=== PATIENT | male | born 1940 | race Caucasian/White ===

== ENCOUNTER 2016-08-28 | Outpatient (CLI) | payer MEDICARE, MEDICAID | END 2016-08-28 15:15 | disposition critical access hospital (66) | DX: R55 Syncope and collapse (principal) | CPT/HCPCS: A0425; A0427 ==

== ENCOUNTER 2016-08-28 15:36 | Emergency (ER) | payer MEDICARE, MEDICAID ==
[2016-08-28] MEDS ORDERED: MORPHINE 2 MG/ML SYRINGE IVP STA (15:57)
[2016-08-28] MEDS ORDERED: MORPHINE 2 MG/ML SYRINGE ONE (16:06)
== END 2016-08-28 18:23 | disposition home or self-care (01) ==
DX: R55 Syncope and collapse (principal); I10 Essential (primary) hypertension; M06.9 Rheumatoid arthritis, unspecified; M19.90 Unspecified osteoarthritis, unspecified site; N40.0 Benign prostatic hyperplasia without lower urinary tract symptoms; Z85.828 Personal history of other malignant neoplasm of skin; Z87.891 Personal history of nicotine dependence

== ENCOUNTER 2016-08-31 07:37 | Inpatient (IN) | payer MEDICARE, MEDICAID ==
[2016-08-31] MEDS ORDERED: SODIUM CHLORIDE 0.9% 1,000 ML IV ONE (07:56)
[2016-08-31] MEDS ORDERED: MORPHINE 2 MG/ML SYRINGE IVP STA ×3 (09:17→12:37)
[2016-08-31] MEDS ORDERED: ONDANSETRON 4 MG/2 ML VIAL IVP STA (09:17)
[2016-08-31] MEDS ORDERED: MORPHINE 2 MG/ML SYRINGE ONE ×3 (09:26→12:38)
[2016-08-31] MEDS ORDERED: ONDANSETRON 4 MG/2 ML VIAL ONE (09:26)
[2016-08-31] MEDS ORDERED: PIPERACILLIN/TAZOBACTAM 3.375 GM in SODIUM CHLORIDE 0.9% MINIBAG 100 ML IV SCH (14:00)
[2016-08-31] MEDS: SODIUM CHLORIDE 0.45% 1,000 ML IV SCH (14:51)
[2016-08-31] MEDS ORDERED: fentaNYL 25 MCG PATCH TOP SCH (15:00)
[2016-08-31] MEDS ORDERED: fentaNYL 100 MCG/2 ML VIAL IVP SCH (16:00)
[2016-08-31] MEDS ORDERED: LABETALOL 20 MG/4 ML SYRINGE IVP PRN (16:04)
[2016-08-31] MEDS ORDERED: MINERAL OIL 30 ML UDC PO PRN (16:33)
[2016-08-31] MEDS ORDERED: METHYLNALTREXONE 12 MG/0.6 ML VIAL SUBQ PRN (16:35)
[2016-08-31] MEDS ORDERED: PSYLLIUM PACKET PO PRN (16:47)
[2016-08-31] MEDS: SODIUM CHLORIDE FLUSH 0.9% 10 ML SYRINGE IVP SCH ×2 (17:12→22:32)
[2016-08-31] MEDS: SCOPOLAMINE PATCH TOP SCH (17:20)
[2016-08-31] MEDS: PANTOPRAZOLE 40 MG TABLET PO SCH (17:22)
[2016-08-31] MEDS: ONDANSETRON ODT 4 MG TABLET TL PRN (17:33)
[2016-08-31] MEDS ORDERED: predniSONE 5 MG TABLET PO ONE (17:34)
[2016-08-31] MEDS ORDERED: predniSONE 5 MG TABLET PO SCH (18:00)
[2016-08-31] MEDS ORDERED: predniSONE 1 MG TABLET PO SCH (18:00)
[2016-08-31] MEDS: PIPERACILLIN/TAZOBACTAM 3.375 GM in SODIUM CHLORIDE 0.9% MINIBAG 100 ML IV SCH ×2 (18:11→23:56)
[2016-08-31] MEDS: MORPHINE SOL 10 MG/0.5 ML SYRINGE PO PRN ×2 (19:10→22:47)
[2016-09-01] MEDS: MORPHINE SOL 10 MG/0.5 ML SYRINGE PO PRN ×6 (01:01→23:33)
[2016-09-01] MEDS: SODIUM CHLORIDE FLUSH 0.9% 10 ML SYRINGE IVP SCH ×3 (03:58→16:06)
[2016-09-01] MEDS: PANTOPRAZOLE 40 MG TABLET PO SCH (07:10)
[2016-09-01] MEDS ORDERED: diphenhydrAMINE INJ 50 MG/ML VIAL IVP PRN (07:46)
[2016-09-01] MEDS: SODIUM CHLORIDE FLUSH 0.9% 10 ML SYRINGE IVP PRN ×2 (08:25→13:09)
[2016-09-01] MEDS: PIPERACILLIN/TAZOBACTAM 3.375 GM in SODIUM CHLORIDE 0.9% MINIBAG 100 ML IV SCH ×3 (08:28→23:34)
[2016-09-01] MEDS ORDERED: POLYETHYLENE GLYCOL 3350 17 GM PACKET PO SCH (09:00)
[2016-09-01] MEDS ORDERED: DOCUSATE SODIUM 100 MG CAPSULE PO SCH (09:00)
[2016-09-01] MEDS ORDERED: predniSONE 1 MG TABLET PO SCH (10:00)
[2016-09-01] MEDS: SODIUM CHLORIDE 0.45% 1,000 ML IV SCH ×3 (12:45→23:38)
[2016-09-01] MEDS: ENOXAPARIN 40 MG/0.4 ML SYRINGE SUBQ SCH (14:16)
[2016-09-01] MEDS: ONDANSETRON ODT 4 MG TABLET TL PRN (14:46)
[2016-09-01] MEDS: PANTOPRAZOLE 40 MG VIAL IVP SCH (16:05)
[2016-09-01] MEDS: POLYETHYLENE GLYCOL 3350 17 GM PACKET PO SCH (17:19)
[2016-09-01] MEDS: diphenhydrAMINE INJ 50 MG/ML VIAL IVP PRN (20:49)
[2016-09-02] MEDS: MORPHINE SOL 10 MG/0.5 ML SYRINGE PO PRN ×3 (01:58→23:31)
[2016-09-02] MEDS: diphenhydrAMINE INJ 50 MG/ML VIAL IVP PRN ×2 (05:25→20:37)
[2016-09-02] MEDS: SODIUM CHLORIDE FLUSH 0.9% 10 ML SYRINGE IVP SCH ×3 (05:48→20:39)
[2016-09-02] MEDS: PANTOPRAZOLE 40 MG VIAL IVP SCH (06:13)
[2016-09-02] MEDS ORDERED: PANTOPRAZOLE 40 MG VIAL IVP SCH (07:00)
[2016-09-02] MEDS ORDERED: DOCUSATE SODIUM 100 MG CAPSULE PO SCH ×2 (08:00)
[2016-09-02] MEDS ORDERED: SENNA 8.6 MG TABLET PO SCH (08:00)
[2016-09-02] MEDS ORDERED: SENNA 528 MG/15 ML SYRUP PO PRN (08:10)
[2016-09-02] MEDS: PIPERACILLIN/TAZOBACTAM 3.375 GM in SODIUM CHLORIDE 0.9% MINIBAG 100 ML IV SCH ×3 (08:11→23:54)
[2016-09-02] MEDS: predniSONE 5 MG TABLET PO SCH (08:17)
[2016-09-02] MEDS: predniSONE 1 MG TABLET PO SCH (08:17)
[2016-09-02] MEDS: ENOXAPARIN 40 MG/0.4 ML SYRINGE SUBQ SCH (08:18)
[2016-09-02] MEDS: POLYETHYLENE GLYCOL 3350 17 GM PACKET PO SCH (08:19)
[2016-09-02] MEDS: OMEGA-3 ACID ETHYL ESTERS 1 GM CAPSULE PO SCH ×2 (08:35→20:38)
[2016-09-02] MEDS: ONDANSETRON ODT 4 MG TABLET TL PRN (08:35)
[2016-09-02] MEDS: DOCUSATE SODIUM 250 MG CAPSULE PO SCH ×2 (08:35→20:38)
[2016-09-02] MEDS ORDERED: SENNA 528 MG/15 ML SYRUP PO SCH (09:00)
[2016-09-02] MEDS ORDERED: SENNA 528 MG/15 ML SYRUP PO ONE (09:05)
[2016-09-02] MEDS: SENNA 528 MG/15 ML SYRUP PO SCH ×3 (12:13→20:37)
[2016-09-02] MEDS ORDERED: BISACODYL 10 MG SUPP PR ONE (15:00)
[2016-09-02] MEDS ORDERED: METHYLNALTREXONE 12 MG/0.6 ML VIAL SUBQ ONE (16:30)
[2016-09-02] MEDS ORDERED: MORPHINE 2 MG/ML SYRINGE IVP PRN (20:56)
[2016-09-03] MEDS: diphenhydrAMINE INJ 50 MG/ML VIAL IVP PRN ×2 (03:01→20:28)
[2016-09-03] MEDS: MORPHINE SOL 10 MG/0.5 ML SYRINGE PO PRN ×7 (04:12→22:33)
[2016-09-03] MEDS: SENNA 528 MG/15 ML SYRUP PO SCH ×4 (04:13→22:33)
[2016-09-03] MEDS: PANTOPRAZOLE 40 MG VIAL IVP SCH (06:18)
[2016-09-03] MEDS: SODIUM CHLORIDE FLUSH 0.9% 10 ML SYRINGE IVP SCH ×3 (06:18→23:53)
[2016-09-03] MEDS: PIPERACILLIN/TAZOBACTAM 3.375 GM in SODIUM CHLORIDE 0.9% MINIBAG 100 ML IV SCH ×2 (08:22→16:27)
[2016-09-03] MEDS: SODIUM CHLORIDE 0.45% 1,000 ML IV SCH ×2 (08:22→16:16)
[2016-09-03] MEDS ORDERED: LISINOPRIL 5 MG TABLET PO SCH (09:00)
[2016-09-03] MEDS ORDERED: fentaNYL 12 MCG PATCH TOP SCH (09:00)
[2016-09-03] MEDS ORDERED: fentaNYL 25 MCG PATCH TOP SCH (09:00)
[2016-09-03] MEDS: predniSONE 5 MG TABLET PO SCH (09:13)
[2016-09-03] MEDS: predniSONE 1 MG TABLET PO SCH (09:13)
[2016-09-03] MEDS: ENOXAPARIN 40 MG/0.4 ML SYRINGE SUBQ SCH (09:14)
[2016-09-03] MEDS: POLYETHYLENE GLYCOL 3350 17 GM PACKET PO SCH (09:29)
[2016-09-03] MEDS: OMEGA-3 ACID ETHYL ESTERS 1 GM CAPSULE PO SCH ×2 (09:32→21:52)
[2016-09-03] MEDS ORDERED: LABETALOL 20 MG/4 ML SYRINGE IVP PRN (09:50)
[2016-09-03] MEDS: SCOPOLAMINE PATCH TOP SCH (14:38)
[2016-09-03] MEDS: SODIUM CHLORIDE FLUSH 0.9% 10 ML SYRINGE IVP PRN ×2 (16:16→20:28)
[2016-09-04] MEDS: PIPERACILLIN/TAZOBACTAM 3.375 GM in SODIUM CHLORIDE 0.9% MINIBAG 100 ML IV SCH ×3 (00:04→17:26)
[2016-09-04] MEDS: MORPHINE SOL 10 MG/0.5 ML SYRINGE PO PRN ×4 (01:16→08:27)
[2016-09-04] MEDS: SENNA 528 MG/15 ML SYRUP PO SCH ×3 (03:32→17:26)
[2016-09-04] MEDS: diphenhydrAMINE INJ 50 MG/ML VIAL IVP PRN (03:38)
[2016-09-04] MEDS: ONDANSETRON ODT 4 MG TABLET TL PRN (03:50)
[2016-09-04] MEDS: PANTOPRAZOLE 40 MG VIAL IVP SCH (06:18)
[2016-09-04] MEDS: SODIUM CHLORIDE FLUSH 0.9% 10 ML SYRINGE IVP SCH ×2 (06:18→15:45)
[2016-09-04] MEDS: ENOXAPARIN 40 MG/0.4 ML SYRINGE SUBQ SCH (08:22)
[2016-09-04] MEDS: predniSONE 5 MG TABLET PO SCH (08:22)
[2016-09-04] MEDS: predniSONE 1 MG TABLET PO SCH (08:22)
[2016-09-04] MEDS: POLYETHYLENE GLYCOL 3350 17 GM PACKET PO SCH ×2 (08:23→17:27)
[2016-09-04] MEDS: OMEGA-3 ACID ETHYL ESTERS 1 GM CAPSULE PO SCH (08:23)
== END 2016-09-04 18:55 | disposition home or self-care (01) | DRG 312 ==
DX: R55 Syncope and collapse (principal); C77.0 Secondary and unspecified malignant neoplasm of lymph nodes of head, face and neck; K59.09 Other constipation; G89.3 Neoplasm related pain (acute) (chronic); E87.1 Hypo-osmolality and hyponatremia; C76.0 Malignant neoplasm of head, face and neck; C14.0 Malignant neoplasm of pharynx, unspecified; K59.03 Drug induced constipation; T40.2X5A Adverse effect of other opioids, initial encounter; F41.8 Other specified anxiety disorders; K04.7 Periapical abscess without sinus; K08.409 Partial loss of teeth, unspecified cause, unspecified class; C01 Malignant neoplasm of base of tongue; E86.0 Dehydration; M06.9 Rheumatoid arthritis, unspecified; I10 Essential (primary) hypertension; G47.00 Insomnia, unspecified; F32.9 Major depressive disorder, single episode, unspecified; F41.0 Panic disorder [episodic paroxysmal anxiety]; Z51.5 Encounter for palliative care; Z87.891 Personal history of nicotine dependence; Z79.52 Long term (current) use of systemic steroids

== ENCOUNTER 2016-09-09 09:51 | Outpatient (CLI) | payer MEDICARE, MEDICAID | END 2016-09-09 09:52 | disposition home or self-care (01) | DX: C02.9 Malignant neoplasm of tongue, unspecified (principal); C79.89 Secondary malignant neoplasm of other specified sites; Z79.891 Long term (current) use of opiate analgesic; R53.83 Other fatigue; F41.9 Anxiety disorder, unspecified; R51 Headache; Z79.52 Long term (current) use of systemic steroids; G47.00 Insomnia, unspecified; R63.4 Abnormal weight loss; K59.00 Constipation, unspecified ==

== ENCOUNTER 2016-09-16 11:18 | Outpatient (CLI) | payer MEDICARE, MEDICAID | END 2016-09-16 11:19 | disposition home or self-care (01) | DX: C01 Malignant neoplasm of base of tongue (principal); C79.89 Secondary malignant neoplasm of other specified sites; F41.1 Generalized anxiety disorder; F43.0 Acute stress reaction; R13.10 Dysphagia, unspecified; F32.9 Major depressive disorder, single episode, unspecified; R51 Headache; M06.9 Rheumatoid arthritis, unspecified; Z79.52 Long term (current) use of systemic steroids; K59.00 Constipation, unspecified; Z79.891 Long term (current) use of opiate analgesic; M54.2 Cervicalgia; E46 Unspecified protein-calorie malnutrition; Z51.5 Encounter for palliative care ==

== ENCOUNTER 2016-09-23 09:24 | Outpatient (CLI) | payer MEDICARE, MEDICAID | END 2016-09-23 09:25 | disposition home or self-care (01) | DX: Z51.5 Encounter for palliative care (principal); G89.3 Neoplasm related pain (acute) (chronic); C01 Malignant neoplasm of base of tongue; C79.89 Secondary malignant neoplasm of other specified sites; K59.00 Constipation, unspecified; E46 Unspecified protein-calorie malnutrition; F41.9 Anxiety disorder, unspecified; B37.0 Candidal stomatitis; Z79.891 Long term (current) use of opiate analgesic; Z93.1 Gastrostomy status; R13.10 Dysphagia, unspecified; E86.0 Dehydration; R51 Headache; R53.83 Other fatigue; G47.00 Insomnia, unspecified; R42 Dizziness and giddiness; R27.0 Ataxia, unspecified; Z95.828 Presence of other vascular implants and grafts; M06.9 Rheumatoid arthritis, unspecified; F33.9 Major depressive disorder, recurrent, unspecified ==

== ENCOUNTER 2016-09-30 08:21 | Outpatient (CLI) | payer MEDICARE, MEDICAID | END 2016-09-30 08:22 | disposition home or self-care (01) | DX: Z51.5 Encounter for palliative care (principal); G89.3 Neoplasm related pain (acute) (chronic); C01 Malignant neoplasm of base of tongue; C79.2 Secondary malignant neoplasm of skin; K59.00 Constipation, unspecified; E46 Unspecified protein-calorie malnutrition; F41.9 Anxiety disorder, unspecified; F32.9 Major depressive disorder, single episode, unspecified; R53.1 Weakness; R51 Headache; E86.0 Dehydration; M06.9 Rheumatoid arthritis, unspecified; Z79.891 Long term (current) use of opiate analgesic; Z95.828 Presence of other vascular implants and grafts; Z79.899 Other long term (current) drug therapy; Z93.1 Gastrostomy status ==

== ENCOUNTER 2016-10-07 12:50 | Outpatient (CLI) | payer MEDICARE, MEDICAID | END 2016-10-07 12:51 | disposition home or self-care (01) | DX: Z51.5 Encounter for palliative care (principal); C01 Malignant neoplasm of base of tongue; C79.2 Secondary malignant neoplasm of skin; G89.3 Neoplasm related pain (acute) (chronic); K59.00 Constipation, unspecified; E46 Unspecified protein-calorie malnutrition; F33.8 Other recurrent depressive disorders; F41.9 Anxiety disorder, unspecified; Z79.899 Other long term (current) drug therapy; Z79.891 Long term (current) use of opiate analgesic; Z93.1 Gastrostomy status; R13.10 Dysphagia, unspecified; M06.9 Rheumatoid arthritis, unspecified ==

== ENCOUNTER 2016-10-14 09:37 | Outpatient (CLI) | payer MEDICARE, MEDICAID | END 2016-10-14 09:38 | disposition home or self-care (01) | DX: Z51.5 Encounter for palliative care (principal); G89.3 Neoplasm related pain (acute) (chronic); K59.00 Constipation, unspecified; E46 Unspecified protein-calorie malnutrition; F33.9 Major depressive disorder, recurrent, unspecified; F41.9 Anxiety disorder, unspecified; C01 Malignant neoplasm of base of tongue; C79.89 Secondary malignant neoplasm of other specified sites; Z79.891 Long term (current) use of opiate analgesic; Z79.899 Other long term (current) drug therapy; Z93.1 Gastrostomy status; R51 Headache; M06.9 Rheumatoid arthritis, unspecified; D64.9 Anemia, unspecified ==

== ENCOUNTER 2016-10-19 10:36 | Emergency (ER) | payer MEDICARE, MEDICAID ==
[2016-10-19] MEDS ORDERED: ONDANSETRON 4 MG/2 ML VIAL IVP STA (11:51)
[2016-10-19] MEDS ORDERED: SODIUM CHLORIDE 0.9% 1,000 ML IV ONE ×3 (11:51→14:16)
[2016-10-19] MEDS ORDERED: ONDANSETRON 4 MG/2 ML VIAL ONE (11:52)
== END 2016-10-19 14:49 | disposition home or self-care (01) ==
DX: E86.0 Dehydration (principal); M62.81 Muscle weakness (generalized); I10 Essential (primary) hypertension; M06.9 Rheumatoid arthritis, unspecified; Z93.1 Gastrostomy status; Z87.891 Personal history of nicotine dependence

== ENCOUNTER 2016-10-24 08:56 | Outpatient (CLI) | payer MEDICARE, MEDICAID | END 2016-10-24 08:57 | disposition home or self-care (01) | DX: Z51.5 Encounter for palliative care (principal); G89.3 Neoplasm related pain (acute) (chronic); C01 Malignant neoplasm of base of tongue; C79.89 Secondary malignant neoplasm of other specified sites; K59.00 Constipation, unspecified; E46 Unspecified protein-calorie malnutrition; F32.89 Other specified depressive episodes; F41.9 Anxiety disorder, unspecified; R53.83 Other fatigue; Z93.1 Gastrostomy status; Z79.891 Long term (current) use of opiate analgesic ==

== ENCOUNTER 2016-10-28 19:40 | Observation (INO) | payer MEDICARE, MEDICAID ==
[2016-10-28] MEDS ORDERED: SODIUM CHLORIDE 0.9% 1,000 ML IV ONE (20:21)
[2016-10-28] MEDS ORDERED: ONDANSETRON 4 MG/2 ML VIAL IVP STA (20:21)
[2016-10-28] MEDS ORDERED: MORPHINE 10 MG/ML VIAL IVP STA (20:21)
[2016-10-28] MEDS ORDERED: ONDANSETRON 4 MG/2 ML VIAL ONE (20:46)
[2016-10-28] MEDS ORDERED: MORPHINE 10 MG/ML VIAL ONE (20:46)
[2016-10-28] MEDS ORDERED: MAGNESIUM SULFATE 2 GRAM 50 ML IV ONE ×2 (21:17→21:24)
[2016-10-28] MEDS ORDERED: CALCIUM GLUCONATE 1000 MG/10 ML VIAL IVP STA (21:17)
[2016-10-28] MEDS ORDERED: MORPHINE SOL 10 MG/0.5 ML SYRINGE PO PRN (22:04)
[2016-10-28] MEDS ORDERED: ACETAMINOPHEN 325 MG TABLET PO PRN (22:06)
[2016-10-28] MEDS ORDERED: ONDANSETRON 4 MG/2 ML VIAL IVP PRN (22:06)
[2016-10-28] MEDS ORDERED: SODIUM CHLORIDE FLUSH 0.9% 10 ML SYRINGE IVP PRN (22:06)
[2016-10-28] MEDS ORDERED: PROMETHAZINE 25 MG/1 ML VIAL IM PRN (22:06)
[2016-10-28] MEDS ORDERED: FENTANYL 50 MCG TD SCH (22:15)
[2016-10-28] MEDS ORDERED: fentaNYL 50 MCG PATCH TOP SCH (23:00)
[2016-10-28] MEDS ORDERED: SENNA 528 MG/15 ML SYRUP PO SCH (23:00)
[2016-10-28] MEDS ORDERED: fentaNYL 25 MCG PATCH TOP SCH (23:00)
[2016-10-28] MEDS ORDERED: CALCIUM GLUCONATE 1000 MG/10 ML VIAL ONE (23:13)
[2016-10-29] MEDS ORDERED: fentaNYL 50 MCG PATCH TOP SCH (00:16)
[2016-10-29] MEDS: SODIUM CHLORIDE 0.9% 1,000 ML IV SCH ×2 (00:36→05:18)
[2016-10-29] MEDS ORDERED: MORPHINE 2 MG/ML SYRINGE ONE (00:43)
[2016-10-29] MEDS: MORPHINE 2 MG/ML SYRINGE IVP PRN ×4 (00:47→08:51)
[2016-10-29] MEDS: PROCHLORPERAZINE 10 MG/2 ML VIAL IVP PRN ×2 (01:08→11:00)
[2016-10-29] MEDS ORDERED: MAGNESIUM SULFATE 2 GRAM 50 ML IV SCH (01:17)
[2016-10-29] MEDS: SODIUM CHLORIDE FLUSH 0.9% 10 ML SYRINGE IVP SCH ×2 (05:18→08:51)
[2016-10-29] MEDS ORDERED: SODIUM CHLORIDE FLUSH 0.9% 10 ML SYRINGE IVP PRN (06:23)
[2016-10-29] MEDS ORDERED: PANTOPRAZOLE 40 MG TABLET PO SCH (07:00)
[2016-10-29] MEDS ORDERED: ENOXAPARIN 40 MG/0.4 ML SYRINGE SUBQ SCH (09:00)
[2016-10-29] MEDS ORDERED: POLYETHYLENE GLYCOL 3350 17 GM PACKET PO SCH ×2 (09:00)
[2016-10-29] MEDS ORDERED: SODIUM CHLORIDE 0.9% 1,000 ML IV SCH (10:00)
[2016-10-29] MEDS ORDERED: MIRTAZAPINE 15 MG TABLET PO SCH (21:00)
== END 2016-10-29 12:00 | disposition home or self-care (01) ==
DX: E86.1 Hypovolemia (principal); E86.0 Dehydration; E87.1 Hypo-osmolality and hyponatremia; E43 Unspecified severe protein-calorie malnutrition; C01 Malignant neoplasm of base of tongue; C77.0 Secondary and unspecified malignant neoplasm of lymph nodes of head, face and neck; K12.33 Oral mucositis (ulcerative) due to radiation; T21.01XA Burn of unspecified degree of chest wall, initial encounter; T20.07XA Burn of unspecified degree of neck, initial encounter; Y84.2 Radiological procedure and radiotherapy as the cause of abnormal reaction of the patient, or of later complication, without mention of misadventure at the time of the procedure; E83.42 Hypomagnesemia; G89.3 Neoplasm related pain (acute) (chronic); I10 Essential (primary) hypertension; M06.9 Rheumatoid arthritis, unspecified; F32.9 Major depressive disorder, single episode, unspecified; F41.9 Anxiety disorder, unspecified; Z79.891 Long term (current) use of opiate analgesic; Z87.891 Personal history of nicotine dependence; Z93.1 Gastrostomy status; Z68.24 Body mass index [BMI] 24.0-24.9, adult; Z79.52 Long term (current) use of systemic steroids; Z95.828 Presence of other vascular implants and grafts
CPT/HCPCS: 36415; 80048; 80053; 81003; 83605; 83690; 83735; 84100; 85025; 96361; 96365; 96372; 96375; 96376; 99283; 99285; A9270; G0378; J1650

== ENCOUNTER 2016-10-30 02:22 | Inpatient (IN) | payer MEDICARE, MEDICAID ==
--- NOTE | 2016-10-30 03:00 | ED Physician Documentation ---
PD HPI DYSPNEA - Stated complaint Stated Complaint: SHORTNESS OF BREATH - Chief complaint Chief Complaint: Resp - History obtained from History obtained from: Patient, Family - History of Present Illness Timing - onset: Today Timing - onset during: Rest Timing - duration: Hours Timing - details: Gradual onset, Still present Inciting event(s): Other (is undergoing radiation therapy for tongue cancer.) - Additional information Additional information: 76 y/o male with tongue and throat cancer has developed increased difficulty breathing with thick secretions and he has developed fever and confusion. He was in the hospital yesterday for treatment of hyponatremia and dehydration. Review of Systems Constitutional: reports: Fever, Myalgias, Fatigue, Sweats Eyes: denies: Decreased vision Ears: denies: Ear pain Nose: reports: Congestion Throat: reports: Sore throat Cardiac: denies: Chest pain / pressure, Palpitations Respiratory: reports: Dyspnea, Cough GI: reports: Nausea. denies: Abdominal Pain : denies: Dysuria, Frequency Skin: denies: Rash Musculoskeletal: reports: Neck pain Neurologic: reports: Generalized weakness. denies: Focal weakness, Numbness PD PAST MEDICAL HISTORY - Past Medical History Cardiovascular: Hypertension, Arrhythmia Respiratory: Shortness of breath Neuro: Headache/migraine Endocrine/Autoimmune: None GI: Hiatal hernia, Chronic constipation, Other : Benign prostate hypertrophy, Frequency, Kidney stones HEENT: Chronic sinusitis Psych: Depression, Anxiety, Claustrophobia Musculoskeletal: Rheumatoid arthritis, Osteoporosis, Fatigue Derm: Herpes zoster - Past Surgical History Past Surgical History: Yes General: Cholecystectomy, Appendectomy, Hiatal hernia repair HEENT: Cataracts, Tonsil/Adenoidectomy - Present Medications Home Medications: Ambulatory Orders Medication Instructions Recorded Confirmed Morphine Sulfate [Morphine Sulf 5 mg PO Q2H PRN #60 ml 09/04/16 10/29/16 Oral (Roxanol)] Ondansetron Odt [Zofran Odt] 4 mg TL Q6HR PRN #30 tablet 09/04/16 10/29/16 Polyethylene Glycol 3350 [Miralax] 34 gm PO BID #1 bottle 09/04/16 10/19/16 Senna Kibler Extract [Senna] 176 mg PO Q4H #100 syrup 09/04/16 10/19/16 Fentanyl [Fentanyl 50mcg patch] 25 mcg TD Q72H 09/11/16 10/29/16 Acetaminophen 1,000 mg PO TID 09/30/16 10/19/16 Mirtazapine 15 mg PO QPM 10/01/16 10/29/16 Fentanyl [Fentanyl 75mcg patch] 50 mcg TD Q72H 10/11/16 10/29/16 predniSONE [Deltasone] 7.5 mg PO DAILY 10/14/16 10/29/16 Lorazepam 0.5 mg PO Q6H PRN 10/29/16 10/29/16 - Allergies Allergies/Adverse Reactions: Allergies Allergy/AdvReac Type Severity Reaction Status Date / Time infliximab [From Remicade] Allergy Severe Anaphylaxis Verified 08/31/16 16:08 abatacept [From Orencia] Allergy Unknown Unknown Verified 08/31/16 16:08 sodium pentathol Allergy Intermediate Hives Uncoded 11/26/12 07:55 - Social History Does the pt smoke?: No Smoking Status: Former smoker Does the pt drink ETOH?: Yes Does the pt have substance abuse?: No - Immunizations Immunizations are current?: Yes Immunizations: TDAP >10years/unknown PD ED PE NORMAL - Vitals Vital signs reviewed: Yes (febrile tachy tachypneic and hypertensive) - General General: Well developed/nourished, Other (The patient is having a lot of upper airway obstruction with rhoncherous breathing he is red from the mid face to the mid chest with radiation young and mass in the left side of the face. ) - HEENT HEENT: PERRL, EOMI, Other (There are thick mucous secreations in the mouth and on the tongue with abrasion to the roof of the mouth from the suctioning. ) - Neck Neck: Supple, no meningeal sign, No bony TTP, Other (The neck is burned from radiation. ) - Cardiac Cardiac: No murmur, Other (tachy at 120) - Respiratory Respiratory: Other (respiratory distress with loud rhoncherous breathing transmitted to all lung luciano ) - Abdomen Abdomen: Soft, Non tender, Other (G-tube without signs of inflamtion or drainage. ) - Back Back: No CVA TTP, No spinal TTP - Derm Derm: Warm and dry, No rash - Extremities Extremities: No deformity, No edema - Neuro Neuro: No motor deficit, No sensory deficit - Psych Psych: Other (mood is anxoius and affect is flat ) Results - Vitals Vitals: Vital Signs - 24 hr 10/30/16 10/30/16 02:27 04:23 Temperature 38.1 C H Heart Rate 125 H 137 H Respiratory 28 H 24 Rate Blood Pressure 164/96 H 146/89 H O2 Saturation 95 95 Oxygen O2 Source Room air - Labs Labs: Laboratory Tests 10/30/16 10/30/16 10/30/16 03:15 03:15 04:04 WBC 2.5 L RBC 3.05 L Hgb 9.2 L Hct 27.2 L MCV 89.1 MCH 30.2 MCHC 33.9 RDW 15.8 H Plt Count 236 MPV 6.7 L Neut # 1.1 L Lymph # 0.6 L [place] # 0.8 Eos # 0.0 Baso # 0.0 Absolute Nucleated RBC 0.01 Nucleated RBCs 0.4 Manual Slide Review Indicated Platelet Estimate NORMAL (130-450,000) Platelet Morphology NORMAL APPEARANCE RBC Morph Micro Appear 1+ MACROCYTOSIS Sodium 126 L Potassium 3.8 Chloride 89 L Carbon Dioxide 27 Anion Gap 10.0 BUN 19 Creatinine 0.5 L Estimated GFR (MDRD) 162 Glucose 161 H Lactic Acid 0.8 Calcium 7.8 L Total Bilirubin 0.3 AST 25 ALT 33 Alkaline Phosphatase 77 Total Protein 6.2 L Albumin 2.5 L Globulin 3.7 Albumin/Globulin Ratio 0.7 L Lipase 18 L Urine Color Urine Clarity Urine pH Ur Specific [place] Urine Protein Urine Glucose (UA) Urine Ketones Urine Occult Blood Urine Nitrite Urine Bilirubin Urine Urobilinogen Ur Leukocyte Esterase Ur Microscopic Review Urine Culture Comments 10/30/16 04:20 WBC RBC Hgb Hct MCV MCH MCHC RDW Plt Count MPV Neut # Lymph # [place] # Eos # Baso # Absolute Nucleated RBC Nucleated RBCs Manual Slide Review Platelet Estimate Platelet Morphology RBC Morph Micro Appear Sodium Potassium Chloride Carbon Dioxide Anion Gap BUN Creatinine Estimated GFR (MDRD) Glucose Lactic Acid Calcium Total Bilirubin AST ALT Alkaline Phosphatase Total Protein Albumin Globulin Albumin/Globulin Ratio Lipase Urine Color YELLOW Urine Clarity CLEAR Urine pH 6.5 Ur Specific [place] 1.010 Urine Protein TRACE Urine Glucose (UA) NEGATIVE Urine Ketones NEGATIVE Urine Occult Blood NEGATIVE Urine Nitrite NEGATIVE Urine Bilirubin NEGATIVE Urine Urobilinogen 1 (NORMAL) Ur Leukocyte Esterase NEGATIVE Ur Microscopic Review NOT INDICATED Urine Culture Comments NOT INDICATED - Rads (name of study) 2 view chest Radiology: Prelim report reviewed (Impression: Small hazy and patchy indistinct bibasilar densities. These may be due to atelectasis, aspiration, and/or pneumonia.), EMP read indepedently, See rad report Procedures - IVC sono (time) 0250 Bedside IVC sono: IVC measures (cm) (1.34), IVC collapsed c insp (cm) (complete) , Dehydration PD MEDICAL DECISION MAKING - ED course ED course: returns today with increasing difficulty with secretions and trouble breathing. He is brought to the hospital by his and she is concerned because he appears confused and on arrival he is noted to have a fever today. He has pnemonia on CXR and he is again dehydrated. He is give IV saline and decadron and has some improvement. Departure - Departure Disposition: 66 [facility] DC/Xfer Clinical Impression: Dehydration Pneumonia Qualifiers: Pneumonia type: due to unspecified organism Laterality: bilateral Lung location : lower lobe of lung Qualified Code(s): J18.9 - Pneumonia, unspecified organism Condition: Serious
[2016-10-30] MEDS ORDERED: DEXAMETHASONE 10 MG/ML VIAL IVP STA (03:03)
[2016-10-30] MEDS ORDERED: SODIUM CHLORIDE 0.9% 1,000 ML IV ONE ×2 (03:03→04:55)
[2016-10-30] MEDS ORDERED: DEXAMETHASONE 10 MG/ML VIAL ONE (03:16)
[2016-10-30 03:27] LABS: BASOPHILS % (AUTO) 0.4 %; EOSINOPHILS % (AUTO) 0.5 %; HCT - HEMATOCRIT 27.2 % (42.0-52.0); HGB - HEMOGLOBIN 9.2 g/dL (14.0-18.0); LYMPHOCYTES # (AUTO) 0.6 10^3/uL (1.5-3.5); LYMPHOCYTES % (AUTO) 22.5 %; MEAN CORPUSCULAR HEMOGLOBIN 30.2 pg (27.0-31.0); MEAN CORPUSCULAR HGB CONC 33.9 g/dL (32.0-36.0); MEAN CORPUSCULAR VOLUME 89.1 fL (80.0-94.0); MEAN PLATELET VOLUME 6.7 fL (7.4-11.4); MONOCYTES # (AUTO) 0.8 10^3/uL (0.0-1.0); MONOCYTES % (AUTO) 33.3 %; NEUTROPHILS # (AUTO) 1.1 10^3/uL (1.5-6.6); NEUTROPHILS % (AUTO) 43.3 %; NUCLEATED RED BLOOD CELLS AUTO 0.4 /100WBC; RED BLOOD COUNT 3.05 10^6/uL (4.70-6.10); RED CELL DISTRIBUTION WIDTH 15.8 % (12.0-15.0); UNCORRECTED WHITE BLOOD COUNT 2.5 x10^3/uL; WHITE BLOOD COUNT 2.5 x10^3/uL (4.8-10.8)
[2016-10-30 03:35] LABS: ALBUMIN/GLOBULIN RATIO 0.7 (1.0-2.2); BILIRUBIN,TOTAL 0.3 mg/dL (0.2-1.0); CALCIUM 7.8 mg/dL (8.5-10.3); CREATININE 0.5 mg/dL (0.6-1.2); POTASSIUM 3.8 mmol/L (3.5-5.0); TOTAL PROTEIN 6.2 g/dL (6.7-8.2)
[2016-10-30 03:56] LABS: PLATELET ESTIMATE, MANUAL NORMAL (130-450,000) (NORMAL); PLATELET MORPHOLOGY NORMAL APPEARANCE (NORMAL)
--- NOTE | 2016-10-30 04:07 | XRAY Preliminary Report ---
Exam: XR Chest 2 View PA/LAT IMPRESSION: Small hazy and patchy indistinct bibasilar densities. These may be due to atelectasis, as piration, and/or pneumonia. [facility] SITE ID: [id number]
--- NOTE | 2016-10-30 04:10 | XRAY Report ---
EXAM: CHEST RADIOGRAPHY EXAM DATE: 10/30/2016 03:49 AM. CLINICAL HISTORY: Dyspnea, fever, shortness of breath. COMPARISON: 10/19/2016. TECHNIQUE: 2 views. FINDINGS: Lungs/Pleura: Subtle patchy hazy medial basilar densities bilaterally. There is mild central pulmonar y vascular congestion. No definite pneumothorax or large effusion. Mediastinum: There is mild enlargement of the cardiac liver. Other: Left-sided Port-A-Cath device tip projects at the cavoatrial junction. IMPRESSION: Small hazy and patchy indistinct bibasilar densities. These may be due to atelectasis, as piration, and/or pneumonia. [facility] Referring Provider Line: [phone] SITE ID: [id number]
[2016-10-30 04:33] LABS: BILIRUBIN,URINE NEGATIVE (NEGATIVE); PH,URINE 6.5 PH (5.0-7.5); UA CHARGE (STRIP ONLY) YES; UR CULTURE IF IND NOT INDICATED
[2016-10-30] MEDS ORDERED: ONDANSETRON 4 MG/2 ML VIAL IVP PRN (04:45)
[2016-10-30] MEDS ORDERED: PROCHLORPERAZINE 10 MG/2 ML VIAL IVP PRN (04:45)
[2016-10-30] MEDS ORDERED: LORazepam 0.5 MG TABLET PO PRN (04:45)
[2016-10-30] MEDS ORDERED: FENTANYL 50 MCG TD SCH (04:45)
[2016-10-30] MEDS ORDERED: LEVALBUTEROL 1.25 MG INH PRN (04:45)
[2016-10-30] MEDS ORDERED: PROMETHAZINE 25 MG/1 ML VIAL IM PRN (04:45)
[2016-10-30] MEDS ORDERED: ACETAMINOPHEN 1,000 MG/100 ML 100 ML IV STA (04:54)
--- NOTE | 2016-10-30 06:22 | HISTORY & PHYSICAL EXAMINATION ---
DATE OF ADMISSION: 10/30/2016 PRIMARY CARE PHYSICIAN: Kike Zhu MD. ADMITTING PHYSICIAN: Tony Gamez MD. CHIEF COMPLAINT: Shortness of air. 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 He also has a history of hypertension, not currently on any medications, depres christian, anxiety, and rheumatoid arthritis and presented to the emergency department with a chief compla int of shortness of air. The patient was just hospitalized 1 day ago for severe dehydration and hypon atremia. The patient was given IV fluids. He seemed to have improved and was discharged in the [facility] on 10/29/2016, so that he could go to radiation. The patient underwent radiation on 10/29/2016. Aft er radiation, the patient was very weak and during the night began to develop increasing mucus and se cretions in his upper airway and increasing cough with increasing shortness of air. The patient becam e very short of air to a point where his finally decided to bring him into the emergency departm ent. The patient's states that in all of his difficulty breathing and shortness of air, he appea red to be somewhat confused. she stated that she told him she was bringing him into the hospital. He did not seem to understand what was going on. She is not sure if this was maybe because of him having a fever. The patient otherwise denies any headaches, blurred vision, runny nose. He have lots of annie n in his throat and mouth from mucositis. He denies any chest pain. Denies any orthopnea, PND or lowe r extremity swelling. He denies any abdominal pain, nausea, vomiting, diarrhea or constipation. He de nies any increased lower extremity swelling. He denies any joint pain, muscle aches, back pain, neck stiffness. The patient denies any focal neurologic deficits. He denies any urinary urgency, frequency , dysuria. The patient has been using a PEG tube for feeding and has lost a significant amount of christiano ght during his treatment. On presentation to the emergency department, the patient was febrile with a temperature of 38.1. He i s tachycardic in the 120s to 130s, he was slightly hypertensive. He was tachypneic with a respiratory rate in the high 20s-30s. He was, however, saturating well on room air. The patient had a large amou nt of secretions that needed to be suctioned with deep suction in the emergency department. He contin ued to have secretions, which were making it difficult for him to breathe. The patient had routine la b work, which revealed a white blood cell count of 2.5, which was decreased from his most recent bloo d draw from the day before. He had a stable hemoglobin of 9.2 and a sodium of 126, which was improved from when he arrived in the hospital yesterday. The patient did not have an elevated lactic acid. Hi s glucose was slightly elevated. The remainder of electrolytes were within normal limits. The patient 's UA was negative. The patient underwent a chest x-ray in the emergency department, which revealed s mall hazy and patchy indistinct bibasilar densities, which were concerning for pneumonia. Given the chaparrita cabrera's clinical presentation with shortness of air and sepsis, the patient was admitted to the hosp [facility] for healthcare-associated pneumonia. PAST MEDICAL HISTORY 1. Stage IVB squamous cell carcinoma in the right base of the tongue with large metastatic adenopathy . The patient was undergoing concurrent chemotherapy and radiation, which was started on 08/19/2016. He received 5 weeks of treatment with chemotherapy and radiation, which was completed on 11/13/2016. He now has 5 sessions of just radiation remaining. He received his last session of radiation on 10/29. 2. Radiation mucositis. 3. Rheumatoid arthritis. 4. Hypertension. 5. Anxiety. 6. Depression. 7. History of gastric ulcer. 8. History of tonsillectomy. 9. History of appendectomy. 10. History of cholecystectomy. HOME MEDICATIONS 1. Prednisone 7.5 mg p.o. daily. 2. Senna extract 175 mg p.o. q.4 hours. 3. MiraLax 34 grams p.o. b.i.d. 4. Zofran oral dissolvable tablet 4 mg p.o. q.6h. p.r.n. for nausea. 5. Roxanol 5 mg p.o. q.2h. p.r.n. for pain. 6. Mirtazapine 7.5 mg p.o. q.p.m. 7. Fentanyl patch 75 mcg patch and 50 mcg patch placed topically q.72 hours. 8. Benadryl itch stopping cream 28.3 grams topically 1-2 times a day p.r.n. for itching. 9. Tylenol 1000 mg p.o. t.i.d. ALLERGIES 1. REMICADE. 2. ORENCIA. 3. SODIUM PENTOTHAL. SOCIAL HISTORY: The patient is . He lives with his . He reports that he smoked until 1983. He used to drink alcohol socially, but quit 4 years ago. He recently tried medicinal marijuana for p ain in his throat and neck; however, he said it did not work. He has not used it in over a month. FAMILY HISTORY: The patient denies any family history of cancer, heart disease, or diabetes. CODE STATUS: THE PATIENT IS FULL CODE; HOWEVER, HE DID STATE THAT HE WOULD DISCUSS THINGS FURTHER WIT H HIS , GIVEN HIS DECLINING STATUS. REVIEW OF SYSTEMS: A comprehensive review of systems was performed. The pertinent positives and negat andrés are stated above in the HPI. The remainder of the review of systems is negative. PHYSICAL EXAMINATION VITAL SIGNS: Temperature 38.1, heart rate 137, blood pressure 146/89, respiratory rate 26, O2 saturat ion 95% on room air. GENERAL: The patient does appear to be in some mild to moderate distress. He is slightly restless, mo ving from side to side and appears to be very tachypneic. He has very obvious upper airway secretions that are quite noisy with significant rhonchorous breath sounds that are audible without stethoscope . HEENT: Pupils are equal and reactive to light. Extraocular muscles are intact. Mucous membranes are v romeo dry with obvious mucositis. There is no conjunctival pallor or scleral icterus noted. NECK: The patient has a large swollen neck from tumor. He has young from his radiation on the neck. O therwise, his trachea is midline. There is no JVD noted. LYMPH NODES: The patient has enlarged cervical lymph nodes, which are hard, but nontender. There is n o axillary lymphadenopathy noted. CARDIOVASCULAR: S1, S2, tachycardic. No murmurs, rubs, or gallops. LUNGS: The patient has decreased lung sounds at the bases. There is a tremendous amount of upper airw ay rhonchi heard bilaterally. The patient is tachypneic, using accessory muscles of breathing. He is in some respiratory distress. ABDOMEN: Soft, nontender, nondistended. Bowel sounds are present in all 4 quadrants. EXTREMITIES: The patient does not have any lower extremity edema. Peripheral pulses are palpable. The re is no cyanosis or clubbing noted. MUSCULOSKELETAL: The patient has good range of motion. No joint tenderness, no joint effusions. SKIN: The patient has severe radiation young on his chest wall and neck. There is no other rash, lesi ons, or cellulitis noted. NEUROLOGIC: The patient is alert, oriented x3. Cranial nerves 2-12 grossly intact. Strength is grossl y normal. Sensations are intact. LABORATORY: WBC 2.5, hemoglobin 9.2, hematocrit 27.2, platelet count 236. Sodium 126, potassium 3.8, chloride 89, carbon dioxide 27, BUN 19, creatinine 0.5, glucose 161, lactic acid 0.8, calcium 7.8, to farn bilirubin 0.3, AST 25, ALT 33, alkaline phosphatase 77, total protein 6.2, albumin 2.5, lipase 18 . UA negative. IMAGING: Chest x-ray, impression: Small hazy and patchy indistinct bibasilar densities. These may be due to atelectasis, aspiration and/or pneumonia. ASSESSMENT AND PLAN: The patient is a 76-year-old gentleman with a past medical history significant f or squamous cell carcinoma of the right base of the tongue with large metastatic adenopathy and radia tion mucositis who has been undergoing chemo and radiation therapy, just had a radiation [facility] 10[facility], and then post-radiation the patient developed worsening upper airway secretions wi th increasing shortness of breath. On presentation, the patient was febrile, tachycardic, and tachypn eic with leukopenia, and according to the patient's , he was having some changes in his mentation at home. The patient was found to be septic. Chest x-ray showed a bibasilar pneumonia, so the patien t was admitted for healthcare-associated pneumonia. 1. Sepsis. The patient presented with 4/4 systemic inflammatory response syndrome (SIRS), he was febr ile up to 38.1, tachycardic in the 120s-130s, tachypneic with a respiratory rate of the high 20s-30s. The patient had a white blood cell count of 2.5. The patient also had some altered mental status mayank or to arrival to the emergency department. This did seem to clear up with some IV fluids and treatmen t in the ER. The patient's sepsis is thought to be secondary to healthcare-associated pneumonia, as h is chest x-ray showed bibasilar infiltrates. PLAN: The patient will be given IV fluids, antibiotics, Tylenol for fever. The patient will be treate d for healthcare-associated pneumonia with Zosyn and Levaquin. The patient will be given oxygen as ne eded and deep suctioning as needed. We will continue to monitor the patient. He is immunocompromised. Therefore, he is at high risk of worsening infection and of resistant pathogens. The patient did und ergo blood cultures prior to getting antibiotics. We will also get a sputum culture and Gram stain. 2. Healthcare associated pneumonia. The patient presented with tachypnea and was febrile. His chest x -ray showed bibasilar infiltrates. He was in respiratory distress on presentation, had a large amount of secretions in his upper airways and had rhonchi on examination. The patient has been receiving ch emotherapy and was just hospitalized yesterday. He is being treated for healthcare-associated pneumon ia given his immunocompromised state. PLAN: The patient will be treated with IV Zosyn and Levaquin. This will treat for aspiration pneumoni a, as well as healthcare-associated pneumonia and we will treat for possible pseudomonas. The patient will be given IV fluids. We will give him on Xopenex as needed. He will get probiotics. We will give him oxygen as needed. He will also get deep suctioning as needed. We are hoping the patient will hav e improvement over the next several days in the hospital. 3. Hyponatremia. The patient does present with hyponatremia, sodium is 126. He again appears dehydrat ed. He was just hospitalized yesterday for severe dehydration. It appears after his radiation therapy today and now with the development of sepsis and infection, he is further dehydrated. We will give h im IV fluids and continue to monitor his sodium. He does appear to have hypovolemic hyponatremia. 4. Squamous cell carcinoma of the right base of the tongue with large metastatic adenopathy. The elaine ent has completed chemotherapy and is undergoing the last 5 days of radiation therapy. The patient di d get radiation therapy yesterday; however, he states he does not feel up to doing any further radiat ion therapy at this time. We will put the radiation therapy on hold until the patient has recovered f rom this pneumonia. We will inform the [facility] [place] in the morning that the patient will not be making radiation therapy today. The patient does have severe pain from his radiation mucositis and head and neck cancer. He was being treated with fentanyl patches and p.o. morphine. We will continue these med ications and add IV morphine if needed to his home regimen. 5. Protein-calorie malnutrition. The patient has severe protein calorie malnutrition secondary to his head and neck cancer. The patient is currently on PEG tube feedings. We will continue him on his dannielle e Jevity feedings. We will consult nutrition for further recommendations. 6. Rheumatoid arthritis. The patient has a history of rheumatoid arthritis. He does not appear to be having a flare at this time. He is on prednisone. We will continue his home daily dose of prednisone. 7. Venous thromboembolism prophylaxis. The patient will be placed on Lovenox for VTE prophylaxis. The patient is expected to be hospitalized for greater than 2 midnights. JOB #: [id number] EXT JOB #:[id number]
[2016-10-30] MEDS: MORPHINE SOL 10 MG/0.5 ML SYRINGE PO PRN ×5 (07:00→23:44)
[2016-10-30] MEDS: SODIUM CHLORIDE FLUSH 0.9% 10 ML SYRINGE IVP SCH ×3 (07:25→21:12)
[2016-10-30] MEDS: FAMOTIDINE 20 MG/50 ML 50 ML IV SCH (09:12)
[2016-10-30] MEDS: POLYETHYLENE GLYCOL 3350 17 GM PACKET PO SCH (09:12)
[2016-10-30] MEDS: SODIUM CHLORIDE 0.9% 1,000 ML IV SCH ×3 (09:12→17:39)
[2016-10-30] MEDS: ENOXAPARIN 40 MG/0.4 ML SYRINGE SUBQ SCH (09:13)
[2016-10-30] MEDS: predniSONE 5 MG TABLET PO SCH (09:13)
[2016-10-30] MEDS: SACCHAROMYCES BOULARDII 250 MG CAPSULE PO SCH ×2 (09:13→17:30)
[2016-10-30] MEDS: MORPHINE 2 MG/ML SYRINGE IVP PRN ×5 (09:17→19:24)
[2016-10-30] MEDS: PIPERACILLIN/TAZOBACTAM 4.5 GM in SODIUM CHLORIDE 0.9% MINIBAG 100 ML IV SCH ×3 (10:36→21:16)
[2016-10-30] MEDS ORDERED: MIN OIL/DIMETHICON/COCONUT OIL 92 GM TUBE TOP ONE (10:41)
--- NOTE | 2016-10-30 16:38 | PROVIDER PROGRESS NOTE ---
Subjective - Prog Note Date Prog Note Date: 10/30/16 Prog Note Time: 16:30 (seen ~ 8am) - Subjective Subjective: (note late entry from exam ~8am, seen again ~ 6pm notes patient looking better, patient indicates he just wants to sleep , wants us to stop talking Patient denies shortness of breath, Sa02 on RA just checked by AUTO COLLISION REPAIR INSTRUCTOR ~ 94. Current Medications - Current Medications Current Medications: Active Medications Generic Name Dose Route Start Last Admin Trade Name Freq PRN Reason Stop Dose Admin Acetaminophen 650 mg 10/30/16 04:45 Tylenol PO Q4HR PRN Pain 1 to 4 Enoxaparin Sodium 40 mg 10/30/16 09:00 10/30/16 09:13 Lovenox SUBQ 40 mg DAILY PATRIZIA Administration Fentanyl 1 patch 11/01/16 09:00 Duragesic TOP Q72H PATRIZIA Fentanyl 1 patch 11/01/16 09:00 Duragesic TOP Q72H PATRIZIA Sodium Chloride 1,000 mls @ 100 mls/hr 10/30/16 05:00 10/30/16 09:12 Normal Saline 0.9% IV 100 mls/hr .Q10H PATRIZIA Administration Famotidine 50 mls @ 100 mls/hr 10/30/16 09:00 10/30/16 09:12 Pepcid 20 Mg/50 Ml IV 100 mls/hr DAILY PATRIZIA Administration Levofloxacin 150 mls @ 100 mls/hr 10/30/16 05:00 10/30/16 07:01 Levaquin 750 Mg/150 Ml IV 100 mls/hr Q24H PATRIZIA Administration Piperacillin Sod/Tazobactam 100 mls @ 100 mls/hr 10/30/16 06:00 10/30/16 14:28 Sod 4.5 gm/ Sodium Chloride IV 100 mls/hr Q6HR PATRIZIA Administration Levalbuterol HCl 1.25 mg 10/30/16 04:45 Xopenex INH Q4HR PRN Wheezing Lorazepam 0.5 mg 10/30/16 04:45 Ativan PO Q6H PRN Anxiety Lorazepam 0.25 mg 10/30/16 16:35 Ativan Inj IVP Q6H PRN Anxiety Mirtazapine 15 mg 10/30/16 21:00 Remeron PO QPM PATRIZIA Morphine Sulfate 5 mg 10/30/16 04:45 10/30/16 15:40 Roxanol PO 5 mg Q2H PRN Administration Pain/Dyspnea Morphine Sulfate 2 mg 10/30/16 04:45 10/30/16 14:27 Morphine IVP 2 mg Q2HR PRN Administration Pain 8 to 10 Ondansetron HCl 4 mg 10/30/16 04:45 Zofran Inj IVP Q6HR PRN Nausea / Vomiting Polyethylene Glycol 17 gm 10/30/16 09:00 10/30/16 09:12 Miralax PO 17 gm DAILY PATRIZIA Administration Prednisone 7.5 mg 10/30/16 09:00 10/30/16 09:13 Deltasone PO 7.5 mg DAILY PATRIZIA Administration Prochlorperazine Edisylate 10 mg 10/30/16 04:45 Compazine Inj IVP Q6HR PRN Nausea / Vomiting Promethazine HCl 25 mg 10/30/16 04:45 Phenergan Inj IM Q6HR PRN Nausea / Vomiting Saccharomyces Boulardii 250 mg 10/30/16 08:00 10/30/16 09:13 Florastor PO 250 mg BIDWM PATRIZIA Administration Sodium Chloride 10 ml 10/30/16 04:45 Normal Saline Flush 0.9% IVP PRN PRN NEEDED PER PROVIDER ORDERS Sodium Chloride 10 ml 10/30/16 06:00 10/30/16 15:18 Normal Saline Flush 0.9% IVP Not Given Q8HR PATRIZIA Acetaminophen 1,000 mg PO TID 09/30/16 Mirtazapine 15 mg PO QPM 10/01/16 Lorazepam 0.5 mg PO Q8H PRN 10/29/16 Fentanyl [Fentanyl 25mcg patch] 1 patch TOP Q72H 10/30/16 Morphine Sulfate [Morphine Sulf Oral (Roxanol)] 10 mg PO Q2H PRN 10/30/16 Polyethylene Glycol 3350 [Miralax] 17 gm PO DAILY 10/30/16 fentaNYL 50 MCG PATCH [Duragesic 50mcg patch] 1 patch TOP Q72H 10/30/16 Objective - Vital Signs/Intake & Output Reviewed Vital Signs: Yes Vital Signs: Vital Signs x48h Temp Pulse Resp BP 10/30/16 14:00 36.9 C 67 22 135/78 H Intake & Output: Intake & Output 10/27/16 10/28/16 10/29/16 05/03/17 23:59 23:59 23:59 23:59 Intake Total 150 Output Total 1375 Balance -1225 - Objective General Appearance: positive: Other (ill appearing gentleman, arousable, knows he is in hospital, too weak to lean forward currently. Diaphoretic. As above, AUTO COLLISION REPAIR INSTRUCTOR just checked RA sat , 94% Later in day, patient sleeping with eye shades over his eyes, (still room air)) Respiratory: positive: Rhonchi, Other (respirations appear unlabored on room air , but coarse rhonchorous upper airway sounds, able to cough, aware of roberto) Cardiovascular: negative: Tachycardia (not tachycardic, HR 80), Systolic murmur Abdomen: positive: Nml bowel sounds, No distention. negative: Tenderness Skin: positive: Other (erythema around neck from XRT, no open sores) Neurologic/Psychiatric: positive: Other (lethargic but arousable in am did not waken him in evening when sleeping) - Lab Results Fish Bones: 10/30/16 03:15 10/30/16 17:00 Assessment/Plan - Problem List (1) Sepsis Impression: improving since IVF and start of abx no longer tachycardic, more alert, not hypotensive, fever improved, will recheck wBC in am continue IVF and antibiotics and supportive care (2) Pneumonia Impression: likely due to difficulty handling secretions with head and neck cancer, XRT induced stomatitis, as well as some degree of XRT induced immunosuppresion and on steroids for RA Sepsis (as above) improving w/ start of IVF, deep suctioning in ED, and continue levo/zosyn, nebs, ongoing eval if 02 needs change Still oxygenating adequately on RA, has roberto head of bed up Qualifiers: Pneumonia type: due to unspecified organism Laterality: bilateral Lung location: lower lobe of lung Qualified Code(s): J18.9 - Pneumonia, unspecified organism (3) Hyponatremia Impression: likley hypovolemic hyponatremia w/ sepsis recheck in am, getting IVF (4) Protein calorie malnutrition Impression: has had ~ 20 lb wt loss since start, appreciate nutrition calculation of calorie (jevity 1.5) and free water needs for tube feeds (5) 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
[2016-10-30] MEDS: SODIUM CHLORIDE FLUSH 0.9% 10 ML SYRINGE IVP PRN ×2 (16:44→19:25)
[2016-10-30] MEDS: LORazepam 2 MG/ML SYRINGE IVP PRN ×2 (17:38→23:55)
[2016-10-30] MEDS: MIRTAZAPINE 15 MG TABLET PO SCH (21:16)
[2016-10-31] MEDS: MORPHINE 2 MG/ML SYRINGE IVP PRN ×6 (00:57→15:33)
[2016-10-31] MEDS: MORPHINE SOL 10 MG/0.5 ML SYRINGE PO PRN ×2 (02:09→06:08)
[2016-10-31] MEDS: PIPERACILLIN/TAZOBACTAM 4.5 GM in SODIUM CHLORIDE 0.9% MINIBAG 100 ML IV SCH ×4 (03:20→20:57)
[2016-10-31] MEDS: SODIUM CHLORIDE 0.9% 1,000 ML IV SCH ×2 (05:16→18:12)
[2016-10-31] MEDS: LORazepam 2 MG/ML SYRINGE IVP PRN (05:26)
[2016-10-31] MEDS: SODIUM CHLORIDE FLUSH 0.9% 10 ML SYRINGE IVP SCH ×3 (05:26→22:12)
[2016-10-31 06:16] LABS: BASOPHILS % (AUTO) 0.2 %; EOSINOPHILS % (AUTO) 0.7 %; HCT - HEMATOCRIT 25.2 % (42.0-52.0); HGB - HEMOGLOBIN 8.6 g/dL (14.0-18.0); LYMPHOCYTES % (AUTO) 24.5 %; MEAN CORPUSCULAR HEMOGLOBIN 31.1 pg (27.0-31.0); MEAN CORPUSCULAR HGB CONC 34.2 g/dL (32.0-36.0); MEAN CORPUSCULAR VOLUME 91.1 fL (80.0-94.0); MEAN PLATELET VOLUME 6.9 fL (7.4-11.4); NEUTROPHILS % (AUTO) 41.6 %; RED BLOOD COUNT 2.76 10^6/uL (4.70-6.10); RED CELL DISTRIBUTION WIDTH 16.5 % (12.0-15.0); UNCORRECTED WHITE BLOOD COUNT 2.1 x10^3/uL; WHITE BLOOD COUNT 2.1 x10^3/uL (4.8-10.8)
[2016-10-31 06:18] LABS: CREATININE 0.4 mg/dL (0.6-1.2); MAGNESIUM 1.4 mg/dL (1.7-2.8); POTASSIUM 3.7 mmol/L (3.5-5.0)
[2016-10-31 06:52] LABS: BAND NEUTROPHILS % (MANUAL) 14 %; EOSINOPHILS % (MANUAL) 2 %; LYMPHOCYTES % (MANUAL) 27 %; NEUTROPHILS % (MANUAL) 44 %; NP AUTO DIFFERENTIAL? YES; NP MAN DIFFERENTIAL? NO; PLATELET ESTIMATE, MANUAL NORMAL (130-450,000) (NORMAL); TOTAL CELLS COUNTED 100
[2016-10-31] MEDS: ENOXAPARIN 40 MG/0.4 ML SYRINGE SUBQ SCH (10:27)
[2016-10-31] MEDS: POLYETHYLENE GLYCOL 3350 17 GM PACKET PO SCH (10:27)
[2016-10-31] MEDS: FAMOTIDINE 20 MG/50 ML 50 ML IV SCH (10:27)
[2016-10-31] MEDS: ACETAMINOPHEN 325 MG TABLET PO PRN (10:28)
[2016-10-31] MEDS: SACCHAROMYCES BOULARDII 250 MG CAPSULE PO SCH ×2 (10:28→17:01)
[2016-10-31] MEDS: predniSONE 5 MG TABLET PO SCH (10:28)
[2016-10-31] MEDS ORDERED: SENNA 528 MG/15 ML SYRUP PEG PRN (11:06)
--- NOTE | 2016-10-31 12:12 | PROVIDER PROGRESS NOTE ---
Subjective - Prog Note Date Prog Note Date: 10/31/16 Prog Note Time: 12:15 - Subjective Pt reports feeling: Improved (did sleep last night, says he had some chills last night, asking if he should be getting something to help move his bowels seen again in early afternoon, asking if there is anything he is supposed to be doing to help get better) Current Medications - Current Medications Current Medications: Active Medications Generic Name Dose Route Start Last Admin Trade Name Freq PRN Reason Stop Dose Admin Acetaminophen 650 mg 10/30/16 04:45 10/31/16 10:28 Tylenol PO 650 mg Q4HR PRN Administration Pain 1 to 4 Enoxaparin Sodium 40 mg 10/30/16 09:00 10/31/16 10:27 Lovenox SUBQ 40 mg DAILY PATRIZIA Administration Fentanyl 1 patch 11/01/16 09:00 Duragesic TOP Q72H PATRIZIA Fentanyl 1 patch 11/01/16 09:00 Duragesic TOP Q72H PATRIZIA Sodium Chloride 1,000 mls @ 100 mls/hr 10/30/16 05:00 10/31/16 05:16 Normal Saline 0.9% IV 100 mls/hr .Q10H PATRIZIA Administration Famotidine 50 mls @ 100 mls/hr 10/30/16 09:00 10/31/16 10:27 Pepcid 20 Mg/50 Ml IV 100 mls/hr DAILY PATRIZIA Administration Levofloxacin 150 mls @ 100 mls/hr 10/30/16 05:00 10/31/16 05:17 Levaquin 750 Mg/150 Ml IV 100 mls/hr Q24H PATRIZIA Administration Piperacillin Sod/Tazobactam 100 mls @ 100 mls/hr 10/30/16 21:00 10/31/16 10:27 Sod 4.5 gm/ Sodium Chloride IV 100 mls/hr Q6H PATRIZIA Administration Levalbuterol HCl 1.25 mg 10/30/16 04:45 Xopenex INH Q4HR PRN Wheezing Lorazepam 0.5 mg 10/30/16 04:45 10/31/16 10:28 Ativan PO 0.5 mg Q6H PRN Administration Anxiety Lorazepam 0.5 mg 10/31/16 01:41 10/31/16 05:26 Ativan Inj IVP 0.5 mg Q6H PRN Administration Anxiety Mirtazapine 15 mg 10/30/16 21:00 10/30/16 21:16 Remeron PO 15 mg QPM PATRIZIA Administration Morphine Sulfate 5 mg 10/30/16 04:45 10/31/16 06:08 Roxanol PO 5 mg Q2H PRN Administration Pain/Dyspnea Morphine Sulfate 2 mg 10/30/16 04:45 10/31/16 10:27 Morphine IVP 2 mg Q2HR PRN Administration Pain 8 to 10 Ondansetron HCl 4 mg 10/30/16 04:45 Zofran Inj IVP Q6HR PRN Nausea / Vomiting Polyethylene Glycol 34 gm 10/31/16 11:06 Miralax PO DAILY PATRIZIA Prednisone 7.5 mg 10/30/16 09:00 10/31/16 10:28 Deltasone PO 7.5 mg DAILY PATRIZIA Administration Prochlorperazine Edisylate 10 mg 10/30/16 04:45 Compazine Inj IVP Q6HR PRN Nausea / Vomiting Promethazine HCl 25 mg 10/30/16 04:45 Phenergan Inj IM Q6HR PRN Nausea / Vomiting Saccharomyces Boulardii 250 mg 10/30/16 08:00 10/31/16 10:28 Florastor PO 250 mg BIDWM PATRIZIA Administration Senna 15 ml 10/31/16 11:06 Senokot Syrup PEG DAILY PRN Constipation Sodium Chloride 10 ml 10/30/16 04:45 10/30/16 19:25 Normal Saline Flush 0.9% IVP 10 ml PRN PRN Administration NEEDED PER PROVIDER ORDERS Sodium Chloride 10 ml 10/30/16 06:00 10/31/16 05:26 Normal Saline Flush 0.9% IVP 10 ml Q8HR PATRIZIA Administration Acetaminophen 1,000 mg PO TID 09/30/16 Mirtazapine 15 mg PO QPM 10/01/16 Lorazepam 0.5 mg PO Q8H PRN 10/29/16 Fentanyl [Fentanyl 25mcg patch] 1 patch TOP Q72H 10/30/16 Morphine Sulfate [Morphine Sulf Oral (Roxanol)] 10 mg PO Q2H PRN 10/30/16 Polyethylene Glycol 3350 [Miralax] 17 gm PO DAILY 10/30/16 fentaNYL 50 MCG PATCH [Duragesic 50mcg patch] 1 patch TOP Q72H 10/30/16 Objective - Vital Signs/Intake & Output Reviewed Vital Signs: Yes Vital Signs: Vital Signs x48h Temp Pulse Pulse Resp BP Pulse Ox 10/31/16 07:52 37.7 C H 111 H 24 149/83 H 98 10/31/16 07:30 110 H 20 Intake & Output: Intake & Output 10/28/16 10/29/16 10/30/16 10/31/16 23:59 23:59 23:59 23:59 Intake Total 2890 1686 Output Total 1850 1250 Balance 1040 436 - Objective General Appearance: positive: Other (acutely ill appearing,weak appearing, but easily aroused and responsive. Not diaphoretic Junky cough, using jankauer) ENT: positive: Other (Dry tongue, no thrush evident currently) Neck: positive: Other ([place] ERythema skin around anterior neck (post XRT)) Respiratory: positive: Other (no oxygen requirement, Sat mid 90's coarse breath sounds, loose cough, productive of purulent appearing but actually thin ( dripped from mouth after expectorating (rather than the "peanut butter " consistency described at home using yankauer) Cardiovascular: positive: Regular rate & rhythm (Rate ~ 100 this morning (had low grade temp; RN gave tylenol) later HR still ~ 100, No hypotension, no tachypneia). negative: Systolic murmur Abdomen: positive: Other (rounded, non tender, +BS) Skin: positive: Warm, Dry, Other (later in day had mild clamminess under arms, forehead but far less than when was diaphoretic yesterday) Extremities: negative: Pedal edema Neurologic/Psychiatric: positive: Oriented x3 - Lab Results Fish Bones: 10/31/16 05:20 10/31/16 05:20 Other Labs: Lab Results x24hrs 10/31/16 10/31/16 10/31/16 Range/Units 09:25 05:20 05:20 WBC 2.1 L (4.8-10.8) x10^3/uL RBC 2.76 L (4.70-6.10) 10^6/uL Hgb 8.6 L (14.0-18.0) g/dL Hct 25.2 L (42.0-52.0) % MCV 91.1 (80.0-94.0) fL MCH 31.1 H (27.0-31.0) pg MCHC 34.2 (32.0-36.0) g/dL RDW 16.5 H (12.0-15.0) % Plt Count 209 (130-450) 10^3/uL MPV 6.9 L (7.4-11.4) fL Neut # Not Reportable Lymph # Not Reportable Lea # Not Reportable Eos # Not Reportable Baso # Not Reportable Absolute Nucleated RBC Not Reportable Total Counted 100 Band Neuts % (Manual) 14 H (0 - 10) % Neutrophils # (Manual) 1.2 L (1.5-6.6) 10^3/uL Lymphocytes # (Manual) 0.6 L (1.5-3.5) 10^3/uL Monocytes # (Manual) 0.3 (0.0-1.0) 10^3/uL Eosinophils # (Manual) 0.0 (0-0.7) 10^3/uL Nucleated RBCs Not Reportable Differential Comment MANUAL DIFFERENTIAL Platelet Estimate NORMAL (130-450,000) (NORMAL) RBC Morph Micro Appear NORMAL APPEARANCE (NORMAL) Sodium 138 (135-145) mmol/L Potassium 3.7 (3.5-5.0) mmol/L Chloride 103 (101-111) mmol/L Carbon Dioxide 28 (21-32) mmol/L Anion Gap 7.0 (6-13) BUN 15 (6-20) mg/dL Creatinine 0.4 L (0.6-1.2) mg/dL Estimated GFR (MDRD) 210 (>89) Glucose 162 H (70-100) mg/dL Calcium 8.0 L (8.5-10.3) mg/dL Phosphorus 3.0 (2.5-4.6) mg/dL Magnesium 1.4 L (1.7-2.8) mg/dL Prealbumin 8 L (18-45) mg/dL 10/30/16 Range/Units 17:00 WBC (4.8-10.8) x10^3/uL RBC (4.70-6.10) 10^6/uL Hgb (14.0-18.0) g/dL Hct (42.0-52.0) % MCV (80.0-94.0) fL MCH (27.0-31.0) pg MCHC (32.0-36.0) g/dL RDW (12.0-15.0) % Plt Count (130-450) 10^3/uL MPV (7.4-11.4) fL Neut # Lymph # Lea # Eos # Baso # Absolute Nucleated RBC Total Counted Band Neuts % (Manual) (0 - 10) % Neutrophils # (Manual) (1.5-6.6) 10^3/uL Lymphocytes # (Manual) (1.5-3.5) 10^3/uL Monocytes # (Manual) (0.0-1.0) 10^3/uL Eosinophils # (Manual) (0-0.7) 10^3/uL Nucleated RBCs Differential Comment Platelet Estimate (NORMAL) RBC Morph Micro Appear (NORMAL) Sodium 134 L (135-145) mmol/L Potassium (3.5-5.0) mmol/L Chloride (101-111) mmol/L Carbon Dioxide (21-32) mmol/L Anion Gap (6-13) BUN (6-20) mg/dL Creatinine (0.6-1.2) mg/dL Estimated GFR (MDRD) (>89) Glucose (70-100) mg/dL Calcium (8.5-10.3) mg/dL Phosphorus (2.5-4.6) mg/dL Magnesium (1.7-2.8) mg/dL Prealbumin (18-45) mg/dL Assessment/Plan - Problem List (1) Pneumonia Impression: (1) Pneumonia Impression: 5/4; slowly improving clinically, HR, fever, tachynpnea , confusion all improved. Bandemia 14% (not measured on admit) If still elevated tomorrow will consider repeat chest xray, but no 02 requiement and on broad coverage w/ levo/zosyn. If any worsening will repeat CXR and add Staph aur. coverage. continue supportive care, increase nebs, levo/ zosyn, recheck cbc in am, cheuer, encourage cough Sepsis resolved 5/3 likely due to difficulty handling secretions with head and neck cancer, XRT induced stomatitis, as well as some degree of XRT induced immunosuppresion and on steroids for RA Sepsis (as above) improving w/ start of IVF, deep suctioning in ED, and continue levo/zosyn, nebs, ongoing eval if 02 needs change Still oxygenating adequately on RA, has roberto, head of bed up Qualifiers: Pneumonia type: due to unspecified organism Laterality: bilateral Lung location: lower lobe of lung Qualified Code(s): J18.9 - Pneumonia, unspecified organism (3) Hyponatremia Impression: juan ramon hypovolemic hyponatremia w/ sepsis improved (4) Protein calorie malnutrition Impression: has had ~ 20 lb wt loss since start, appreciate nutrition calculation of calorie and free water needs Nutrition also exploring if can obtain infusion pump (for feeding) for patient (5) Mucositis Impression: due to XRT, continue prn analgesic, minimal PO for now *will monitor daily for possible thrush as Cydney notes he has had before (6) Rheumatoid arthritis flare Impression: Patient has been on a steroid taper; continue his current 7.5 mg / day 7); opiate induced constipation doubling miralax dose , and bid senna elixer ( was not aware that existed; on d/c will include Rx for liquid senna 8) anxiety; prn ativan (takes at home as welll Qualifiers: Pneumonia type: due to unspecified organism Laterality: bilateral Lung location: lower lobe of lung Qualified Code(s): J18.9 - Pneumonia, unspecified organism
[2016-10-31] MEDS: MIRTAZAPINE 15 MG TABLET PO SCH (20:55)
--- NOTE | 2016-10-31 22:40 | CONSULTATION NOTE ---
DATE OF CONSULTATION: 10/31/2016 00:00:00 REQUESTING PROVIDER: ELE Cueto. TIME OF VISIT: 10:30 to 11:00. Thank you Too Valdivia for asking the palliative care consult service to provide support for your the patient currently in house. I have been following the patient over the last 2 months for support rega valdoing symptom management and psychosocial counseling. 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 This continues to actually shrink. It is down now to about the size of a golf ball. It is s till quite demarcated, but of note, he does have quite a bit of redness and skin changes attributed t o radiation side effects. He has finished his chemotherapy but still have several radiation treatment s left. He has had a difficult week. Since our last visit has had progressive difficulty with his swa llowing, management of his secretions and getting adequate food and fluids. He was hospitalized on to Friday and then again admitted on 10/30/2016. He currently presents this admit with sepsis an d healthcare-associated pneumonia, continues to feel quite poorly. Also has ongoing hyponatremia and protein calorie malnutrition. SYMPTOM BURDEN: He currently has his baseline medications of 50 and 25 mcg fentanyl patches, as well as using his morphine 10 mg every 2 hours for breakthrough pain. Currently, he reports he is comforta ble. His mouth remains quite tender though and sensitive to any kind of manipulation. He is somewhat lethargic from his usual baseline, though he does recognize me, is reporting severe fatigue. He is al so concerned as he has not had a bowel movement for 2 or 3 days, which often adds to his feelings of nausea and difficulty tolerating the tube feedings. He has had some increased difficulty with secreti ons, this causes his anxiety to go up. He denies respiratory distress though coughing is quite painfu l and problematic. BRIEF SOCIAL HISTORY: The patient lives with his , Jose Luis, who has continued to have significant caregiver burden regarding meeting all of patient's needs. Daily radiation is complicated, trying to fit in his feeding as well as manage all has medications has been quite overwhelming. She also has a daughter with disability. She is responsible for overseeing her care plus all the complexities of th e medical system in managing her financial stressors as well. They do live in a small 1 story home wi th a few steps up. They are looking at the possibility of applying for MARCIA, particularly as they tr ansition to the next phase. PERFORMANCE STATUS: The patient is significantly deconditioned, particularly over the last few days w ith his increasing illness and infection. He has been somewhat sedentary as it has taken all his ener gy just to get back and forth to radiation. His balance is often off, he has been mostly bed bound si nce his arrival here. He will get a physical therapy evaluation. He is ambulatory, though. REVIEW OF SYSTEMS: This is a somewhat limited, as the patient's energy is low. He is having is unable to swallow, is just rinsing and spitting. CARDIOVASCULAR: Denies chest pain. RESPIRATORY: He is having increased secretions, is using a Yanker suction, he reports this is helpful as far as his phlegm management. He is feeling somewhat short of breath with cough. GASTROINTESTINAL: His bowels have been moving fairly regularly on the MiraLax and Senna program. He r eports given the recent disruption of the last few days he is experiencing constipation again. GENITOURINARY: He does have some intermittent urgency, is voiding per urinal here in the hospital. MUSCULOSKELETAL: He has underlying RA in joints and weakness. INTEGUMENTARY: He does have skin alteration from his radiation. NEUROLOGIC: He does recognize he is somewhat having difficulty tracking, is feeling quite fatigued an d is not wanting to talk much. ENDOCRINE: No history of thyroid or diabetes problems. HEMATOLOGIC/IMMUNOLOGIC: Currently is pancytopenic. With a white count down to 2.1, RBCs 2.76. Hemogl obin 8.6, hematocrit 25.2. PHYSICAL EXAMINATION: GENERAL APPEARANCE: He does appear quite uncomfortable having difficulty managing his oral secretions , is quite fatigued, again is quite remarkable at the diminished size of the mass on his right side. He does have fairly bright red skin changes, no moist desquamation noted. It is quite tender. Eyes wi th periorbital edema. ENT: He has no open lesions, but very thickened, dried secretions, particularly at the top of his rahul th. He is very quite tender and very fearful of oral care. Currently does not show signs of oral cand idiasis. His mucosa is kind of a dull renteria color, but moist. RESPIRATORY: He does have upper airway rhonchi, some expiratory wheezes and significant cough. CARDIOVASCULAR: His heart rate is slightly tachycardic still at 108. ABDOMEN: Abdomen is soft. He does have positive bowel tones. His PEG exit site looks good. Again as n oted above. EXTREMITIES: No lower extremity edema. PALLIATIVE CARE DISCUSSION: The patient is in the bed and his , Jailyn, at the bedside. Just re viewed the last few days their feeling of overwhelming distress. They have been quite anxious to stay on schedule, but recognizing that complications were not expected, but are not uncommon in his situa tion. They do feel and probably rightly so that the difficulty getting adequate fluid and nutrition h is added to his vulnerability. Currently, he does appear quite acutely ill and we are both redirected to just settle in and allow antibiotics and hospitalization to help address his current acute illnes s. He continues to have quite a bit of anxiety, did not really want to engage in any further conversa tion about bigger goals of care which I think is appropriate in the current situation. IMPRESSION: This is a 76-year-old gentleman with a diagnosis of stage IVB squamous cell carcinoma, hi gh symptom burden, now presenting with sepsis and pneumonia and continues with high anxiety, though h e reports his pain is fairly well controlled currently. RECOMMENDATIONS/COUNSELING DONE: 1. Pain of neoplastic origin. He is currently on 75 mcg patch and uses morphine 10 mg for breakthroug h pain. Given the acuity of his side effects of radiation, he still feels that this is adequate. 2. Protein-calorie malnutrition. The patient would benefit from a pump for support for management of his tube feedings. He does have slow peristalsis, constipation, is on opioids and has had difficulty meeting his caloric and fluid needs with gravity drainage. We had addressed this previously with requ est of a pump and at that point in time his insurance had turned it down. I do believe that given the acuity of his increased symptoms, increased caloric needs and failure to meet these, this does need to be revisited. I will followup with spent grain dryer as far as facilitating meeting patient's care need s on discharge. He still has at least greater than a week and remains at high risk given his constell ation of symptoms for not getting his nutritional and fluid needs met with out being able to create a continuous infusion at a rate he can tolerate, is doing well on the pump her at the hospital. 3. Constipation. I did follow with the hospitalist regarding the patient's usual bowel program, recom mended bumping up his MiraLax to b.i.d. and adding his baseline liquid Senna, though certainly he is with antibiotics may be actually facing the other direction as far as diarrhea. This was reviewed wit h both the patient and his . The patient is quite fearful of constipation and does add quite a bi t of level of misery. 4. Mucositis. His oral tissue actually look fairly good. Did get some Toothette's and demonstrated fo r the patient and how to really provide good oral care, get the dried secretions off of the roof of his mouth that is used to allow better healing. TIME SPENT: 30 minutes with greater than 50% of this done in counseling and coordination of care, add ressing and evaluating his current symptom burden. Plan is to followup with him again on Friday, have been following him at least weekly to provide ongoing support in his very difficult and complex arvin tment regimen. JOB #: [id number] EXT JOB #:[id number]
[2016-11-01] MEDS: PIPERACILLIN/TAZOBACTAM 4.5 GM in SODIUM CHLORIDE 0.9% MINIBAG 100 ML IV SCH ×4 (02:53→21:20)
[2016-11-01] MEDS: SODIUM CHLORIDE 0.9% 1,000 ML IV SCH (04:51)
[2016-11-01] MEDS: SODIUM CHLORIDE FLUSH 0.9% 10 ML SYRINGE IVP SCH ×3 (04:52→22:02)
[2016-11-01 06:26] LABS: BASOPHILS % (AUTO) 0.3 %; EOSINOPHILS % (AUTO) 1.7 %; HCT - HEMATOCRIT 25.4 % (42.0-52.0); HGB - HEMOGLOBIN 8.8 g/dL (14.0-18.0); LYMPHOCYTES % (AUTO) 21.5 %; MEAN CORPUSCULAR HEMOGLOBIN 31.2 pg (27.0-31.0); MEAN CORPUSCULAR HGB CONC 34.6 g/dL (32.0-36.0); MEAN CORPUSCULAR VOLUME 90.2 fL (80.0-94.0); MEAN PLATELET VOLUME 6.9 fL (7.4-11.4); MONOCYTES % (AUTO) 19.5 %; RED BLOOD COUNT 2.82 10^6/uL (4.70-6.10); RED CELL DISTRIBUTION WIDTH 16.5 % (12.0-15.0); UNCORRECTED WHITE BLOOD COUNT 2.7 x10^3/uL; WHITE BLOOD COUNT 2.7 x10^3/uL (4.8-10.8)
[2016-11-01 06:27] LABS: CREATININE 0.5 mg/dL (0.6-1.2); MAGNESIUM 1.1 mg/dL (1.7-2.8); PHOSPHORUS 3.9 mg/dL (2.5-4.6); POTASSIUM 3.6 mmol/L (3.5-5.0)
[2016-11-01 06:51] LABS: BAND NEUTROPHILS % (MANUAL) 8 %; EOSINOPHILS % (MANUAL) 1 %; LYMPHOCYTES % (MANUAL) 18 %; NEUTROPHILS % (MANUAL) 64 %; NP AUTO DIFFERENTIAL? YES; NP MAN DIFFERENTIAL? NO; PLATELET ESTIMATE, MANUAL NORMAL (130-450,000) (NORMAL); TOTAL CELLS COUNTED 100
--- NOTE | 2016-11-01 08:15 | PROVIDER PROGRESS NOTE ---
Subjective - Prog Note Date Prog Note Date: 11/01/16 Prog Note Time: 08:11 - Subjective Subjective: I feel all disoriented, 2017, [facility], he remembers me Can I get lorazepam before the Xray denies any new area of discomfort Current Medications - Current Medications Current Medications: Active Medications Generic Name Dose Route Start Last Admin Trade Name Freq PRN Reason Stop Dose Admin Acetaminophen 650 mg 10/30/16 04:45 10/31/16 10:28 Tylenol PO 650 mg Q4HR PRN Administration Pain 1 to 4 Enoxaparin Sodium 40 mg 10/30/16 09:00 10/31/16 10:27 Lovenox SUBQ 40 mg DAILY PATRIZIA Administration Fentanyl 1 patch 11/01/16 09:00 Duragesic TOP Q72H PATRIZIA Fentanyl 1 patch 11/01/16 09:00 Duragesic TOP Q72H PATRIZIA Sodium Chloride 1,000 mls @ 100 mls/hr 10/30/16 05:00 11/01/16 04:51 Normal Saline 0.9% IV 100 mls/hr .Q10H PATRIZIA Administration Famotidine 50 mls @ 100 mls/hr 10/30/16 09:00 10/31/16 10:27 Pepcid 20 Mg/50 Ml IV 100 mls/hr DAILY PATRIZIA Administration Levofloxacin 150 mls @ 100 mls/hr 10/30/16 05:00 11/01/16 04:51 Levaquin 750 Mg/150 Ml IV 100 mls/hr Q24H PATRIZIA Administration Piperacillin Sod/Tazobactam 100 mls @ 100 mls/hr 10/30/16 21:00 11/01/16 02:53 Sod 4.5 gm/ Sodium Chloride IV 100 mls/hr Q6H PATRIZIA Administration Vancomycin HCl 1,000 gm/ 250 mls @ 167 mls/hr 11/01/16 09:00 Sodium Chloride IV Q12H PATRIZIA Levalbuterol HCl 1.25 mg 10/30/16 04:45 Xopenex INH Q4HR PRN Wheezing Lorazepam 0.5 mg 10/30/16 04:45 10/31/16 10:28 Ativan PO 0.5 mg Q6H PRN Administration Anxiety Lorazepam 0.5 mg 10/31/16 01:41 10/31/16 05:26 Ativan Inj IVP 0.5 mg Q6H PRN Administration Anxiety Mirtazapine 15 mg 10/30/16 21:00 10/31/16 20:55 Remeron PO 15 mg QPM PATRIZIA Administration Morphine Sulfate 5 mg 10/30/16 04:45 10/31/16 06:08 Roxanol PO 5 mg Q2H PRN Administration Pain/Dyspnea Morphine Sulfate 2 mg 10/30/16 04:45 10/31/16 15:33 Morphine IVP 2 mg Q2HR PRN Administration Pain 8 to 10 Ondansetron HCl 4 mg 10/30/16 04:45 Zofran Inj IVP Q6HR PRN Nausea / Vomiting Polyethylene Glycol 34 gm 10/31/16 11:06 Miralax PO DAILY PATRIZIA Prednisone 7.5 mg 10/30/16 09:00 10/31/16 10:28 Deltasone PO 7.5 mg DAILY PATRIZIA Administration Prochlorperazine Edisylate 10 mg 10/30/16 04:45 Compazine Inj IVP Q6HR PRN Nausea / Vomiting Promethazine HCl 25 mg 10/30/16 04:45 Phenergan Inj IM Q6HR PRN Nausea / Vomiting Saccharomyces Boulardii 250 mg 10/30/16 08:00 10/31/16 17:01 Florastor PO 250 mg BIDWM PATRIZIA Administration Senna 15 ml 10/31/16 11:06 Senokot Syrup PEG DAILY PRN Constipation Sodium Chloride 10 ml 10/30/16 04:45 10/30/16 19:25 Normal Saline Flush 0.9% IVP 10 ml PRN PRN Administration NEEDED PER PROVIDER ORDERS Sodium Chloride 10 ml 10/30/16 06:00 11/01/16 04:52 Normal Saline Flush 0.9% IVP 10 ml Q8HR PATRIZIA Administration Acetaminophen 1,000 mg PO TID 09/30/16 Mirtazapine 15 mg PO QPM 10/01/16 Lorazepam 0.5 mg PO Q8H PRN 10/29/16 Fentanyl [Fentanyl 25mcg patch] 1 patch TOP Q72H 10/30/16 Morphine Sulfate [Morphine Sulf Oral (Roxanol)] 10 mg PO Q2H PRN 10/30/16 Polyethylene Glycol 3350 [Miralax] 17 gm PO DAILY 10/30/16 fentaNYL 50 MCG PATCH [Duragesic 50mcg patch] 1 patch TOP Q72H 10/30/16 Objective - Vital Signs/Intake & Output Reviewed Vital Signs: Yes Vital Signs: Vital Signs x48h Temp Pulse Resp BP Pulse Ox 11/01/16 07:59 38.4 C H 11/01/16 07:57 36.4 C L 124 H 20 162/92 H 97 11/01/16 00:15 37.1 C 102 H 18 154/88 H 95 noted temps have been oral (but dry mouth/mucositis , and mouth breather Intake & Output: Intake & Output 10/29/16 10/30/16 10/31/16 11/01/16 23:59 23:59 23:59 23:59 Intake Total 2890 4016 1583 Output Total 1850 2400 1350 Balance 1040 1616 233 - Objective General Appearance: positive: Other (ill appearing, tired appearing, non diaphoretic, arousable HR 120, not hypotensive (SB 160) ENT: positive: Other (oral mucosa well visualized today yellow coating on tongue , excorieated posterior pharynx, dry Right orange sized mass R jawline (old)) Respiratory: positive: No respiratory distress (rhonchorous upper airway sounds with cough, unlabored resps ON auscultation, left w/ good air movement , no adventitious on left Right slight crackles, lower R, reduced air movement. rhonchorouss sounds seem more upper airway), Rhonchi Cardiovascular: positive: No murmur (HR 120 this morning assessed several hrs later when in; HR ~ 80 (after tylenol) Abdomen: positive: Nml bowel sounds, No distention, Other (PEG) Skin: positive: Warm, Dry, Other (scalded appearance arond neck (no breatkdown no mottling). negative: Diaphoresis Extremities: positive: No pedal edema Neurologic/Psychiatric: positive: Oriented x3, Weakness, Slurred/abnml speech ( slurred only due to mucositis, (feels 'disoriented" but answers orientation ?'s appropriately) - Lab Results Fish Bones: 11/01/16 04:45 11/01/16 04:45 Other Labs: Lab Results x24hrs 11/01/16 11/01/16 10/31/16 Range/Units 04:45 04:45 09:25 WBC 2.7 L (4.8-10.8) x10^3/uL RBC 2.82 L (4.70-6.10) 10^6/uL Hgb 8.8 L (14.0-18.0) g/dL Hct 25.4 L (42.0-52.0) % MCV 90.2 (80.0-94.0) fL MCH 31.2 H (27.0-31.0) pg MCHC 34.6 (32.0-36.0) g/dL RDW 16.5 H (12.0-15.0) % Plt Count 230 (130-450) 10^3/uL MPV 6.9 L (7.4-11.4) fL Neut # Not Reportable Lymph # Not Reportable [place] # Not Reportable Eos # Not Reportable Baso # Not Reportable Absolute Nucleated RBC Not Reportable Total Counted 100 Band Neuts % (Manual) 8 (0 - 10) % Neutrophils # (Manual) 1.9 (1.5-6.6) 10^3/uL Lymphocytes # (Manual) 0.5 L (1.5-3.5) 10^3/uL Monocytes # (Manual) 0.2 (0.0-1.0) 10^3/uL Eosinophils # (Manual) 0.0 (0-0.7) 10^3/uL Nucleated RBCs Not Reportable Differential Comment MANUAL DIFFERENTIAL Platelet Estimate NORMAL (130-450,000) (NORMAL) RBC Morph Micro Appear NORMAL APPEARANCE (NORMAL) Sodium 136 (135-145) mmol/L Potassium 3.6 (3.5-5.0) mmol/L Chloride 100 L (101-111) mmol/L Carbon Dioxide 28 (21-32) mmol/L Anion Gap 8.0 (6-13) BUN 11 (6-20) mg/dL Creatinine 0.5 L (0.6-1.2) mg/dL Estimated GFR (MDRD) 162 (>89) Glucose 124 H (70-100) mg/dL Calcium 8.0 L (8.5-10.3) mg/dL Phosphorus 3.9 (2.5-4.6) mg/dL Magnesium 1.1 L (1.7-2.8) mg/dL Prealbumin 8 L (18-45) mg/dL - Diagnostic Imaging Diagnostic Imaging Results: positive: Final report reviewed Diagnostic Imaging Comments: initial blood cultures negative Assessment/Plan - Problem List (1) Pneumonia Impression: 11/01; 38.4 this am and HR 120, SBP not hypotensive (160's), still no oxygen requirement, is oriented (although feels confused),no marked change in WBC renal fxn stable reblood cx x 2 , port and peripheral, add vanco as noted 10/31 note , (he expectorated easily for me 10/31, not clear why the sputum ordered at admit not sent; Bacteria would likely not grow at this point from sputum after 2days levo/zosyn, bUT, if staph, still need to send sputum (RN aware) repeat CXR>>>>>>>>>Addendum; improved d/w'd (improved HR after tylenol, no fluid bolus at this time as CXR better will f/u on sputum they did finally send. If no obvious GPC (G+ cocci) will juan ramon solitariocaleate off vanco in few days, but since slow to improve will be consdervative 10/31; slowly improving clinically, HR, fever, tachynpnea , confusion all improved. Bandemia 14% (not measured on admit) If still elevated tomorrow will consider repeat chest xray, but no 02 requiement and on broad coverage w/ levo/zosyn. If any worsening will repeat CXR and add Staph aur. coverage. continue supportive care, increase nebs, levo/ zosyn, recheck cbc in am, pauline mejia cough Sepsis resolved 10/30 likely due to difficulty handling secretions with head and neck cancer, XRT induced stomatitis, as well as some degree of XRT induced immunosuppresion and on steroids for RA Sepsis (as above) improving w/ start of IVF, deep suctioning in ED, and continue levo/zosyn, nebs, ongoing eval if 02 needs change Still oxygenating adequately on RA, has roberto head of bed up (3) Protein calorie malnutrition Impression: 11/01 continues PEG feeds; appreciate nutrition support Per Allison, she has successfully obtained resource for home infusion (rather than bolus feeds, which will make things simpler at home, since not tolerating bolus feeds at the frequency they are needed for nutrition needs 10/31 has had ~ 20 lb wt loss since start, appreciate nutrition calculation of calorie and free water needs Nutrition also exploring if can obtain infusion pump (for feeding) for patient 4) Mucositis Impression: Able to see better today (opened wider: excoriated posterior pharynx, bob yellowish coating, buccal mucosa dry will add nystatin swish and swallow (if tolerates) as Cydney noted hx of thrush w/ ABX and oral mucosa compromised (likley will get) 10/31 due to XRT, continue prn analgesic, minimal PO for now *will monitor daily for possible thrush as Cydney notes he has had before Hyponatremia (5)opiate induced constipation doubling miralax dose , and bid senna elixer ( was not aware that existed; on d/c will include Rx for liquid senna (6) hypokalemia, hypomagnesemia will replete IV mag, add K to IVfluid 7); Rheumatoid arthritis flare Impression: Patient has been on a steroid taper; continue his current 7.5 mg / day 8) anxiety; prn ativan (takes at home as welll) informed him and of plan 9) Hyponatremia 11/01resolved Qualifiers: Pneumonia type: due to unspecified organism Laterality: bilateral Lung location: lower lobe of lung Qualified Code(s): J18.9 - Pneumonia, unspecified organism
[2016-11-01] MEDS: FAMOTIDINE 20 MG/50 ML 50 ML IV SCH (08:34)
[2016-11-01] MEDS: LORazepam 2 MG/ML SYRINGE IVP PRN ×2 (08:35→14:32)
[2016-11-01] MEDS: fentaNYL 25 MCG PATCH TOP SCH (08:37)
[2016-11-01] MEDS: fentaNYL 50 MCG PATCH TOP SCH (08:37)
[2016-11-01] MEDS: POLYETHYLENE GLYCOL 3350 17 GM PACKET PO SCH (08:43)
[2016-11-01] MEDS: SACCHAROMYCES BOULARDII 250 MG CAPSULE PO SCH ×2 (08:44→18:57)
[2016-11-01] MEDS: predniSONE 5 MG TABLET PO SCH (08:44)
[2016-11-01] MEDS: ACETAMINOPHEN 325 MG TABLET PO PRN (08:44)
[2016-11-01] MEDS: ENOXAPARIN 40 MG/0.4 ML SYRINGE SUBQ SCH (08:54)
[2016-11-01] MEDS ORDERED: VANCOMYCIN PER PHARMACY 1,000 GM in SODIUM CHLORIDE 0.9% 250 ML IV SCH (09:00)
[2016-11-01] MEDS ORDERED: fentaNYL 50 MCG PATCH TOP SCH (09:00)
[2016-11-01] MEDS: SODIUM CHLORIDE INHALATION 3 ML NEB INH PRN ×2 (10:50→18:06)
[2016-11-01] MEDS: LEVALBUTEROL 1.25 MG INH SCH ×3 (10:50→21:00)
[2016-11-01] MEDS: VANCOMYCIN INJ 1 GM in SODIUM CHLORIDE 0.9% 250 ML IV SCH ×2 (11:04→22:30)
--- NOTE | 2016-11-01 14:19 | XRAY Report ---
TWO VIEW CHEST: 11/01/2016 CLINICAL INDICATION: Reassess infiltrate. COMPARISON: 10/30/2016. FINDINGS: Frontal and lateral views of the chest demonstrate a normal cardiac silhouette. A left jug ular port is stable. Bibasilar infiltrates are improving. No effusion or pneumothorax is present. IMPRESSION: IMPROVING BIBASILAR AIR SPACE DISEASE. JOB #: [id number] EXT JOB #:[id number]
[2016-11-01] MEDS ORDERED: MAGNESIUM SULFATE 2 GRAM 50 ML IV ONE (17:00)
[2016-11-01] MEDS: NS W/20 MEQ KCL 1,000 ML IV SCH (18:55)
[2016-11-01] MEDS: MIRTAZAPINE 15 MG TABLET PO SCH (22:02)
[2016-11-02] MEDS: LEVALBUTEROL 1.25 MG INH SCH ×4 (03:00→21:35)
[2016-11-02] MEDS: PIPERACILLIN/TAZOBACTAM 4.5 GM in SODIUM CHLORIDE 0.9% MINIBAG 100 ML IV SCH ×4 (03:06→20:39)
[2016-11-02] MEDS: MORPHINE 2 MG/ML SYRINGE IVP PRN ×2 (04:10→11:05)
[2016-11-02] MEDS: SODIUM CHLORIDE FLUSH 0.9% 10 ML SYRINGE IVP SCH ×3 (05:29→21:35)
[2016-11-02 06:15] LABS: BASOPHILS % (AUTO) 0.4 %; EOSINOPHILS % (AUTO) 1.5 %; HGB - HEMOGLOBIN 8.8 g/dL (14.0-18.0); LYMPHOCYTES # (AUTO) 0.6 10^3/uL (1.5-3.5); LYMPHOCYTES % (AUTO) 20.2 %; MEAN CORPUSCULAR HEMOGLOBIN 30.7 pg (27.0-31.0); MEAN CORPUSCULAR HGB CONC 33.7 g/dL (32.0-36.0); MEAN CORPUSCULAR VOLUME 90.9 fL (80.0-94.0); MEAN PLATELET VOLUME 6.8 fL (7.4-11.4); MONOCYTES # (AUTO) 0.5 10^3/uL (0.0-1.0); MONOCYTES % (AUTO) 16.1 %; NEUTROPHILS # (AUTO) 1.7 10^3/uL (1.5-6.6); NEUTROPHILS % (AUTO) 61.8 %; NUCLEATED RED BLOOD CELLS AUTO 0.1 /100WBC; RED BLOOD COUNT 2.86 10^6/uL (4.70-6.10); RED CELL DISTRIBUTION WIDTH 16.6 % (12.0-15.0); UNCORRECTED WHITE BLOOD COUNT 2.8 x10^3/uL; WHITE BLOOD COUNT 2.8 x10^3/uL (4.8-10.8)
[2016-11-02 06:31] LABS: CALCIUM 8.1 mg/dL (8.5-10.3); CREATININE 0.5 mg/dL (0.6-1.2); MAGNESIUM 1.5 mg/dL (1.7-2.8)
[2016-11-02 06:52] LABS: PLATELET ESTIMATE, MANUAL NORMAL (130-450,000) (NORMAL); PLATELET MORPHOLOGY NORMAL APPEARANCE (NORMAL); WBC MORPHOLOGY (MULTIPLE) NORMAL APPEARANCE (NORMAL)
[2016-11-02] MEDS: predniSONE 5 MG TABLET PO SCH (09:01)
[2016-11-02] MEDS: FAMOTIDINE 20 MG/50 ML 50 ML IV SCH (09:02)
[2016-11-02] MEDS: SACCHAROMYCES BOULARDII 250 MG CAPSULE PO SCH ×2 (09:02→17:12)
[2016-11-02] MEDS: ENOXAPARIN 40 MG/0.4 ML SYRINGE SUBQ SCH (09:15)
[2016-11-02] MEDS: POLYETHYLENE GLYCOL 3350 17 GM PACKET PO SCH (09:18)
[2016-11-02] MEDS: NS W/20 MEQ KCL 1,000 ML IV SCH ×2 (10:26→22:22)
[2016-11-02] MEDS: SODIUM CHLORIDE INHALATION 3 ML NEB INH PRN ×2 (10:35→21:35)
[2016-11-02] MEDS: VANCOMYCIN INJ 1 GM in SODIUM CHLORIDE 0.9% 250 ML IV SCH ×2 (11:05→22:22)
[2016-11-02] MEDS: LORazepam 2 MG/ML SYRINGE IVP PRN (14:24)
--- NOTE | 2016-11-02 19:26 | PROVIDER PROGRESS NOTE ---
Subjective - Prog Note Date Prog Note Date: 11/02/16 Prog Note Time: 19:24 (late entry, seen 7:45am) - Subjective Pt reports feeling: Improved ("I feel so lonely", I dont feel like I 've seen anyone in days did have a bowel movement yesterday (loose), but felt like a good volume BM) Current Medications - Current Medications Current Medications: Active Medications Generic Name Dose Route Start Last Admin Trade Name Freq PRN Reason Stop Dose Admin Acetaminophen 650 mg 10/30/16 04:45 11/01/16 08:44 Tylenol PO 650 mg Q4HR PRN Administration Pain 1 to 4 Enoxaparin Sodium 40 mg 10/30/16 09:00 11/02/16 09:15 Lovenox SUBQ 40 mg DAILY PATRIZIA Administration Fentanyl 1 patch 11/01/16 09:00 11/01/16 08:37 Duragesic TOP 1 patch Q72H PATRIZIA Administration Fentanyl 1 patch 11/01/16 09:00 11/01/16 08:37 Duragesic TOP 1 patch Q72H PATRIZIA Administration Famotidine 50 mls @ 100 mls/hr 10/30/16 09:00 11/02/16 09:02 Pepcid 20 Mg/50 Ml IV 100 mls/hr DAILY PATRIZIA Administration Levofloxacin 150 mls @ 100 mls/hr 10/30/16 05:00 11/02/16 05:28 Levaquin 750 Mg/150 Ml IV 100 mls/hr Q24H PATRIZIA Administration Piperacillin Sod/Tazobactam 100 mls @ 100 mls/hr 10/30/16 21:00 11/02/16 14:24 Sod 4.5 gm/ Sodium Chloride IV 100 mls/hr Q6H PATRIZIA Administration Vancomycin HCl 1 gm/ Sodium 250 mls @ 167 mls/hr 11/01/16 10:00 11/02/16 11:05 Chloride IV 167 mls/hr Q12H PATRIZIA Administration Potassium Chloride/Sodium Chloride 1,000 mls @ 100 mls/hr 11/01/16 19:00 10:26 Normal Saline 0.9% W/20 Meq Kcl IV 100 mls/hr .Q10H PATRIZIA Administration Levalbuterol HCl 1.25 mg 11/01/16 09:00 11/02/16 15:40 Xopenex INH Not Given Q6H PATRIZIA Lorazepam 0.5 mg 10/30/16 04:45 10/31/16 10:28 Ativan PO 0.5 mg Q6H PRN Administration Anxiety Lorazepam 0.5 mg 10/31/16 01:41 11/02/16 14:24 Ativan Inj IVP 0.5 mg Q6H PRN Administration Anxiety Mirtazapine 15 mg 10/30/16 21:00 11/01/16 22:02 Remeron PO 15 mg QPM PATRIZIA Administration Morphine Sulfate 5 mg 10/30/16 04:45 10/31/16 06:08 Roxanol PO 5 mg Q2H PRN Administration Pain/Dyspnea Morphine Sulfate 2 mg 10/30/16 04:45 11/02/16 11:05 Morphine IVP 2 mg Q2HR PRN Administration Pain 8 to 10 Ondansetron HCl 4 mg 10/30/16 04:45 Zofran Inj IVP Q6HR PRN Nausea / Vomiting Polyethylene Glycol 34 gm 10/31/16 11:06 11/02/16 09:18 Miralax PO Not Given DAILY PATRIZIA Prednisone 7.5 mg 10/30/16 09:00 11/02/16 09:01 Deltasone PO 7.5 mg DAILY PATRIZIA Administration Prochlorperazine Edisylate 10 mg 10/30/16 04:45 Compazine Inj IVP Q6HR PRN Nausea / Vomiting Promethazine HCl 25 mg 10/30/16 04:45 Phenergan Inj IM Q6HR PRN Nausea / Vomiting Saccharomyces Boulardii 250 mg 10/30/16 08:00 11/02/16 17:12 Florastor PO 250 mg BIDWM PATRIZIA Administration Senna 15 ml 10/31/16 11:06 Senokot Syrup PEG DAILY PRN Constipation Sodium Chloride 10 ml 10/30/16 04:45 10/30/16 19:25 Normal Saline Flush 0.9% IVP 10 ml PRN PRN Administration NEEDED PER PROVIDER ORDERS Sodium Chloride 10 ml 10/30/16 06:00 11/02/16 14:19 Normal Saline Flush 0.9% IVP Not Given Q8HR PATRIZIA Sodium Chloride 3 ml 11/01/16 08:27 11/02/16 10:35 Normal Saline INH 3 ml PRN PRN Administration LEVALBUTEROL TREATMENTS Acetaminophen 1,000 mg PO TID 09/30/16 Mirtazapine 15 mg PO QPM 10/01/16 Lorazepam 0.5 mg PO Q8H PRN 10/29/16 Fentanyl [Fentanyl 25mcg patch] 1 patch TOP Q72H 10/30/16 Morphine Sulfate [Morphine Sulf Oral (Roxanol)] 10 mg PO Q2H PRN 10/30/16 Polyethylene Glycol 3350 [Miralax] 17 gm PO DAILY 10/30/16 fentaNYL 50 MCG PATCH [Duragesic 50mcg patch] 1 patch TOP Q72H 10/30/16 Objective - Vital Signs/Intake & Output Reviewed Vital Signs: Yes Vital Signs: Vital Signs x48h Temp Pulse Resp BP Pulse Ox 11/02/16 15:59 36.6 C 104 H 16 153/87 H 95 Intake & Output: Intake & Output 10/30/16 10/31/16 11/01/16 11/02/16 23:59 23:59 23:59 23:59 Intake Total 2890 4016 4412 3814 Output Total 1850 2400 1870 1970 Balance 1040 1616 2542 1844 - Objective General Appearance: positive: Other (doing mouth care when I entered the room this morning overall color, alertness, better. Expressed interest in raising blinds, then "maybe not" (not great view)) ENT: positive: Dry mucous membranes, Other (dry yellow coating on tongue, does not look likel thrush, just did oral care Right lateral jaw mass ~ 3cm) Respiratory: positive: Rhonchi (still loose sounding cough), Other (still no 02 requirement) Cardiovascular: positive: Regular rate & rhythm (rate ~ 98, no murmur, no edema , no mottling, no diaphoresis) Abdomen: positive: Nml bowel sounds, No distention, Other (PEG infusing). negative: Tenderness Skin: positive: Other ("scalded" skin appearance around neck.). negative: Diaphoresis - Lab Results Fish Bones: 11/02/16 05:26 11/02/16 05:26 Other Labs: Lab Results x24hrs 11/02/16 11/02/16 Range/Units 05:26 05:26 WBC 2.8 L (4.8-10.8) x10^3/uL RBC 2.86 L (4.70-6.10) 10^6/uL Hgb 8.8 L (14.0-18.0) g/dL Hct 26.0 L (42.0-52.0) % MCV 90.9 (80.0-94.0) fL MCH 30.7 (27.0-31.0) pg MCHC 33.7 (32.0-36.0) g/dL RDW 16.6 H (12.0-15.0) % Plt Count 226 (130-450) 10^3/uL MPV 6.8 L (7.4-11.4) fL Neut # 1.7 (1.5-6.6) 10^3/uL Lymph # 0.6 L (1.5-3.5) 10^3/uL [place] # 0.5 (0.0-1.0) 10^3/uL Eos # 0.0 (0.0-0.7) 10^3/uL Baso # 0.0 (0.0-0.1) 10^3/uL Absolute Nucleated RBC 0.00 x10^3/uL Nucleated RBCs 0.1 /100WBC Manual Slide Review Indicated WBC Morphology NORMAL APPEARANCE (NORMAL) Platelet Estimate NORMAL (130-450,000) (NORMAL) Platelet Morphology NORMAL APPEARANCE (NORMAL) RBC Morph Micro Appear NORMAL APPEARANCE (NORMAL) Sodium 135 (135-145) mmol/L Potassium 4.0 (3.5-5.0) mmol/L Chloride 100 L (101-111) mmol/L Carbon Dioxide 28 (21-32) mmol/L Anion Gap 7.0 (6-13) BUN 11 (6-20) mg/dL Creatinine 0.5 L (0.6-1.2) mg/dL Estimated GFR (MDRD) 162 (>89) Glucose 136 H (70-100) mg/dL Calcium 8.1 L (8.5-10.3) mg/dL Magnesium 1.5 L (1.7-2.8) mg/dL Assessment/Plan - Problem List (1) Pneumonia Impression: Impression: 11/02: looks much better. afebrile, bandemia resolved, color better, more alert Day 4 levo/ zosyn day 2 vanco sputum yesterday did not have GPC in clusters, so juan ramon not SA. Will juan ramon peel off vanco tomorrow if still looks good then hopefully by friday blayne jacobo and if well enough juan ramon d/c home on levofloxacin changed nebs to scheduled yesterday, continue scheduled nebs start mobilizing (solarium, ambulate w/ PT, to chair) 11/01; 38.4 this am and HR 120, SBP not hypotensive (160's), still no oxygen requirement, is oriented (although feels confused),no marked change in WBC renal fxn stable reblood cx x 2 , port and peripheral, add vanco as noted 10/31 note , (he expectorated easily for me 10/31, not clear why the sputum ordered at admit not sent; Bacteria would likely not grow at this point from sputum after 2days levo/zosyn, bUT, if staph, still need to send sputum (RN aware) repeat CXR>>>>>>>>>Addendum; improved d/w'd (improved HR after tylenol, no fluid bolus at this time as CXR better will f/u on sputum they did finally send. If no obvious GPC (G+ cocci) will juan ramon solitariocaleate off vanco in few days, but since slow to improve will be consdervative 10/31; slowly improving clinically, HR, fever, tachynpnea , confusion all improved. Bandemia 14% (not measured on admit) If still elevated tomorrow will consider repeat chest xray, but no 02 requiement and on broad coverage w/ levo/zosyn. If any worsening will repeat CXR and add Staph aur. coverage. continue supportive care, increase nebs, levo/ zosyn, recheck cbc in am, roberto encourage cough Sepsis resolved 10/30 likely due to difficulty handling secretions with head and neck cancer, XRT induced stomatitis, as well as some degree of XRT induced immunosuppresion and on steroids for RA Sepsis (as above) improving w/ start of IVF, deep suctioning in ED, and continue levo/zosyn, nebs, ongoing eval if 02 needs change Still oxygenating adequately on RA, has roberto head of bed up (3) Protein calorie malnutrition Impression: 11/02; continues PEG feeds, the company that was going to bring the infusion pump today ("no show" per is now coming friday continue feeds and free water as per nutrution, with the free water, will reduce IVF rate to 50cc/hr, trial of dc IVF in am. continue with IV mag repletion (? not sure if had CDDP containing chemo regimen re: hypomag. 11/01 continues PEG feeds; appreciate nutrition support Per Allison, she has successfully obtained resource for home infusion (rather than bolus feeds, which will make things simpler at home, since not tolerating bolus feeds at the frequency they are needed for nutrition needs 10/31 has had ~ 20 lb wt loss since start, appreciate nutrition calculation of calorie and free water needs Nutrition also exploring if can obtain infusion pump (for feeding) for patient 4) Mucositis Impression: 11/02; did not get really good view today, but he was independently doing oral care w/ toothette (and the home solution they use for oral care) this morning when I came in. If any thrush overgrowth (broadspectrum ABX) evident by time of d/c will use chlotrimazole sunita vs nystatin. (will check w/ Cydney which they use here if necessary) Continues on home Fentanyl and prn morphine for pain at mass, oral pain. will see if can start moving to orals tomorrow 11/01 Able to see better today (opened wider: excoriated posterior pharynx, bob yellowish coating, buccal mucosa dry will add nystatin swish and swallow (if tolerates) as Cydney noted hx of thrush w/ ABX and oral mucosa compromised (likley will get) 10/31 due to XRT, continue prn analgesic, minimal PO for now *will monitor daily for possible thrush as Cydney notes he has had before (5)opiate induced constipation doubled miralax dose , and bid senna elixer ( was not aware that existed; on d/c will include Rx for liquid senna loose BM yesterday, (he did not complain of persistent loose bowels) (6) hypokalemia, hypomagnesemia will continue to replete IV mag as above, has K in IVfluid 7); Rheumatoid arthritis flare Impression: Patient has been on a steroid taper; continue his current 7.5 mg / day 8) anxiety; prn ativan (takes at home as welll) informed him and of plan given support (when said lonely , advised solarium a bit today. RN said he did go there briefly REinforced how much better he's doing. Will d/w him, ? worth trying increase mirtazapine? Qualifiers: Pneumonia type: due to unspecified organism Laterality: bilateral Lung location: lower lobe of lung Qualified Code(s): J18.9 - Pneumonia, unspecified organism
[2016-11-02] MEDS ORDERED: MAGNESIUM SULFATE 2 GRAM 50 ML IV ONE (20:47)
[2016-11-02] MEDS: SODIUM CHLORIDE FLUSH 0.9% 10 ML SYRINGE IVP PRN (21:35)
[2016-11-02] MEDS: MIRTAZAPINE 15 MG TABLET PO SCH (22:27)
[2016-11-03] MEDS: NS W/20 MEQ KCL 1,000 ML IV SCH (03:47)
[2016-11-03] MEDS: PIPERACILLIN/TAZOBACTAM 4.5 GM in SODIUM CHLORIDE 0.9% MINIBAG 100 ML IV SCH ×2 (03:47→08:08)
[2016-11-03] MEDS: SODIUM CHLORIDE FLUSH 0.9% 10 ML SYRINGE IVP PRN (05:23)
[2016-11-03] MEDS: SODIUM CHLORIDE FLUSH 0.9% 10 ML SYRINGE IVP SCH ×3 (05:23→21:07)
[2016-11-03 06:16] LABS: BASOPHILS % (AUTO) 0.7 %; EOSINOPHILS % (AUTO) 1.8 %; HCT - HEMATOCRIT 26.9 % (42.0-52.0); HGB - HEMOGLOBIN 9.1 g/dL (14.0-18.0); LYMPHOCYTES # (AUTO) 0.7 10^3/uL (1.5-3.5); MEAN CORPUSCULAR HEMOGLOBIN 30.6 pg (27.0-31.0); MEAN CORPUSCULAR HGB CONC 33.8 g/dL (32.0-36.0); MEAN CORPUSCULAR VOLUME 90.4 fL (80.0-94.0); MEAN PLATELET VOLUME 6.6 fL (7.4-11.4); MONOCYTES # (AUTO) 0.6 10^3/uL (0.0-1.0); MONOCYTES % (AUTO) 21.7 %; NEUTROPHILS # (AUTO) 1.3 10^3/uL (1.5-6.6); NEUTROPHILS % (AUTO) 49.8 %; NUCLEATED RED BLOOD CELLS AUTO 0.2 /100WBC; RED BLOOD COUNT 2.98 10^6/uL (4.70-6.10); RED CELL DISTRIBUTION WIDTH 16.6 % (12.0-15.0); UNCORRECTED WHITE BLOOD COUNT 2.6 x10^3/uL; WHITE BLOOD COUNT 2.6 x10^3/uL (4.8-10.8)
[2016-11-03 06:26] LABS: CREATININE 0.5 mg/dL (0.6-1.2); MAGNESIUM 1.7 mg/dL (1.7-2.8); POTASSIUM 4.1 mmol/L (3.5-5.0)
[2016-11-03 06:39] LABS: PLATELET ESTIMATE, MANUAL NORMAL (130-450,000) (NORMAL); PLATELET MORPHOLOGY NORMAL APPEARANCE (NORMAL)
[2016-11-03] MEDS: SODIUM CHLORIDE INHALATION 3 ML NEB INH PRN ×3 (07:36→19:55)
[2016-11-03] MEDS: LEVALBUTEROL 1.25 MG INH SCH ×4 (07:36→19:55)
[2016-11-03] MEDS: predniSONE 5 MG TABLET PO SCH (08:11)
[2016-11-03] MEDS: ENOXAPARIN 40 MG/0.4 ML SYRINGE SUBQ SCH (08:42)
[2016-11-03] MEDS: SACCHAROMYCES BOULARDII 250 MG CAPSULE PO SCH ×2 (08:47→18:42)
[2016-11-03] MEDS: POLYETHYLENE GLYCOL 3350 17 GM PACKET PO SCH (08:48)
[2016-11-03] MEDS: LORazepam 2 MG/ML SYRINGE IVP PRN (14:34)
[2016-11-03] MEDS ORDERED: MAGNESIUM SULFATE 2 GM in SODIUM CHLORIDE 0.9% 50 ML IV ONE (16:58)
--- NOTE | 2016-11-03 18:50 | PROVIDER PROGRESS NOTE ---
Subjective - Prog Note Date Prog Note Date: 11/03/16 Prog Note Time: 15:00 - Subjective Subjective: Not sleeping well, but admits this morning he feels a bit better, secretions / junky cough lessening. states PT hasnt been in to see him She feels the nebulizer treatments are working well Asking if he can get a suction machine for oral care at home Had a loose BM (RN held miralax today) Current Medications - Current Medications Current Medications: Reviewed stopping Vanco, stopping zosyn changing ativan to PO (PEG), stopping compazine Objective - Vital Signs/Intake & Output Reviewed Vital Signs: Yes Vital Signs: Vital Signs x48h Temp Pulse Pulse Resp BP Pulse Ox 11/03/16 16:55 100 22 11/03/16 15:40 36.6 C 118 H 16 131/88 H 98 Intake & Output: Intake & Output 10/31/16 11/01/16 11/02/16 11/03/16 23:59 23:59 23:59 23:59 Intake Total 4016 4412 5519 2872 Output Total 2400 1870 3070 3075 Balance 1616 2542 2449 -203 - Objective General Appearance: positive: Other (He was awake when I saw him this morning, I and RN assisted him to standing to change his underwear and help him move higher in bed.) ENT: positive: Other (tongue relatively clean today, free of coating, old blood posterior pharynx, buccal mucosa clear. Teeth with thick coating (I helped "scrub w/ a toothette.) Respiratory: positive: Other (loose cough persists, but less frequent, and less junky sounding. No 02, Left chest clear , Right w/ crackles base, but moving air better) Cardiovascular: positive: Regular rate & rhythm (no murmur, rate ~ 100, no diaphoressis, no mottling,) Abdomen: positive: Other (abdomen rounded, + BS, nontender, no diarrhea while I was there, TF infusing via PEG,) Skin: positive: Warm, Dry, Other (a few dry areas of excoriation on sacrum (~ < 1cm, shallow. Tegaderm applied). negative: Diaphoresis - Lab Results Fish Bones: 11/03/16 05:28 11/03/16 05:28 Other Labs: Lab Results x24hrs 11/03/16 11/03/16 11/02/16 Range/Units 05:28 05:28 21:31 WBC 2.6 L (4.8-10.8) x10^3/uL RBC 2.98 L (4.70-6.10) 10^6/uL Hgb 9.1 L (14.0-18.0) g/dL Hct 26.9 L (42.0-52.0) % MCV 90.4 (80.0-94.0) fL MCH 30.6 (27.0-31.0) pg MCHC 33.8 (32.0-36.0) g/dL RDW 16.6 H (12.0-15.0) % Plt Count 222 (130-450) 10^3/uL MPV 6.6 L (7.4-11.4) fL Neut # 1.3 L (1.5-6.6) 10^3/uL Lymph # 0.7 L (1.5-3.5) 10^3/uL [place] # 0.6 (0.0-1.0) 10^3/uL Eos # 0.0 (0.0-0.7) 10^3/uL Baso # 0.0 (0.0-0.1) 10^3/uL Absolute Nucleated RBC 0.00 x10^3/uL Nucleated RBCs 0.2 /100WBC Manual Slide Review Indicated Platelet Estimate NORMAL (130-450,000) (NORMAL) Platelet Morphology NORMAL APPEARANCE (NORMAL) RBC Morph Micro Appear NORMAL APPEARANCE (NORMAL) Sodium 136 (135-145) mmol/L Potassium 4.1 (3.5-5.0) mmol/L Chloride 100 L (101-111) mmol/L Carbon Dioxide 28 (21-32) mmol/L Anion Gap 8.0 (6-13) BUN 11 (6-20) mg/dL Creatinine 0.5 L (0.6-1.2) mg/dL Estimated GFR (MDRD) 162 (>89) Glucose 124 H (70-100) mg/dL Calcium 8.0 L (8.5-10.3) mg/dL Magnesium 1.7 (1.7-2.8) mg/dL Last Dose Date 11/01/16 Last Dose Time 10AM Vancomycin Trough 8.3 (5.0-15.0) ug/mL Assessment/Plan - Problem List (1) Pneumonia Impression: 11/03 ; continues to look slowly better clinically. Less junky cough today, HR persists ~ 100, but BP stable, does not look toxic, hydration status adequate by labs, and not dizzy w/ upright, still needs heavy encouragement to mobilize now that clincially improving. Sputum polymicrobial, much hemolytic strep D/C vanc today (sputum not c/w SA, blood cultures neg) and reeval d/c zosyn today continue levofloxacin continue scheduled nebs mobilize; hoping for d/c tomorrow 11/02: looks much better. afebrile, bandemia resolved, color better, more alert Day 4 levo/ zosyn day 2 vanco sputum yesterday did not have GPC in clusters, so juan ramon not SA. Will juan ramon peel off vanco tomorrow if still looks good then hopefully by friday deescale furthrer and if well enough juan ramon d/c home on levofloxacin changed nebs to scheduled yesterday, continue scheduled nebs start mobilizing (solarium, ambulate w/ PT, to chair) 11/01; 38.4 this am and HR 120, SBP not hypotensive (160's), still no oxygen requirement, is oriented (although feels confused),no marked change in WBC renal fxn stable reblood cx x 2 , port and peripheral, add vanco as noted 10/31 note , (he expectorated easily for me 10/31, not clear why the sputum ordered at admit not sent; Bacteria would likely not grow at this point from sputum after 2days levo/zosyn, bUT, if staph, still need to send sputum (RN aware) repeat CXR>>>>>>>>>Addendum; improved d/w'd (improved HR after tylenol, no fluid bolus at this time as CXR better will f/u on sputum they did finally send. If no obvious GPC (G+ cocci) will juan ramon deescaleate off vanco in few days, but since slow to improve will be consdervative 10/31; slowly improving clinically, HR, fever, tachynpnea , confusion all improved. Bandemia 14% (not measured on admit) If still elevated tomorrow will consider repeat chest xray, but no 02 requiement and on broad coverage w/ levo/zosyn. If any worsening will repeat CXR and add Staph aur. coverage. continue supportive care, increase nebs, levo/ zosyn, recheck cbc in am, roberto, encourage cough Sepsis resolved 10/30 likely due to difficulty handling secretions with head and neck cancer, XRT induced stomatitis, as well as some degree of XRT induced immunosuppresion and on steroids for RA Sepsis (as above) improving w/ start of IVF, deep suctioning in ED, and continue levo/zosyn, nebs, ongoing eval if 02 needs change Still oxygenating adequately on RA, has roberto head of bed up (3) Protein calorie malnutrition Impression: 11/03; states 4 LB wt loss while here (which doesnt coincide w/ I/O which suggests wt would be up continue PEG feeds, Will d/w nutrition tomorrow, when d/c NS (currently at 50cc/hr, ? does free water need to increase?) having loose bowels, on florastor, held miralax today ? infusion companty to come Friday/tomorrow for instruction? 4) Deconditioning as above, emphasized he needs to get up with RN to chair bid-tid now that acute illness improving and needs to work with PT when they come (5)opiate induced constipation held miralax /senna today (loose stool / continue florastor) no fever or leukocytosis to raise suspician of cdif doubled miralax dose , and bid senna elixer ( was not aware that existed; on d/c will include Rx for liquid senna loose BM yesterday, (he did not complain of persistent loose bowels) (6) hypokalemia, hypomagnesemia will continue to replete IV mag as above (2 more grams tonight 11/03), has K in IVfluid 7); Rheumatoid arthritis flare Impression: Patient has been on a steroid taper; continue his current 7.5 mg / day 8) anxiety; prn ativan (takes at home as well usu) informed him and of plan; change to only PO (PEG/ no more IV in anticipation of d/c) Reemphasized today he NEEDS to get up out of bed to avoid deconditioning with this acute illness, he REinforced how much better he's doing. Will d/w him, ? worth trying increase mirtazapin 9)Mucositis Impression: 11/03; I helped him a bit w/ oral care today; no thrush, buccal mucosa less dry requesting suction machine at home., Discussed w/ her rinsing, toothettes etc was primary management, no need for sxn Qualifiers: Pneumonia type: due to unspecified organism Laterality: bilateral Lung location: lower lobe of lung Qualified Code(s): J18.9 - Pneumonia, unspecified organism
[2016-11-03] MEDS ORDERED: MAGNESIUM SULFATE 2 GRAM 50 ML IV ONE (19:00)
[2016-11-03] MEDS: MIRTAZAPINE 15 MG TABLET PO SCH (21:07)
[2016-11-04] MEDS: NS W/20 MEQ KCL 1,000 ML IV SCH (03:05)
[2016-11-04] MEDS: SODIUM CHLORIDE INHALATION 3 ML NEB INH PRN ×3 (04:23→21:30)
[2016-11-04] MEDS: LEVALBUTEROL 1.25 MG INH SCH ×4 (04:23→21:30)
[2016-11-04] MEDS: SODIUM CHLORIDE FLUSH 0.9% 10 ML SYRINGE IVP SCH ×3 (05:11→22:20)
[2016-11-04 06:28] LABS: BASOPHILS % (AUTO) 0.4 %; EOSINOPHILS % (AUTO) 1.2 %; HCT - HEMATOCRIT 27.2 % (42.0-52.0); HGB - HEMOGLOBIN 9.1 g/dL (14.0-18.0); LYMPHOCYTES % (AUTO) 25.6 %; MEAN CORPUSCULAR HEMOGLOBIN 30.7 pg (27.0-31.0); MEAN CORPUSCULAR HGB CONC 33.5 g/dL (32.0-36.0); MEAN CORPUSCULAR VOLUME 91.4 fL (80.0-94.0); MEAN PLATELET VOLUME 6.4 fL (7.4-11.4); MONOCYTES % (AUTO) 20.5 %; NEUTROPHILS % (AUTO) 52.3 %; RED BLOOD COUNT 2.97 10^6/uL (4.70-6.10); RED CELL DISTRIBUTION WIDTH 16.7 % (12.0-15.0); UNCORRECTED WHITE BLOOD COUNT 3.4 x10^3/uL; WHITE BLOOD COUNT 3.4 x10^3/uL (4.8-10.8)
[2016-11-04 07:28] LABS: BAND NEUTROPHILS % (MANUAL) 6 %; EOSINOPHILS % (MANUAL) 1 %; LYMPHOCYTES % (MANUAL) 34 %; NEUTROPHILS % (MANUAL) 45 %; NP AUTO DIFFERENTIAL? YES; NP MAN DIFFERENTIAL? NO; PLATELET ESTIMATE, MANUAL NORMAL (130-450,000) (NORMAL); PLATELET MORPHOLOGY NORMAL APPEARANCE (NORMAL); TOTAL CELLS COUNTED 100
--- NOTE | 2016-11-04 08:20 | Discharge Plan ---
Discharge Plan Disposition: 01 Home, Self Care Condition: Stable Diet: Regular Activity Restrictions: No Restrictions Assistance Devices: Other Weight Bearing: Full Weight Additional Instructions or Follow Up instructions: STARTED IN ERROR ON WRONG PATIENT No Smoking: If you smoke, Please STOP! Call for help. Follow-up with: Provider,Other [Primary Care Provider] -
[2016-11-04] MEDS: fentaNYL 25 MCG PATCH TOP SCH (08:57)
[2016-11-04] MEDS: predniSONE 5 MG TABLET PO SCH (08:58)
[2016-11-04] MEDS: fentaNYL 50 MCG PATCH TOP SCH (08:58)
[2016-11-04] MEDS: SACCHAROMYCES BOULARDII 250 MG CAPSULE PO SCH ×2 (08:58→16:43)
[2016-11-04] MEDS: ENOXAPARIN 40 MG/0.4 ML SYRINGE SUBQ SCH (09:10)
[2016-11-04] MEDS: POLYETHYLENE GLYCOL 3350 17 GM PACKET PO SCH (09:12)
[2016-11-04] MEDS: LORazepam 0.5 MG TABLET PO PRN ×2 (14:29→22:58)
--- NOTE | 2016-11-04 17:04 | PROVIDER PROGRESS NOTE ---
Subjective - Subjective Subjective: States he had walked to door with assist by RN and back. Current Medications - Current Medications Current Medications: Active Medications Generic Name Dose Route Start Last Admin Trade Name Freq PRN Reason Stop Dose Admin Acetaminophen 650 mg 10/30/16 04:45 11/01/16 08:44 Tylenol PO 650 mg Q4HR PRN Administration Pain 1 to 4 Enoxaparin Sodium 40 mg 10/30/16 09:00 11/04/16 09:10 Lovenox SUBQ 40 mg DAILY PATRIZIA Administration Fentanyl 1 patch 11/01/16 09:00 11/04/16 08:57 Duragesic TOP 1 patch Q72H PATRIZIA Administration Fentanyl 1 patch 11/01/16 09:00 11/04/16 08:58 Duragesic TOP 1 patch Q72H PATRIZIA Administration Potassium Chloride/Sodium Chloride 1,000 mls @ 50 mls/hr 11/02/16 21:07 03:05 Normal Saline 0.9% W/20 Meq Kcl IV 50 mls/hr .Q20H PATRIZIA Administration Levalbuterol HCl 1.25 mg 11/01/16 09:00 11/04/16 16:05 Xopenex INH 1.25 mg Q6H PATRIZIA Administration Levofloxacin 750 mg 11/05/16 09:00 Levaquin PEG DAILY PATRIZIA Lorazepam 0.5 mg 11/03/16 16:49 11/04/16 14:29 Ativan PO 0.5 mg BID PRN Administration Anxiety Mirtazapine 15 mg 10/30/16 21:00 11/03/16 21:07 Remeron PO 15 mg QPM PATRIZIA Administration Morphine Sulfate 5 mg 10/30/16 04:45 10/31/16 06:08 Roxanol PO 5 mg Q2H PRN Administration Pain/Dyspnea Ondansetron HCl 4 mg 10/30/16 04:45 Zofran Inj IVP Q6HR PRN Nausea / Vomiting Polyethylene Glycol 34 gm 10/31/16 11:06 11/04/16 09:12 Miralax PO Not Given DAILY PATRIZIA Prednisone 7.5 mg 10/30/16 09:00 11/04/16 08:58 Deltasone PO 7.5 mg DAILY PATRIZIA Administration Saccharomyces Boulardii 250 mg 10/30/16 08:00 11/04/16 16:43 Florastor PO 250 mg BIDWM PATRIZIA Administration Senna 15 ml 10/31/16 11:06 Senokot Syrup PEG DAILY PRN Constipation Sodium Chloride 10 ml 10/30/16 04:45 11/03/16 05:23 Normal Saline Flush 0.9% IVP 10 ml PRN PRN Administration NEEDED PER PROVIDER ORDERS Sodium Chloride 10 ml 10/30/16 06:00 11/04/16 12:36 Normal Saline Flush 0.9% IVP Not Given Q8HR PATRIZIA Sodium Chloride 3 ml 11/01/16 08:27 11/04/16 16:05 Normal Saline INH 3 ml PRN PRN Administration LEVALBUTEROL TREATMENTS Acetaminophen 1,000 mg PO TID 09/30/16 Mirtazapine 15 mg PO QPM 10/01/16 Lorazepam 0.5 mg PO Q8H PRN 10/29/16 Fentanyl [Fentanyl 25mcg patch] 1 patch TOP Q72H 10/30/16 Morphine Sulfate [Morphine Sulf Oral (Roxanol)] 10 mg PO Q2H PRN 10/30/16 Polyethylene Glycol 3350 [Miralax] 17 gm PO DAILY 10/30/16 fentaNYL 50 MCG PATCH [Duragesic 50mcg patch] 1 patch TOP Q72H 10/30/16 Objective - Vital Signs/Intake & Output Reviewed Vital Signs: Yes Vital Signs: Vital Signs x48h Pulse Resp 11/04/16 16:05 106 H 18 11/04/16 10:00 114 H 18 Intake & Output: Intake & Output 11/01/16 11/02/16 11/03/16 11/04/16 23:59 23:59 23:59 23:59 Intake Total 4412 5519 4084 3065 Output Total 1870 3070 3400 1600 Balance 2542 2449 684 1465 - Objective General Appearance: positive: No acute distress, Other (seen early this morning up in lounge chair at bedside (!).) ENT: positive: Other (R jaw mass unchanged , relatively soft ~ egg/ tangelo sized. Erythema from XRT oral mucosa pretty clean looking today; tongue dry but no thrush, dry buccal mucosa , but no obvious thrush (? maybe early placque white R upper posterior bucccal mucosa, old blood posterior pharynx) Cardiovascular: positive: Regular rate & rhythm, Other (continues w/ HR ~ 100. Not light headed, not orthostatic,) Abdomen: positive: Nml bowel sounds, No distention. negative: Tenderness Skin: positive: Warm, Dry Extremities: negative: Pedal edema Neurologic/Psychiatric: positive: Mood/affect nml (seems more relaxed today, smiling , brighter mood) - Lab Results Fish Bones: 11/04/16 06:16 11/03/16 05:28 Other Labs: Lab Results x24hrs 11/04/16 Range/Units 06:16 WBC 3.4 L (4.8-10.8) x10^3/uL RBC 2.97 L (4.70-6.10) 10^6/uL Hgb 9.1 L (14.0-18.0) g/dL Hct 27.2 L (42.0-52.0) % MCV 91.4 (80.0-94.0) fL MCH 30.7 (27.0-31.0) pg MCHC 33.5 (32.0-36.0) g/dL RDW 16.7 H (12.0-15.0) % Plt Count 221 (130-450) 10^3/uL MPV 6.4 L (7.4-11.4) fL Neut # Not Reportable Lymph # Not Reportable [place] # Not Reportable Eos # Not Reportable Baso # Not Reportable Absolute Nucleated RBC Not Reportable Total Counted 100 Band Neuts % (Manual) 6 (0 - 10) % Myelocytes % 2 H ( - 0) % Neutrophils # (Manual) 1.7 (1.5-6.6) 10^3/uL Lymphocytes # (Manual) 1.2 L (1.5-3.5) 10^3/uL Monocytes # (Manual) 0.4 (0.0-1.0) 10^3/uL Eosinophils # (Manual) 0.0 (0-0.7) 10^3/uL Nucleated RBCs Not Reportable Differential Comment MANUAL DIFFERENTIAL Manual Slide Review Indicated Platelet Estimate NORMAL (130-450,000) (NORMAL) Platelet Morphology NORMAL APPEARANCE (NORMAL) RBC Morph Micro Appear 1+ POLYCHROMASIA (NORMAL) Assessment/Plan - Problem List (1) Pneumonia Impression: 11/04; breath sounds continue to improve, fine crackles left base, and coarse upper airway sounds. but much better no 02 need Day 6 Levoflox today change nebs to prn tomorrow (juan ramon snf in am); ALLY hernandez prn juan ramon worthwhile on d/c 11/03 ; continues to look slowly better clinically. Less junky cough today, HR persists ~ 100, but BP stable, does not look toxic, hydration status adequate by labs, and not dizzy w/ upright, still needs heavy encouragement to mobilize now that clincially improving. Sputum polymicrobial, much hemolytic strep D/C vanc today (sputum not c/w SA, blood cultures neg) and reeval d/c zosyn today continue levofloxacin continue scheduled nebs mobilize; hoping for d/c tomorrow 11/02: looks much better. afebrile, bandemia resolved, color better, more alert Day 4 levo/ zosyn day 2 vanco sputum yesterday did not have GPC in clusters, so juan ramon not SA. Will juan ramon peel off vanco tomorrow if still looks good then hopefully by friday blayne jacobo and if well enough juan ramon d/c home on levofloxacin changed nebs to scheduled yesterday, continue scheduled nebs start mobilizing (solarium, ambulate w/ PT, to chair) 11/01; 38.4 this am and HR 120, SBP not hypotensive (160's), still no oxygen requirement, is oriented (although feels confused),no marked change in WBC renal fxn stable reblood cx x 2 , port and peripheral, add vanco as noted 10/31 note , (he expectorated easily for me 10/31, not clear why the sputum ordered at admit not sent; Bacteria would likely not grow at this point from sputum after 2days levo/zosyn, bUT, if staph, still need to send sputum (RN aware) repeat CXR>>>>>>>>>Addendum; improved d/w'd (improved HR after tylenol, no fluid bolus at this time as CXR better will f/u on sputum they did finally send. If no obvious GPC (G+ cocci) will juan ramon deescaleate off vanco in few days, but since slow to improve will be consdervative 10/31; slowly improving clinically, HR, fever, tachynpnea , confusion all improved. Bandemia 14% (not measured on admit) If still elevated tomorrow will consider repeat chest xray, but no 02 requiement and on broad coverage w/ levo/zosyn. If any worsening will repeat CXR and add Staph aur. coverage. continue supportive care, increase nebs, levo/ zosyn, recheck cbc in am, roberto, encourage cough Sepsis resolved 10/30 likely due to difficulty handling secretions with head and neck cancer, XRT induced stomatitis, as well as some degree of XRT induced immunosuppresion and on steroids for RA Sepsis (as above) improving w/ start of IVF, deep suctioning in ED, and continue levo/zosyn, nebs, ongoing eval if 02 needs change Still oxygenating adequately on RA, has roberto head of bed up (3) Protein calorie malnutrition Impression: 11/04: CONTINUES PEG feeds/ Allison nutrition increased rate today to increase calories Has free water infusing as well via PEG ? infusion company for infusion pump for feeds will follow up at [facility] 4) Deconditioning SNF recommended by PT He is doing much better last 2 days being up in chair (5)opiate induced constipation no change 11/04 held miralax /senna today (loose stool / continue florastor) no fever or leukocytosis to raise suspician of cdif doubled miralax dose , and bid senna elixer ( was not aware that existed; on d/c will include Rx for liquid senna loose BM yesterday, (he did not complain of persistent loose bowels) (6) hypokalemia, hypomagnesemia will continue to replete IV mag as above (2 more grams tonight 11/03), has K in IVfluid 7); Rheumatoid arthritis flare Impression: Patient has been on a steroid taper; continue his current 7.5 mg / day OUtpatient f/u with rheumatology when d/c'd from [facility] 8) anxiety; prn ativan (takes at home as well usu) ; changed to only PO 11/03 (via PEG/ ) Reemphasized today he NEEDS to get up out of bed to avoid deconditioning with this acute illness, he REinforced how much better he's doing. Will d/w him, ? worth trying increase mirtazapin 9)Mucositis Impression: 11/04; no obvious thrush , but since Hx of after antibiotcs per Cydney, will start clotrimazole sunita x 5 days 10); Herpes zoster; 11/03; scattered scabbed, shallow ulcers noted on sacrum, pt stated sore, not burning and "had been there". were crusted yesterday but after placing tegaderm 11/03 evidently lookng more blistered today. (I did not see today ; seen by Cydney Delgado; suspicious for herpes per her. Started Valtrex (dose d/ w pharmacy) Qualifiers: Qualifiers: Pneumonia type: due to unspecified organism Laterality: bilateral Lung location: lower lobe of lung Qualified Code(s): J18.9 - Pneumonia, unspecified organism
[2016-11-04] MEDS ORDERED: ACYCLOVIR 200 MG CAPSULE PO SCH (18:00)
[2016-11-04] MEDS: valACYclovir 500 MG TABLET PEG SCH (18:21)
[2016-11-04] MEDS ORDERED: CLOTRIMAZOLE 10 MG LOZENGE MM SCH (22:00)
[2016-11-04] MEDS: MIRTAZAPINE 15 MG TABLET PO SCH (22:16)
--- NOTE | 2016-11-04 22:37 | CONSULTATION NOTE ---
DATE OF CONSULTATION: 11/04/2016 00:00:00 REQUESTING PROVIDER: ELE Cueto. TIME OF VISIT: 17:15-17:45. Thank you ELE Neff for asking for Palliative Care Consult Service to provide support currently in-house. We have been following the patient over the last 2 months for support regarding symptom management and psychosocial counseling as an outpatient and inpatient. 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 It has even shrunk some more, more down to the size of large walnut. The redness and swelling round his neck has diminished dramatically since I last saw it on 10/31/2016. He reports his pain and tenderness have decreased as well. He reports both the external tenderness at 5/10 and internal right base of the tongue a 5/10 as well. He does continue to have though headache pain despite the Tylenol. He was admitted with aspiration pneumonia, had been having difficulty with managing his secretions. He has continued to improve. He is awake and alert, able to cough and manage his secretions. Today, his speech is clear as well as his mental status. He is aware they are getting to a place where they morley looking at a transition plan. He is feeling much better though remains with a fairly high level of anxiety. His goals are to rest and recover. He still has greater than a week for the radiation to complete, but currently is hoping to regain some strength and endurance before embarking on this. At this point in time, because of his deconditioning, he is only ambulating short distances. He has been mostly bed-bound for greater than a week. His baseline functional status had been deteriorating as he was having increased difficulty with managing food and fluids. The current plan is to discharge him over to [facility]. They have accepted him, it is just when they have a bed available. He is being managed on a feeding pump and this has worked well for him. SYMPTOM BURDEN: He continues on his baseline fentanyl patches of 50 and 25 mcg. He has not needed any morphine for several days. He is reporting his pain is well controlled. I suspect at some point we will be able to titrate him back on his pain meds. Currently, though he is a 5/10. He does have a fairly high level of fatigue. He is more alert though at this point in time he denies any nausea, is tolerating tube feedings quite well, is not feeling overfilled or any reflux. He denies shortness of breath. He reports the management of secretions is getting easier. He continues with some low grade depression and his anxiety somewhat escalating though he does recognize he needs to transition to another setting and recognizes that he feels fatigued and feeling overwhelmed until he is more independent. BRIEF SOCIAL HISTORY: He does live with his , Jailyn, who has continued to be a good advocate for him, but does have quite a bit of caregiver burden regarding meeting all of the patient's complex care needs. She is quite stressed about thinking about reinitiating their schedule back to radiation and is hoping that this will be somewhat put off yet for a while. She has not heard back from Dr. Spence as far as the care plan. I will followup tomorrow if no contact has been made. and They do have quite a few financial stressors and do live in a small 1 story home, they have been looking at applying for [facility]. PERFORMANCE STATUS: The patient was up ambulating a few steps today. He is up in the chair during my exam, he does know he needs to get moving some. He has been having difficulty with balance and has been mostly bed-bound since he has been here, but is working on becoming more active and engaged in his treatment plan per his report. REVIEW OF SYSTEMS: ENT: Not swallowing, he does continue spitting. CARDIOVASCULAR: Denies chest pain, though has remained quite tachycardic. RESPIRATORY: His secretions are improving. He reports mostly oral not so much respiratory at this point in time. He is able to cough. GASTROINTESTINAL: They are holding his bowel meds as he has had some loose bowels. He does have long-term constipation and this needs to be watched carefully. GENITOURINARY: He does have intermittent urgency. MUSCULOSKELETAL: Underlying RA in his joints and weakness. INTEGUMENTARY: Does report some skin issues on his backside. Jailyn reports this has been longstanding, as far as skin integrity and in the past when it has flared up she reports a history of going to his PCP and actually getting acyclovir. When asked if he has a history of herpes or shingles, she did not know that was what the medication was for. He also has a small pressure area on his buttocks and is using barrier cream with good response and has been having a lot of dryness and skin peeling as a result of his skin healing on his neck. NEUROLOGIC: He is alert and awake. He does not recall the beginning of his hospitalization. He is more aware last few days and is quite grateful for all the care he has received. ENDOCRINE: No history of thyroid or diabetes problems. HEMATOLOGIC/IMMUNOLOGIC: Remains somewhat pancytopenic. PHYSICAL EXAMINATION: GENERAL APPEARANCE: He does appear somewhat disheveled today, but is making eye contact and willing to engage in conversation, continued diminished size of the mass even since I saw him a few days ago on his right side. The skin is fading. ENT: He has no open lesions. No signs or symptoms of candidiasis. He has been doing good oral care much improved and his mucosa is a kind of a dull renteria color , but moist. RESPIRATORY: As noted above, he does have some scattered rhonchi in his right lower lobe. He reports the nebulizers have helped break it up and for him to move his secretions. CARDIOVASCULAR: His heart rate still remains tachycardic, at about 102. ABDOMEN: Soft, has positive bowel tones and PEG site looks good. SKIN: He does have scattered moist open pustules and lesions consistent with unexpected herpes. They are not painful, but are tender, nontingling. Will go ahead and remove the dressing and keep them clean and dry. I did followup with the hospitalist and they we will be starting him on some antiviral. PALLIATIVE CARE DISCUSSION: Who is present, the patient and his , just reviewed his improvements, encouraged him that he is getting better. He is quite anxious about transitioning, feels quite safe here at the hospital, but recognizes he needs to move on. The patient's goals are to get some rest and get his strength back, so he can finish up his treatment though this remains somewhat anxiety producing for him. His is quite happy to have some support in this transition time. IMPRESSION: This is a 76-year-old gentleman with a diagnosis of stage IV squamous cell carcinoma, high symptom burden his sepsis and pneumonia are resolving and does have some continued immunocompromised with exacerbation of herpetic rash on back/sacral area still has high symptom burden with high anxiety, though he does report his pain is controlled currently. RECOMMENDATIONS/COUNSELING DONE: 1. Pain of neoplastic origin. He is currently on 50 plus 25 mcg patch of fentanyl and has not needed his morphine for breakthrough pain. He rates his pain at a 5/10. It does appear the acute side effects of his radiation are resulting declining and we may be able to start to look at titrating back. Will wait though until we are a more stable setting. 2. Protein-calorie malnutrition. He is doing much better on the pump. I do believe [facility] is supposed to be supplying this, will need set up for transition into the senior care setting. He is tolerating this quite well and is being followed by the dietitian. 3. Constipation. Currently, the patient is experiencing loose stools. Will continue to follow closely as he does tend to get constipated and will need to reinitate bowel program. 4. Mucositis. It does appear like his tissue is healing and is doing fairly good with his oral care. 5. Herpetic rash. Instructions to remove dressing, keep it clean and dry and followup for antiviral treatment. 6. Deconditioning. The patient has now that he is feeling better made an effort to participate in some increased activity. He had a goal of sitting up in the chair for a couple hours when I came to visit him. He is aware that he is going to need to participate as far as being able to make any gaining ground in both improving his quality and quantity of life. TIME SPENT: 30 minutes with greater than 50% of this done in counseling and coordination of care, addressing and evaluating his current symptom burden. Will followup with him in his transition to the SNF. JOB #: [id number] EXT JOB #:[id number] NEIL
[2016-11-05] MEDS: NS W/20 MEQ KCL 1,000 ML IV SCH (00:17)
[2016-11-05] MEDS: valACYclovir 500 MG TABLET PEG SCH ×3 (00:17→14:36)
[2016-11-05] MEDS: LEVALBUTEROL 1.25 MG INH SCH ×2 (03:00→11:50)
[2016-11-05] MEDS: ACETAMINOPHEN 325 MG TABLET PO PRN (06:49)
[2016-11-05] MEDS: SODIUM CHLORIDE FLUSH 0.9% 10 ML SYRINGE IVP SCH ×2 (06:50→09:46)
[2016-11-05] MEDS: predniSONE 5 MG TABLET PO SCH (08:10)
[2016-11-05] MEDS: ENOXAPARIN 40 MG/0.4 ML SYRINGE SUBQ SCH (08:10)
[2016-11-05] MEDS: NYSTATIN 500000 UNITS/5 ML UDC PO SCH ×3 (08:10→14:40)
[2016-11-05] MEDS: SACCHAROMYCES BOULARDII 250 MG CAPSULE PO SCH (08:10)
[2016-11-05] MEDS: POLYETHYLENE GLYCOL 3350 17 GM PACKET PO SCH (08:14)
[2016-11-05] MEDS ORDERED: levoFLOXacin 250 MG TABLET PEG SCH (09:00)
[2016-11-05] MEDS: LORazepam 0.5 MG TABLET PO PRN ×2 (11:12→15:48)
[2016-11-05] MEDS: SODIUM CHLORIDE INHALATION 3 ML NEB INH PRN (11:50)
--- NOTE | 2016-11-05 16:24 | Discharge Plan ---
Discharge Plan Disposition: 03 [facility] DC/Xfer Condition: Stable Prescriptions: levoFLOXacin [Levaquin] 750 mg PEG DAILY 4 Days Activity Restrictions: No Restrictions Weight Bearing: Full Weight Additional Instructions or Follow Up instructions: PT/OT/RT/CHEMICAL PUMPER ordered No Smoking: If you smoke, Please STOP! Call for help. Follow-up with: Provider,Other [Primary Care Provider] -
[2016-11-05 16:26] VITALS: BP 104/60
--- NOTE | 2016-11-05 20:33 | DISCHARGE SUMMARY ---
DATE OF ADMISSION: 10/30/2016 DATE OF DISCHARGE: 11/05/2016 ADMITTING DIAGNOSES: 1. Sepsis. 2. Pneumonia. 3. Hyponatremia. 4. Protein-calorie malnutrition. 5. Mucositis. 6. Rheumatoid arthritis flare. DISCHARGE DIAGNOSES: 1. Sepsis, resolved. 2. Pneumonia - improved on antibiotic and steroid therapy. 3. Protein-calorie malnutrition - continued PEG feeds with infusion pump for transfer to a longterm facility. 4. Opioid-induced constipation. 5. Deconditioning with recommendations for longterm facility per Physical Therapy. 6. Hypokalemia and hypomagnesemia - resolved prior to discharge. COURSE IN CENTER: The patient was admitted for management of community-acquired pneumonia, pneumonia associated sepsis, opioid-induced constipation, and protein calorie malnutrition. He was initially started on levofloxacin and Zosyn for his pneumonia. This was then expanded to include vancomycin on day 2. The patient was receiving PEG tube feeds and nutrition was slowly increased during the course of his stay to improve his malnutrition. Physical therapy assessed the patient, worked with him to help with his conditioning, but felt that he would require longterm facility placement. The patient made slow gradual improvements during his stay. He had developed opiate-induced constipation and this had resolved 2 days prior to discharge. His cough persisted, but was clearing with less expectorant. The patient was looking better. He appeared more adequately hydrated. On 11/03/2016 his vancomycin and Zosyn were discontinued. He was continued on levofloxacin as well as nebulizers. Anticipated him going to a longterm facility on discharge. He did develop a rash which initially was thought may be related to him being in bed; however, this developed into a herpes zoster eruption. He was started on Valtrex. Improvement continued. We were able to place the patient in a longterm facility. Nutritional services helped us with continued PEG feedings on discharge. A feeding pump was acquired that he could take with him. He was doing much better. His confusion has cleared. His cough had improved and he was ready for discharge. DISCHARGE PHYSICAL EXAMINATION: GENERAL: Well appearing in no acute distress, resting comfortably, alert and cooperative. HEENT: Normocephalic. Pupils equal, round, reactive. EOM intact. Dry buccal mucosa. CHEST: Good respirations throughout. CARDIOVASCULAR: Regular rate and rhythm without appreciable murmur. ABDOMEN: Nontender, nondistended. Normal bowel tones. EXTREMITIES: No bilateral lower extremity edema. No gross deformities. NEUROLOGIC/PSYCH: Cranial nerves 2 through 12 grossly intact. Mood appropriate, and pleasant. Followup with primary care provider in 2-3 weeks. DISPOSITION: Patient is discharged to a longterm facility. DIETARY RECOMMENDATIONS ON DISCHARGE: Continue tube feeds. DISCHARGE MEDICATIONS: 1. Levofloxacin 750 mg daily for 4 days. 2. Fentanyl 75 mcg placed every 72 hours. 3. Levalbuterol 1.25 mg INH every 6 hours. 4. Lorazepam 0.5 mg b.i.d. as needed for anxiety. 5. Mirtazapine 50 mg every afternoon. 6. Roxanol 5/20 mg every 2 hours as needed for increased secretions. 7. Valtrex 1000 mg in PEG tube 3 times a day for a total of 14 days. 8. Prednisone 7.5 mg daily. 9. Ondansetron ODT 4 mg q.6h hours as needed for nausea. Time spent on discharge greater than 30 minutes. JOB #: [id number] EXT JOB #:[id number] MTDD
== END 2016-11-05 16:18 | DRG 871 ==
LOC: ED 02:22 → MS 04:46
PROVIDERS: ADMIT Internal Medicine; ATTEND Physician Assistant
DX: A40.8 Other streptococcal sepsis (principal); J18.9 Pneumonia, unspecified organism; J69.0 Pneumonitis due to inhalation of food and vomit; C02.9 Malignant neoplasm of tongue, unspecified; E43 Unspecified severe protein-calorie malnutrition; E87.1 Hypo-osmolality and hyponatremia; C77.0 Secondary and unspecified malignant neoplasm of lymph nodes of head, face and neck; K59.03 Drug induced constipation; T40.2X5A Adverse effect of other opioids, initial encounter; M06.9 Rheumatoid arthritis, unspecified; E86.0 Dehydration; E86.1 Hypovolemia; E87.6 Hypokalemia; E83.42 Hypomagnesemia; B02.9 Zoster without complications; G89.3 Neoplasm related pain (acute) (chronic); C01 Malignant neoplasm of base of tongue; K12.33 Oral mucositis (ulcerative) due to radiation; Y84.2 Radiological procedure and radiotherapy as the cause of abnormal reaction of the patient, or of later complication, without mention of misadventure at the time of the procedure; I10 Essential (primary) hypertension; F32.9 Major depressive disorder, single episode, unspecified; F41.9 Anxiety disorder, unspecified; Z92.21 Personal history of antineoplastic chemotherapy; Z93.1 Gastrostomy status; Z68.23 Body mass index [BMI] 23.0-23.9, adult; Z79.52 Long term (current) use of systemic steroids; Z79.891 Long term (current) use of opiate analgesic; Z87.891 Personal history of nicotine dependence; Z95.828 Presence of other vascular implants and grafts; Z51.5 Encounter for palliative care
CPT/HCPCS: 36415; 71020; 80048; 80053; 81001; 81003; 83605; 83690; 83735; 84100; 84134; 84295; 85025; 87040; 87070; 87086; 87205; 94640; 96361; 96374; 99221; 99232; 99283; 99284; 99285

== ENCOUNTER 2016-11-06 17:45 | Outpatient (CLI) | payer MEDICARE, MEDICAID | END 2016-11-06 17:46 | disposition home or self-care (01) | DX: Z51.5 Encounter for palliative care (principal); G89.3 Neoplasm related pain (acute) (chronic); C01 Malignant neoplasm of base of tongue; C79.89 Secondary malignant neoplasm of other specified sites; E63.9 Nutritional deficiency, unspecified; K59.00 Constipation, unspecified; K12.30 Oral mucositis (ulcerative), unspecified; B02.9 Zoster without complications; A41.9 Sepsis, unspecified organism; J18.9 Pneumonia, unspecified organism; R05 Cough; R39.15 Urgency of urination; M06.9 Rheumatoid arthritis, unspecified; Z93.1 Gastrostomy status; D61.818 Other pancytopenia; R00.0 Tachycardia, unspecified; T20.07XD Burn of unspecified degree of neck, subsequent encounter; T21.01XD Burn of unspecified degree of chest wall, subsequent encounter; T21.04XD Burn of unspecified degree of lower back, subsequent encounter; F41.9 Anxiety disorder, unspecified; Z79.891 Long term (current) use of opiate analgesic; Z79.51 Long term (current) use of inhaled steroids; Z79.52 Long term (current) use of systemic steroids ==

== ENCOUNTER 2016-11-13 08:45 | Outpatient (CLI) | payer MEDICARE, MEDICAID ==
--- NOTE | 2016-11-14 06:08 | CONSULTATION NOTE ---
DATE OF CONSULTATION: 11/13/2016 00:00:00 REQUESTING PROVIDER: Delmar Monteiro MD. TIME OF VISIT: 8:45-9:45 a.m. Thank you, Dr. Monteiro, for asking the palliative care consult service to provide support for pain and symptom management. I am seeing him today at [facility] as he has transitioned there for rehabilitation and recovery. HISTORY OF PRESENT ILLNESS UPDATE: This is a 76-year-old gentleman with stage IV squamous carcinoma o f the right tongue base with metastatic disease to the right neck presenting as a solid neck mass. He has restarted his radiation for his last 4 treatments. He has today and tomorrow to complete course. It has been complicated as far as getting his nutritional and fluid needs met given his time out of the facility. His skin is slightly red and tender at radiation site. He does report some increased te nderness and soreness in his mouth and throat, though not to the degree that he has had before. He do es have some demarcation at the posterior part of the neck mass. It does appear fairly thick and size unchanged at this point in time. He was hospitalized from 10/30 to 11/05 with sepsis, pneumonia, hyp onatremia, protein calorie nutrition and mucositis. He is doing actually quite well today. His lungs are clear. His O2 saturations on room air were 98%. He does have some oral secretions. I suspect he w ill continue to struggle with those until he is managing his secretions much better. He is able to sw allow clear water, noted no choking. He is working with speech therapy. In the context of his protein calorie malnutrition, he is on his PEG feeds with the infusion pump at 85 mL an hour. The goal would be to get him some bowel rest. The hope is to move to increase the rate and to give him 4-6 hours off, hopefully at bedtime. He is quite hesitant, as his is not presen t to able to have further conversation about this. I did express my severe concern about him not doin g bolus feedings or frequent small flushes through his travel time, as he is missing some fluids and calories during that time. He reports he had some difficulty with it yesterday when he laid down with some increased nausea, is very hesitant, but had tried to do the whole 8 ounces. We did discuss give n his current rate of fluids that most likely was too much to tolerate. We did discuss strategies abo ut small frequent, 2-3 ounces more frequently, and with frequent water flushes while he is gone, and he is in agreement with the plan and we will see what he can do. Currently, he does have some mild nausea. Unfortunately, his pump had come apart right after he had h is nausea medicine, so it is unclear if he got a full dose. I will have the nurse repeat the dose now . The other problem is his herpes zoster eruption. He is still currently on his Valtrex, but the lesion s are dried and scabbed over. There is no moisture, pustules, and is healing nicely. He does wear lik e a Depends so will cover and protect area without occulsion. He also has a little stage II decubitus on his coccyx that is less than 1 cm and is filling in nicely. BRIEF SOCIAL HISTORY: Currently, he is at [facility] for rehabilitation. Coming off precautions will imp rove his accessibility to the rehab staff. He is working with OT, PT and speech, and the focus is on getting him further independent in regaining his strength. Unclear why his was not here today. I was with the understanding of the staff that she knew I was coming. So, the patient thought was too, so I will follow up with her on Friday unless she has further questions, he will relay this informat ion. The goal is to return home. PERFORMANCE STATUS: The patient is able to ambulate short distances with a front-wheeled walker. I wa s there for his OT. He is starting to need less assistance with dressing. Speech is working with him and will hopefully progress him. We agreed that the goal was again to return to a place where he is a ble to meet his caloric needs orally. REVIEW OF SYSTEMS ENT: He continues to spit out his oral secretions. Reports he is able to swallow, though with some di scomfort. CARDIOVASCULAR: He denies chest pain. RESPIRATORY: He has good cough effort. It does appear that he is doing quite well recovering from the pneumonia. We did negotiate changing his levalbuterol to p.r.n. GASTROINTESTINAL: He is not currently on any of bowel medications. He does have longstanding constipa tion, but I suspect with the tube feedings he is staying quite loose. GENITOURINARY: He has some intermittent urgency. MUSCULOSKELETAL: Has some underlying RA in joints and weakness secondary to deconditioning, but is jaylen mittal, is very pleased. INTEGUMENTARY: The patient denies any pain or discomfort from his lesions or coccyx. ENDOCRINE: No history of thyroid or diabetes problems. HEMATOLOGIC/IMMUNOLOGIC: He has remained pancytopenic. He is due for labs tomorrow. PHYSICAL EXAMINATION GENERAL APPEARANCE: He is alert and oriented, is able to talk and engage in conversation. ENT: Has no open lesions, no signs or symptoms of candidiasis. Mucous membranes and tongue are a dull renteria color. This appears to be healing, though a little bit denuded on the left side of the tongue. RESPIRATORY: As noted above, clear. CARDIOVASCULAR: He continues tachycardic, is about 110. I will wait and put him on some medication fo r possibly rate control on Friday, as well as if he is using the levalbuterol less, this might improv e as well. ABDOMEN: Soft. Positive for bowel tones. PEG exit site looks good. SKIN: As noted above. EXTREMITIES: He is able to move all extremities. His gait is again somewhat tentative. Posture is sli ghtly bent, but does appear stronger. PALLIATIVE CARE DISCUSSION: Who is present, myself and the patient. Did discuss some of his frustrati ons as far as management at [facility], just trying to get assistance, the tube coming apart, needing to schedule his medications around radiation. We did discuss he just has 48 more hours to kind of grit through and can start to really focus future goals, which would be to transition to a higher tube fee ding rate and start getting some breaks for his GI, working with speech therapist with the goal event abimael to be able to meet his caloric needs orally. Certainly there in the future as far as restaging and what might be next and further consults around that. The short term goal is to get his weight kenzie k up, get his fluid/nutritional status normal, and get him stronger and independent in his ADLs. IMPRESSION: This is a 76-year-old gentleman with diagnosis of stage IV squamous cell carcinoma metast atic disease to his neck with high symptom burden. His acute problems regarding sepsis and pneumonia are resolved. His herpes zoster is healing. His lesions are dried, can come off of precautions. His p ain appears well controlled, remains with high anxiety. RECOMMENDATIONS/COUNSELING DONE 1. Pain of neoplastic origin. The patient is currently on his 50+25 mcg patch of fentanyl. Rates his pain a 2-3/10, but some increased pain at the base of the neck that has exacerbated some, but has not needed anything for breakthrough medication. We will continue to evaluate, may be able to titrate hi m down. 2. Protein-calorie nutrition. Weight 155. This has been exacerbated by being off to radiation. Did re view the need to really be a little more aggressive with making up the 24+ ounces that he is missing when he is off the tube feeding. We will need to transition to a higher rate and more breaks and star t to look at retraining his GI system for proper nutrition. Will follow up with the dietitian for fur ther recommendations for transitioning. 3. Constipation. Currently, the patient is having loose stools. I suspect this is related to his tube feeding. It is not watery, explosive or painful. He does have p.r.n. MiraLax as needed. 4. Pneumonia, currently resolved. I will change his nebulizer treatment to as needed. I reviewed this with the patient, that he can still use it if he is feeling tight or having difficulty with secretio ns, but his lung status is improved such that he currently does not need it and may help discontinuin g as far as his feelings of anxiety and jitteriness and his elevated pulse. 5. Herpetic rash. He can currently now come off the dressing. The goal is to allow it to dry out. He is still on his antiviral and it is healing well without any signs or symptoms of infection. 6. Stage II decubitus, right buttock. Barrier cream should be able to manage this. The patient has be en instructed for off loading. 7. Mucositis. This is improved, though he is having a little bit of exacerbation of the tenderness re lated with the reinstitution of the radiation. He just has 2 more treatments. This should heal more q uicker. He does have that aloe vera gel topically, which he is using both on his skin and chest area with good management. 8. Deconditioning. The patient is working with therapies. I suspect he will do better once he gets ba ck into a routine and we start getting his full caloric intake and fluid status met. 9. Tachycardia. This is multifactorial in origin. The patient does have anxiety, has been tachy for a long period of time. We will evaluate him Friday if need to initiate some metoprolol for rate contro l. Will follow up with his PCP, Dr. Carlton, at the [facility] setting if needed. TIME SPENT: 60 minutes with greater than 50% of this done in counseling and coordination of care, perinatal coordinator rdination with staff, therapy staff, as well as weighing benefits and burdens with the patient and co unseling for meeting nutritional and fluid needs when out of the facility and anticipatory guidance. JOB #: [id number] EXT JOB #:[id number]
== END 2016-11-13 08:46 | disposition home or self-care (01) ==
LOC: PC 08:45
PROVIDERS: ATTEND Nurse Practitioner Adult Health
DX: Z51.5 Encounter for palliative care (principal); G89.3 Neoplasm related pain (acute) (chronic); C01 Malignant neoplasm of base of tongue; C79.2 Secondary malignant neoplasm of skin; E46 Unspecified protein-calorie malnutrition; Z93.1 Gastrostomy status; K59.00 Constipation, unspecified; B02.9 Zoster without complications; L89.312 Pressure ulcer of right buttock, stage 2; K12.30 Oral mucositis (ulcerative), unspecified; R00.0 Tachycardia, unspecified; Z79.899 Other long term (current) drug therapy; R11.0 Nausea; D61.818 Other pancytopenia; M06.9 Rheumatoid arthritis, unspecified; F41.9 Anxiety disorder, unspecified
CPT/HCPCS: 99310

== ENCOUNTER 2016-11-15 09:00 | Outpatient (CLI) | payer MEDICARE, MEDICAID ==
--- NOTE | 2016-11-18 11:48 | CONSULTATION NOTE ---
DATE OF CONSULTATION: 11/15/2016 00:00:00 REQUESTING PROVIDER: Dr. Delmar Monteiro TIME OF VISIT: 9:15 to [address] Monteiro for asking the palliative care consult service to provide support for pain and sy mptom management. I am seeing him today at [facility], as he has transitioned t here for rehabilitation and recovery after acute hospitalization from 10/30/2016 to 11/05/2016 with s epsis, pneumonia, hyponatremia, protein calorie malnutrition, and mucositis. 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 He has just completed his final 4 last treatments of radiation today. This was fairly strenuo us and difficult for him given his deconditioning, recovering from pneumonia and current need for con tinuous tube feedings. Radiation prescription has been completed. Of note, he has some sequelae attri buted to this with some increased swelling, skin changes, quite warm to touch, some increased pain in his neck area as well as base of his tongue that had increased from baseline. He does report this is tolerable at this point in time. He does have demarcation and palpation of the posterior part of the neck with some swelling, difficult to palpate the specific edges. I did decide to measure at this po int in time, and I got 7 mm x 5 cm, but again, he has quite a bit of swelling in this area. He does h ave some tenderness and soreness in his mouth. On examination, it is slightly reddened but no signs o r symptoms of candidiasis or oral mucousa breakdown. He continues to have a large amount of oral secr etions and is able currently to cough and clear those. His lungs are clear. His sats are 93% on room air. He has no crackles, wheezes or rhonchi. He has a small amount of atelectasis in the bases that c lear with deep breathing. He does tend to slouch down and breathe shallow in the bed. He has been not ed to swallow clear water, no noted choking, but with finishing radiation, it is somewhat more painfu l. He is working with Speech Therapy. In the context of his protein calorie malnutrition, he is on PEG feeds, infusion pump at 85 mL an ronald r. They have tried to supplement with his time off for treatment. I suspect he is somewhat behind as far as his caloric needs, but his baseline weight is 155. His labs actually look fairly good. Sodium 136, potassium 3.9, calcium 8.7, total protein is diminished at 5.9 and albumin 2.7. We did discuss t he need to get his caloric and fluid intake in. Will continue to work with the dietitian, but will in crease it slowly through the weekend related to anxiety attributed to the patient's propensity for na usea. I did explain, though, that the nausea most likely at this point in time is a residual from the radiation and this will continue to improve. His herpes zoster eruption on his sacral coccyx area is healing nicely. He is still currently on his Valtrex. This is due to finish next Friday. It is dried and scabbed over and continues to fill in. He does have a stage II decubitus on his coccyx, but currently on examination, this is less than 0.5 an d filling in nicely as well. SYMPTOM BURDEN: He reports his pain is currently controlled on his current regimen of 75 mcg of fenta nyl. He is not needing any breakthrough morphine. I suspect we can after this weekend if symptoms imp rove, we can decrease his patch if and when the acute phase of his discomfort starts to diminish. Thi s will most likely help as far as his fatigue as well as his nausea and alertness. BRIEF SOCIAL HISTORY: Currently, he is at [facility] for rehabilitation. I did speak with the speech the rapist in the context of he most likely would be there at least another 4 or 5 weeks. [facility] and OT for ADLs and Speech for swallowing and progressing diet. His is present today. She, of course, continues to struggle trying to find the balances of meeting both her 's and her daughter's needs and she oversees her medical care as well. It is quite exhausting as well as I believe both are feeling quite vulnerable now that they have gotten through the acute ph ase. PERFORMANCE STATUS: The patient is able to ambulate short distances with a front-wheeled walker. He i s quite fatigued from the last 4 days, is hoping to recover over the weekend but is quite willing to continue to participate in therapies for improving. REVIEW OF SYSTEMS GENERAL: The patient is able to cough and clear his oral secretions. He is able to swallow, though wi th increased discomfort and hopefully this will improve shortly. CARDIOVASCULAR: Denies chest pain. RESPIRATORY: Has not needed the levalbuterol, had changed it to p.r.n. GASTROINTESTINAL: He has had regular BMs that are quite loose, most likely attributed to the tube fee dings. GENITOURINARY: He does have some intermittent urgency. MUSCULOSKELETAL: He does have weakness secondary to deconditioning, but is making progress, has under lying RA. INTEGUMENTARY: Denies pain or discomfort from his lesion site on the coccyx that is improving. ENDOCRINE: No history of thyroid or diabetes problems, though his sugar is slightly elevated at 135. Will continue to monitor. HEMATOLOGIC/IMMUNOLOGIC: He is recovering from pneumonia quite nicely. Has had zoster, which he is re covering from. His white count is in the normal range at 6.8. He is anemic, though, with a hemoglobin of 10.1 and hematocrit 28.9. PHYSICAL EXAMINATION GENERAL APPEARANCE: He does appear quite fatigued, had his eyes closed most of the visit, is having m ore difficulty talking related to discomfort from the radiation. ENT: As noted above. RESPIRATORY: As noted above. CARDIOVASCULAR: He remains tachycardic at 110. His blood pressure is slightly elevated at 140/88. I w ould like to proceed and put him on something for rate control. He has not been using the levalbutero l. His reports he has had difficulty with blood pressure medications in the past but did agree t o give through the weekend, but will need to revisit at our next visit to discuss in context of his f atigue and as a concern to leave it untreated. He is anemic, would be the only other contributing fac tor at this point in time that may yet improve. ABDOMEN: Soft. Positive bowel tones. PEG exit site looks good. SKIN: As noted above. EXTREMITIES: He was able to sit to stand, appears much stronger. I did not see him ambulate. No signs or symptoms of edema. PALLIATIVE CARE DISCUSSION: Who is present Myself, the and the patient. They are just feeling q uite fatigued and overwhelmed with his finishing of treatment. I did try to normalize in the context of treatment for head and neck is a very tough course and though it is not normal to get pneumonia, i t is not unexpected given the severity of his disease and sequela of the aggressiveness of the treatm ent. They are quite anxious about what is next. They have a followup with radiation oncologist in a m onth as well as the oncologist in a couple weeks. We did review that radiation is continuing to work and further imaging would not give us more information at this point in time, will wait to see what r esidual tumor burden is left and if further treatment is needed in the context of this. Currently, th e goal would be to focus on healing, things that were within our control, participating in getting hi m stronger, working towards normalizing his GI tract, transitioning back to oral feedings and working diligently with the speech therapist and this seemed appropriate within the context of the goals mov ing forward. IMPRESSION: This is a 76-year-old gentleman with a diagnosis of stage IV squamous cell carcinoma, met astatic disease to his neck, with improving symptom burden. He has just finished radiation therapy an d will now be focusing on rehabilitation and improving his functional capacity as well as nutritional capacity as well. RECOMMENDATIONS/COUNSELING DONE 1. Pain of neoplastic origin. He is currently on a 50 plus 25 mcg patch of fentanyl, rates his pain a gain a little bit higher at 4-5 with some exacerbation from the radiation. He is not using the breakt hrough pain medication, but is doing fairly well. 2. Protein-calorie malnutrition, remaining weight neutral at 155. I will work with the dietitian in l ooking where next to go, but will increase his tube feedings today to 90, tomorrow to 95 mL an hour a nd on Friday 100 mL an hour. Will need to look at retraining his GI system as well as working with Sp eech for improved oral intake as tolerated. 3. Constipation, currently having loose stools. Will continue to monitor. 4. Pneumonia, currently resolved. He has not needed his nebulizer treatment. His breath sounds are cl ear. He certainly is at risk for recurrent pneumonia. I did discuss about pulmonary toilet, deep vangie thing, clearing secretions and increasing activity. 5. Herpes zoster, continuing to improve. Almost finished with his antiviral. 6. Stage II decubitus, right buttock, improving. 7. Mucositis, some acute exacerbation and tenderness with reinstitution of radiation. Does have aloe vera gel topically and I have given permission to use Xiloments for oral dryness. 8. Deconditioning, currently now with finishing radiation I expect his functional status to improve f airly dramatically over the next couple weeks. 9. Tachycardia. Once again, this is most likely multifactorial in origin. Will need to consider initi ating something for rate control. Will follow up with his PCP, Dr. Carlton, at [facility] setting next we ek if not improved. TIME SPENT: 45 minutes with greater than 50% of this done in counseling and coordination of care, coordinator volunteer services rdination of staff, therapy staff, as well as counseling for meeting nutritional and fluid needs and anticipatory guidance. JOB #: [id number] EXT JOB #:[id number]
== END 2016-11-15 09:01 | disposition home or self-care (01) ==
LOC: PC 09:00
PROVIDERS: ATTEND Nurse Practitioner Adult Health
DX: Z51.5 Encounter for palliative care (principal); G89.3 Neoplasm related pain (acute) (chronic); C01 Malignant neoplasm of base of tongue; C79.89 Secondary malignant neoplasm of other specified sites; E46 Unspecified protein-calorie malnutrition; K59.00 Constipation, unspecified; B02.9 Zoster without complications; L89.312 Pressure ulcer of right buttock, stage 2; K12.30 Oral mucositis (ulcerative), unspecified; R00.0 Tachycardia, unspecified; Z93.1 Gastrostomy status; R11.0 Nausea; F41.9 Anxiety disorder, unspecified; Z79.891 Long term (current) use of opiate analgesic; R53.83 Other fatigue; R39.15 Urgency of urination; R03.0 Elevated blood-pressure reading, without diagnosis of hypertension; D64.9 Anemia, unspecified
CPT/HCPCS: 99310

== ENCOUNTER 2016-11-21 10:05 | Outpatient (CLI) | payer MEDICARE, MEDICAID ==
--- NOTE | 2016-11-23 10:02 | CONSULTATION NOTE ---
DATE OF CONSULTATION: 11/21/2016 00:00:00 REQUESTING PROVIDER: Dr. Delmar Monteiro. TIME OF VISIT 10:05-10:50. Thank you, Dr. Mnoteiro, for asking the palliative care consult service to provide support for pain and symptom management. I am seeing him today at [facility], as he has transitioned there for rehab and kori very after completing his chemoradiation, as well as an acute hospitalization from 10/30/2016 to 9 with sepsis, pneumonia, hypernatremia, protein calorie malnutrition, and mucositis. HISTORY OF PRESENT ILLNESS: This is a very anxious 76-year-old gentleman with stage IV squamous carci noma of the right tongue and metastatic disease to the right neck and face, presenting as a solid nec k mass. He is now about 1 week after his last radiation treatment. He had had a fairly significant br eak in there, but has completed. He did have some recurrent radiation side effects including skin natalee nges, increased edema, as well as some spike in his pain. Currently on examination, the swelling has gone down. Skin is slowly healing, though is peeling. In attempting to measure the mass from the back posterior part of the demarcation, is still quite solid, but softened and appears to be shrinking. I did get less than an accurate measure of 6 x 4 cm, but this is improved from 7 x 5 cm last week. He is complaining of increase in pain in his mouth, particularly in his throat with swallowing. On exami [facility], the patient does have fairly prominent oral candidiasis with white plaques, not only on his t ongue, but in the buccal area transitioning back into the back of his throat as far as I can see. His oral secretions have decreased some. He is still able to cough and clear those. His lungs are clear. His sats on room air are 97%. He has no crackles, wheezes or rhonchi. He has been working with speec h therapy and able to swallow small amounts of water, but increased pain currently with his candidias is. In the context of his protein calorie malnutrition, he is on PEG feeds. Had tried to increase his tube feedings to 100 mL per hour. He was having a lot of nausea over the weekend. It is unclear if t his is related to the tube feedings or this is a residual side effect from finishing up his radiation . Given his distress, though, we have decreased this back down. He is on 88 mL an hour and the dietit ryan is following him for his caloric needs and may be increasing the Jevity formula as far as caloric intake in the future, but will leave things as is. He is remaining weight neutral at 155. He does ap pear quite thin though and frail. His herpes zoster eruption on his sacral coccyx is healing nicely. He has finished his Valtrex. He do es have a stage II decubitus on his coccyx that is shallow and filling in. We will continue the barri er cream there. It does not need a dressing. SYMPTOM BURDEN: His pain has been somewhat exacerbated with the candidiasis. He has not used any vangie kthrough medication or morphine, but has been using the Tylenol. His pain is still localized up in th e tumor area. This is an acute pain in his throat and swallowing. He is on a fentanyl 75 mcg patch. I will leave him on his current dosing for now. He does report continued fatigue and tiredness. He has been participating with therapies, but does get quite exhausted. He remains anxious, but improved. H is is in attendance quite often, which does allay some of his fears. PERFORMANCE STATUS: The patient was able to ambulate with the therapist the other day over 160 feet. He is starting to be able to tolerate this better. He has had some orthostatic hypotension, but this is improving too. REVIEW OF SYSTEMS GENERAL: His biggest challenges is fatigue, being able to tolerate some activity. His nausea and vomi ting have resolved, has not needed any breakthrough ondansetron for a couple of days. He is using the lorazepam, both for nausea and anxiety, but not more than twice a day as well. CARDIOVASCULAR: Denies chest pain. ENT: Swallowing as noted above. GASTROINTESTINAL: His bowels have been regulated. He had gotten a little bit "behind," but did respon d to MiraLax. GENITOURINARY: He has intermittent urgency. MUSCULOSKELETAL: Weakness secondary to deconditioning, he is making progress with underlying RA. INTEGUMENTARY: Denies any pain or discomfort. His lesions are improved. His coccyx is improving as we ll. He does spend quite a bit of time in bed, though, concerned about needing more pressure relief. ENDOCRINE: No history of thyroid or diabetes problems. HEMATOLOGIC/IMMUNOLOGIC: He is recovering from his pneumonia nicely, his immunocompromised zoster. He remains anemic with a hemoglobin of 10.1, hematocrit 28.9 from last week. PHYSICAL EXAMINATION GENERAL APPEARANCE: He does appear fatigued, though is making better eye contact. Is having difficult y talking because of the throat pain. ENT: As noted above. RESPIRATORY: As noted above. CARDIOVASCULAR: His heart rate has improved. His pulse is 92 today, blood pressure 138/72. Given the concern about adding medications, we will continue to monitor at this point. GASTROINTESTINAL: Abdomen is rounded, soft, nontender. Bowel tones positive. SKIN: As noted above. EXTREMITIES: No lower extremity edema, is able to get from sit to stand. Balance appears good. He is using a walker independently. PALLIATIVE CARE DISCUSSION: Who is present, myself, the , and the patient. They have been continu ing the challenge to readapt to their environment, [place] with the focus on rehab therapies now that he is out of isolation. There is of course concern about treatment optio ns and further intervention in the future, but are currently at goal for the focus on getting him str onger, rehabbing his throat and swallow, ability to meet his caloric needs and strengthening. Does ac knowledge the difficulty sometimes to be in the waiting time, particular in a different environment, but does have challenges and limitations, so are finding the care team responsive to their needs. The y will have followup with the radiation oncologist and medical oncologist in the next couple of weeks . IMPRESSION: This is a 76-year-old gentleman with diagnosis of stage IV squamous cell carcinoma of the tongue with metastatic disease to the neck. He does present today with oral candidiasis with increas ed symptom burden. He is making progress with his rehabilitation therapy, focusing on improving his f unctional capacity, as well as nutritional status. RECOMMENDATIONS/COUNSELING DONE 1. Pain of neoplastic origin. Focus mostly on his right neck area, some acute overlay with his candid iasis. He is currently on 50+25 mcg patch of fentanyl. His pain remains quite high for him, though he does choose not to take the morphine. He is using Tylenol for breakthrough pain. Hopefully, as radia tion settles down, we may be able to titrate him back up with fentanyl. This may help with some of hi s fatigue as well. 2. Protein-calorie malnutrition, remaining weight neutral, around 155, working with the dietitian who will work with caloric needs and rate control. The patient appears quite anxious around this, but marie s not had any further nausea or vomiting. 3. Constipation. Has added some MiraLax. We will continue to monitor. They have the tools to be able to address any constipation. He is quite fearful of this, as it has been problematic in the past. 4. Pneumonia, currently resolved. He has not needed any further nebulizer treatments. His breath soun ds are clear. He is managing his secretions well. Encouraged again to continue his deep breathing and position changes. 5. Stage II decubitus, right buttock/coccyx area. The patient has spent quite a bit of time in bed. W ill ask for a recliner to put the room. I think the patient will do better if he is not spending so m uch time in bed. Encouraged him to be out of bed more often. Also encouraged him to be out of the jenna m, even if it is in a wheelchair. 6. Oral candidiasis. The patient has had this before. Has tolerated Diflucan without difficulty. Desp ite being on fentanyl and ondansetron, will order 100 mg for 5 days via the tube. 7. Deconditioning, currently is already improving. He is working with the rehab team, hope to improve his tolerance and endurance. 8. Tachycardia, most likely again multifactorial in origin. It does appear to be drifting down. Given the reticence to add any further medication regarding this, we will continue to monitor. TIME SPENT: 45 minutes with greater than 50% of this done in counseling and coordination of care, venue coordinator rdination with staff, as well as anticipatory guidance and psychosocial support. JOB #: [id number] EXT JOB #:[id number]
== END 2016-11-21 10:06 | disposition home or self-care (01) ==
LOC: PC 10:05
PROVIDERS: ATTEND Nurse Practitioner Adult Health
DX: Z51.5 Encounter for palliative care (principal); G89.3 Neoplasm related pain (acute) (chronic); C01 Malignant neoplasm of base of tongue; C79.2 Secondary malignant neoplasm of skin; E46 Unspecified protein-calorie malnutrition; K59.00 Constipation, unspecified; L89.312 Pressure ulcer of right buttock, stage 2; B37.0 Candidal stomatitis; R00.0 Tachycardia, unspecified; Z93.1 Gastrostomy status; R53.83 Other fatigue; I95.1 Orthostatic hypotension; R53.1 Weakness
CPT/HCPCS: 99310

== ENCOUNTER 2016-11-28 09:30 | Outpatient (CLI) | payer MEDICARE, MEDICAID ==
--- NOTE | 2016-12-02 09:46 | CONSULTATION NOTE ---
DATE OF CONSULTATION: 11/28/2016 00:00:00 REQUESTING PROVIDER: Delmar Monteiro MD TIME OF VISIT: 5836 to [id number] Thank you, Dr. Monteiro, for asking the palliative care consult service to be involved in the care of yo ur patient for support of pain and symptom management. I am seeing him at [facility] as he has transitio nevaeh there for rehab following his acute hospitalization from 10/30/2016 to 11/05/2016. 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 He is now 2 weeks post his last radiation treatment. He has also received chemotherapy. His radiation sequ elae are starting to resolve; he does have some dry skin, the edema has gone down, but still has resi dual mouth pain and some mucositis changes. In attempting to measure tumor size, he does have solid d emarcation in the posterior part of the tumor. The swelling has gone down, it has shrunk, somewhat mo re mobile and more irregular in borders as I did measure 6 cm width and 3 cm height at the largest po ints. He continues to complain of pain in his mouth, typically his throat with swallowing. He has com pleted a course of 5 days of Diflucan with still some residual white plaques, but much improved. He i s using oral care and rinses. He is able to cough and clear his secretions and his lungs currently ar e clear with his O2 saturations at 97% on room air. He continues to work with speech therapy and has progressed to swallowing water. No signs or symptoms of choking during our visit. His most prominent symptom has been intermittent nausea, which he perceived as related to his tube feedings, which curre ntly are Jevity 1.2 calorie/mL, running at about 90 mL per hour with water flushes. He does come on a nd off this given his therapy. We are currently having a meeting with therapy, dietitian and myself; please see palliative care discussion. His herpes zoster eruption on his sacral coccyx is presenting with just scarring tissue. He does have a stage II decubitus remaining on his coccyx, but is shallow with just a small amount of moist desqu amation, measuring about 0.5 x 1 cm area. SYMPTOM BURDEN: He continues with residual pain in the right base of his tongue and with swallowing. He has not used any of his breakthrough medication of morphine and has used intermittent Tylenol. His acute pain is improving, but is not solved. He currently is on fentanyl 50 mcg patch. He continues t o report fatigue and tiredness, though is up more in the chair and participating with PT and OT, but does have poor activity tolerance; though again this remains improved. He continues with anxiety, par ticularly with any kind of change in his program. His overall quality of life remains somewhat impact ed by his current situation, but is improved from last week. PERFORMANCE STATUS: The patient has been ambulating with the therapist, starting to do some new steps and working on endurance. Is ambulating with his walker. I did observe him getting from sitting to s tand. I would put him at a palliative care performance status probably at 60%. REVIEW OF SYSTEMS GENERAL: Continues to be fatigued. This underlying nausea impacts his feeling confident in moving for elkins. He is using the lorazepam intermittently but not more than twice a day. CARDIOVASCULAR: Denies chest pain. ENT: Following as noted above with some pain. Is progressing with speech therapy. GASTROINTESTINAL: He is having somewhat more firmer bowel movements. I am concerned about ongoing iss ues related to constipation. Did agree to reinstate regular bowel medications as far as the MiraLax a s he is quite concerned about incontinence. GENITOURINARY: Intermittent urgency. MUSCULOSKELETAL: Presents with weakness secondary to deconditioning though is making progress. He jackson s have underlying RA. INTEGUMENTARY: Is out of the bed a couple of times a day in a recliner with improved pressure relief. ENDOCRINE: No history of thyroid or diabetes problems. HEMATOLOGIC/IMMUNOLOGIC: He is recovering from his pneumonia and his immunocompromised state, as far as his zoster. He has not had any recent labs, but his last hematocrit was 28.9 two weeks ago. PHYSICAL EXAMINATION GENERAL APPEARANCE: He does appear somewhat fatigued but engaged in conversation. He does have some d ifficulty talking because of throat pain. His voice is quite soft. ENT: As noted, he still has painful throat. He is working with the speech therapist, but can get two fingers in, a little bit more jaw mobility, and the swelling has gone down. RESPIRATORY: His breath sounds are clear. CARDIOVASCULAR: He is still a little bit tachy, pulse 108, though is quite anxious with the meeting. Temperature 96.2, blood pressure 152/72. GASTROINTESTINAL: Abdomen is rounded, soft. He does have a dressing on his PEG tube though I have ask ed them not to do this because of the pressure on this. There was concern that he was having drainage but the site looks good. EXTREMITIES: No lower extremity edema. He is able to get from sit to stand. His balance appears good. He can use his walker independently, and has been progressing in his activity. PALLIATIVE CARE DISCUSSION: Who is present; myself, the Jael Lechuga the palliative care nurse practitioner, Janna the speech therapist, and Cathy the dietitian. Did a check-in, particularly as re lated to his toleration of the tube feeding. His weight has remained stable. His last weight on 11/26 was 158.6, which is actually improved from his lowest on 11/14/2016 of 155. In looking forward how best to support him to be able to progress in preparation for transitioning eventually to home. D iscussion topics included redoing the tube feeding to give him more time off, setting some goals rega rding his speech therapy progressing his program, considering decreasing his pain medications in atte mpt to also impact his fatigue and nausea, and to provide him support just in the context of his expe rience of his current health status. IMPRESSION: This is a 76-year-old gentleman with a diagnosis of stage IV squamous cell carcinoma of t he tongue with metastatic disease to the neck. He does have residual tumor in his right neck area tho ugh does appear to be shrinking. He continues with the sequelae of difficulty with eating and drinkin g, and need to improve his nutritional status. He is making progress with rehabilitation, again focus ing on his functional capacity, symptom burden, and nutritional status. RECOMMENDATIONS/COUNSELING DONE 1. Nausea, multifactorial in origin. The patient does attribute this to intermittent bolusing, starti ng and stopping his tube feedings, as well as the high rate. In discussion and for support the dietit ryan and speech therapist agreement with the change to 1.5 mL of the Jevity with 85 mL an hour, giving him a total of 6 hours off. He would need increased water intake to counterbalance the higher calori c intake with less fluid. They will negotiate how best to meet that as far as scheduling. I am concer nevaeh given the levle of his pain and fentanyl patches that with improvement and shrinkage of his tumor , he may have excess opioid and he would like to trial decreasing dose to see if it would impact his fatigue and nausea level. The patient is really anxious with any kind of change. He just had his patc h changed and we had agreed to decrease this on Friday. 2. Pain of neoplastic origin. Again, mostly focused on his right neck area with acute overlay of thro at discomfort. Has a little bit of residual candidiasis, but improved on the Diflucan. Speech therapy would like to try some Chloraseptic spray to see if this may improve this at all. He does have morph ine for breakthrough pain if needed and using the Tylenol. 3. Constipation. The patient most likely needs to reinstate his regular bowel program, is several wee ks out now from his antibiotic therapy and starting to regulate as far as his tube feedings. Will go ahead and institute MiraLax 1/2 capful daily as scheduled, and can increase bowel medications if incr eased signs or symptoms of constipation. 4. Stage II decubitus, coccyx area. The patient is off loading more, it is decreasing in depth and si ze. Is using the barrier cream on it with good results. ' 5. Dysphagia. He is working with a speech therapist, is okay to resume oral intake and speech therapy will progress him as indicated given his underlying need for retraining post-radiation changes, and anxiety given his past experiences. 6. Tachycardia. He still remains slightly tachycardiac. This had improved and we will continue to mon itor. May need to add some metoprolol if this continues to be problematic. TIME SPENT: Sixty minutes with greater than 50% of this done in counseling and coordination of care, care conferencing, and negotiation of changes to move the patient towards wellness and improved quali ty of life. ADDENDUM 11/29/2016: Did get a fax that the patient remains very anxious about making more than 1 natalee nge, wants to change his Duragesic on his next three change, which would be about 6 days now. Agreed given the patient's anxiety and concern, but did caution it may be adding to the underlying nausea an d if this does not improve, I would recommend we move forward with decrease of the Duragesic. Thank you, Dr. Monteiro, for asking the palliative care consult service to be involved in the care of yo ur patient. I will continue to see him weekly given his symptom burden and anxiety regarding his arvin tment plan. JOB #: [id number] EXT JOB #:[id number]
== END 2016-11-28 09:31 | disposition home or self-care (01) ==
LOC: PC 09:30
PROVIDERS: ATTEND Nurse Practitioner Adult Health
DX: Z51.5 Encounter for palliative care (principal); R11.0 Nausea; G89.3 Neoplasm related pain (acute) (chronic); C01 Malignant neoplasm of base of tongue; C79.2 Secondary malignant neoplasm of skin; K59.00 Constipation, unspecified; L89.152 Pressure ulcer of sacral region, stage 2; R13.10 Dysphagia, unspecified; R00.0 Tachycardia, unspecified; K13.79 Other lesions of oral mucosa; Z93.1 Gastrostomy status; Z79.891 Long term (current) use of opiate analgesic; F41.9 Anxiety disorder, unspecified; R53.1 Weakness; R53.83 Other fatigue
CPT/HCPCS: 99310

== ENCOUNTER 2016-12-03 09:12 | Outpatient (CLI) | payer MEDICAID, MEDICARE, OTHER ==
[2016-12-03 10:14] LABS: CREATININE 0.5 mg/dL (0.6-1.2); POTASSIUM 3.9 mmol/L (3.5-5.0)
== END 2016-12-03 09:13 | disposition home or self-care (01) ==
LOC: LAB.R 09:12
DX: J18.9 Pneumonia, unspecified organism (principal)
CPT/HCPCS: 80048

== ENCOUNTER 2016-12-05 10:15 | Outpatient (CLI) | payer MEDICARE, MEDICAID ==
--- NOTE | 2016-12-05 18:08 | CONSULTATION NOTE ---
DATE OF CONSULTATION: 12/05/2016 00:00:00 REQUESTING PROVIDER: Delmar Monteiro MD. TIME OF VISIT: 10:15 to 11:00 a.m. Thank you, Dr. Monteiro, for asking the palliative care consult service to be involved in the care of yo ur patient for supportive pain and symptom management. I am seeing him at [facility] as he has transitio nevaeh there for rehabilitation following his acute hospitalization in early October. BRIEF HISTORY OF PRESENT ILLNESS: This is a becky 76-year-old gentleman with stage IV squamous carci noma of the tongue and metastatic disease to the right neck presenting with solid neck mass. He is no w 3 weeks post his last radiation treatment. Has finished his chemotherapy. He is slowly improving, t mohsen this has been frustrating for him. His most acute symptoms have been intermittent nausea, some tenderness with swallowing and fatigue. He did have what he reports was a bloody nose yesterday with some spitting up blood, a fairly moderate amount of 2-3 cm of blood is what he described. Later that day with physical therapy he had gotten nauseated and coughed up or vomited a small amount of brown h emoptysis as well. Today, he reports no bleeding. He is afraid to cough given his experience yesterda y, but denies any increased shortness of breath. He reports his secretions are actually improving, th e consistency is becoming thinner, he is able to clear them more easily. He is improved as far as his swallowing both in observation and subjectively. He continues to work with speech therapy and is swa llowing water. He had showed no signs or symptoms of choking during our visit. He is currently on tub e feedings, they have increased his Jevity to 1.5 calorie mL running at 85 mL/hour with water flushes . He is able to come off that about 4 hours a day. He continues to work with physical therapy, though does find he has increased fatigue with that and poor activity tolerance. Denies any further dizzine ss. In examining his right neck area, it does appear to have some lymphedema or some swelling in that are a. He has some slight tenderness when palpating around more difficult to locate the demarcation, but it appears to be about 4.5 x 2.5 cm, though I suspect that is not quite accurate. His mouth is cleare d, the mucositis appears to have resolved and no further signs or symptoms of oral candidiasis. His stage II decubitus has filled and currently just is a reddened area of the coccyx. No open areas or desquamation. His herpes zoster eruption is just presenting as scar tissue. SYMPTOM BURDEN: We had decreased his fentanyl to 62 mcg in total. This was initiated yesterday. At th is point in time, he does not report any increased pain with that. He is using Tylenol intermittently for breakthrough pain medication. His acute pain is improving, though continues to have baseline chr onic pain. In reviewing his records, he has used the ondansetron maybe once or twice. He does use the lorazepam once or twice a day for both nausea and anxiety. He has not had any vomiting, but is very concerned a bout this is a long-term symptom. He remains quite tentative regarding about his quality of life, though does seem to engage, seems a l ittle less anxious and depressed today and is improving slowly. Positive reinforcement was given from the team. PERFORMANCE STATUS: The patient does continue to work with rehabilitation therapy, is progressing bot h on his speech and ambulating program. He does get tired by the end of the day. There is concern reg arding his baseline anemia. Will go ahead and followup on this and make arrangements for blood draw t omorrow. I put him at a palliative care performance status at 60%. REVIEW OF SYSTEMS: ENT: He does have mild hearing loss, did report some dental pain on his right side. Reports his throa t is tender for swallowing, but improved and his secretions are improved. CARDIOVASCULAR: His pulse is improved today. Denies any chest pain. RESPIRATORY: Feels like he is doing better with his secretions, no increase in shortness of breath or cough. GASTROINTESTINAL: His bowels are moving on a regular basis. He continues with intermittent baseline n ausea. GENITOURINARY: Continues with urgency but no change from his baseline. MUSCULOSKELETAL: He is complaining of increased right shoulder discomfort and pain, suspicious of his RA as being the underlying etiology. INTEGUMENTARY: Does report after his Diflucan this last round he did get peeling on both his palms an d the bottoms of his feet. Hands have resolved, but continues with peeling on his feet. NEUROLOGIC: Denies dizziness today. PSYCHIATRIC: Continues with his anxiety, though he does appear much more engaged. He is looking forwa rd to his daughter's visit today. ENDOCRINE: His glucose on 12/03/2016 was 151. His was concerned regarding this as they have work ed very hard to keep him in balance related to his rheumatoid arthritis, but it does appear within ma ybe a little bit higher than his normal range. He is on more concentrated formula at this time. HEMATOLOGIC/IMMUNOLOGIC: He has had some recent nose bleeding. He has baseline anemia. Will check and see his most recent counts. GENERAL APPEARANCE: He does appear slightly fatigued, has color, though is improved from last week. H e is a little bit brighter and more interactive. Eyes with periorbital edema. ENT: As noted above. NECK: As noted above. RESPIRATORY: His lungs are clear. No wheezing, crackles or rhonchi. CARDIOVASCULAR: His pulse was regular at 92, O2 saturations at 94%, blood pressure 122/74, temperatur e 97.7. ABDOMEN: Slightly rounded, soft. He does have his PEG tube exit site without any signs or symptoms of infection. SKIN: He does have some layers of peeling on his toes, but whatever kind of reaction that had it does seem to be resolving. EXTREMITIES: He was able to get from sitting to standing. He did have some limited range of motion a nd pain behaviors with right shoulder manipulation and has been ambulating independently in his room. PALLIATIVE CARE DISCUSSION: Who is present, myself, the , Alexandrea Martinez, palliative care nurse prac manjinder, as well as Janna, the speech therapist, joined us later. His weight has improved to 160.2. He is tolerating as far as his program making progress with that. He is very much looking forward to seeing his daughter who he has not seen for several months now, it has been quite complicated as she has limited ability to understand his current situation and they have been not wanting to worry her. Continue to review his progress he has been making. He does have an appointment with oncologist on Mo nday as far as looking forward to his next step in his treatment plan. IMPRESSION: This is a 76-year-old gentleman with diagnosis of stage IV squamous cell carcinoma of the tongue with metastatic disease to the neck with decreased tumor burden, though appears to have some residual tumor in the right neck area. He does continue with the sequela of fatigue, chronic pain and attempted to meet his nutritional status. He is continuing to progress. RECOMMENDATIONS/COUNSELING DONE: 1. Nausea, multifactorial in origin. The patient does attribute this some to water bolusing, starting and stopping his tube feedings. Has been using lorazepam a couple times a day with good results. I tello hagan decreased his fentanyl in attempt to address this as well. His bowels are moving well. Will maryanne nue to monitor. 2. Pain of neoplastic origin, originally again focussed in the right neck area. His acute throat disc omfort is improved, he is still "tender with swallowing." His throat pain is improved with the resolu tion of the candidiasis. He is currently on the fentanyl 50 and 12 and using Tylenol for breakthrough . The patient currently satisfied with his regimen. 3. Constipation. He is doing well on the MiraLax half capful daily as needed. 4. Stage II decubitus, this is resolved. He has off loading more, up in the recliner. Encouraged just to continue to use this behavior, as well as use barrier cream. 5. Dysphagia. He continues to improve with working with the speech therapist. 6. Generalized fatigue. Again, multifactorial in origin. Will followup and check after his counts are available. 7. Intermittent nosebleeds unclear the etiology at this, the room is quite room, wondering if dry muc ous membranes. Will continue to monitor. TIME SPENT: Forty-five minutes with greater than 50% of this done in counseling and coordination of c are, arranging for CBC, CMP and LDH to be drawn at [facility] tomorrow to be able to monitor current concern s regarding fatigue, nosebleeds and also provided anticipatory guidance. Thank you, Dr. Monteiro, for asking the palliative care consult service to be involved in the care of yo ur patient. I will continue to see him weekly given his symptom burden and anxiety regarding his ongo ing treatment plan. JOB #: [id number] EXT JOB #:[id number]
== END 2016-12-05 10:16 | disposition home or self-care (01) ==
LOC: PC 10:15
PROVIDERS: ATTEND Nurse Practitioner Adult Health
DX: Z51.5 Encounter for palliative care (principal); R11.0 Nausea; G89.3 Neoplasm related pain (acute) (chronic); C01 Malignant neoplasm of base of tongue; C79.89 Secondary malignant neoplasm of other specified sites; K59.00 Constipation, unspecified; R13.10 Dysphagia, unspecified; R53.83 Other fatigue; R04.0 Epistaxis; Z93.1 Gastrostomy status; Z79.891 Long term (current) use of opiate analgesic; F41.9 Anxiety disorder, unspecified; D64.9 Anemia, unspecified; M25.511 Pain in right shoulder; M06.9 Rheumatoid arthritis, unspecified
CPT/HCPCS: 99310

== ENCOUNTER 2016-12-12 10:00 | Outpatient (CLI) | payer MEDICARE, MEDICAID ==
--- NOTE | 2016-12-19 17:51 | CONSULTATION NOTE ---
DATE OF CONSULTATION: 12/12/2016 00:00:00 REQUESTING PROVIDER: Dr. Delmar Monteiro. TIME OF VISIT: 10 to 10:45 a.m. Thank you, Dr. Monteiro, for asking the palliative care consult service to be involved in the care of yo ur patient. I am providing support for pain and symptom management. I am seeing him at [facility] as he has transitioned for rehabilitation. 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 He is d ue for restaging PET/CT scan in the next month or 2. He is now 4 weeks post his last radiation treatm ent. He is slowly improving, though this has remained again frustrating for him. His functional statu s is better as far as his activity tolerance. He continues though with intermittent nausea, some inte rmittent tenderness with swallowing, though improved, and ongoing fatigue. He is working with the spe ech therapist to progress his diet. In observation, he does appear to swallow without any choking. Do es have some dry mouth and some discomfort with the issue of the swallowing process. He still has marifer e residual palpable mass in his neck. It appears to be about 2.5 x 3, though is becoming more difficu lt to demarcate given the lymphedema in that area. In followup with the speech therapist, they report this intermittently fluctuates. He is being supported with Jevity 1.5 andres/mL with about 10 hours on. SYMPTOM BURDEN: Pain, is still on the fentanyl 50 mcg, +12 mcg for a total of 62. He is using Tylenol for breakthrough pain when it escalates up to about a 4 or 5 and notes that this is about 1/3 or twi ce a day at the most. He reports his pain is improving. It is mostly located still around that mass a zafar and tender to palpation. His nausea is improved as well. He has needed the Zofran less frequently about 5 out of the last 15 days. He also uses lorazepam, both for anxiety and nausea. He is using th at about twice a day, usually late afternoon and at bedtime, as well as occasionally late at night. H e does appear in a good mood. His voice is though strained, is much modulated. He does feel like thin gs are improving overall, albeit slowly in his mind. PERFORMANCE STATUS: The patient is continuing to work with rehabilitation therapy, progressing both i n speech, ambulation and ADL program. He was concerned regarding his baseline anemia. He did get the go ahead from Dr. Monteiro to restart his supplements. I would put him, though, at a palliative care per formance status of improved at 60%. REVIEW OF SYSTEMS ENT: He has had some mild hearing loss. Complains of his right ear feeling somewhat strained. He is r eadjusting to the feelings of his new structure with missing teeth. He reports the pain in his throat is bottom turning lathe tender, but less so and definitely improvement with his secretions. CARDIOVASCULAR: His pulse remains improved today. Denies any chest pains. RESPIRATORY: No shortness of breath or cough. GASTROINTESTINAL: Some intermittent loose stools, but is doing better with this. He continues with in termittent nausea as well. GENITOURINARY: He continues with urgency, but no change from baseline. MUSCULOSKELETAL: Is starting to feel a little bit of rheumatoid arthritis flare, some stiffness. INTEGUMENTARY: Denies problems. NEUROLOGIC: Denies problems. PSYCHIATRIC: Continues with some intermittent anxiety, though is able to reflect on different ways to manage as far as meditation. He is working with speech therapy also for "chemotherapy fog." ENDOCRINE: They are concerned about his blood sugars with his rheumatoid arthritis and the Jevity. Th e hope is to transition him back to smoothies and his baseline diet as soon as possible, working with in the limitations of his swallowing ability. His last glucose was back down on 12/06 to 119. His tot al protein looks good at 6.9 and albumin at 3.5. HEMATOLOGIC/IMMUNOLOGIC: He still has some intermittent nose bleeding. He has had a history of nose b leeding in the past. I suspect this has something to do with dryness as well. His platelets are in an adequate range of 282, so more likely causes some dryness and possibly allergies. PHYSICAL EXAMINATION GENERAL APPEARANCE: He does appear like he is feeling better. He is a little more brighter, more inte ractive. ENT: As noted above. His mouth, he does have some white coating on his tongue. I suspect this is as h e is not eating. No signs or symptoms of candidiasis. EYE: Have some periorbital edema. NECK: noted above. RESPIRATORY: His lungs are quite clear. No wheezing, crackles or rhonchi. No evidence of increased se cretions. CARDIOVASCULAR: His pulse is back down to 85, blood pressure 128/86, O2 saturation 98% on room air, a nd his temperature at 97.8. ABDOMEN: Soft. Has a PEG exit site without any signs or symptoms of infection. SKIN: Did not observe his tailbone. EXTREMITIES: He is able to get from sitting to standing. He is walking with a walker. He does appear to be a little bit stronger. PALLIATIVE CARE DISCUSSION: Who is present, myself, the and patient. He is continuing to improve , though I suspect he is limited sometimes by his anxiety. He has gotten good reports from the therap ist. Speech therapy is trying to move him along as well. He has had some small bites, but has tolerat ed those okay. He has been engaged and involved with his care plan. He was up in the recliner. We did not visit the future other than looking at most likely will be discharged in the next couple of week s. Would recommend that we continue at least with speech therapy. We will await other therapy recomme ndations from the team. They are due for a home visit in about 10 days. IMPRESSION: This is a 76-year-old gentleman with a diagnosis of stage IV squamous carcinoma of the to ngue with metastatic disease to the neck with decreasing tumor burden, lymphedema, and improving func tional status. He continues to progress, and his symptom burden is improving. RECOMMENDATIONS/COUNSELING DONE 1. Dry mouth. Counseling done regarding using a soft bristle toothbrush on his tongue. It is not unco mmon to have coating when we are not eating. Continue with good oral care. There are medications to i mprove salivary production, though these do come with quite a bit of side effects. It is a discomfort and annoyance. I am not quite sure where the threshold is to move in with medications. Did encourage things that stimulate saliva including sour or lemon drops, frequent sips of water, can also use art ificial saliva particularly for use at night. 2. Intermittent nosebleeds. Did encourage to restart [place] Mist spray just to keep it moist and will continue to evaluate. 3. Pain of neoplastic origin, focus in his right neck area. Would like to wait another week before de creasing fentanyl patch further. It does appear his pain is well controlled. The benefits of continue d decreasing means less side effects of fatigue, sedation, nausea. 4. Constipation. He has some MiraLax, which is effective. We are looking at restarting some omegas; t his will probably increase frequency of stool as well. 5. Dysphagia. Continues to work and improve with speech therapist. The hope is to continue to work wi th moving to a diet that is more congruent with managing of rheumatoid arthritis, but currently has n ot had any further weight loss and is doing well. 6. Generalized fatigue. Again, multifactorial in origin. He is mildly anemic, but continues to improv e slowly. Will provide support that is of help for his nutritional status. TIME SPENT: 45 minutes with greater than 50% of this done in counseling and coordination of care, wor elsie with staff. Will order supplements when list is available and have the patient's titrate th ose in and monitor for nausea. Thank you, Dr. Monteiro, for asking the palliative care consult service to be involved in the care of yo ur patient. I will continue to see him weekly given his symptom burden and anxiety regarding his ongoing treatmen t plan. JOB #: [id number] EXT JOB #:[id number]
== END 2016-12-12 10:01 | disposition home or self-care (01) ==
LOC: PC 10:00
PROVIDERS: ATTEND Nurse Practitioner Adult Health
DX: Z51.5 Encounter for palliative care (principal); R68.2 Dry mouth, unspecified; R04.0 Epistaxis; G89.3 Neoplasm related pain (acute) (chronic); C01 Malignant neoplasm of base of tongue; C79.2 Secondary malignant neoplasm of skin; K59.00 Constipation, unspecified; R13.10 Dysphagia, unspecified; R53.83 Other fatigue; R11.0 Nausea; Z79.891 Long term (current) use of opiate analgesic; D64.9 Anemia, unspecified; F41.9 Anxiety disorder, unspecified; Z93.1 Gastrostomy status
CPT/HCPCS: 99310

== ENCOUNTER 2016-12-19 10:15 | Outpatient (CLI) | payer MEDICARE, MEDICAID ==
--- NOTE | 2016-12-20 18:17 | CONSULTATION NOTE ---
DATE OF CONSULTATION: 12/19/2016 00:00:00 REQUESTING PROVIDER: Delmar Monteiro M.D., Ph.D. TIME OF VISIT: 10:15 to 11:10 Thank you, Dr. Monteiro, for asking the Palliative Care Consult Service to be involved in the care of yo ur patient and providing support for pain and symptom management. I am seeing him at [facility], where he is currently receiving rehabilitation. HISTORY OF PRESENT ILLNESS UPDATE: This is a becky 76-year-old gentleman with stage IV squamous car cinoma of the right tongue. He had received concurrent cisplatin and radiation therapy from 08/01/19 17 to 10/2016. He is due for a restaging PET/CT scan in the next month. He is now five weeks post-r adiation treatment. He continues to improve, although slowly. His weight is up to 163.6, and he is starting to take water by mouth, up to 32 ounces a day. He is taking small amounts of smoothie and i s working with Speech Therapy to improve his swallow and speech. He has had minimal coughing or chok ing. His dysphagia is improving, though it is with a significant effort for him to follow and manage his dry mouth and secretions. He still has some residual mass in his neck. It is more difficult to measure with the lymphedema, and it continues to diminish. It appears to be with irregular borders, somewhat fixed towards the jawline there, and more mobile as it moves out. I would guess at this po int in time it is about the size of an almond, but irregular in shape, and may actually be scar tissu e of a lymph node. I am certainly unable to tell at this point in time. His lungs are clear. SYMPTOM BURDEN: His pain has continued to improve. It is mostly discomfort in his neck area, more c oncentrated at the back of the tongue. He has only needed acetaminophen, which he is using for break through pain a few times this week. He still describes some tenderness there and discomfort with the increase in exercises for speech therapy, but overall appears to be diminishing. The patient's cont inues with some residual fatigue. He is working on increasing his exercise tolerance. Nausea had im proved, though he does report a couple of episodes the last two days that resolved with ondansetron. He is unable to really attribute these to any specific cause. He denies any shortness of breath. H is mood appears improved, though he does have baseline generalized anxiety and perceives his quality of life as improving. He is looking forward to going home. PERFORMANCE STATUS: The patient is still needing some contact assist for bathing. He is working on progressing his ambulation and his speech exercises. I would put him at a palliative care performanc e status at 60%. REVIEW OF SYSTEMS ENT: Continues with some complaints of mild hearing loss in the right ear, feeling somewhat plugged or with echo. CARDIOVASCULAR: His pulse seems improved. He denies chest pain. RESPIRATORY: No shortness of breath. Cough has resolved. GASTROINTESTINAL: He is being managed on his MiraLax. GENITOURINARY: He continues with some urgency, with no change from baseline. MUSCULOSKELETAL: He is having some stiffness as he is pushing himself with his exercise program. INTEGUMENTARY: Improved. No further coccyx discomfort. NEUROLOGIC: He denies problems. PSYCHIATRIC: He continues with intermittent anxiety. He is working on managing this with meditation and his yoga. ENDOCRINE: No history of diabetes or hypothyroidism. HEMATOLOGIC/IMMUNOLOGIC: No further nose bleedi ng. PHYSICAL EXAMINATION GENERAL APPEARANCE: He does appear more bright and interactive. Voice is modulated. ENT: He does have some white coating on his tongue. No signs or symptoms of candidiasis, though. H is mucous membranes are quite moist. EYES: Periorbital edema. NECK: As noted above. RESPIRATORY: His lungs are clear. No wheezing, crackles, or rhonchi. CARDIOVASCULAR: His pulse is 89. Blood pressure 118/78. O2 saturation 99%. Temperature 97.9. ABDOMEN: Soft. PEG site without signs or symptoms of infection. SKIN: His tailbone is slightly dry. The stage II decubitus is improved. EXTREMITIES: He is able to get from sitting to standing with some assist. Without assistance today, he is able to ambulate with a walker and does appear to be improving as far as strength. PALLIATIVE CARE DISCUSSION/WHO IS PRESENT: Myself, the , the patient, and [facility] Nurse Practitioner. The patient is looking forward to getting home, though this is also a ascencion rce of some anxiety for him. Unfortunately, he is still on continuous feeding, which will mean he wi ll need to get a hospital bed as he needs the head of the bed up as the high risk of aspiration maryanne nues. He has to have it greater than 45 degrees, and this is not manageable on pillows. He will als o need a paratransit application for transitioning to outpatient appointments. Jailyn is certainly looking forward to how to balance the patient's anxiety, need to participate more independently, and take more responsibility for his own self-care. IMPRESSION: This is a 76-year-old gentleman with stage IV squamous carcinoma of the tongue with meta static disease to the neck. He has recently completed treatment. He continues to progress, and his symptom burden is improving. There is high anxiety related to the next stage of followup and plan fo r further treatment in the future. RECOMMENDATIONS/COUNSELING DONE 1. Dry mouth: Counseling. The patient is unable to tolerate a soft bristle breath related to gaggin g. We did discuss tongue scrapers to be able to manage his white coating on tongue. He is working w ith different products to try and stimulate saliva and taking frequent sips of fluid. 2. Pain of neoplastic origin focused in the right neck area: The patient did feel he was ready to de crease patch change, with a decrease to fentanyl with the next patch change. We will decrease it willy n to fentanyl 50 mcg every 3 days, with the hope to improve fatigue, sedation, and nausea. 3. Constipation: Currently controlled. 4. 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 5. Generalized fatigue: Again, multifactorial in origin. He is working on improving his endurance a nd will be transitioned for outpatient therapy. 6. Transition planning. Message left for Emma RUSSELL at [facility] to facilitate paratransit application, left message if need signatures to let me know. Follow up with [facility] would be for nutritional support, Jose Luis reports has not worked with their social science instructor, may need to follow up with Allison through the [facility]. Therapy will resume with previous PT "Isidro" and Marisol Painter, discussed wi Dunia ROMEO at [facility], they will facilitate hand off. The patient will require a semi-electric hospital bed due to the need for positioning of the bed, not feasible in an ordinary bed. He does need the head of his bed up, including also feasibility for fr equent changes in body position due to his dysphagia as a result of his face or tongue cancer. The p atient requires positioning of body, not feasible in an ordinary bed. He needs the head of his bed e levated at least 45 degrees as he is receiving tube feedings overnight to manage aspiration risk. He also requires frequent changes in body position for elevation of his head from flat to up secondary to high risk for cough and difficulty managing oral secretions with his dysphagia as well. He is karen ble to manage this with pillows to get adequate positioning for the desired bed elevation, so a hospi fran bed will be necessary for keeping him upright through the evening as he is on continuous tube fee ding. TIME SPENT: 55 minutes, with greater than 50% of this done in counseling regarding symptom managemen t, psychosocial support, management of anxiety, and coordination of care with the facility to have mi rtazapine at the bedside. JOB #: [id number] EXT JOB #:[id number]
== END 2016-12-19 10:16 | disposition home or self-care (01) ==
LOC: PC 10:15
PROVIDERS: ATTEND Nurse Practitioner Adult Health
DX: Z51.5 Encounter for palliative care (principal); R68.2 Dry mouth, unspecified; G89.3 Neoplasm related pain (acute) (chronic); C01 Malignant neoplasm of base of tongue; C79.2 Secondary malignant neoplasm of skin; K59.00 Constipation, unspecified; R53.83 Other fatigue; Z93.1 Gastrostomy status; R11.0 Nausea; F41.9 Anxiety disorder, unspecified; H91.91 Unspecified hearing loss, right ear; R39.15 Urgency of urination; Z79.899 Other long term (current) drug therapy
CPT/HCPCS: 99310

== ENCOUNTER 2017-01-01 07:50 | Outpatient (CLI) | payer OTHER | END 2017-01-01 07:51 | disposition home or self-care (01) | LOC: LAB.R 07:50 | DX: E03.9 Hypothyroidism, unspecified (principal) | CPT/HCPCS: 84443 ==

== ENCOUNTER 2017-01-13 13:15 | Outpatient (CLI) | payer MEDICARE, MEDICAID ==
--- NOTE | 2017-01-13 21:23 | PROVIDER PROGRESS NOTE ---
Palliative Care Follow Up - Referral Referring Provider: Dr. 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 This included concurrent cisplatin and radiation therapy finishing in 10/2016. His last radiation treatments were interrupted when hospitalized for pneumonia, as well as complications of his treatment, herpes zoster, deconditioning, resulting in a stay at [facility] 11/05 to 01/06. During this stay, he made dramatic improvements working with the rehab therapy team. He has been home now almost a week, has established with PCP Dr. Carlton, and continues to improve. His dysphagia is still limiting in the context needing to eat slowly, tolerating mechanical/puree soft food, still need the 1200 ml Jevity for support but weight is stable at 168.3. His pain is being managed on the fentanyl 50 mcg patch, not needing any thing for breakthrough, reports depression/anxiety continue to be impactful on recovery, and attempting to regain some independence. Does have follow up planned with outpatient PT, will need ST referral, working with [facility] with feeding. Has not set appoint up with Dr. Spence yet, appear reticent but will need follow up PET scan. Patients tongue "mobility" much improved, some white coating on tongue, concerned for candidiasis but none buccally or noted on roof/back of throat, right neck "mass" hard 2 cm node with irregular borders remains, slightly tender , some lymphadema noted in right jowl but much improved. Lungs clear, VSS. Social History - Living Situation Living arrangement: At home Living Situation: With family, With caregiver(s) ( primary caregiver, encouraging patient to take more responsibility of tasks) Support System: main support, noted CG fatigue, also cares/oversees daughters needs. Minimal other support identified, though Jose Luis is pursuing CG support group/ training Medications/Allergies - Medications Home Medications: Ambulatory Orders Medication Instructions Recorded Confirmed Acetaminophen 1,000 mg PO TID PRN 09/30/16 01/13/17 Lorazepam 0.5 mg PO Q8H PRN 10/29/16 01/13/17 Morphine Sulfate [Morphine Sulf 10 mg PO Q2H PRN 10/30/16 01/13/17 Oral (Roxanol)] Polyethylene Glycol 3350 [Miralax] 17 gm PO DAILY 10/30/16 01/13/17 fentaNYL 50 MCG PATCH [Duragesic 1 patch TOP Q72H patch 11/05/16 01/13/17 50mcg patch] predniSONE [Deltasone] 7.5 mg PO DAILY tablet 11/05/16 01/13/17 Nystatin [Mycostatin] 5 ml PO QID PRN 01/13/17 01/13/17 Ondansetron Odt [Zofran Odt] 1 tab PO TID PRN 01/13/17 01/13/17 Trazodone HCl 1 tab PO ACHS 01/13/17 01/13/17 - Allergies Allergies/Adverse Reactions: Allergies Allergy/AdvReac Type Severity Reaction Status Date / Time infliximab [From Remicade] Allergy Severe Anaphylaxis Verified 08/31/16 16:08 abatacept [From Orencia] Allergy Unknown Unknown Verified 08/31/16 16:08 sodium pentathol Allergy Intermediate Hives Uncoded 11/26/12 07:55 Review of Systems - Constitutional Constitutional: reports: Fatigue, Poor appetite, Weight gain - Eyes Eyes: reports: Corrective lenses - Ears, Nose & Throat Ears, Nose & Throat: reports: Hearing loss (right ear), Other (dry mouth SE radiation, inst. to use saliva substitute) - Cardiovascular Cariovascular: denies: Chest pain - Respiratory Respiratory: reports: SOB with exertion. denies: Cough - Gastrointestinal Gastrointestinal: reports: Constipation, Nausea (intermittent using ondansetron) , Other (remains on tube feeding) - Genitourinary Genitourinary: reports: Frequency, Urgency (Increased fluid intake with dry mouth) - Musculoskeletal Musculoskeletal: reports: Stiffness, Muscle weakness, Other (hx of RA) - Integumentary Integumentary: reports: Dryness - Neurological Neurological: reports: Memory problems (Chemo fog), Slurred speech (difficult speech with tongue cancer, not neuro) - Psychiatric Psychiatric: reports: Depression (feels this was worsening PCP changed up antidepressant rather than increase from baseline, has not started yet), Anxiety (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, 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 with 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 2/x day with control and using other integrative techiniques) - Endocrine Endocrine: reports: Intolerance to cold - Hematologic/Lymphatic Hematologic/Lymphatic: reports: Other (will follow up on labs today) - All Other Systems All Other Systems: reports: Reviewed and negative Physical Examination - Vital Signs Pulse Rate: 94 Respiratory Rate: 18 O2 Saturation: 98 (ra at rest) Blood Pressure: 119/84 - Physical Exam General Appearance: positive: No acute distress, Anxious Eyes Bilateral: positive: Normal inspection ENT: positive: Other (slight white coating on tongue, no other signs of candidiasis though had restarted swish and swallow, denies pain or discomfort as in past.) Neck: positive: Lymphadenopathy (R) (see previous description HPI) Respiratory: positive: Breath sounds nml Cardiovascular: positive: Regular rate & rhythm Abdomen: positive: No distention Skin: positive: Other (PEG tube remains) Extremities: positive: No pedal edema, Other (Gait and balance appear improved) Neurologic/Psychiatric: positive: Oriented x3, Other (some anxiety noted, no other demonstrated behaviors during visit) Palliative Care Pain: Pain improved, Location (right side of neck, tender), Severity (mild), Pattern (persistent, exacerbated with increased intake but manageable.) Drowsiness: Mild (1-3) (Notes "dreams" vivid at night and somewhat distressing, suspect fentanyl) Nausea: None Anxiety: Moderate (4-6) Dyspnea: None Anorexia: Mild (1-3) Insomnia: Sleep improved Constipation: Yes, Opoid induced, Unmanaged (Inst. with opioid induced constipation will need to continue Miralax) Feelings of wellbeing/Perceived Quality of Life: Improved Performance Status: Patient working on increasing endurance, appears inconsistent in description but is to start outpatient physical therapy so may improve compliance and progress. ST exercises from SNF given. - Palliative Care Discussion: Patient has not made follow up appointment with Dr. Spence though he is due for PET scan and evaluation regarding outcome of treatment and further treatment considerations. Suspect patient's anxiety and need for "grounding" is a barrier , encouraged strongly to follow through so can continue with focus on well- being and am concerned if needs further treatment that it is timely. Patient is feeling more encouraged, being cajoled to be more independent and responsible for care. Working out routines and care at home. Discussed given patients way of processing consider journeling, given kay Mcconnell name for counseling and/ or follow up with support group at [facility]. Impression and Recommendations - Palliative Care Impression: Patient is a 76 year old gentleman who continues to improve after concurrent chemo/radiation for Stage IV Tongue Cancer with right neck mass. Pain improved, continues to struggle with nutritional baseline/anxiety and transition into next phase of survivorship. Goals remain to continue to improve, transition to oral feedings, and address ongoing quality of life issues. Recommendations/Counseling Done: 1. Pain of neoplastic origin, continuing to improve. When patient accepting would like to decrease Fentanyl to 37.5 mcg, suspect dreams/lethargy and some sedation are as result of higher than needed dosing with tumor shrinkage. Has not needed BTP medications. Patient may or may not be able to be weaned off, at risk for chronic pain syndrome but will titrate down as tolerated. 2. Protien-calorie malnutrition. Will check labs for new baseline. Patient at 1200 mls, unfortunately still takes about 21 hours to instill. Has continue to increase intake and texture, eating remains slow, wt. good today at 168.3. Reviewed that is our best indicator at this point. Patient goal to be at 172. 3. Dyshagia improved. Has ST exercises from SNF, but would like to continue to progress. Will make referral to Amira ROMEO at [facility], may need PCP referral secondary to insurance. Mouth care encouraged, can use nystatin if symptomatic, tongue cutch cleaner and good oral care should help keep fungal count down. 4. Muscle Weakness. Will continue with PT outpatient, encouraged continue increasing activity level. 5. Depression, still struggling with motivation and follow through. PCP changed antidepressant, has not started yet, unclear why, inst. to start tonight, cannot titrate to effect if not using. 6. Generalized Anxiety Disorder. Currently using Lorazepam BID, continues to process cancer journey. Encouraged seek outside processing with melina, support group, and /or counseling. 7. Tongue Cancer/Stage IV. Reviewed the need to follow up with Dr. Spence as soon as possible to address next "step" and not delay. Important to focus on gathering information needed to complete care plan and focus on healing/wellness Time Spent: 45 minutes with 50% done with counseling and coordination of care regarding next steps, pain/depression/anxiety management.
== END 2017-01-13 13:16 | disposition home or self-care (01) ==
LOC: PC 13:15
PROVIDERS: ATTEND Nurse Practitioner Adult Health
DX: Z51.5 Encounter for palliative care (principal); G89.3 Neoplasm related pain (acute) (chronic); C01 Malignant neoplasm of base of tongue; C79.89 Secondary malignant neoplasm of other specified sites; E46 Unspecified protein-calorie malnutrition; R13.10 Dysphagia, unspecified; M62.81 Muscle weakness (generalized); F32.9 Major depressive disorder, single episode, unspecified; F41.1 Generalized anxiety disorder; Z79.891 Long term (current) use of opiate analgesic; Z93.1 Gastrostomy status; Z79.52 Long term (current) use of systemic steroids; H91.91 Unspecified hearing loss, right ear; R06.09 Other forms of dyspnea; K59.00 Constipation, unspecified; R11.0 Nausea; R41.3 Other amnesia; R35.0 Frequency of micturition; R39.15 Urgency of urination; M06.9 Rheumatoid arthritis, unspecified
CPT/HCPCS: 99215

== ENCOUNTER 2017-02-03 10:06 | Outpatient (CLI) | payer MEDICARE, MEDICAID ==
--- NOTE | 2017-02-03 20:19 | PROVIDER PROGRESS NOTE ---
Palliative Care Follow Up - Referral Referring Provider: Dr. Delmar Fox Time of Visit: [phone] [address]erral setting: [facility] [place] Referral Reason: Pain of neoplastic origin - Information Sources History obtained from: Patient, Family ( Jailyn, primary CG at visit) Exam limitations: No limitations - History of Present Illness Update Brief HPI Update: This is a becky 76 year old gentleman who has completed initial treatment for Stage IV squamous cell cancer of right tongue, and right neck mass/adenopathy. He continues to improve, still has residual difficulty with chewing and swallowing, and has recently started outpatient ST, feeling this is of great support and progress. He currently has gained a few pounds since our last meeting to 172.4 form 168.3 on 01/18. He is working on pureed diet, adding texture, calories and improving volume. He though has needed to supplement with the Jevity, has moved it up to 95 mls an hour, but does this at night so it interrupts his sleep to void. His pain continues to improve, /, exacerbated with chewing and "exercises", is currently ready to decrease to Fentanyl 37.5 mcg from 50 mcg, has not needed further APAP or MS for BTP. It is tender to palpation, much less able to demarcate borders, appears to be about 1 cm in size , lymphadema in right neck area noted, but not increased. He struggles with depression, did start the trazadone, but felt it has not helped and baseline anxiety can be still immobilizing per his own report. Social History - Living Situation Living arrangement: At home Living Situation: With spouse/s.o. ( experiencing CG fatigue, patient demonstrates sign. dependency) Medications/Allergies - Medications Home Medications: Ambulatory Orders Medication Instructions Recorded Confirmed Acetaminophen 1,000 mg PO TID PRN 09/30/16 01/13/17 Lorazepam 0.5 mg PO Q8H PRN 10/29/16 01/13/17 Morphine Sulfate [Morphine Sulf 10 mg PO Q2H PRN 10/30/16 01/13/17 Oral (Roxanol)] Polyethylene Glycol 3350 [Miralax] 17 gm PO DAILY 10/30/16 01/13/17 fentaNYL 50 MCG PATCH [Duragesic 1 patch TOP Q72H patch 11/05/16 01/13/17 50mcg patch] predniSONE [Deltasone] 7.5 mg PO DAILY tablet 11/05/16 01/13/17 Nystatin [Mycostatin] 5 ml PO QID PRN 01/13/17 01/13/17 Ondansetron Odt [Zofran Odt] 1 tab PO TID PRN 01/13/17 01/13/17 Trazodone HCl 1 tab PO ACHS 01/13/17 01/13/17 - Allergies Allergies/Adverse Reactions: Allergies Allergy/AdvReac Type Severity Reaction Status Date / Time infliximab [From Remicade] Allergy Severe Anaphylaxis Verified 08/31/16 16:08 abatacept [From Orencia] Allergy Unknown Unknown Verified 08/31/16 16:08 sodium pentathol Allergy Intermediate Hives Uncoded 11/26/12 07:55 Review of Systems - Constitutional Constitutional: reports: Poor appetite, Weight gain (improved caloric intake) - Eyes Eyes: reports: Corrective lenses - Ears, Nose & Throat Ears, Nose & Throat: reports: Hearing loss, Postnasal drainage, Mouth lesions. denies: Dental pain - Cardiovascular Cariovascular: reports: Decr. exercise tolerance. denies: Chest pain, Edema - Respiratory Respiratory: reports: SOB with exertion, Other (phelgm, easily cleared). denies : Cough, Hemoptysis, SOB at rest - Gastrointestinal Gastrointestinal: reports: Nausea, Vomiting (one episode, exacerbated by anxiety ), Other (reports diff. with external hemmorhoid, worsened with constipation). denies: Constipation, Reflux/heartburn - Genitourinary Genitourinary: reports: Frequency, Urgency - Musculoskeletal Musculoskeletal: reports: Muscle aches, Stiffness - Integumentary Integumentary: denies: Pruritis, Dryness - Neurological Neurological: reports: Abnormal gait (working with PT twice a week for strengthening.) - Psychiatric Psychiatric: reports: Depression, Anxiety - Endocrine Endocrine: reports: Intolerance to cold - Hematologic/Lymphatic Hematologic/Lymphatic: reports: Other (mild lymphadema in right neck). denies: Anemia, Recurrent infections - All Other Systems All Other Systems: reports: Reviewed and negative Physical Examination - Vital Signs Temperature: 36.2 C Pulse Rate: 79 Respiratory Rate: 18 Blood Pressure: 156/96 - Physical Exam General Appearance: positive: Mild distress Eyes Bilateral: positive: Other (periorbital edema. left greater than right) ENT: positive: No signs of dehydration, Other (small amount of white adherent material, none buccally, other than dry, no pain. Some difficulty with chewing secondary to teeth removed). negative: Purulent nasal drainage Neck: positive: Trachea midline, Lymphadenopathy (R) Respiratory: positive: Breath sounds nml. negative: Wheezes Cardiovascular: positive: Regular rate & rhythm Abdomen: positive: Non-tender, Nml bowel sounds Skin: positive: Dryness Extremities: positive: No pedal edema, Other (shuffled gait, using cane for balance) Neurologic/Psychiatric: positive: Oriented x3, Slurred/abnml speech (difficult secondary to scarring), Depressed mood/affect Palliative Care - POLST Patient has POLST: No Pain: Pain improved (right base of tongue, tender right neck to palation), Severity (4/10) Drowsiness: Moderate (4-6) Nausea: Severe (7-10) (unclear etiology, vomiting episode once, unclear if food tried or anxiety) Anxiety: Severe (7-10) (using lorazepm 1-2 x day) Dyspnea: Mild (1-3), Moderate (4-6) Anorexia: Severe (7-10) Insomnia: Sleeps poorly (up to void) Constipation: Yes, Opoid induced, Managed Feelings of wellbeing/Perceived Quality of Life: Improved Performance Status: Patient spends alot of time in bed, some of this related to his infusion of jevity and limiting. Able to attend to ADLS PPS 60% - Palliative Care Discussion: Patient had not followed through and made appointment with Dr. Bebe eagle, inst. need to move on with plan, needs baseline scans to measure/monitoring in future, need to see if further treatment recommended. Patient tearful and fearful, but agreed to make appointment in next 2 weeks. Has been struggling with depression reminded on low dose of trazadone, had nightmares on mirtazipine which have improved, but did poorly per his report in past on SSRI. Appreciating therapy, will be doing weekly with Amira ROMEO, and 2 times a week with PT. Patient admits to catastrophizing, has been doing journaling meditation, and "inner work" with some relief. Suggested meditative image to help. Impression and Recommendations - Palliative Care Impression: This is a 76 year old gentleman with Stage IV squamous cell tongue cancer, making progress but depression/anxiety present barriers for patient to overcome. Goals remains to transition to oral feedings, decrease opioids as low as possible, and to define next phase of survivorship. Recommendations/Counseling Done: 1. Pain of neoplastic origin. Reviewed my concerns opioid load may be adding to symptoms, patient pain will controlled, agreed to decreased patch today, RX provided for Fentanyl 37.5 mcg. Has APAP and morphine available if needed for BTP. 2. Protien Calorie Malnutrition. Nutritional status continues to improve. Patient mobility and engaging in community/life hampered by infusion. Requested start to use bolus feedings TID after feeding, hope to transition to more food calories. Takes significant amount of time to eat currently, working with ST. 3. Depression. Will increase trazadone to 75 mg for several days to see if tolerates, then up to 100 mg. Rx provided for 100 mg tablets. Will monitor for side effects. Encouraged to continue meditation/journaling and art to support self. 4. Anxiety. Suggested images to help, using lorazepam, hesistant to overuse, encouraged could us 1/2 tab if just need to "takae off edge". If no improvement on trazadone, may consider transition to effexor. 5. Tongue Cancer. Reitierated the need to follow up with Dr. Bebe CASTRO, that need to get baseline scans. Counseling to address the "what ifs", encouraged to move forward, agreed. 6. Hemmorhoids. Counseling need to continue bowel program, recommended Prep H, uses barrier cream at times. Time Spent: 45 minutes with greater than 50% done in counseling regarding opioids/bowels/ depression and anxietey, anticpatory guidance.
== END 2017-02-03 10:07 | disposition home or self-care (01) ==
LOC: PC 10:06
PROVIDERS: ATTEND Nurse Practitioner Adult Health
DX: Z51.5 Encounter for palliative care (principal); G89.3 Neoplasm related pain (acute) (chronic); C01 Malignant neoplasm of base of tongue; C79.89 Secondary malignant neoplasm of other specified sites; E46 Unspecified protein-calorie malnutrition; F32.9 Major depressive disorder, single episode, unspecified; F41.9 Anxiety disorder, unspecified; K64.9 Unspecified hemorrhoids; Z93.1 Gastrostomy status; Z79.891 Long term (current) use of opiate analgesic; Z79.52 Long term (current) use of systemic steroids; R06.09 Other forms of dyspnea; R35.0 Frequency of micturition; R26.9 Unspecified abnormalities of gait and mobility; I89.0 Lymphedema, not elsewhere classified
CPT/HCPCS: 99215

== ENCOUNTER 2017-02-24 10:03 | Outpatient (CLI) | payer MEDICARE, MEDICAID ==
--- NOTE | 2017-02-24 20:56 | PROVIDER PROGRESS NOTE ---
Palliative Care Follow Up - Referral Referring Provider: Dr. 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 He had not followed up with Dr. Spence as agreed, but has appointment for PET scan 03/[address] Spence on 03/10. He has continued to improve slowly, working with Amira ROMEO for swallowing/speech and diet progression. Currently only getting about 300 calories orally, though progressing with diet textures etc. He is doing PT twice a week regaining strength and balance. Patient's most pressing concern has been management of his depression and trazadone. Sleep has been problematic, partially impacted by continued night time Tube Feedings that run through the night, needing to get up to urinate and refill bag. Perception despite backing off of trazadone to 50 mg, has felt somewhat "hungover", reports good last night with about 25 mg of trazadone because had spilled it and a lorazepam, and feels had best sleep in long time and more clear this am. Patient more engaged and busy in activities, does not feel per his report overwhelmed with depressive symptoms, using his meditation and other support exercises, but reports behaviors in observation patient unable to see anything positive in the day and still anxious. 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 Some tenderness with manipulation but pain overall improved. Exacerbated with chewing and exercises. Social History - Living Situation Living arrangement: At home Living Situation: With spouse/s.o. Support System: Hiring care shift one time a week to give Jailyn some respite; did not proceed with MARCIA Medications/Allergies - Medications Home Medications: Ambulatory Orders Medication Instructions Recorded Confirmed Acetaminophen 1,000 mg PO TID PRN 09/30/16 02/25/17 Lorazepam 0.5 mg PO Q8H PRN 10/29/16 02/25/17 Morphine Sulfate [Morphine Sulf 10 mg PO Q2H PRN 10/30/16 02/25/17 Oral (Roxanol)] Polyethylene Glycol 3350 [Miralax] 17 gm PO DAILY 10/30/16 02/25/17 Nystatin [Mycostatin] 5 ml PO QID PRN 01/13/17 02/25/17 Ondansetron Odt [Zofran Odt] 1 tab PO TID PRN 01/13/17 02/25/17 Trazodone HCl 25 mg PO ACHS 01/13/17 02/25/17 Fentanyl [Fentanyl 37.5mcg patch] 37 mcg TOP Q72H 02/04/17 02/25/17 predniSONE [Deltasone] 7 mg PO DAILY 02/25/17 02/25/17 - Allergies Allergies/Adverse Reactions: Allergies Allergy/AdvReac Type Severity Reaction Status Date / Time infliximab [From Remicade] Allergy Severe Anaphylaxis Verified 08/31/16 16:08 abatacept [From Orencia] Allergy Unknown Unknown Verified 08/31/16 16:08 sodium pentathol Allergy Intermediate Hives Uncoded 11/26/12 07:55 Review of Systems - Constitutional Constitutional: reports: Fatigue, Poor appetite, Other (staying stalbe). denies : Fever, Chills - Eyes Eyes: reports: Vision loss, Corrective lenses - Ears, Nose & Throat Ears, Nose & Throat: reports: Hearing loss - Cardiovascular Cariovascular: reports: Chest pain, Lightheadedness - Respiratory Respiratory: reports: Cough (occasional with eating; not at baseline), SOB at rest, SOB with exertion - Gastrointestinal Gastrointestinal: reports: Abdominal distention, Constipation, Reflux/heartburn - Genitourinary Genitourinary: reports: Urgency - Musculoskeletal Musculoskeletal: reports: Muscle pain, Back pain, Muscle aches, Stiffness - Integumentary Integumentary: reports: Dryness, Other (exit site without redness or issues) - Neurological Neurological: reports: General weakness, Memory problems (improved), Abnormal gait (somewhat shuffled; using walking stick for balance), Slurred speech (due to tongue cancer; much improved since last visit) - Endocrine Endocrine: reports: Other (no thyroid/diabetes) - Hematologic/Lymphatic Hematologic/Lymphatic: denies: Anemia, Recurrent infections - All Other Systems All Other Systems: reports: Reviewed and negative Physical Examination - Vital Signs Pulse Rate: 80 Respiratory Rate: 18 O2 Saturation: 97 Blood Pressure: 141/97 - Physical Exam General Appearance: positive: No acute distress, Alert, Anxious Eyes Bilateral: positive: Normal inspection ENT: positive: Other (some white spots on tongue; no redness or swelling; no buccal spots; encouraged continue with good oral care/tongue scraper) Neck: positive: Trachea midline, Lymphadenopathy (R), Other (swelling on left side of neck; see HPI) Respiratory: positive: Breath sounds nml Cardiovascular: positive: Regular rate & rhythm Abdomen: positive: Non-tender, Nml bowel sounds, No distention Skin: positive: Other (PEG exit site without s/s infection) Extremities: positive: No pedal edema, Other (reports mild stiffness with RA; doing fairly well for baseline) Neurologic/Psychiatric: positive: Oriented x3, Mood/affect nml, Slurred/abnml speech Palliative Care - POLST Patient has POLST: No Pain: Pain improved, Location (right neck; tolerated titration down; feels maybe ready for next step) Drowsiness: Mild (1-3) Nausea: None Anxiety: Moderate (4-6) Dyspnea: Mild (1-3) Anorexia: Mild (1-3) (weight at 172.6; intake limited by tolerance of chewing and swallowing; working to improve) Insomnia: Sleeps poorly (last night better) Feelings of wellbeing/Perceived Quality of Life: Improved Performance Status: Current level of functioning [patient continues to build endurance and working with therapies; still with many caregiving duties but patient independently managing feeding/meds with assistance]. Palliative Care Performance Status [70%]. - Palliative Care Discussion: Patient somewhat anxious with pending exam and follow up for evaluation of where disease status currently stands. Slow recovery but is moving forward, symptom burden improving. Concern for continued management of depression; will follow up with [facility] for possible counseling support now that is more mobile and with some increase in energy. Patient observation is that he often reports of what the experience is from the "inside" while reports observations from the "outside" with different perspectives. Both in agreement important to understand where he stands for moving forward from here. Impression and Recommendations - Palliative Care Impression: This is a 76 year old gentleman with Stage IV squamuos cell tongue cancer making progress with speech with swallowing/intake and speech. Unable to meet caloric requirements orally yet. Pain improving, tolerating titration of fentanyl down, depression and insomina remain problematic, and has underlying anxiety disorder currently not controlled. Recommendations/Counseling Done: 1. Pain of neoplastic origin, discussed benefits and burdens of decreasing to 25 mcg. Will change to 37 mcg tonight, that will leave two patches if need to titrate back up, and will start 25 mcg on unless exacerbation occurs. Has APAP and morphine available for BTP if needed. 2. Depression, patient would like to try the lower dose of 25 mg again of trazadone with a lorazepam at bedtime, had been good combination last night. Agreed would not introduce new medication changes until things have settled down with radiation appointment done and at new baseline. 3. Protien calorie malnutrition. Nutritional status stablized with current TF at 100 ml/hr for 1400 mls. shelter goal will be to either simplify regimen/ return to bolus feeding or transition to oral feeding only. 4. Advanced care planning. Will await next input into treatment plan, does need to complete more prescriptive wishes at some point for his care / decisions in the future. Time Spent: 70 minutes with greater than 50% done in counseling for pain/depression/ nutrition and goals.
== END 2017-02-24 10:04 | disposition home or self-care (01) ==
LOC: PC 10:03
PROVIDERS: ATTEND Nurse Practitioner Adult Health
DX: Z51.5 Encounter for palliative care (principal); G89.3 Neoplasm related pain (acute) (chronic); C01 Malignant neoplasm of base of tongue; C79.89 Secondary malignant neoplasm of other specified sites; F32.9 Major depressive disorder, single episode, unspecified; E46 Unspecified protein-calorie malnutrition; G47.00 Insomnia, unspecified; F41.9 Anxiety disorder, unspecified; Z93.1 Gastrostomy status; I89.0 Lymphedema, not elsewhere classified; Z79.891 Long term (current) use of opiate analgesic; Z79.52 Long term (current) use of systemic steroids; H54.7 Unspecified visual loss; H91.90 Unspecified hearing loss, unspecified ear; R07.9 Chest pain, unspecified; R42 Dizziness and giddiness; R05 Cough; R14.0 Abdominal distension (gaseous); K21.9 Gastro-esophageal reflux disease without esophagitis; K59.00 Constipation, unspecified; R39.15 Urgency of urination; M62.81 Muscle weakness (generalized); R26.9 Unspecified abnormalities of gait and mobility; R47.81 Slurred speech; M54.2 Cervicalgia; R06.00 Dyspnea, unspecified
CPT/HCPCS: 99215

== ENCOUNTER 2017-03-21 09:56 | Outpatient (CLI) | payer MEDICARE, MEDICAID ==
--- NOTE | 2017-03-21 16:45 | CONSULTATION NOTE ---
Palliative Care Follow Up - Referral Referring Provider: Dr. Delmar Monteiro Time of Visit: 04-09 Referral setting: [facility] [place] Referral Reason: Tongue Cancer - Information Sources Records Reviewed: Old records reviewed History obtained from: Patient, Family ( Jailyn;) Exam limitations: No limitations - History of Present Illness Update Brief HPI Update: This is a becky 76-year-old gentleman with stage IV squamous cell cancer of the right tongue and right neck mass. He was originally to follow-up with Dr. Spence, but has since rescheduled to start back with Valentin Vasquez with Dr. James MAURO, whom he originally seen for his initial diagnosis. This visit is scheduled for next Friday, so we remain with some uncertainty for his further treatment plan. Patient continues to improve, he is still dependent on his PEG tube feedings. He has been discharged with speech therapy, in the context he is independent with his exercises, though it does remain quite slow and difficult to meet his caloric intake, his most problematic component of this is early satiety. He continues with about 5 cans of Jevity. He has poor tolerance of bolus feedings when he most recently tried it. His pain remains in the right jaw and neck area , and with manipulation of chewing and swallowing. He is on fentanyl 25 mcg patch, but has not needed anything for breakthrough pain. He rates his pain at baseline at 5 out of 10. He does continue with fatigue and struggling with depression. But is increasing his exercise tolerance, working with physical therapy, and addressing some of his anxiety with medication. Social History - Living Situation Living arrangement: At home Living Situation: With spouse/s.o. Support System: Jailyn his continues to support patient with his multiple care needs, they have hired some respite assistance for driving, it is complicated by the need to support their daughter as well, Jailyn certainly presents with some caregiver fatigue but is an excellent advocate. Medications/Allergies - Medications Home Medications: Ambulatory Orders Medication Instructions Recorded Confirmed Acetaminophen 1,000 mg PO TID PRN 09/30/16 03/22/17 Lorazepam 0.5 mg PO Q8H PRN 10/29/16 03/22/17 Morphine Sulfate [Morphine Sulf 5 - 10 mg PO Q2H PRN 10/30/16 03/22/17 Oral (Roxanol)] Polyethylene Glycol 3350 [Miralax] 17 gm PO DAILY PRN 10/30/16 03/22/17 Ondansetron Odt [Zofran Odt] 1 tab PO TID PRN 01/13/17 03/22/17 Trazodone HCl 25 mg PO ACHS 01/13/17 03/22/17 predniSONE [Deltasone] 7 mg PO DAILY 02/25/17 03/22/17 Fentanyl [Fentanyl 25mcg patch] 25 mcg TD DAILY 03/11/17 03/22/17 - Allergies Allergies/Adverse Reactions: Allergies Allergy/AdvReac Type Severity Reaction Status Date / Time infliximab [From Remicade] Allergy Severe Anaphylaxis Verified 08/31/16 16:08 abatacept [From Orencia] Allergy Unknown Unknown Verified 08/31/16 16:08 sodium pentathol Allergy Intermediate Hives Uncoded 11/26/12 07:55 Review of Systems - Constitutional Constitutional: reports: Fatigue, Poor appetite, Other (WEIGHT NEURAL AT 171.8) - Eyes Eyes: reports: Corrective lenses - Ears, Nose & Throat Ears, Nose & Throat: reports: Hearing loss (right ear), Postnasal drainage - Cardiovascular Cariovascular: denies: Chest pain - Respiratory Respiratory: reports: SOB with exertion. denies: Cough, SOB at rest - Gastrointestinal Gastrointestinal: reports: Nausea (occasional only), Bloating, Other (early satiety with eating). denies: Constipation - Genitourinary Genitourinary: reports: Frequency (at night with continuous infusion of TF) - Musculoskeletal Musculoskeletal: reports: Muscle weakness (improved strength; release at PT of neck stiffness) - Integumentary Integumentary: reports: Dryness - Neurological Neurological: reports: Other (speech improved). denies: Headache - Psychiatric Psychiatric: reports: Depression (feels acceptable at this time a current dosing ), Anxiety (managed with lorazepam; using meditation with good relief) - Endocrine Endocrine: denies: Intolerance to cold - Hematologic/Lymphatic Hematologic/Lymphatic: denies: Recurrent infections - All Other Systems All Other Systems: reports: Reviewed and negative Physical Examination - Vital Signs Pulse Rate: 79 Respiratory Rate: 16 Blood Pressure: 150/96 - Physical Exam General Appearance: positive: No acute distress Eyes Bilateral: positive: Normal inspection, Conjunctivae nml ENT: positive: Other (mouth moist; less white patches on tongue; tissue pink and health; unable to visualize any lesions or areas of concern but limited; reports ear "plugged" no wax noted; dry and flakey skin; inst. to rinse in shower) Neck: positive: Other (lymphadema noted right side of neck; small node size of almond; fixed below jaw line welder with palpation) Respiratory: positive: Breath sounds nml Cardiovascular: positive: Regular rate & rhythm Abdomen: positive: Nml bowel sounds, No distention, Other (PEG tube site without s/s infection; inst. to call infusion company-needs new plug) Skin: positive: Dryness Extremities: positive: Nml appearance, No pedal edema, Other (gait seems improved with balance; still walking with walking stick) Neurologic/Psychiatric: positive: Oriented x3 Palliative Care - POLST Patient has POLST: No Pain: Pain unchanged, Location (right neck/jaw area), Severity (5/10), Comment ( feels current regimen effective; does not feel ready to decrease again) Drowsiness: Moderate (4-6) Nausea: Mild (1-3) Anxiety: Moderate (4-6) Dyspnea: Mild (1-3) Anorexia: Mild (1-3) Insomnia: Sleeps poorly (this can be attributed to TF at night) Constipation: Yes, Opoid induced, Managed (using fruit puree with good results) Feelings of wellbeing/Perceived Quality of Life: Improved Performance Status: Patient able to independently shower, is ambulating further, though does tend to be somewhat sedentary. He is going to physical therapy with improvement of endurance as well as balance. - Palliative Care Discussion: Patient still awaiting further information regarding his long-term treatment plan and current status as far as his disease. This remains a significant source of anxiety for him, appropriately so. It has continued to be somewhat drawn out as far as obtaining information. They do have an appointment next Friday with hopefully a treatment plan or further information for long-term follow-up to be obtained. As far as further advanced care planning needs, will await for this information to be able to provide support and counseling. Will get physician note after visit to facilitate and determine next visit. Impression and Recommendations - Palliative Care Impression: This is a 76-year-old gentleman with stage IV squamous cell carcinoma of the right tongue and right neck mass. He has completed both chemotherapy and radiation for his initial treatment. Is awaiting further follow-up as far as establishing current disease status and further recommendations for support. Currently unable to meet caloric requirements orally yet. Recommendations/Counseling Done: 1. Pain of neoplastic origin. Patient did tolerate decreasing the fentanyl 25 mcg patches. He has not needed anything for breakthrough pain. His pain remains localized to the area of the tumor. Patient currently satisfied with his current regimen prescription provided. 2. Depression. Patient is tolerating trazodone 25 mg with Lorazepam at bedtime. Still struggles with insomnia that this is more likely attributed to his tube feeding schedule versus depression or anxiety. 3. Protein calorie malnutrition. The patient had attempted bolus feeding with nausea. Discussed most likely decreased stomach capacity, encouraged to start with quarter but can spread out further over time and slowly increase that as tolerated. Patient does not eat secondary to early satiety enough calories to sustain him. Counseling regarding various strategies might approach current underlying problem. We will implement with the goal to transition again to oral feeding or supplement with bolus feedings. Patient's long-term goal is to discontinue the PEG tube. 4. Advanced care planning. Again awaiting input into treatment plan. Will further define this in future appointments given the outcome of his visit next Friday. Time Spent: Time spent 60 minutes with greater than 50% of this done in counseling regarding pain depression nutrition and goals of care and anticipatory guidance
== END 2017-03-21 09:57 | disposition home or self-care (01) ==
LOC: PC 09:56
PROVIDERS: ATTEND Nurse Practitioner Adult Health
DX: Z51.5 Encounter for palliative care (principal); G89.3 Neoplasm related pain (acute) (chronic); C01 Malignant neoplasm of base of tongue; C79.2 Secondary malignant neoplasm of skin; F32.9 Major depressive disorder, single episode, unspecified; E46 Unspecified protein-calorie malnutrition; Z93.1 Gastrostomy status; R68.81 Early satiety; Z79.891 Long term (current) use of opiate analgesic; F41.9 Anxiety disorder, unspecified; Z79.52 Long term (current) use of systemic steroids; R06.09 Other forms of dyspnea; R11.0 Nausea
CPT/HCPCS: 99215

== ENCOUNTER 2017-04-08 10:09 | Outpatient (CLI) | payer MEDICAID, MEDICARE ==
--- NOTE | 2017-04-08 18:20 | CONSULTATION NOTE ---
Palliative Care Follow Up - Referral Referring Provider: Dr. 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 He recently followed up with Dr. James Blevins, who he is seen originally for his initial diagnosis. He had a PET/CT with a necrotic right jugulodigastric node. This CT scan showed persistent asymmetric soft tissue thickening at the right base of the tongue at the original site. An indeterminate 3 mm pulmonary nodule in the lingula. Otherwise no nodules or mass in the chest. His PET impression revealed findings most compatible with posttreatment change with no definitive evidence of residual or recurrent tumor. No distant metastasis demonstrated. Patient is quite anxious as the recommendation was to remove that final note, most likely scar tissue but will look for residual disease as well. He is scheduled to have his Port-A-Cath removed as well as evaluation of his PEG tube. Overall patient has continued to improve, though he is still not able to meet his nutritional needs. His intake is impacted by his early satiety, the length of time it takes him to maneuver and work with chewing, and a resistance to increasing his overall intake. [facility]. This continues to interfere with his sleep, he has not made much progress as far as moving to bolus feedings. He also continues with chronic pain this is most really related to his right neck mass and residual radiation/chemotherapy and scarring. He does have some numbness and hearing loss in his right ear. He remains on fentanyl 25 mcg patch and not needing much for breakthrough pain. He remains somewhat depressed and quite anxious. This is been a fairly prolonged period of time for him to tolerate and is looking forward to creating a new normal. Social History - Living Situation Living arrangement: At home Living Situation: With spouse/s.o. Support System: Jailyn gr [facility] and , trying to have patient participate more in his care. Have daughter with disability they oversee her care as well, financial and emotional stressors add to the complexity of current situation Medications/Allergies - Medications Home Medications: Ambulatory Orders Medication Instructions Recorded Confirmed Acetaminophen 1,000 mg PO TID PRN 09/30/16 04/08/17 Lorazepam 0.5 mg PO Q8H PRN 10/29/16 04/08/17 Polyethylene Glycol 3350 [Miralax] 17 gm PO DAILY PRN 10/30/16 04/08/17 Ondansetron Odt [Zofran Odt] 1 tab PO TID PRN 01/13/17 04/08/17 Trazodone HCl 25 mg PO ACHS 01/13/17 04/08/17 predniSONE [Deltasone] 7 mg PO DAILY 02/25/17 04/08/17 Fentanyl [Fentanyl 25mcg patch] 25 mcg TD DAILY 03/11/17 04/08/17 Hydromorphone HCl 2 mg PO Q3HR PRN 04/08/17 04/08/17 - Allergies Allergies/Adverse Reactions: Allergies Allergy/AdvReac Type Severity Reaction Status Date / Time infliximab [From Remicade] Allergy Severe Anaphylaxis Verified 08/31/16 16:08 abatacept [From Orencia] Allergy Unknown Unknown Verified 08/31/16 16:08 sodium pentathol Allergy Intermediate Hives Uncoded 11/26/12 07:55 Review of Systems - Constitutional Constitutional: reports: Fatigue, Poor appetite, Weight stable (170.4) - Eyes Eyes: reports: Corrective lenses - Ears, Nose & Throat Ears, Nose & Throat: reports: Hearing loss (right ear; to have hearing test next Friday when at [facility]), Postnasal drainage - Cardiovascular Cardiovascular: reports: Decr. exercise tolerance. denies: Chest pain - Respiratory Respiratory: reports: SOB with exertion. denies: Cough, Hemoptysis, SOB at rest - Gastrointestinal Gastrointestinal: reports: Early satiety, Other (diarrhea with large bolus of jevity) - Genitourinary Genitourinary: reports: Frequency (at night with feedings), Urgency - Musculoskeletal Musculoskeletal: reports: Stiffness, Limited range of motion (neck improved), Assistive devices (uses cane) - Integumentary Integumentary: reports: Other (lymphadema right neck) - Neurological Neurological: reports: General weakness - Psychiatric Psychiatric: reports: Depression, Anxiety - Endocrine Endocrine: reports: Intolerance to cold - Hematologic/Lymphatic Hematologic/Lymphatic: denies: Recurrent infections - All Other Systems All Other Systems: reports: Reviewed and negative Physical Exam - Vital Signs Pulse Rate: 87 Respiratory Rate: 18 Blood Pressure: 146/94 - Physical Exam General Appearance: positive: Alert, Anxious Eyes Bilateral: positive: Conjunctivae nml, No scleral icterus ENT: positive: Other (some white adherent coating on tongue; mucous membranes moist) Neck: positive: Trachea midline, Other (right adherent node to be removed; mild lymphadema has RX for treatment) Cardiovascular: positive: Regular rate & rhythm Respiratory: positive: Breath sounds nml Abdomen: positive: Nml bowel sounds, Other (PEG tube with broken top/leaking) Skin: negative: Pallor Extremities: positive: No pedal edema, Other (gait more symmetrical; appears stronger) Neurologic/Psychiatric: positive: Oriented x3 Palliative Care - POLST Patient has POLST: No Pain: Pain unchanged, Location (right mouth/neck area worsening with chewing and manipulation; chronic in nature not worsening; radiates into tension in neck ), Severity (4.5/10), Comment (not using any BTP medication) Tiredness/Fatigue: Moderate (4-6) Drowsiness/Sedation: Moderate (4-6), Comment (attributes some to Fentanyl but more to poor sleep) Nausea: None Depression: Mild (1-3) Anxiety: Severe (7-10) Dyspnea: Mild (1-3) Anorexia: Mild (1-3) Sleep: Sleeps poorly (attributes this mostly to night time feedings) Constipation: Yes, Opoid induced, Managed Feelings of wellbeing/Perceived Quality of Life: Good, Improved Performance Status: Patient participating in PT twice a week, making progress and appears to enjoy improvements and interactions. More sedentary at home, some barriers created with feeding schedules etc. Hoping to return to somewhat more of a routine not focused on his limitations - Palliative Care Discussion: Patient with both positive and negative feelings for upcoming surgery. He has are here to discuss weighing benefits and burdens of moving forward. Did review the information from CT scan, physician note, and standard of care as far as follow-up in his type of cancer. Did encourage him to follow through and complete this treatment cycle. There does seem to be some distress and tension between the 2 of them regarding his ongoing need for tube feedings. Unclear exactly what the barriers are, review strategies again, patient's goals include trying to normalize his life without so much focus on his illness. Overall he has continued to improve, his symptom burden is improving, he is adequately hydrated and good weight, and his functional status is improved. Emphasizing the positive, focus on short-term goal which is to finish this "leg of the journey" and can revisit long-term goals when completed. Impression and Recommendations - Palliative Care Impression: This is a 76-year-old gentleman with stage IV squamous cell carcinoma of the right tongue base and right neck mass. He has completed both radiation and chemotherapy for his initial treatment, and following up with a surgeon will remove residual of right node. Patient symptom burden is improving, functional status improving, and continues to be dependent on PEG tube and feedings. Recommendations/Counseling Done: 1. Pain of neoplastic origin. Patient doing well on fentanyl 25 mcg patches, does have pain 4.5 out of 10 appears to be residual chronic neuropathic pain. It is exacerbated with chewing movement and manipulation, and localized to the area of tumor. Patient expecting acute pain from surgery, dislikes hydrocodone , oxycodone and morphine. Did write him a prescription for short-acting hydromorphone 2 mg tabs with expectation to use just short-term for acute on chronic pain. Rx for fentanyl provided as well with the expectation will continue to look at possibly decreasing in the future. 2. Depression patient is tolerating trazodone 25 mg at bedtime. Still continues to struggle with insomnia though this is attributed mostly to his feeding schedule. Is quite tearful but also anxious about the impending procedures. 3. Protein calorie malnutrition. Patient currently supported by his PEG tube feeding. Continues to struggle with oral intake, barriers include difficulty with early satiety chewing, and timing of intake. Strongly encouraged to try and increase his bolus feedings and wean himself off nighttime feedings. Will recheck out to a dietitian and speech therapist for further ideas. Patient's long-term goal was to discontinue the PEG tube. I suspect this will be a fairly lengthy process. 4. Advanced care planning. Awaiting outcome of removal of node, weighing benefits and burdens in the context of removing Port-A-Cath though suspect there is no immediate need, and plan to repair PEG tube. Will complete this cycle of the "journey" and a look at ways to support his transition into survivorship. Time Spent: 60 mintues with greater than 50% done in counseling regarding support for upcoming surgery, management of pain/depression/anxiety and nutrition.
== END 2017-04-08 10:10 | disposition home or self-care (01) ==
LOC: PC 10:09
PROVIDERS: ATTEND Nurse Practitioner Adult Health
DX: Z51.5 Encounter for palliative care (principal); G89.3 Neoplasm related pain (acute) (chronic); C01 Malignant neoplasm of base of tongue; C79.89 Secondary malignant neoplasm of other specified sites; G89.29 Other chronic pain; F32.9 Major depressive disorder, single episode, unspecified; E46 Unspecified protein-calorie malnutrition; Z93.1 Gastrostomy status; Z95.828 Presence of other vascular implants and grafts; R68.81 Early satiety; F41.9 Anxiety disorder, unspecified; Z79.891 Long term (current) use of opiate analgesic; Z79.52 Long term (current) use of systemic steroids; R06.09 Other forms of dyspnea; K59.03 Drug induced constipation; T40.2X5D Adverse effect of other opioids, subsequent encounter
CPT/HCPCS: 99215

== ENCOUNTER 2017-05-09 09:09 | Outpatient (CLI) | payer MEDICARE ==
--- NOTE | 2017-05-09 11:41 | CONSULTATION NOTE ---
Palliative Care Follow Up - Referral Referring Provider: Dr. Delmar Monteiro Time of Visit: [id number] Referral setting: [facility] [place] Referral Reason: Tongue Cancer - Information Sources Records reviewed: Previous records reviewed History/Review of Systems obtained from: Patient, Family ( Jailyn) Exam limitations: No limitations - History of Present Illness Update Brief HPI Update: This is a becky 76-year-old gentleman with stage IV squamous cell cancer of the base of his tongue, with a history of right neck mass. He has undergone chemoradiation, and most recently status post right modified radical neck dissection on 04/14/2017 for a right necrotic lymph node. This was negative for active tumor. Patient had been making fairly good progress, though he still has not been able to meet his nutritional needs with oral intake. But in the setting of his most recent surgery, he has had a setback. He reports increased pain at the site, as well as with swallowing. He rates his pain at a 6-7/10. He has baseline chronic pain residual in the area, we had been titrating down his fentanyl to baseline 25 mcg. In the context of his acute on chronic pain, he has been trying to work with mostly acetaminophen, he has been titrating himself off the hydromorphone, which he is taking 2 mg at bedtime currently. He is finding this quite distressing, particularly in the context of the numbness, and overwhelmed with depression and anxiety related to this outcome he was not expecting. On examination does have some residual swelling, attributed to lymphedema. His incision site is well-healed and approximated, with just some scabbing. He does have dissolvable stitches. They also remove the Port-A-Cath with some residual scarring and does eschar as well. He weighs in at 168.1, remaining fairly weight neutral within 5 pounds. He has continued to need continuous tube feedings. He is working with the schedule, he did attempt bolus feeding but with resulting diarrhea. He is doing some oral intake, mostly soup, this is a setback for him. He is also experiencing some functional decline, his right neck and shoulder tension and pain. He is able to ambulate short distances with his cane, but still needs some assistance with ADLs, and management of day-to-day activities. Social History - Living Situation Living arrangement: At home Living Situation: With spouse/s.o. Support System: Jailyn is his main caregiver and , does need to oversee his care, assist with tube feedings. She also has caregiving responsibilities for her daughter with disability that they oversee her care as well. Experiencing increased stressors related to insurance issues best delay of referrals to speech therapy and for lymphedema management. Medications/Allergies - Medications Home Medications: Ambulatory Orders Medication Instructions Recorded Confirmed Acetaminophen 1,000 mg PO TID PRN 09/30/16 05/09/17 Lorazepam 0.5 mg PO Q8H PRN 10/29/16 05/09/17 Polyethylene Glycol 3350 [Miralax] 17 gm PO DAILY PRN 10/30/16 05/09/17 Ondansetron Odt [Zofran Odt] 1 tab PO TID PRN 01/13/17 05/09/17 Trazodone HCl 25 mg PO ACHS 01/13/17 05/09/17 predniSONE [Deltasone] 7 mg PO DAILY 02/25/17 05/09/17 fentaNYL [Fentanyl 25mcg patch] 37 mcg TD DAILY 03/11/17 04/08/17 Hydromorphone HCl 2 mg PO Q3HR PRN 04/08/17 05/09/17 Gabapentin 100 mg PO QPM 05/09/17 05/09/17 - Allergies Allergies/Adverse Reactions: Allergies Allergy/AdvReac Type Severity Reaction Status Date / Time infliximab [From Remicade] Allergy Severe Anaphylaxis Verified 08/31/16 16:08 abatacept [From Orencia] Allergy Unknown Unknown Verified 08/31/16 16:08 sodium pentathol Allergy Intermediate Hives Uncoded 11/26/12 07:55 Review of Systems - Constitutional Constitutional: reports: Fatigue, Weight loss (168.1 about 2 pounds) - Eyes Eyes: reports: Corrective lenses - Ears, Nose & Throat Ears, Nose & Throat: reports: Hearing loss (right ear; pending audiology consult ), Postnasal drainage (adds to phelgm production and oral secretion management difficulty), Dry mouth - Cardiovascular Cardiovascular: reports: Decr. exercise tolerance. denies: Chest pain - Gastrointestinal Gastrointestinal: reports: Diarrhea (with attempt at bolus feeding), Early satiety - Genitourinary Genitourinary: reports: Frequency - Musculoskeletal Musculoskeletal: reports: Muscle pain, Stiffness, Limited range of motion ( right shoulder with tension and limited ROM), Assistive devices (uses cane to assist with ambulation) - Integumentary Integumentary: reports: Other (surgical incisions) - Neurological Neurological: reports: General weakness, Slurred speech (speech worsened regarding clarity with most recent surgery) - Psychiatric Psychiatric: reports: Depression, Anxiety - Endocrine Endocrine: denies: Diabetes type 2, Hypothyroidism - Hematologic/Lymphatic Hematologic/Lymphatic: denies: Recurrent infections - All Other Systems All Other Systems: reports: Reviewed and negative Physical Exam - Vital Signs Pulse Rate: 80 Respiratory Rate: 18 O2 Saturation: 99 (ra @ rest) Blood Pressure: 131/82 - Physical Exam General Appearance: positive: Mild distress, Anxious Eyes Bilateral: positive: Conjunctivae nml, No scleral icterus ENT: positive: Other (mouth looks good with moist tissues; tongue without coating; reports has upped oral care + feedback given) Neck: positive: Other (right neck with swelling from baseline; tender to palpation at previous node "area"; no mass/node appreciated) Cardiovascular: positive: Regular rate & rhythm Respiratory: positive: Breath sounds nml Abdomen: positive: Nml bowel sounds, Other (button feeding tube; no s/s infection at exit site) Skin: positive: Wound (neck incision with small scabbing; worried about numbness and touching it; encouraged with shower soft washcloth to work off scabbing; no s/s of infection) Extremities: positive: No pedal edema Neurologic/Psychiatric: positive: Oriented x3, Slurred/abnml speech, Depressed mood/affect Palliative Care - POLST Patient has POLST: No Pain: Pain worsening, Location (pain in right neck area; increased pain with swallowing new; complains of numbness and hypersensitivity; on baseline fentanyl 25 mcg; has been weaning on hydromorpone using at bedtime only) Tiredness/Fatigue: Moderate (4-6) Drowsiness/Sedation: Severe (7-10) Nausea: None Depression: Moderate (4-6) Anxiety: Moderate (4-6) Dyspnea: Mild (1-3) Anorexia: None Sleep: Sleep improved Constipation: No Feelings of wellbeing/Perceived Quality of Life: Poor, Worsening (Patient perceives patient perceives residual pain, numbness and outcome of surgery as overwhelming and worsening of quality of life) Performance Status: Patient's functional status is somewhat limited, he can ambulate short distances with a cane, he does need to have his head upright with tube feedings and are working with schedule. Unfortunately with using feeding during the day , he is been less active. He is also recently not been able to see his physical therapist as they have not only lost her insurance but also changed then use and not accepting him as a patient currently. He does need transportation to medical appointments, support and oversight for medication and nutritional management. - Palliative Care Discussion: Patient appears very distraught, tearful, and overwhelmed today. He is very much bothered by his new outcome with his surgery with numbness. Did remind him it was a good outcome, with no further cancer found. Did redirect as far as looking at this is a setback, expected to continue to heal, improve functional status, and pain to improve as well. Impression and Recommendations - Palliative Care Impression: This is a 76-year-old gentleman with stage IV squamous cell carcinoma of the right tongue base status post right neck mass. Recently had right modified radical neck dissection in the setting of a persistent necrotic right lymph node. This is cancer free. He does still have residual pain, anxiety, and numbness from the surgical intervention. He currently presents with fairly high symptom burden including acute on chronic pain, exacerbation of his anxiety disorder, exacerbation of his depression, and a setback as far as his nutritional status with increased pain and difficulty with swallowing. Recommendations/Counseling Done: Pain of neoplastic origin. Acute on chronic pain. After much discussion weighing benefits and burdens, patient is "desperate" to get some relief. He does rate his pain is fairly severe at 7 out of 10. We did discuss long-term he may not use the hydromorphone for breakthrough pain but will try and find a better regimen. It does appear to be chronic neuropathic pain. It is exacerbated at this point in time with swallowing. Will increase his fentanyl patch to 37 mcg. Prescription given for 10 patches. Discussed using again APAP versus hydromorphone for breakthrough pain, did provide the 20 tabs for acute escalating severe pain episodes. Requested he only takes this at night if he awakens and pain. Will add gabapentin 100 mg at bedtime, given patient's propensity for side effects from medications, will titrate this up quite slowly. Counseling and education regarding expected outcomes and pharmacology regarding new medication. Prescription was provided for gabapentin 100 mg capsules 1 daily evening. To follow up with office on titration, hopefully this will improve pain and then can resume titration down of fentanyl as indicated. 2. Protein calorie malnutrition. Patient remains dependent on his tube feedings, he had been making some progress with oral intake, this is now just able to take soups. He is awaiting his insurance to be reinstated, he is to be scheduled for a barium swallow this is reviewed as far as needing this with the speech therapist to continue to plan further treatment. He is quite distressed by the loss of his clarity of speech as well. Reports diarrhea with attempted bolus feeding of 4 ounces, he has redone his schedule so he gets more sleep at night. But this has impacted his quality of life as he has continuous feedings and needing to be upright at home. Discussed strategy of starting with 2 ounces from more frequently, allowing his get to readjust. They will try this strategy. 3. Generalized anxiety disorder he is using his Lorazepam at 3:00 and bedtime, he does feel this keeps the damper on it. He has had an exacerbation particularly with his latest setback. Did approach with some cognitive behavioral therapy, requested that he reframe his current thinking regarding this. He does use meditation and self talk encouraged to use different messaging and work with his meridian work. 4. Status post surgical incision. No signs or symptoms of infection. Did encourage to use soft washcloth to continue to work off eschar/scabbing as comfortable. Reassured it is healing accordingly. 5. Advanced care planning. Patient does present is cancer free, he has had his Port-A-Cath removed, his PEG tube repaired. Will see him again through this acute episode, and continue to focus on positive survivorship. Time Spent: Time spent 60 minutes with greater than 50% of this done in counseling regarding pain and symptom management nutritional management and anticipatory guidance
== END 2017-05-09 09:10 | disposition home or self-care (01) ==
LOC: PC 09:09
PROVIDERS: ATTEND Nurse Practitioner Adult Health
DX: Z51.5 Encounter for palliative care (principal); G89.3 Neoplasm related pain (acute) (chronic); C01 Malignant neoplasm of base of tongue; E46 Unspecified protein-calorie malnutrition; Z98.890 Other specified postprocedural states; F32.9 Major depressive disorder, single episode, unspecified; F41.1 Generalized anxiety disorder; I89.0 Lymphedema, not elsewhere classified; R13.10 Dysphagia, unspecified; Z93.1 Gastrostomy status; Z79.891 Long term (current) use of opiate analgesic; Z79.52 Long term (current) use of systemic steroids; H91.91 Unspecified hearing loss, right ear; R68.81 Early satiety; M62.81 Muscle weakness (generalized); E11.9 Type 2 diabetes mellitus without complications; E03.9 Hypothyroidism, unspecified; R20.0 Anesthesia of skin
CPT/HCPCS: 99215

== ENCOUNTER 2017-06-16 10:10 | Emergency (ER) | payer MEDICAID, MEDICARE ==
[2017-06-16] MEDS ORDERED: CEPHALEXIN 125 MG/5 ML SYRINGE PO STA (10:51)
--- NOTE | 2017-06-16 10:53 | ED Physician Documentation ---
History of Present Illness - Stated complaint Stated Complaint: BLEEDING AT G TUBE SITE - Chief complaint Chief Complaint: General - Additonal information Additional information: hx from pt and 76 male hx neck and tongue cancer s/p neck surgery has G tube most recently replaced approx 2 m ago at [facility] this AM there was blood around the site and some erythema no trauma to ER with concerns placement and infection no fever not getting chemo now but immunosupressed 2/2 RA meds Review of Systems Constitutional: denies: Fever, Chills Cardiac: denies: Chest pain / pressure Respiratory: denies: Dyspnea GI: reports: Other (bleeding from G tube). denies: Abdominal Pain Endocrine: denies: Easy bruising / bleeding Immunocompromised: reports: Immunocompromised PD PAST MEDICAL HISTORY - Past Medical History Cardiovascular: Hypertension, Arrhythmia Respiratory: Shortness of breath Neuro: Headache/migraine Endocrine/Autoimmune: None GI: Hiatal hernia, Chronic constipation, Other : Benign prostate hypertrophy, Frequency, Kidney stones HEENT: Chronic sinusitis Psych: Depression, Anxiety, Claustrophobia Musculoskeletal: Rheumatoid arthritis, Osteoporosis, Fatigue Derm: Herpes zoster - Past Surgical History Past Surgical History: Yes General: Cholecystectomy, Appendectomy, Hiatal hernia repair HEENT: Cataracts, Tonsil/Adenoidectomy - Present Medications Home Medications: Ambulatory Orders Medication Instructions Recorded Confirmed Acetaminophen 1,000 mg PO TID PRN 09/30/16 05/09/17 Lorazepam 0.5 mg PO Q8H PRN 10/29/16 05/09/17 Polyethylene Glycol 3350 [Miralax] 17 gm PO DAILY PRN 10/30/16 05/09/17 Ondansetron Odt [Zofran Odt] 1 tab PO TID PRN 01/13/17 05/09/17 Trazodone HCl 25 mg PO ACHS 01/13/17 05/09/17 predniSONE [Deltasone] 7 mg PO DAILY 02/25/17 05/09/17 fentaNYL [Fentanyl 25mcg patch] 37 mcg TD DAILY 03/11/17 04/08/17 Hydromorphone HCl 2 mg PO Q3HR PRN 04/08/17 05/09/17 Gabapentin 100 mg PO QPM 05/09/17 05/09/17 Cephalexin Suspension [Keflex] 500 mg PO QID #280 ml 06/16/17 - Allergies Allergies/Adverse Reactions: Allergies Allergy/AdvReac Type Severity Reaction Status Date / Time infliximab [From Remicade] Allergy Severe Anaphylaxis Verified 06/16/17 10:45 abatacept [From Orencia] Allergy Unknown Unknown Verified 06/16/17 10:45 sodium pentathol Allergy Intermediate Hives Uncoded 06/16/17 10:45 - Social History Does the pt smoke?: No Smoking Status: Former smoker Does the pt drink ETOH?: Yes Does the pt have substance abuse?: No - Immunizations Immunizations are current?: Yes Immunizations: TDAP >10years/unknown - POLST Patient has POLST: No PD ED PE NORMAL - Vitals Vital signs reviewed: Yes - General General: Alert and oriented X 3 - Cardiac Cardiac: RRR - Respiratory Respiratory: No respiratory distress, Clear bilaterally - Abdomen Abdomen: Soft, Non tender, Other (small mucous and blood around tube, slight erythea to skin for approx 3 cm around tube) - Neuro Neuro: Alert and oriented X 3 Results - Vitals Vitals: Vital Signs - 24 hr 06/16/17 10:19 Temperature 36.7 C Heart Rate 78 Respiratory 20 Rate Blood Pressure 126/88 H O2 Saturation 96 Oxygen O2 Source Room air - Rads (name of study) abd film Radiology: See rad report (PEG in place) Departure - Departure Disposition: 01 Home, Self Care Clinical Impression: PEG (percutaneous endoscopic gastrostomy) status Condition: Good Prescriptions: Cephalexin Suspension [Keflex] 500 mg PO QID #280 ml Comments: The tube is in place and is safe to use I am concerned about the redness around the site being a possible developing skin infection so I have prescribed an antibiotic (liquid so it can easily go in the tube) Please follow up with your surgeon at [facility] if the symptoms persist
[2017-06-16] MEDS ORDERED: DIATR MEGLU/DIATRIZOATE SODIUM 120 ML BOTTLE PO ONE (11:44)
--- NOTE | 2017-06-16 12:14 | XRAY Preliminary Report ---
Exam: XR ABDOMEN 1 VIEW IMPRESSION: 1. Normally positioned percutaneous gastrostomy tube. [facility] SITE ID: [id number]
--- NOTE | 2017-06-16 12:17 | XRAY Report ---
EXAM: ABDOMEN RADIOGRAPHY EXAM DATE: 06/16/2017 11:44 AM. CLINICAL HISTORY: Gastric tube confirmation. COMPARISON: None. TECHNIQUE: 1 view. Patient received 30 cc of 50% dilute Gastrografin in sterile water via percutaneou s gastrostomy tube. The PEG tube was then flushed with 30 cc of sterile water. FINDINGS: Bowel Gas Pattern: Within normal limits. No dilated loops. Other: Normally position percutaneous gastrostomy tube with balloon in upper gastric body. Gastrograf in is noted within stomach and proximal duodenum. No contrast extravasation. IMPRESSION: 1. Normally positioned percutaneous gastrostomy tube. [facility] Referring Provider Line: [phone] SITE ID: [id number]
[2017-06-16 12:42] VITALS: BP 135/86
== END 2017-06-16 12:54 | disposition home or self-care (01) ==
LOC: ED 10:10
DX: Z43.1 Encounter for attention to gastrostomy (principal); I10 Essential (primary) hypertension; Z92.21 Personal history of antineoplastic chemotherapy; Z79.899 Other long term (current) drug therapy; Z87.891 Personal history of nicotine dependence; Z85.810 Personal history of malignant neoplasm of tongue
CPT/HCPCS: 74000; 99283; A9270; Q9963

== ENCOUNTER 2017-07-01 10:14 | Outpatient (CLI) | payer MEDICARE ==
[2017-07-01] MEDS ORDERED: BARIUM SULFATE 148 GM POWDER PO ONE (11:39)
--- NOTE | 2017-07-02 11:10 | XRAY Report ---
DATE OF SERVICE: 07/01/2017 MODIFIED BARIUM SWALLOW: 07/01/2017 COMPARISON: No studies for comparison. INDICATION: Dysphagia, head and neck cancer. TOTAL FLUOROSCOPY TIME: 1 minute 1 second. TOTAL IMAGES: 45 images. FINDINGS - IMPRESSION: Serial thicknesses of barium were administered orally and followed fluoroscopically with the speech pathologist in attendance. Please refer to the speech report for further details. TD: 07/01/2017 19:16 NEIL
== END 2017-07-01 10:15 | disposition home or self-care (01) ==
LOC: DI 10:14
PROVIDERS: ATTEND Otolaryngology
DX: R13.12 Dysphagia, oropharyngeal phase (principal)
CPT/HCPCS: 74230

== ENCOUNTER 2017-08-12 14:52 | Outpatient (CLI) | payer MEDICARE ==
--- NOTE | 2017-08-12 23:17 | CONSULTATION NOTE ---
Palliative Care Follow Up - Referral Referring Provider: Dr. 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 He has undergone chemoradiation, most recently status post right modified radical neck dissection on 04/14/2017 for right necrotic lymph node. Patient has been making progress but unfortunately now presents today with increased lymphedema in his right neck as well as some palpable firmness under his right mandible, though unable to demarcate any mass-effect. Swelling does appear to abut up against surgical incision. He has not had any lymphedema support or management , is reporting increased pain and pressure in that area, as well as hearing loss of his right side. This has caused increased difficulty with swallowing, some atrophy as far as his ability to participate in progressing his swallowing he is only at very light soup and liquids. He remains dependent on tube feeding , though they have managed to get up to 140 mils per hour but still remains challenging as far as impact on his day-to-day functioning and quality of life. Is also having increased difficulty with his speech patterns. 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 He is been on fentanyl 25 mcg patch, have been titrating gabapentin in hopes to address the etiology of this. He did get it up to 400 mg, but with the side effects of the sedation, and cognitive changes were not worth the pain relief. He is currently at 200 mg at at bedtime. He continues to struggle with sleep, depression, and anxiety. He weighs in today at 167.1. He has been working with physical therapy on his right shoulder which has improved his pain management in that area. He has been challenged with the prolonged recovery that this is taken. Social History - Living Situation Living arrangement: At home Living Situation: With spouse/s.o. Support System: Jailyn has multiple caregiving responsibilities besides patient, I do have a daughter with disabilities for which she manages her care as well. They do now have some caregiving support, is hoping this will decrease the burden. Medications/Allergies - Medications Home Medications: Ambulatory Orders Medication Instructions Recorded Confirmed Acetaminophen 1,000 mg PO TID PRN 09/30/16 08/13/17 Lorazepam 0.5 mg PO Q8H PRN 10/29/16 08/13/17 Polyethylene Glycol 3350 [Miralax] 17 gm PO DAILY PRN 10/30/16 08/13/17 Ondansetron Odt [Zofran Odt] 1 tab PO TID PRN 01/13/17 08/13/17 Trazodone HCl 25 mg PO ACHS 01/13/17 08/13/17 predniSONE [Deltasone] 7 mg PO DAILY 02/25/17 08/13/17 fentaNYL [Fentanyl 25mcg patch] 25 mcg TD DAILY 03/11/17 08/13/17 Pregabalin [Lyrica] 50 mg PO ACHS 08/13/17 08/13/17 - Allergies Allergies/Adverse Reactions: Allergies Allergy/AdvReac Type Severity Reaction Status Date / Time infliximab [From Remicade] Allergy Severe Anaphylaxis Verified 06/16/17 10:45 abatacept [From Orencia] Allergy Unknown Unknown Verified 06/16/17 10:45 sodium pentathol Allergy Intermediate Hives Uncoded 06/16/17 10:45 Review of Systems - Constitutional Constitutional: reports: Fatigue, Weakness, Weight loss (167.1 fairly weight neutral) - Eyes Eyes: reports: Vision loss, Corrective lenses - Ears, Nose & Throat Ears, Nose & Throat: reports: Hearing loss (right ear; hoping to have evaluated at next appointment), Postnasal drainage, Dental decay (no dental insurance; does have noted caries), Dry mouth (some improvement in saliva production) - Cardiovascular Cardiovascular: reports: Decr. exercise tolerance. denies: Chest pain - Respiratory Respiratory: denies: Cough - Gastrointestinal Gastrointestinal: reports: Early satiety. denies: Constipation - Genitourinary Genitourinary: reports: Frequency (with tube feeding) - Musculoskeletal Musculoskeletal: reports: Stiffness, Limited range of motion (right shoulder), Muscle weakness, Assistive devices (uses walking cane) - Integumentary Integumentary: reports: Dryness - Neurological Neurological: reports: General weakness, Memory problems, Other (speech with lisp;) - Psychiatric Psychiatric: reports: Depression, Anxiety - Endocrine Endocrine: denies: Diabetes type 2, Hypothyroidism - Hematologic/Lymphatic Hematologic/Lymphatic: denies: Recurrent infections - All Other Systems All Other Systems: reports: Reviewed and negative Physical Exam - Vital Signs Temperature: 98.0 C Pulse Rate: 74 Respiratory Rate: 18 Blood Pressure: 146/90 - Physical Exam General Appearance: positive: Mild distress, Anxious Eyes Bilateral: positive: Normal inspection, Other (some periorbital edema though less than previous) ENT: positive: Other (right neck side with increased swelling and discomfort with palpation; firm area central and forward of submanible unable to discern demarcation of mass; fullnees extends to surgical incision at base of neck; has not had follow up since 03/1017) Neck: positive: Trachea midline, Stiff neck Cardiovascular: positive: Regular rate & rhythm Respiratory: positive: Breath sounds nml Abdomen: positive: Non-tender, Soft, Nml bowel sounds Skin: positive: Dryness Extremities: positive: No pedal edema Neurologic/Psychiatric: positive: Oriented x3, Depressed mood/affect Palliative Care - POLST Patient has POLST: No Pain: Pain worsening, Location (right neck/internal to surgical sight; fairly focal in description; some right shoulder pain and stiffness) Tiredness/Fatigue: Moderate (4-6) Drowsiness/Sedation: Moderate (4-6) (felt increased gabapentin added to this symptom) Nausea: None Depression: Moderate (4-6) Anxiety: Moderate (4-6) Dyspnea: None Anorexia: Mild (1-3) Sleep: Sleeps poorly Constipation: Yes, Opoid induced, Managed Performance Status: Patient able to ambulate with cane, does have some decrease in activity tolerance, does need assistance with multiple task related to his healthcare status including tube feeding, appointments, transportation and medication oversight. I would put him at a PPS of 60% - Palliative Care Discussion: Discussion focused on concern related to quality of life, stressors over prolonged recovery, and increased dependence on tube feedings. Still experiences fairly high symptom burden including neuropathic pain at the incisional site, depression, anxiety, and insomnia. Discussed in the context of being able to move forward, in support of michael ribeiro speech therapy as well, to follow-up with his surgeon at [facility]. It is important to know if this is the sequela of late effects of treatment, or further concern for recurrent disease. Patient easily gets anxious, I suspect there is some reticent feelings about pursuing this information.Continue to be challenged with financial stressors and insurance issues, I believe overall goal is for him to remained her develop more independence as well as have support from new caregiver. 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 Patient presents with increased swelling lymphedema and right neck area, as well as concerned for continued neuropathic pain syndrome. Patient presents with fairly high symptom burden, psychosocial distress, and sequela of both disease and treatment. Palliative care to provide support regarding symptom management and focus on coordination of care. Recommendations/Counseling Done: 1.Pain of neoplastic origin, neuropathic in nature. Patient on fentanyl 25 mcg patch, did try to titrate up gabapentin with intolerance of side effects of sedation, and cognitive changes. Did get relief of pain, so will trial Lyrica at 50 mg at bedtime, and titrate to effect every few days. Patient is quite sensitive medications, hopefully this will decrease the side effects. He may be limited by insurance, but will try and get preapproval if needed. Patient does use acetaminophen for intermittent breakthrough pain. 2. Dysphagia.Encouraged to have follow-up with Dr. Calix, surgeon. Has been working with speech therapy, though feels like needs to have evaluation before can move forward. Patient is not choking on his own secretions so does not present as aspiration risk at this point in time. Continues on tube feedings with minimal weight loss. 3. Depression. He is currently on trazodone 25 mg at bedtime, has had poor tolerance of SSRIs and other medications in the past. Is using self-care strategies of meditation, julia chi, and cognitive behavioral reframing. Patient has felt overwhelmed with the length of recovery, and continued barriers and stressors related to treatments and insurance. Did recommend strongly again to have follow-up with surgeon is able to move forward on treatment plan or adjusting to current "new normal". Time Spent: 60 minutes with good 50% of this done in counseling regarding high symptom burden, adjustment to illness, anticipatory guidance, did encourage follow-up with Dr. Calix and to further define next phase in his survivorship
== END 2017-08-12 14:53 | disposition home or self-care (01) ==
LOC: PC 14:52
PROVIDERS: ATTEND Nurse Practitioner Adult Health
DX: Z51.5 Encounter for palliative care (principal); G89.3 Neoplasm related pain (acute) (chronic); C01 Malignant neoplasm of base of tongue; C77.0 Secondary and unspecified malignant neoplasm of lymph nodes of head, face and neck; R13.10 Dysphagia, unspecified; F32.9 Major depressive disorder, single episode, unspecified; F41.9 Anxiety disorder, unspecified; Z93.1 Gastrostomy status; Z79.52 Long term (current) use of systemic steroids; R53.83 Other fatigue; M62.81 Muscle weakness (generalized); K59.03 Drug induced constipation; T40.2X5D Adverse effect of other opioids, subsequent encounter
CPT/HCPCS: 99215

== ENCOUNTER 2017-08-20 13:58 | Outpatient (CLI) | payer MEDICARE | END 2017-08-20 13:59 | disposition critical access hospital (66) | LOC: EMS 13:58 | PROVIDERS: ATTEND Surgery | DX: M25.561 Pain in right knee (principal) | CPT/HCPCS: A0425; A0429 ==

== ENCOUNTER 2017-08-20 14:14 | Emergency (ER) | payer MEDICARE ==
--- NOTE | 2017-08-20 15:48 | XRAY Preliminary Report ---
Exam: XR KNEE 4 VIEW RT IMPRESSION: Normal knee radiography. [facility] SITE ID: [id number]
--- NOTE | 2017-08-20 15:50 | XRAY Report ---
EXAM: RIGHT KNEE RADIOGRAPHY EXAM DATE: 08/20/2017 03:18 PM. CLINICAL HISTORY: Pain after trauma today. COMPARISON: None. TECHNIQUE: 4 views. FINDINGS: Bones: Normal. No fractures or bone lesions. Joints: Normal. No effusion. No subluxations. Soft Tissues: Normal. No soft tissue swelling. IMPRESSION: Normal knee radiography. [facility] Referring Provider Line: [phone] SITE ID: [id number]
--- NOTE | 2017-08-20 15:51 | ED Physician Documentation ---
History of Present Illness - Stated complaint Stated Complaint: DISLOCATED KNEE - Chief complaint Chief Complaint: Ext Problem - History obtained from History obtained from: Patient, Family, Friend - History of Present Illness Timing: Today Pain level max: 7 Pain level now: 2 Improved by: rest Worsened by: walking - Additonal information Additional information: Patient is a 76-year-old male who presents to the emergency department with a right knee injury. States he was standing up and felt like his knee gave out on him. He states that he now has pain with standing. States that this happens occasionally from time to time, but that they seem to be worse. Currently is not having pain unless he tries to fully extend his leg. Review of Systems Constitutional: denies: Fever GI: denies: Vomiting Skin: denies: Rash Musculoskeletal: denies: Neck pain, Back pain Neurologic: denies: Focal weakness, Numbness PD PAST MEDICAL HISTORY - Past Medical History Past Medical History: Yes Cardiovascular: Hypertension, Arrhythmia Respiratory: Shortness of breath Neuro: Headache/migraine Endocrine/Autoimmune: None GI: Hiatal hernia, Chronic constipation, Other : Benign prostate hypertrophy, Frequency, Kidney stones HEENT: Chronic sinusitis Psych: Depression, Anxiety, Claustrophobia Musculoskeletal: Rheumatoid arthritis, Osteoporosis, Fatigue Derm: Herpes zoster Other Past Medical History: rt knee dislocations - Past Surgical History Past Surgical History: Yes General: Cholecystectomy, Appendectomy, Hiatal hernia repair HEENT: Cataracts, Tonsil/Adenoidectomy - Present Medications Home Medications: Ambulatory Orders Medication Instructions Recorded Confirmed Acetaminophen 1,000 mg PO TID PRN 09/30/16 08/13/17 Lorazepam 0.5 mg PO Q8H PRN 10/29/16 08/13/17 Polyethylene Glycol 3350 [Miralax] 17 gm PO DAILY PRN 10/30/16 08/13/17 Ondansetron Odt [Zofran Odt] 1 tab PO TID PRN 01/13/17 08/13/17 Trazodone HCl 25 mg PO [facility] 01/13/17 08/13/17 predniSONE [Deltasone] 7 mg PO DAILY 02/25/17 08/13/17 fentaNYL [Fentanyl 25mcg patch] 25 mcg TD DAILY 03/11/17 08/13/17 Pregabalin [Lyrica] 50 mg PO [facility] 08/13/17 08/13/17 Meloxicam [Mobic] 7.5 mg PO BID PRN #20 tablet 08/20/17 - Allergies Allergies/Adverse Reactions: Allergies Allergy/AdvReac Type Severity Reaction Status Date / Time infliximab [From Remicade] Allergy Severe Anaphylaxis Verified 06/16/17 10:45 abatacept [From Orencia] Allergy Unknown Unknown Verified 06/16/17 10:45 sodium pentathol Allergy Intermediate Hives Uncoded 06/16/17 10:45 - Social History Does the pt smoke?: No Smoking Status: Never smoker Does the pt drink ETOH?: Yes Does the pt have substance abuse?: No - Immunizations Immunizations are current?: Yes Immunizations: TDAP >10years/unknown - POLST Patient has POLST: No PD ED PE NORMAL - Vitals Vital signs reviewed: Yes - General General: Alert and oriented X 3, No acute distress - HEENT HEENT: Atraumatic, PERRL, Moist mucous membranes - Neck Neck: Supple, no meningeal sign, No bony TTP - Back Back: No spinal TTP - Derm Derm: Warm and dry - Extremities Extremities: Other (Right knee - No bony tenderness about the knee. No effusion. ACL, MCL, LCL, PCL are intact. NVI) - Neuro Neuro: Alert and oriented X 3 - Psych Psych: Normal mood, Normal affect Results - Vitals Vitals: Vital Signs - 24 hr 08/20/17 08/20/17 14:22 16:49 Temperature 36.6 C Heart Rate 81 78 Respiratory 16 20 Rate Blood Pressure 154/86 H 141/82 H O2 Saturation 99 Oxygen O2 Source Room air - Rads (name of study) R knee xray Radiology: Prelim report reviewed, EMP read contemporaneously, See rad report ( no acute findings.) PD MEDICAL DECISION MAKING - ED course Complexity details: reviewed results, re-evaluated patient, considered differential, d/w patient, d/w family ED course: Patient is a 76-year-old male who appears to have a sprain of the right knee. Placed an articulating knee brace which helped to stabilize the knee for him. No evidence of dislocation. No vascular compromise. No acute findings on x- ray. Will have him utilize his walker at home. We will have him follow-up with orthopedics for further evaluation and care. No joint effusion. Patient and family counseled regarding signs and symptoms for which I believe and urgent re-evaluation would be necessary. Patient with good understanding of and agreement to plan and is comfortable going home at this time This document was made in part using voice recognition software. While efforts are made to proofread this document, sound alike and grammatical errors may occur. Departure - Departure Disposition: Home, Self Care Clinical Impression: Right knee sprain Qualifiers: Encounter type: initial encounter Involved ligament of knee: unspecified ligament Qualified Code(s): S83.91XA - Sprain of unspecified site of right knee , initial encounter Condition: Good Instructions: ED Sprain Knee Follow-Up: Nasir Carlton MD [Primary Care Provider] - Within 1 week Prescriptions: Meloxicam [Mobic] 7.5 mg PO BID PRN #20 tablet PRN Reason: Pain Comments: Return if you worsen. Follow-up with your doctor for further evaluation and care. Wear the knee brace as needed for comfort. Use her walker at home to help you walk. Discharge Date/Time: 08/20/17 16:50
[2017-08-20] MEDS ORDERED: KETOROLAC 60 MG/2 ML VIAL IM STA (16:13)
[2017-08-20 16:50] VITALS: BP 141/82
== END 2017-08-20 16:50 | disposition home or self-care (01) ==
LOC: EDBD → EDUNIT# → ED 14:14
DX: S83.91XA Sprain of unspecified site of right knee, initial encounter (principal); X58.XXXA Exposure to other specified factors, initial encounter; I10 Essential (primary) hypertension
CPT/HCPCS: 96372; 99283; 99284

== ENCOUNTER 2017-09-17 11:54 | Outpatient (CLI) | payer MEDICARE, MEDICAID ==
--- NOTE | 2017-09-17 17:31 | CONSULTATION NOTE ---
Palliative Care Follow Up - Referral Referring Provider: Dr. Delmar Monteiro Time of Visit: [place] [facility] [place] Reason: Tongue Cancer - Information Sources Records reviewed: Previous records reviewed History/Review of Systems obtained from: Patient, Caregiver (Elvira Madden MARCIA worker) Exam limitations: No limitations - History of Present Illness Update Brief HPI Update: This is a 76-year-old gentleman who is status post right neck dissection regarding a lymph node, this was negative for persistent tumor. Is originally diagnosed with tongue cancer and underwent chemo radiation, with multiple complications. He continues to have residual difficulty with his right-sided lymphedema, pain does appear to be improving, he is complaining of side effects from his Lyrica sedation and drowsiness. He is feeling somewhat overwhelmed with his demands for tube feedings, multiple appointments, and now most recently with acute knee injury. Palliative care continue to provide support for pain and symptom management as well as psychosocial interventions for depression and anxiety Social History - Living Situation Living arrangement: At home Living Situation: With spouse/s.o. (Now has paid caregiver 15 hours a week, provides transportation, assistance with tube feeding, and support) Medications/Allergies - Medications Home Medications: Ambulatory Orders Medication Instructions Recorded Confirmed Acetaminophen 1,000 mg PO TID PRN 09/30/16 09/17/17 Lorazepam 0.5 mg PO Q8H PRN 10/29/16 09/17/17 Polyethylene Glycol 3350 [Miralax] 17 gm PO DAILY PRN 10/30/16 09/17/17 Ondansetron Odt [Zofran Odt] 1 tab PO TID PRN 01/13/17 09/17/17 Trazodone HCl 25 mg PO ACHS 01/13/17 09/17/17 predniSONE [Deltasone] 7 mg PO DAILY 02/25/17 09/17/17 fentaNYL [Fentanyl 25mcg patch] 25 mcg TD DAILY 03/11/17 09/17/17 Pregabalin [Lyrica] 25 mg PO ACHS 08/13/17 09/17/17 - Allergies Allergies/Adverse Reactions: Allergies Allergy/AdvReac Type Severity Reaction Status Date / Time infliximab [From Remicade] Allergy Severe Anaphylaxis Verified 06/16/17 10:45 abatacept [From Orencia] Allergy Unknown Unknown Verified 06/16/17 10:45 sodium pentathol Allergy Intermediate Hives Uncoded 06/16/17 10:45 Review of Systems - Constitutional Constitutional: reports: Fatigue, Poor appetite, Weight gain - Eyes Eyes: reports: Vision loss, Corrective lenses - Ears, Nose & Throat Ears, Nose & Throat: reports: Hearing loss (right ear), Nosebleeds, Nasal congestion, Dry mouth, Other (swelling/lymphadema right neck; soft; does some light massage) - Cardiovascular Cardiovascular: reports: Decr. exercise tolerance - Respiratory Respiratory: denies: Cough, SOB with exertion - Gastrointestinal Gastrointestinal: reports: Early satiety, Other (Tolerating TF at 150 ml per hour; still taking 8-10; choking on even somewhat textured soups; difficulty swallowing; perceives it is related to swelling Patient describing symptoms of hernia left groin, no pain or distress, able to "massage" it back. Encouraged follow up with PCP; agreed). denies: Constipation, Nausea - Genitourinary Genitourinary: reports: Frequency - Musculoskeletal Musculoskeletal: reports: Muscle aches, Stiffness, Limited range of motion ( right knee sprain; working with [employer]), Muscle weakness, Assistive devices ( uses cane) - Integumentary Integumentary: reports: Dryness - Neurological Neurological: reports: General weakness, Headache, Memory problems (occasional confusion) - Psychiatric Psychiatric: reports: Depression (feeling overwhelmed by TF and planning life around it; wants to be "normal" and get on with life), Anxiety (intermittent but still cont. at baseline; managed with late pm lorazepam and bedtime dose) - Hematologic/Lymphatic Hematologic/Lymphatic: reports: Anemia (hx of anemia). denies: Recurrent infections - All Other Systems All Other Systems: reports: Reviewed and negative Palliative Care - POLST Patient has POLST: No Pain: Pain improved, Location (Reports right neck discomfort no longer sharp shooting pains, more of a fullness and interfering in swallowing. Is currently on fentanyl 25 mcg patch, Lyrica 50 50 mg twice a day, though does report increased sedation and dizziness with this.) Tiredness/Fatigue: Moderate (4-6) Drowsiness/Sedation: Moderate (4-6) Nausea: Mild (1-3) Depression: Moderate (4-6) Anxiety: Moderate (4-6) Dyspnea: None Anorexia: Mild (1-3) Sleep: Variable sleep pattern Constipation: No Feelings of wellbeing/Perceived Quality of Life: Fair, No change Performance Status: Patient had been taking daily walks, this did actually help him cope. Currently with his newly twisted knee, he has more limited ability to ambulate. He is using a cane for assistance. Does need some assistance with dressing, managing his tube feedings, otherwise is independent. Most of his decreased functional status is related to decreased tolerance of activity. I would put him at a PPS of 60% - Palliative Care Discussion: Patient here today with his caregiver Elvira. Reports he does understand at this point in time he has no evidence of recurrent disease. He is though continuing to deal with the sequela of ongoing tube feedings, persistent right- sided lymphedema, and difficulty with swallowing issues which have hugely impacted his quality of life. This is added to his underlying diagnosis of depression and anxiety, and does get to feeling overwhelmed. 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 He continues to have persistent lymphedema in the right neck area, his pain has continued to improved, but continues to present with fairly high symptom burden. Palliative care to provide support as patient transitions continued invasive cancer survivorship Recommendations/Counseling Done: 1.Pain of neoplastic origin, status post lymph node dissection. Patient currently on fentanyl 25 mcg patch, unable to tolerate gabapentin, originally got response to Lyrica 50 mg twice daily. Patient though is feeling increased side effects from this. We did discuss in the context of his healing, further out from treatment, particularly further out from his right neck dissection, he should be having improved pain control. We did discuss titrating off the Lyrica , particularly in the context of of his side effect profile. He will decrease to 1 time a day for 1 week and then discontinue. We also discussed given his healing, may be time to titrate off the fentanyl as well, patient gets quite overwhelmed with with multiple changes. Did discuss use of massage for lymphedema as a measure for increased comfort. Did follow-up on referral as it is available at [facility]. 2. Dysphagia. Patient still complains of swallowing difficulty, he attributes this to lymphedema, does have some choking still with textures. Referral sent for speech therapy, if clinically indicated can do barium swallow for further evaluation. 3. Lymphedema right neck. Will make referral, patient is doing some light massage. Encouraged to continue to keep soft, as well as does provide some relief. Will continue 2-3 times a day, is currently seeing carotid PT with some instruction. Will benefit from formal referral for lymphedema management. 4. Depression. Did try to reframe current condition, looking at adjusting for a new normal. Patient is on trazodone 25 mg at at bedtime, patient does not tolerate SSRIs. He is currently with exacerbation of depression given recent acute injury, and impact on activities. Did give folder for Alana Machuca and encouraged contact and plan for retreat. Reframed and given positive reflection on how far he had come. 5. Malnutrition. Will have patient's labs drawn, patient is concerned about glucose level. Does appear patient is actually drinking too much water, is needing to frequently urinate. Reports color of urine is almost water color, did review important to keep his mouth moist, but given his volume of tube feeding, using soups, and frequent sips of water he does not need to force more fluid intake.Arrangements for labs were made, will get done in the morning so we have fasting blood sugar. Time Spent: 45 minutes with greater than 50% of this done in counseling regarding pain and symptom management, adjustment to illness, and coordination of care with referrals for lymphedema management speech therapy, and labs
== END 2017-09-17 11:55 | disposition home or self-care (01) ==
LOC: PC 11:54
PROVIDERS: ATTEND Nurse Practitioner Adult Health
DX: Z51.5 Encounter for palliative care (principal); G89.3 Neoplasm related pain (acute) (chronic); C01 Malignant neoplasm of base of tongue; Z98.890 Other specified postprocedural states; R13.10 Dysphagia, unspecified; I89.0 Lymphedema, not elsewhere classified; F32.9 Major depressive disorder, single episode, unspecified; E46 Unspecified protein-calorie malnutrition; Z79.891 Long term (current) use of opiate analgesic; Z79.52 Long term (current) use of systemic steroids; Z93.1 Gastrostomy status; F41.9 Anxiety disorder, unspecified
CPT/HCPCS: 99215

== ENCOUNTER 2017-10-10 14:20 | Outpatient (CLI) | payer MEDICARE, MEDICAID ==
--- NOTE | 2017-10-10 17:29 | CONSULTATION NOTE ---
Palliative Care Follow Up - Referral Referring Provider: Dr. Delmar Monteiro Time of Visit: [id number] Referral setting: [facility] [place] Referral Reason: Tongue Cancer/Acute on chronic pain - Information Sources Records reviewed: Previous records reviewed History/Review of Systems obtained from: Patient, Caregiver (MARCIA Felix caregiver present for visit) Exam limitations: No limitations - History of Present Illness Update Brief HPI Update: This is a 76-year-old gentleman who is status post modified radical right neck dissection, regarding removal of a lymph node that was negative for persistent tumor 04/14/2017 . He was originally diagnosed with tongue cancer and underwent chemo and radiation, with multiple complications, and hospitalizations early last year and completed 10/2016. He continues to have residual difficulty with right-sided lymphedema, Which appears to be his greatest concern, and source of discomfort. He also presents with concern for late term radiation associated dysphasia. He is currently still dependent on tube feedings, though he has decreased his time on the continuous feed, with use of Ensure. This is improved his quality of life as well has given him more time to pursue things that are more supportive. He also now is presenting with chronic pain syndrome, Exacerbation of his depression and anxiety,and working on titrating an acceptable regimen. Patient does not tolerate change very well, we were working on a slow titration of his medications, he recently saw his PCP, who switched him to amitriptyline in place of his Lyrica and to assist with his management of his depression. Unfortunately he had a severe reaction, with increased dizziness, some tongue swelling, jitteriness, and exacerbation of depressive symptoms. Unclear if some of this was also related to some opioid withdrawal, as he had also decreased his fentanyl as planned from 25, to 12 mcg. In follow-up he was given a new prescription for Abilify, he has not started this yet. Patient does have high anxiety, as well as multiple medication sensitivities, that often makes titration of medications more complex. Social History - Living Situation Living arrangement: At home Living Situation: With spouse/s.o. Support System: Patient does have assistance from Elvira KENNEDY worker. His Jailyn also is very involved as an advocate, But is also caregiver for her daughter with disabilities, and there are also multiple financial stressors to add to the complexity of the situation Medications/Allergies - Medications Home Medications: Ambulatory Orders Medication Instructions Recorded Confirmed Acetaminophen 1,000 mg PO TID PRN 04/03/17 04/13/18 Lorazepam 0.5 mg PO Q8H PRN 10/29/16 10/10/17 Polyethylene Glycol 3350 [Miralax] 17 gm PO DAILY PRN 10/30/16 10/10/17 Ondansetron Odt [Zofran Odt] 1 tab PO TID PRN 01/13/17 10/10/17 predniSONE [Deltasone] 7 mg PO DAILY 02/25/17 10/10/17 fentaNYL [Fentanyl 25mcg patch] 12 mcg TD .Q72 03/11/17 10/10/17 Aripiprazole [Abilify] 2 mg PO ACHS 10/10/17 10/10/17 - Allergies Allergies/Adverse Reactions: Allergies Allergy/AdvReac Type Severity Reaction Status Date / Time infliximab [From Remicade] Allergy Severe Anaphylaxis Verified 06/16/17 10:45 abatacept [From Orencia] Allergy Unknown Unknown Verified 06/16/17 10:45 amitriptyline AdvReac Dizziness Verified 10/10/17 17:29 sodium pentathol Allergy Intermediate Hives Uncoded 06/16/17 10:45 Review of Systems - Constitutional Constitutional: reports: Fatigue, Weight stable - Eyes Eyes: reports: Vision loss, Corrective lenses - Ears, Nose & Throat Ears, Nose & Throat: reports: Hearing loss (right ear), Other (c/o tongue swelling increased with medication reaction) - Cardiovascular Cardiovascular: reports: Exertional dyspnea. denies: Lightheadedness - Respiratory Respiratory: reports: SOB with exertion. denies: Cough, SOB at rest - Gastrointestinal Gastrointestinal: reports: Other (using Tube feedings 75% of calories; has been using Ensure to free up time from TF infusion; still unable to swallow more than liquids; very discouraged). denies: Constipation, Nausea, Reflux/heartburn - Genitourinary Genitourinary: reports: Frequency, Urgency, Nocturia (related to tube feedings at night). denies: Dysuria - Musculoskeletal Musculoskeletal: reports: Limited range of motion (knee injury resolving; not needing brace; still with limited ROM right shoulder / neck area related to tension and positioning of neck), Assistive devices (uses cane) - Integumentary Integumentary: reports: Dryness - Neurological Neurological: reports: Headache (intermittent), Dizziness (withdrawal symptoms with fentanyl compounded with SE of amitryptiline) - Psychiatric Psychiatric: reports: Depression (worsening per patients perception; more tearful/discouraged), Anxiety (very distressed with needing to redo medications) - Endocrine Endocrine: denies: Diabetes type 2 - Hematologic/Lymphatic Hematologic/Lymphatic: denies: Recurrent infections - All Other Systems All Other Systems: reports: Reviewed and negative Physical Exam - Vital Signs Pulse Rate: 78 Respiratory Rate: 18 Blood Pressure: 140/92 - Physical Exam General Appearance: positive: Moderate distress, Anxious Eyes Bilateral: positive: Normal inspection, Other (periorbital edema) ENT: positive: No signs of dehydration, Other (no s/s of candidiasis; folds on right side of tongue more pronounced; no swelling back of throat; bucally more swelling suspect impacts feeling of tongue in mouth;) Neck: positive: Swelling/bruising (lymphadema right neck area more pronounced) Cardiovascular: positive: Regular rate & rhythm Respiratory: positive: Breath sounds nml Abdomen: positive: Non-tender, Soft, Nml bowel sounds Skin: positive: Other (Right skin incision from radical neck dissection with keloid formation, well-healed, no concern for signs or symptoms of infection or manipulation. Will follow up with lymphedema therapist.) Extremities: positive: No pedal edema Neurologic/Psychiatric: positive: Oriented x3, Slurred/abnml speech, Depressed mood/affect, Flat affect Palliative Care - POLST Patient has POLST: No Pain: Location (Right neck area, centralized to area of the original cancer. Sharp shooting, mixed with pressure of facial swelling with a dull ache.) Tiredness/Fatigue: Moderate (4-6) Drowsiness/Sedation: Moderate (4-6) Nausea: None Depression: Severe (7-10) Anxiety: Moderate (4-6) Dyspnea: None Anorexia: Moderate (4-6), Weight loss (167.1) Sleep: Variable sleep pattern (up at night to void) Constipation: Yes, Opoid induced, Managed Feelings of wellbeing/Perceived Quality of Life: Fair, Comment (feeling overwhelmed with current depression and medication changes) Performance Status: Patient continues with limitation regarding to the fatigue, has improved gait and functional status with improved knee strain healing. Does need some assistance with cane for ambulation and balance. - Palliative Care Discussion: Patient reports an exacerbation of his depression and anxiety, has tolerated changes in medications poorly over the last couple weeks, was feeling overwhelmed. Is feeling like everything hinges, and resolution or improvement of his lymphedema, was quite discouraged with first appointment, wanting some self-management techniques and more aggressive approach to this. Did review most first appointments for assessment only, is struggling with finances, can only receive physical therapy through one agency at a time. Feels like this is been a long drawnout prolonged process, and unclear what his new normal is going to be. Results - Lab Results Lab results reviewed: Yes Lab and Imaging Results: Patient did not follow through on fasting labs, did get labs drawn prior to leaving facility. Review of labs show all within normal range, no concerns at this point in time. 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 He does continue to have persistent lymphedema and right neck area continued concern about late radiation-induced dysphagia, and exacerbation of his depression and anxiety. Patient has tolerated medication changes poorly over the last couple weeks, will continue to assist and transitioning to medication regimen. Palliative care support to provide assistance as patient transition to cancer survivorship. Recommendations/Counseling Done: 1. Pain of neoplastic origin, status post lymph node dissection. Patient currently on fentanyl 12 mcg patch, does appear to have experienced withdrawal symptoms regarding change. Though this is somewhat complicated by transition of multiple medications during this time. Patient will continue on fentanyl 12 mcg patch until next visit in 2-3 weeks. In the meantime he will initiate and increase his acetaminophen from 500 mg to 1000 3 times daily, and follow-up on labs patient's any function is good, he could tolerate NSAIDS, though has had hypertensive response in past. 2. Dysphagia. Patient continues to complain of swallowing difficulty, he attributes this to his lymphedema, is unable to progress on textures. Referral has been sent to speech therapy, did not feel would be of benefit until lymphedema addressed. Patient has had no worsening of choking, and is actually tolerating increased oral fluids and use of Ensure. Does remain dependent though on tube feedings to meet caloric needs. 3. Lymphedema right neck. Will follow up with massage therapist, there is no concern regarding keloid formation and scar, patient does need to move forward and feel confident will be of benefit. Will make contact. Did encourage patient, to follow through with treatment program, before making judgment whether of benefit. 4. Right shoulder pain. Patient has been working with her out of physical therapy, unable to continue with getting lymphedema treatment. Did encourage to do their maintenance program, suspect he will not lose progress if he continues to participate on a regular basis. He was encouraged regarding this plan. 5. Depression. Did discontinue trazodone at bedtime, does not need to be on multiple medications given his history. He will be starting the Abilify 2 mg at bedtime. We did discuss given his propensity for anxiety and reactions to medication, to only make one change at a time. Thus will defer the fentanyl discontinuation in the future. Patient willing to pursue counseling at this time , will see what resources will be available to him with his Medicare/Insurance. Time Spent: 45 minutes with greater than 50% of this done regarding counseling regarding pain management, lymphedema, dysplasia, depression, and anticipatory guidance. Will follow up with referrals regarding counseling, and with physical therapy.
== END 2017-10-10 14:21 | disposition home or self-care (01) ==
LOC: PC 14:20
PROVIDERS: ATTEND Nurse Practitioner Adult Health
DX: Z51.5 Encounter for palliative care (principal); G89.3 Neoplasm related pain (acute) (chronic); C01 Malignant neoplasm of base of tongue; R13.19 Other dysphagia; I89.0 Lymphedema, not elsewhere classified; M25.511 Pain in right shoulder; F32.9 Major depressive disorder, single episode, unspecified; Z93.1 Gastrostomy status; K59.03 Drug induced constipation; T40.2X5D Adverse effect of other opioids, subsequent encounter; Z79.891 Long term (current) use of opiate analgesic; Z79.52 Long term (current) use of systemic steroids
CPT/HCPCS: 99215

== ENCOUNTER 2017-10-10 15:57 | Outpatient (CLI) | payer MEDICARE, MEDICAID ==
[2017-10-10 16:14] LABS: BASOPHILS # (AUTO) 0.1 10^3/uL (0.0-0.1); BASOPHILS % (AUTO) 0.8 %; EOSINOPHILS % (AUTO) 0.2 %; HGB - HEMOGLOBIN 14.8 g/dL (14.0-18.0); LYMPHOCYTES # (AUTO) 1.2 10^3/uL (1.5-3.5); LYMPHOCYTES % (AUTO) 13.8 %; MEAN CORPUSCULAR HEMOGLOBIN 31.8 pg (27.0-31.0); MEAN CORPUSCULAR HGB CONC 33.7 g/dL (32.0-36.0); MEAN CORPUSCULAR VOLUME 94.3 fL (80.0-94.0); MEAN PLATELET VOLUME 7.5 fL (7.4-11.4); MONOCYTES # (AUTO) 0.8 10^3/uL (0.0-1.0); MONOCYTES % (AUTO) 9.3 %; NEUTROPHILS # (AUTO) 6.5 10^3/uL (1.5-6.6); NEUTROPHILS % (AUTO) 75.9 %; PLT - PLATELET COUNT 188 10^3/uL (130-450); RED BLOOD COUNT 4.66 10^6/uL (4.70-6.10); RED CELL DISTRIBUTION WIDTH 13.3 % (12.0-15.0); WHITE BLOOD COUNT 8.6 x10^3/uL (4.8-10.8)
[2017-10-10 16:23] LABS: ALBUMIN 4.1 g/dL (3.2-5.5); ALBUMIN/GLOBULIN RATIO 1.4 (1.0-2.2); BILIRUBIN,TOTAL 0.4 mg/dL (0.2-1.0); CALCIUM 9.1 mg/dL (8.5-10.3); CREATININE 0.7 mg/dL (0.6-1.2)
== END 2017-10-10 15:58 | disposition home or self-care (01) ==
LOC: LAB 15:57
PROVIDERS: ATTEND Internal Medicine
DX: D50.9 Iron deficiency anemia, unspecified (principal); Z79.899 Other long term (current) drug therapy
CPT/HCPCS: 36415; 80053; 85025

== ENCOUNTER 2017-10-24 14:13 | Outpatient (CLI) | payer MEDICARE, MEDICAID ==
--- NOTE | 2017-10-24 17:26 | CONSULTATION NOTE ---
Palliative Care Follow Up - Referral Referring Provider: Dr. Delmar Monteiro Time of Visit: [id number] Referral setting: [facility] [place] Referral Reason: Tongue Cancer s/p tx/depression/ - Information Sources Records reviewed: Previous records reviewed History/Review of Systems obtained from: Patient, Family ( Jailyn at visit ) Exam limitations: No limitations - History of Present Illness Update Brief HPI Update: This is a 77-year-old gentleman who is status post modified radical right neck dissection for removal lymph node, it was negative for persistent tumor on 04/14. He was originally diagnosed with tongue cancer and has undergone chemoradiation, he did experience multiple complications and hospitalizations early last year was finally completed in 10/2016. 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 He does also present with concern for late term radiation associated dysphagia. He remains currently dependent on tube feedings , he can decrease his continuous feeding time with use of Ensure. This does improve his quality of life as he spends less time tethered. Continue to work with patient's ongoing chronic pain syndrome, he has had an exacerbation of his depression, and trying to titrate and find an acceptable regimen given his multiple sensitivities. He is currently on fentanyl 12 mcg patch, is initiate ibuprofen 200 mg 1-2 tabs, his labs showed no concern for kidney function. He did try a prescription of Abilify, at low-dose 2 mg, he took 1 dose in that day found it sedating took 1 dose at night and found it activating and no sleep. This did cause some high anxiety, we are meeting today to try and address a strategy that is acceptable with his concern for side effects Social History - Living Situation Living arrangement: At home Living Situation: With spouse/s.o. Support System: He does have a micky worker Elvira, who does get him to appointments, and assists with care needs. Jailyn his assists in overseeing care needs as well, patient is trying to take on some personal responsibility, is doing much better job with this. They are looking though at bringing their special needs daughter home, this transition has the potential to increase both caregiver distress of , as well as complexity of care situation for patient. Are looking at ways to maximize their support in this transition. Medications/Allergies - Medications Home Medications: Ambulatory Orders Medication Instructions Recorded Confirmed Lorazepam 0.5 mg PO Q8H PRN 10/29/16 10/24/17 Polyethylene Glycol 3350 [Miralax] 17 gm PO DAILY PRN 10/30/16 10/24/17 Ondansetron Odt [Zofran Odt] 1 tab PO TID PRN 01/13/17 10/24/17 predniSONE [Deltasone] 7 mg PO DAILY 02/25/17 10/24/17 fentaNYL [Fentanyl 25mcg patch] 12 mcg TD .Q72 03/11/17 10/24/17 Aripiprazole [Abilify] 1 mg PO DAILY 10/10/17 10/10/17 Hydrocodone/Acetaminophen 1 - 2 tab PO Q4HR PRN 10/24/17 10/24/17 [Hydrocodone-Acetamin 5-325 mg] Ibuprofen 200 - 400 mg PO Q6HR PRN 10/24/17 10/24/17 - Allergies Allergies/Adverse Reactions: Allergies Allergy/AdvReac Type Severity Reaction Status Date / Time infliximab [From Remicade] Allergy Severe Anaphylaxis Verified 06/16/17 10:45 abatacept [From Orencia] Allergy Unknown Unknown Verified 06/16/17 10:45 amitriptyline AdvReac Dizziness Verified 10/10/17 17:29 sodium pentathol Allergy Intermediate Hives Uncoded 06/16/17 10:45 Review of Systems - Constitutional Constitutional: reports: Fatigue, Weight loss (165.1) - Eyes Eyes: reports: Vision loss, Corrective lenses - Ears, Nose & Throat Ears, Nose & Throat: reports: Hearing loss (right ear mild), Nasal congestion, Postnasal drainage, Dry mouth - Cardiovascular Cardiovascular: reports: Decr. exercise tolerance. denies: Chest pain - Respiratory Respiratory: reports: Cough (occasional;), SOB with exertion. denies: SOB at rest - Gastrointestinal Gastrointestinal: reports: Other (remains on tube feedings; unable to meet caloric requirements; is limited by amount per hour; likes to use the Ensure to be able to free up time during day for activities/appointments able to take without choking) - Genitourinary Genitourinary: reports: Frequency, Urgency - Musculoskeletal Musculoskeletal: reports: Limited range of motion (right leg has twisted/injury) , Muscle weakness (working with PT), Assistive devices (uses cane) - Integumentary Integumentary: reports: Dryness, Other (scar right side of neck) - Neurological Neurological: reports: Dizziness (with recent medication changes), Memory problems (STM mild/does get easily overwhelmed) - Psychiatric Psychiatric: reports: Depression, Anxiety - Hematologic/Lymphatic Hematologic/Lymphatic: denies: Recurrent infections - All Other Systems All Other Systems: reports: Reviewed and negative Physical Exam - Vital Signs Pulse Rate: 77 Respiratory Rate: 18 Blood Pressure: 135/95 - Physical Exam General Appearance: positive: No acute distress, Anxious Eyes Bilateral: positive: Normal inspection, Other (periorbital edema) ENT: positive: No signs of dehydration. negative: Pharyngeal erythema, Oral lesions Neck: positive: Trachea midline, Swelling/bruising (moderate lymphadema on right side of neck; soft) Cardiovascular: positive: Regular rate & rhythm Respiratory: positive: Breath sounds nml Abdomen: positive: Non-tender, Soft, Nml bowel sounds Skin: positive: Dryness Extremities: positive: No pedal edema Neurologic/Psychiatric: positive: Oriented x3, Depressed mood/affect Palliative Care - POLST Patient has POLST: No Pain: Location (right neck area; residual sharp shooting neuropathic componenet ; also pressure and difficulty with manuevering tongue increased discomfort; impacts swallowing; had some acute pain with recent exacerbation of right knee pain; used ibuprofen at low dose with unclear response) Tiredness/Fatigue: Severe (7-10) Drowsiness/Sedation: Moderate (4-6) Nausea: None Depression: Moderate (4-6) Anxiety: Moderate (4-6) Dyspnea: None Anorexia: None Sleep: Variable sleep pattern Constipation: Yes, Opoid induced, Managed - Palliative Care Discussion: Patient continues to perceive his quality of life and has impacted by his current situation. He is quite anxious to get titrated off the narcotics, and be able to address his depression. He does find it somewhat overwhelming and addressing his multiple symptoms, but is continuing to move forward in a positive way. Counseling to assist and reframing her short-term goals versus long-term goals. 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 He experiences continued persistent lymphedema of the right neck area, with concern for late radiation-induced dysphagia, and next exacerbation of depression and anxiety. Patient has multiple medication sensitivities, will continue to assist and transitioning to medication regimen. Palliative care support to provide assistance as patient transitions to cancer survivorship. Recommendations/Counseling Done: 1. Pain of neoplastic origin, status post lymph node dissection. Patient currently on fentanyl 12 mcg patch, he will discontinue this on Friday or Friday. He does have hydrocodone 5 mg/325 mg tabs he is been instructed to use 2-3 a day, for several days, and titrate accordingly. Reviewed signs and symptoms of withdrawal, patient did experience fairly extreme withdrawal symptoms going from 25-12 mcg. We will also initiate ibuprofen 200 mg tabs 2 tabs up to 4 times a day for breakthrough pain. Patient remains very anxious regarding this, reviewed symptoms are uncomfortable but not life-threatening, encouraged to follow through on titration. If needs further slower titration off the hydrocodone, is to contact me for a new prescription as he only has 20 tabs. At that point in time would give him liquid as he has to use it through the tube. 2. Dysphagia. Patient continues to complain of swallowing difficulty, he attributes this to his lymphedema, has been able to progress on textures. I will follow-up with speech therapy, as his primary concern is his impact on his speech. His understanding he was waiting to the lymphedema was less, I suspect there is not going to be any immediate improvement in this, and will see if he would benefit sooner. 3. Lymphedema right neck. He continues to struggle with balance of appointments for PT for lymphedema versus his PT for his overall strengthening improvement. Patient is thinking some self-management techniques, encouraged to continue to follow through on instruction. 4. Depression. Patient has been instructed to reinitiate Abilify 1 mg in the a.m., patient did actually experience some benefit from the medication even though it was not long-term, felt somewhat risk control manager. Encouraged to follow through and evaluate sedation versus activation, but at this point in time would recommend a.m. dosing. Is going to be complicated to tease out what is withdrawal from his opioid, versus side effects of his antidepressant. Did follow-up on referral for counseling, try assistance does allow self-referral, need to fill out packet and make an appointment. This information was shared with patient. Time Spent: 60 minutes with greater than 50% of this done in counseling coordination of care , instruction on opioid titration, adjusting depression meds, and anticipatory guidance
== END 2017-10-24 14:14 | disposition home or self-care (01) ==
LOC: PC 14:13
PROVIDERS: ATTEND Nurse Practitioner Adult Health
DX: Z51.5 Encounter for palliative care (principal); G89.3 Neoplasm related pain (acute) (chronic); C01 Malignant neoplasm of base of tongue; Z98.890 Other specified postprocedural states; R13.19 Other dysphagia; I89.0 Lymphedema, not elsewhere classified; F32.9 Major depressive disorder, single episode, unspecified; Z93.1 Gastrostomy status; G89.4 Chronic pain syndrome; Z79.891 Long term (current) use of opiate analgesic; Z79.52 Long term (current) use of systemic steroids; M62.81 Muscle weakness (generalized); F41.9 Anxiety disorder, unspecified; K59.03 Drug induced constipation; T40.2X5D Adverse effect of other opioids, subsequent encounter
CPT/HCPCS: 99215

== ENCOUNTER 2017-11-27 10:02 | Outpatient (CLI) | payer MEDICARE, MEDICAID ==
--- NOTE | 2017-11-27 20:16 | CONSULTATION NOTE ---
Palliative Care Follow Up - Referral Referring Provider: Dr. Delmar Monteiro Time of Visit: 10:10-11:00 Referral setting: [facility] [place] Referral Reason: s/p /Tongue Cancer/Pain management/Depression - Information Sources Records reviewed: Previous records reviewed History/Review of Systems obtained from: Patient, Family ( Jailyn accompanying patient today) Exam limitations: No limitations Social History - Living Situation Living arrangement: At home Living Situation: With spouse/s.o., Other (disabled daughter just moved back in yesterday; increased stressors and "chaos") Medications/Allergies - Medications Home Medications: Ambulatory Orders Medication Instructions Recorded Confirmed Lorazepam 0.5 mg PO Q8H PRN 10/29/16 11/27/17 Polyethylene Glycol 3350 [Miralax] 17 gm PO DAILY PRN 10/30/16 11/27/17 Ondansetron Odt [Zofran Odt] 1 tab PO TID PRN 01/13/17 11/27/17 predniSONE [Deltasone] 7 mg PO DAILY 02/25/17 11/27/17 Aripiprazole [Abilify] 2 mg PO DAILY 10/10/17 11/27/17 Hydrocodone/Acetaminophen 0.5 - 1 tab PO TID PRN 10/24/17 11/27/17 [Hydrocodone-Acetamin 5-325 mg] Meloxicam 7.5 mg PO DAILY 11/27/17 11/27/17 Omeprazole 40 mg PEG DAILY 11/27/17 11/27/17 - Allergies Allergies/Adverse Reactions: Allergies Allergy/AdvReac Type Severity Reaction Status Date / Time infliximab [From Remicade] Allergy Severe Anaphylaxis Verified 06/16/17 10:45 abatacept [From Orencia] Allergy Unknown Unknown Verified 06/16/17 10:45 amitriptyline AdvReac Dizziness Verified 10/10/17 17:29 sodium pentathol Allergy Intermediate Hives Uncoded 06/16/17 10:45 Review of Systems - Constitutional Constitutional: reports: Fatigue, Weight gain (167.9 from 165 last visit) - Eyes Eyes: reports: Vision loss, Corrective lenses - Ears, Nose & Throat Ears, Nose & Throat: reports: Hearing loss (right ear), Nasal congestion, Dental decay (encouraged to get appt at [place] scheduled), Dry mouth - Cardiovascular Cardiovascular: denies: Chest pain - Respiratory Respiratory: denies: Cough, SOB at rest, SOB with exertion - Gastrointestinal Gastrointestinal: reports: Other (still mostly dependent on tube feeding; can drink Ensure but not volume needed; can do soup if no fiber; difficulty with swallowing and fearful of choking) - Genitourinary Genitourinary: reports: Frequency (at night with TF does not sleep well as result) - Musculoskeletal Musculoskeletal: reports: Muscle aches, Stiffness, Limited range of motion, Muscle weakness (improving; up to 45 minutes walking a day), Assistive devices ( uses cane), Other (working with PT weekly for endurance/neck and shoulder pain/ lymphadema massage; is doing his manual massage daily; running out of benefit) - Integumentary Integumentary: reports: Dryness - Neurological Neurological: reports: General weakness, Memory problems - Psychiatric Psychiatric: reports: Depression (feels ready to progress abilify; does perceive it did help), Anxiety (continued anxiety disorder; controlled with lorazepam 0.5 mg 1500 and bedtime;) - Hematologic/Lymphatic Hematologic/Lymphatic: denies: Recurrent infections - All Other Systems All Other Systems: reports: Reviewed and negative Physical Exam - Vital Signs Temperature: 36.4 C Pulse Rate: 71 Respiratory Rate: 18 Blood Pressure: 144/92 - Physical Exam General Appearance: positive: Mild distress, Anxious Eyes Bilateral: positive: Other (periorbital edema) ENT: positive: Other (swelling right side of neck; somewhat firmer; unable to demarcate and mass or borders; very anxious with palpation does not appear painful; still scabbed and old skin at folds; instructed to use soft wash cloth and soap in shower to exfoliate) Neck: positive: Stiff neck Cardiovascular: positive: Regular rate & rhythm Respiratory: positive: Breath sounds nml Abdomen: positive: Soft, Nml bowel sounds Skin: positive: Dryness Extremities: positive: No pedal edema Neurologic/Psychiatric: positive: Oriented x3, Depressed mood/affect Palliative Care - POLST Patient has POLST: No Pain: Location (right neck localized to area of swelling and base of tongue; has titrated off fentanyl; still struggling coming of hydrocodone; currently on 2.5 tabs total; found ibuprofen to be helpful 5/10 at worst) Feelings of wellbeing/Perceived Quality of Life: Fair, Improved Performance Status: Patient is ambulating longer distance, attempting to increase his endurance with longer periods of up to 45 minutes. He is still participating in PT weekly and doing strengthening. She is also working with posture, balance, and his lymphedema. He does need some assistance with bathing and continues to struggle with his frequency of tube feedings, this limits his ability to be free from being "tethered". - Palliative Care Discussion: Patient continues to express feeling overwhelmed by his current situation, he is slowly making progress, have moving forward with titrating off opioids, is disappointed is unable to move forward with his dietary intake. He does have quite a bit of fatigue, and perceives side effects from the hydrocodone. 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 Patient has follow -up with Dr. Blevins in January for disease surviellence, remains anxious regarding his current situation. Has become more complex now with the increased needs of their disabled daughter returning home, [place] Impression and Recommendations - Palliative Care Impression: This is a 77-year-old gentleman with stage IV squamous cell carcinoma the tongue base, status post chemo/radiation, and radical neck resection of the right lymph node with no persistent tumor. Is to experience persistent lymphedema of the right neck area, as well as dysphagia, chronic pain, and depression. Patient has multiple medication sensitivities, will continue to assist and transitioning medication regimen. Palliative care support to provide assistance as patient transitions to cancer survivorship Recommendations/Counseling Done: 1. Pain, multifactorial in origin. Patient currently is on hydrocodone 5 mg/ 325 mg half tab a.m. half tab p.m. and 1 tablet bedtime. He is quite anxious about discontinuing off, as he titrated back he did have a flare of his pain. Given patient's distress regarding this, I did recommend decrease by quarter tab every few days to see if better tolerated. Patient is having side effects from hydrocodone, some disassociation, and "feeling weird". Did encourage to continue move forward with this. Patient does perceive ibuprofen was effective , will put patient on more simplified regimen with meloxicam starting him at 7.5 mg and increasing to 15 mg if tolerated. Will put patient on a PPI given patient is also on prednisone. Awaiting insurance information for recommendation of which one. 2. Dysplasia. Patient continues to complain of swallowing difficulty, having difficulty with textures. Does not have adequate therapy visits left to follow through with speech therapy. Continues to have difficulty with his speech, but is able to stay well-hydrated. His biggest frustration is his continuous connection to his tube feeding. He does remain weight neutral. Patient unable to tolerate most pills, needing to take through PEG 3. Lymphedema right neck. Does appear somewhat firmer today, he continues to struggle with managing his lymphedema. Patient does have some buildup of skin, instructions on how to exfoliate. Encouraged to continue his relationship with PT and manual massage. He is due for surveillance scans in January. 4. Depression. Patient had felt some improvement with just initiating Abilify 1 mg, he does feel ready to increase to 2 mg. Counseling to follow through on finding counseling support.. Time Spent: 50 minutes was given 50% of this done in counseling regarding pain and depression management and anticipatory guidance.
== END 2017-11-27 10:03 | disposition home or self-care (01) ==
LOC: PC 10:02
PROVIDERS: ATTEND Nurse Practitioner Adult Health
DX: Z51.5 Encounter for palliative care (principal); M54.2 Cervicalgia; K14.6 Glossodynia; R13.10 Dysphagia, unspecified; I89.0 Lymphedema, not elsewhere classified; F32.9 Major depressive disorder, single episode, unspecified; Z93.1 Gastrostomy status; M62.81 Muscle weakness (generalized); C01 Malignant neoplasm of base of tongue
CPT/HCPCS: 99215

== ENCOUNTER 2018-01-14 11:35 | Outpatient (CLI) | payer MEDICARE, MEDICAID ==
--- NOTE | 2018-01-14 12:49 | CONSULTATION NOTE ---
Palliative Care Follow Up - Referral Referring Provider: Dr. Delmar Monteiro Time of Visit: 11:40-12:30 Referral setting: [facility] [place] Referral Reason: s/p tongue cancer/depression/anxiety - Information Sources Records reviewed: Previous records reviewed History/Review of Systems obtained from: Patient, Family ( Jailyn at visit ) Exam limitations: No limitations - History of Present Illness Update Brief HPI Update: This is a 77-year-old gentleman who is status post modified radical right neck dissection for removal lymph node, it was negative for persistent tumor on 04/14. He was originally diagnosed with tongue cancer and has undergone chemoradiation, he did experience multiple complications and hospitalizations early last year was finally completed in 10/2016. 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 He does also present with concern for late term radiation associated dysphagia. He remains currently dependent on tube feedings , he can decrease his continuous feeding time with use of Ensure or oral fine pureed soups, he has lost 5 pounds since last visit as home situation has changed, and patient less enclined to participate in oral feedings. Patient continues to present with chronic pain, though today physically his lymphedema is much better on his right side of his neck. With the decrease in edema though there is some firmness under his right jaw line, no identified mass , but is new finding. He continues to have residual right pain particularly internally at his old surgery site base of his tongue. He is currently down to hydrocodone 5/325 mg half tab 3 times daily, supplemented with occasional acetaminophen. His most distressing symptom over the last several weeks, has been increase in dizziness. He attributed first to the meloxicam, then to the Advil both with discontinuation of these medications. He had some improvement with this, then with increase in Abilify has tolerated that poorly and has significant dizziness. We have been titrating him off of this, of note in the past he has not tolerated SSRIs or antidepressants without significant side effects. He reports the dizziness is somewhat positional from leaning over to standing up, from sitting to standing though he does not present with orthostatic hypotension , and has improved slightly with each decrease in Abilify, he will be almost titrated off in the next 3 or 4 days. Patient does report increased pressure and pain in his right ear area along with decreased hearing acuity. He never did follow-up with a hearing test, he is due to see Dr. Blevins next month, will be receiving scans at this point in time. It is difficult to differentiate between the side effects of the medication versus concern for ruling out progressive disease. Patient does have high anxiety disorder, his depression is doing poorly as it had improved on the Abilify. The things he was able to do supportive i.e. walking and physical activity, have been more limited over the last few weeks much to his frustration. Social History - Living Situation Living arrangement: At home Living Situation: With spouse/s.o., With family (special needs daughter now living with them, Jailyn now caregiving for both; Patient has some caregiver support for transportation/caregiving assist) Medications/Allergies - Medications Home Medications: Ambulatory Orders Medication Instructions Recorded Confirmed Lorazepam 0.5 mg PO Q8H PRN 10/29/16 01/14/18 Polyethylene Glycol 3350 [Miralax] 17 gm PO DAILY PRN 10/30/16 11/27/17 Ondansetron Odt [Zofran Odt] 1 tab PO TID PRN 01/13/17 01/14/18 predniSONE [Deltasone] 7 mg PO DAILY 02/25/17 01/14/18 Hydrocodone/Acetaminophen 0.5 - 1 tab PO TID PRN 10/24/17 01/14/18 [Hydrocodone-Acetamin 5-325 mg] Acetaminophen 500 - 1,000 mg PEG Q4HR PRN MDD 01/14/18 01/14/18 3000 ng Mirtazapine 7.5 mg PO QPM MDD titrate 1/2 tab 01/14/18 01/14/18 to start - Allergies Allergies/Adverse Reactions: Allergies Allergy/AdvReac Type Severity Reaction Status Date / Time infliximab [From Remicade] Allergy Severe Anaphylaxis Verified 06/16/17 10:45 abatacept [From Orencia] Allergy Unknown Unknown Verified 06/16/17 10:45 amitriptyline AdvReac Dizziness Verified 10/10/17 17:29 sodium pentathol Allergy Intermediate Hives Uncoded 06/16/17 10:45 Review of Systems - Constitutional Constitutional: reports: Fatigue, Poor appetite, Weight loss (162.9 5 pound weight loss; decrease calories) - Eyes Eyes: reports: Vision loss, Corrective lenses - Ears, Nose & Throat Ears, Nose & Throat: reports: Hearing loss (increased hearing loss right ear over month), Dry mouth - Cardiovascular Cardiovascular: reports: Lightheadedness, Decr. exercise tolerance - Respiratory Respiratory: denies: Cough, SOB at rest - Gastrointestinal Gastrointestinal: reports: Other (continues with Jevity 4-5 cans daily; min. oral intake other than teas/water over the month; cont. to struggle with textures). denies: Constipation, Nausea, Reflux/heartburn - Genitourinary Genitourinary: reports: Frequency - Musculoskeletal Musculoskeletal: reports: Stiffness (right shoulder/neck), Muscle weakness ( working with PT two times a week;), Assistive devices (uses cane) - Integumentary Integumentary: reports: Dryness, Other (working with lymph massage with noted improvement) - Neurological Neurological: reports: Numbness (right cheek/neck area) - Psychiatric Psychiatric: reports: Depression, Anxiety (escalating as coming off abilify;) - Hematologic/Lymphatic Hematologic/Lymphatic: denies: Recurrent infections - All Other Systems All Other Systems: reports: Reviewed and negative Physical Exam - Vital Signs Temperature: 97.9 C Pulse Rate: 69 (standing 77) Respiratory Rate: 18 Blood Pressure: 138/86 (standing 126/84) - Physical Exam General Appearance: positive: Mild distress, Anxious Eyes Bilateral: positive: Normal inspection, Other (periorbital edema) ENT: positive: No signs of dehydration, Other (poor range in opening mouth;) Neck: positive: Other (solid fixed area under right mandible/scar tissue most likely with lymphadema down can palpate easier about 2x3 cm area; tender to palpation at mandible edge near ear lobe; scarring with less scabbing;) Cardiovascular: positive: Regular rate & rhythm Respiratory: positive: Breath sounds nml Abdomen: positive: Soft, Nml bowel sounds, Other (PEG tube) Skin: positive: Dryness Extremities: positive: No pedal edema Neurologic/Psychiatric: positive: Oriented x3, Slurred/abnml speech (related to mechanics not neuro), Depressed mood/affect Palliative Care - POLST Patient has POLST: No Pain: Pain unchanged, Location (internally back at tongue cancer site; tenderness dull outside/worsens with talking and swallowing; right neck stiffness; using vicodin 1/2 tab TID) Tiredness/Fatigue: Mild (1-3) (more limited by current dizzyness) Drowsiness/Sedation: Severe (7-10) Nausea: Mild (1-3) Depression: Severe (7-10) Anxiety: Severe (7-10) Anorexia: Mild (1-3) Sleep: Variable sleep pattern (has planes flying overhead in flight pattern) Constipation: Yes, Opoid induced, Managed - Palliative Care Discussion: Patient is quite frustrated by his slow recovery, and residual sequela from his radiation/chemotherapy. Patient's insurance has been complicated, he is now private paying for physical therapy and speech therapy at this point in time is not covered. His though does feel patient would be able to follow through on the exercises already given. Patient does admit to catastrophizing and, increased anxiety with a decrease in meds, and fixating on his distress. He does try and manage through meditation, distraction, and journaling. Patient would benefit from counseling and psychosocial support, did not follow through on [facility], though it would have required an upfront fee and they are financially stressed. is currently exploring [facility] as an option. 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 Patient does have chronic pain and lymphedema, the lymphedema has improved and he has decreased on his pain meds. He presents now with dizziness for several weeks now, most recently exacerbated titrating off Abilify. Patient does have multiple medication sensitivities, depression, and anxiety disorder. Palliative care continue to provide support and assistance as patient transitions to cancer survivorship Recommendations/Counseling Done: 1. Pain multifactorial in origin. Patient is still titrating off his hydrocodone, is currently on one half tab 3 times daily. Counseling provided regarding as needed medication for times of exacerbation, with active swallowing and talking. Did discuss can add acetaminophen up to thousand milligrams 3 times daily for support. Did not do well on the meloxicam, felt it added to dizziness. 2. Depression. Had titrated up Abilify to 2 mg, did tolerate this poorly though it did help his depression. We are currently titrating off, has about 4 more days at a quarter of a milligram and then will discontinue. Patient has not tolerated SSRIs in the past, he has though been on mirtazapine during his custodial stay, actually did fairly well on this, on discharge they had changed up his medications. Given patient most likely not to get in to [facility] anytime soon, will go ahead and trial a half of a 7.5 mg mirtazapine after patient has washed out after a week or 2 of Abilify. Patient is having trouble sleeping, this is good for sleep, appetite, and depression and hopeful that it may be of benefit the patient. He has been also to follow-up with counseling support. 3. Lymphedema right neck. The lymphedema has improved, he has been fairly consistent in his massage and is working with a physical therapist as well. Positive feedback given for effort. 4. Dysphagia. Patient has been instructed to reinitiate his oral exercises, he does have contracture and poor ability to stretch his mouth, I did encourage him to work on his exercises half hour after he takes his pain meds. Given patient's weight loss, instructed to go back up to 5 cans of Jevity or work on increased oral caloric intake, patient in agreement. Patient does stay well- hydrated. 5. Anxiety. Anxiety is exacerbated, most likely related to patient's dizziness. Patient continues to manage with Lorazepam 0.5 mg twice daily, is coming off Abilify. Counseling for patient continue with his self-care exercises. Increased financial stressors, daughter recently moved home who is special needs, and distressed with the dizziness. 6. Dizziness. Patient tested for orthostatic hypotension, does have a few 10 point drop on systolic, suspect has more to do with pressure on his right ear and right side. Patient attributes multiple symptoms to medications, he does have sensitivities, and may improve if off abilify as most of them do worsen the symptoms. Requested patient for sure follow-up with Dr. Calix appointments , patient does need to continue with active surveillance, concern about recurrent disease and/or scarring. Time Spent: 50 minutes was given to him in 50% of this done in counseling Regarding management of pain, depression, and anxiety.
== END 2018-01-14 11:36 | disposition home or self-care (01) ==
LOC: PC 11:35
PROVIDERS: ATTEND Nurse Practitioner Adult Health
DX: Z51.5 Encounter for palliative care (principal); G89.29 Other chronic pain; I89.0 Lymphedema, not elsewhere classified; F32.9 Major depressive disorder, single episode, unspecified; R42 Dizziness and giddiness; T43.595A Adverse effect of other antipsychotics and neuroleptics, initial encounter; R22.1 Localized swelling, mass and lump, neck; R63.4 Abnormal weight loss; F41.9 Anxiety disorder, unspecified; R13.10 Dysphagia, unspecified; T66.XXXS Radiation sickness, unspecified, sequela; H92.01 Otalgia, right ear; Z85.810 Personal history of malignant neoplasm of tongue; Z79.891 Long term (current) use of opiate analgesic; Z79.899 Other long term (current) drug therapy; Z93.1 Gastrostomy status; Z59.9 Problem related to housing and economic circumstances, unspecified
CPT/HCPCS: 99215

== ENCOUNTER 2018-04-14 12:46 | Outpatient (CLI) | payer MEDICARE, MEDICAID ==
--- NOTE | 2018-04-14 20:39 | CONSULTATION NOTE ---
Palliative Care Follow Up - Referral Referring Provider: Dr. Delmar Monteiro Time of Visit: [id number] Referral setting: [facility] [place] Referral Reason: S/P tongue cancer/depression/anxiety - Information Sources Records reviewed: Previous records reviewed History/Review of Systems obtained from: Patient Exam limitations: No limitations - History of Present Illness Update Brief HPI Update: This is a 77-year-old gentleman status post modified radical neck dissection for removal of the lymph node, it was negative for persistent tumor on 04/14/2017. He was originally diagnosed with his tongue cancer and has undergone chemoradiation, he did experience multiple complications and hospitalizations and finally completed in 10/2016. He has been getting monitored since this time., Has had continued difficulty with fibrotic changes, lymphedema, pain and discomfort in the area, dysphagia, and remains tube feeding dependent. He did have a CT scan that showed negative signs of metastatic disease, as well as a CT of the soft tissue neck with no evidence of disease, but did show a soft tissue masslike density contagious with the right carotid sheath posterior to the mandible. He presents today with increasing pain in the area, does appear more fixed and fibrotic on palpation underneath the mandible, is continue to work with lymphedema massage, with only mild improvement. He has ongoing dysphagia, hearing difficulties, difficulty with speech, and has been unable to have progressed his diet beyond soups and fluids. He did not follow up on ENT referral. Patient has underlying depression and anxiety disorder, have an able to find any medications that he has been able to tolerate. He continues with his Lorazepam late in the afternoon and bedtime, has not followed through on counseling, has multiple financial stressors as well as continued difficulty with his insurance issues. He also has right shoulder functional issues as well as pain. He does come today by himself, and is feeling somewhat overwhelmed with his continued lack of wellness. Social History - Living Situation Living arrangement: At home Living Situation: With spouse/s.o., With family Support System: His has taken over the care of their disabled daughter, this is significant as far as meeting her care needs. He still has a micky worker assist with transportation, socialization, and care needs a couple times a week. Medications/Allergies - Medications Home Medications: Ambulatory Orders Medication Instructions Recorded Confirmed Lorazepam 0.5 mg PO Q8H PRN 10/29/16 04/14/18 Polyethylene Glycol 3350 [Miralax] 17 gm PO DAILY PRN 10/30/16 04/14/18 Ondansetron Odt [Zofran Odt] 1 tab PO TID PRN 01/13/17 04/14/18 predniSONE [Deltasone] 7 mg PO DAILY MDD planning slow 02/25/17 04/14/18 taper Hydrocodone/Acetaminophen 0.5 - 1 tab PO TID PRN 10/24/17 04/14/18 [Hydrocodone-Acetamin 5-325 mg] Acetaminophen 500 - 1,000 mg PEG Q4HR PRN MDD 01/14/18 04/14/18 3000 ng - Allergies Allergies/Adverse Reactions: Allergies Allergy/AdvReac Type Severity Reaction Status Date / Time infliximab [From Remicade] Allergy Severe Anaphylaxis Verified 06/16/17 10:45 abatacept [From Orencia] Allergy Unknown Unknown Verified 06/16/17 10:45 amitriptyline AdvReac Dizziness Verified 10/10/17 17:29 mirtazapine AdvReac Dizziness Verified 02/16/18 14:37 sodium pentathol Allergy Intermediate Hives Uncoded 06/16/17 10:45 Review of Systems - Constitutional Constitutional: reports: Fatigue, Fever, Weight stable (165.1) - Eyes Eyes: reports: Vision loss, Corrective lenses - Ears, Nose & Throat Ears, Nose & Throat: reports: Hearing loss (right side; mild left side; has not been able to complete referral for audiology), Nasal congestion, Dental decay - Cardiovascular Cardiovascular: reports: Decr. exercise tolerance - Respiratory Respiratory: denies: Cough, SOB at rest - Gastrointestinal Gastrointestinal: reports: Constipation (intermittent with increased vicodin), Other (has started bolus feeding x1 tolerating well. Discussed trying to transition to all bolus. Very anxious currently on pump which tethers to sedentary time). denies: Nausea - Genitourinary Genitourinary: reports: Frequency (at night; reports has tamulosin from MD; wondering about urinary issue program at [facility] [place]), Sexual dysfunction, Other (SHaving frequency at night, interferring with sleep. Some dribbling at end of stream. RX for tamulosin by PCP, wary of trying. Drinks tea through day) - Musculoskeletal Musculoskeletal: reports: Stiffness (neck), Joint pain (right shoulder), Assistive devices (uses cane) - Integumentary Integumentary: reports: Dryness, Other (scar right side; still with some eschar) - Neurological Neurological: reports: Slurred speech (frustrated with difficulty) - Psychiatric Psychiatric: reports: Depression, Anxiety - All Other Systems All Other Systems: reports: Reviewed and negative Physical Exam - Vital Signs Pulse Rate: 79 Respiratory Rate: 18 O2 Saturation: 98 (ra @ rest) Blood Pressure: 137/79 - Physical Exam General Appearance: positive: No acute distress, Anxious Eyes Bilateral: positive: Other (periorbital edema) ENT: positive: No signs of dehydration, Other. negative: Pharyngeal erythema, Oral lesions Neck: positive: Trachea midline, Other Cardiovascular: positive: Regular rate & rhythm Respiratory: positive: Breath sounds nml Abdomen: positive: Soft, Nml bowel sounds Skin: positive: Dryness, Other (PEG exit site well healed) Extremities: positive: No pedal edema Neurologic/Psychiatric: positive: Oriented x3, Weakness, Slurred/abnml speech, Depressed mood/affect Palliative Care - POLST Patient has POLST: No Pain: Pain worsening, Location (Patient describes pain in his right upper neck area localized to the area under his mandible. Feels like it worsens with increased swelling or is lymphedema. Has need to increase his medications regarding this, with only mild response reports his severity of his pain as a 5 out of 10) Tiredness/Fatigue: Moderate (4-6) Drowsiness/Sedation: Mild (1-3) Nausea: None Depression: Severe (7-10) Anxiety: Severe (7-10) Dyspnea: Mild (1-3) Sleep: Sleeps poorly (up frequently to void) Constipation: Yes, Opoid induced, Managed Feelings of wellbeing/Perceived Quality of Life: Fair, Acceptable Performance Status: Patient continues to struggle with lower extremity weakness and balance issues. He does use a cane as an assistive device, he continues with some maintenance therapy, continues to feel tethered and thus less active. He tries to do some regular walks. He continues to have difficulty bilaterally with his shoulders particularly right with range of motion and pain. He does need some assistance with ADLs, but is mostly independent. - Palliative Care Discussion: Patient continues to express overwhelming feelings of anxiety and depression, is worried about his overall quality of life. He feels like he should be more improved and more "well". He expresses concerns about being a burden to his family. Continues to struggle significantly with his anxiety, working with other means of meditation, reframing, and reading. He feels quite embarrassed unable to speak clearly, and is getting somewhat exhausted with the ongoing issues around feeding. Impression and Recommendations - Palliative Care Impression: This is a 76-year-old gentleman with status post stage IV squamous cell carcinoma of the tongue base after chemoradiation and radical neck dissection of a right lymph node with no persistent tumor. He continues to have chronic pain which is worsening, as well as residual lymphedema in his neck area. Patient does have multiple medication sensitivities so has had difficulty finding medication for his depression that he is able to tolerate. Palliative care continue provide support and assistance as patient transitions to cancer survivorship Recommendations/Counseling Done: 1. Dyspahgia. Patient is able to takes soups, smoothies, and tease. Is unable to meet his caloric needs without tube feedings at this point in time. He does remain somewhat weight neutral at 165. He does get overwhelmed emotionally with being tethered to the tube feeding, have explored up "pack" but would much rather find a different way to be able to manage. He has tried some bolus feedings, with concern regarding abdominal pressure and his inguinal hernia. Counseling to provide strategies to transition over to more bolus feedings, using half a can, as more frequent boluses, and continue to titrate over from continuous feedings. 2. Right shoulder pain. Patient wanting further support secondary to pain and freezing in his right shoulder. Due to multiple insurance issues, will go ahead and refer to [facility] with OT, call to their clinic and will initiate new referral. 3. Tongue cancer. Patient is having some increased fibrotic changes, is more fixed than last palpation from this provider. He is scheduled for a follow-up CT scan and with Dr. Monteiro. Nothing acute or needing to be evaluated sooner. This was reviewed and confirmed with patient. 4. Lymphedema of right neck. Patient continues to do self massage, is causing some bruising with massaging the scar. Did encourage to just do the light effleurage, can scrub off scabbing and skin tag with soft wash cloth. Patient's very tenuous, reports that he will not open up incision and not to worry if there is a little bleeding/ irritation/ or the scab comes off. 5. Chronic pain syndrome. Suspect this is actually neuropathic in nature, could also be as a cause of the increased pressure and neck. Patient is been long-term on prednisone, wondering if we can titrate this down somewhat to decrease Allison syndrome symptoms, patient will trial at 6 mg, he has been on it long-term for his RA has not had any recent flares in the last couple years. Patient has titrated back up to hydrocodone 5 mg / 325 mg to 1 tab 3 times daily, instructed to use only one provider for prescriptions acknowledges understanding. Reviewed well-built tolerance to the side effects of sedation, patient is quite sensitive to any medication changes. 6. Depression. Continues to struggle with depressive symptoms, feelings of hopelessness and worthlessness, denies suicidality. Did encourage to follow-up with counseling, does have the resources, just has difficulty with follow- through. 7. Urinary frequency. Reports interfering with sleep pattern. Does TF into the evening, suspect complicated by volume issue. Reviewed try to finish feedings e anderson in evening, most likely transitioning to bolus feedings will help. Will try this step first of limiting fluid in evening. Time Spent: 50 minutes spent on counseling regarding pain and symptom management, coordination of care with other providers and anticipatory guidance.
== END 2018-04-14 12:47 | disposition home or self-care (01) ==
LOC: PC 12:46
PROVIDERS: ATTEND Nurse Practitioner Adult Health
DX: Z51.5 Encounter for palliative care (principal); R13.10 Dysphagia, unspecified; Z93.1 Gastrostomy status; M25.511 Pain in right shoulder; Z85.810 Personal history of malignant neoplasm of tongue; I89.0 Lymphedema, not elsewhere classified; G89.29 Other chronic pain; F32.9 Major depressive disorder, single episode, unspecified; R35.0 Frequency of micturition; Z79.52 Long term (current) use of systemic steroids; K59.03 Drug induced constipation; T40.2X5D Adverse effect of other opioids, subsequent encounter; R47.01 Aphasia; F41.9 Anxiety disorder, unspecified
CPT/HCPCS: 99215

== ENCOUNTER 2018-05-25 11:47 | Emergency (ER) | payer MEDICARE, MEDICAID ==
[2018-05-25 13:00] LABS: BASOPHILS # (AUTO) 0.1 10^3/uL (0.0-0.1); BASOPHILS % (AUTO) 0.7 %; EOSINOPHILS % (AUTO) 0.3 %; HGB - HEMOGLOBIN 14.8 g/dL (14.0-18.0); LYMPHOCYTES # (AUTO) 1.1 10^3/uL (1.5-3.5); MEAN CORPUSCULAR HEMOGLOBIN 33.8 pg (27.0-31.0); MEAN CORPUSCULAR HGB CONC 34.6 g/dL (32.0-36.0); MEAN CORPUSCULAR VOLUME 97.6 fL (80.0-94.0); MEAN PLATELET VOLUME 7.2 fL (7.4-11.4); MONOCYTES # (AUTO) 0.6 10^3/uL (0.0-1.0); NEUTROPHILS # (AUTO) 6.8 10^3/uL (1.5-6.6); PLT - PLATELET COUNT 256 10^3/uL (130-450); RED BLOOD COUNT 4.38 10^6/uL (4.70-6.10); RED CELL DISTRIBUTION WIDTH 12.6 % (12.0-15.0); WHITE BLOOD COUNT 8.6 x10^3/uL (4.8-10.8)
[2018-05-25 13:14] LABS: ALBUMIN 3.9 g/dL (3.2-5.5); ALBUMIN/GLOBULIN RATIO 1.2 (1.0-2.2); BILIRUBIN,TOTAL 0.6 mg/dL (0.2-1.0); CREATININE 0.7 mg/dL (0.6-1.2); TOTAL PROTEIN 7.2 g/dL (6.7-8.2)
[2018-05-25 13:54] VITALS: BP 140/86
--- NOTE | 2018-05-25 14:41 | ED Physician Documentation ---
History of Present Illness - Stated complaint Stated Complaint: LOWER ABD PX/LEFT SIDE - Chief complaint Chief Complaint: Abd Pain - History obtained from History obtained from: Patient, Family - History of Present Illness Timing: Other (3 months) Pain level max: 6 Pain level now: 6 Improved by: Nothing Worsened by: Nothing - Additonal information Additional information: Patient is a 77-year-old male who presents to the emergency department with left inguinal pain and swelling. States diagnosed with a hernia 3 months ago, has not seen a surgeon. However a previous hernia repair on the right. States increased pain today. No fevers. No vomiting. No diarrhea or constipation. No abdominal pain Review of Systems Constitutional: denies: Fever, Chills Throat: denies: Sore throat Respiratory: denies: Cough GI: denies: Vomiting, Diarrhea Skin: denies: Rash Musculoskeletal: denies: Neck pain, Back pain PD PAST MEDICAL HISTORY - Past Medical History Cardiovascular: Hypertension, Arrhythmia Respiratory: Shortness of breath Endocrine/Autoimmune: None GI: Hiatal hernia, Chronic constipation, Other : Benign prostate hypertrophy, Frequency, Kidney stones HEENT: Chronic sinusitis Psych: Depression, Anxiety, Claustrophobia Musculoskeletal: Rheumatoid arthritis, Osteoporosis, Fatigue Derm: Herpes zoster - Past Surgical History Past Surgical History: Yes General: Cholecystectomy, Appendectomy, Hiatal hernia repair HEENT: Cataracts, Tonsil/Adenoidectomy - Present Medications Home Medications: Ambulatory Orders Medication Instructions Recorded Confirmed Lorazepam 0.5 mg PO Q8H PRN 10/29/16 05/18/18 Polyethylene Glycol 3350 [Miralax] 17 gm PO DAILY PRN 10/30/16 05/18/18 Ondansetron Odt [Zofran Odt] 1 tab PO TID PRN 01/13/17 05/18/18 predniSONE [Deltasone] 7 mg PO DAILY MDD planning slow 02/25/17 05/18/18 taper Hydrocodone/Acetaminophen 0.5 - 1 tab PO TID PRN 10/24/17 05/18/18 [Hydrocodone-Acetamin 5-325 mg] - Allergies Allergies/Adverse Reactions: Allergies Allergy/AdvReac Type Severity Reaction Status Date / Time infliximab [From Remicade] Allergy Severe Anaphylaxis Verified 05/25/18 12:01 abatacept [From Orencia] Allergy Unknown Unknown Verified 05/25/18 12:01 amitriptyline AdvReac Dizziness Verified 05/25/18 12:01 mirtazapine AdvReac Dizziness Verified 05/25/18 12:01 sodium pentathol Allergy Intermediate Hives Uncoded 06/16/17 10:45 - Social History Does the pt smoke?: No Smoking Status: Never smoker Does the pt drink ETOH?: Yes Does the pt have substance abuse?: No - Immunizations Immunizations are current?: Yes Immunizations: TDAP >10years/unknown - POLST Patient has POLST: No PD ED PE NORMAL - Vitals Vital signs reviewed: Yes - General General: Alert and oriented X 3, No acute distress - HEENT HEENT: Moist mucous membranes - Neck Neck: Supple, no meningeal sign - Cardiac Cardiac: RRR - Respiratory Respiratory: No respiratory distress, Clear bilaterally - Abdomen Abdomen: Soft, Non tender, Non distended - Male Male : Other (Left-sided inguinal hernia. Easily reducible) - Back Back: No spinal TTP - Derm Derm: Warm and dry - Neuro Neuro: Alert and oriented X 3 - Psych Psych: Normal mood, Normal affect Results - Vitals Vitals: Vital Signs - 24 hr 05/25/18 05/25/18 11:53 13:53 Temperature 36.6 C 36.2 C L Heart Rate 99 85 Respiratory 18 18 Rate Blood Pressure 149/89 H 140/86 H O2 Saturation 95 97 Oxygen O2 Source Room air - Labs Labs: Laboratory Tests 05/25/18 05/25/18 12:56 12:56 WBC 8.6 RBC 4.38 L Hgb 14.8 Hct 42.8 MCV 97.6 H MCH 33.8 H MCHC 34.6 RDW 12.6 Plt Count 256 MPV 7.2 L Neut # (Auto) 6.8 H Lymph # (Auto) 1.1 L Hardy # (Auto) 0.6 Eos # (Auto) 0.0 Baso # (Auto) 0.1 Absolute Nucleated RBC 0.00 Nucleated RBC % 0.0 Sodium 136 Potassium 4.8 Chloride 101 Carbon Dioxide 27 Anion Gap 8.0 BUN 17 Creatinine 0.7 Estimated GFR (MDRD) 110 Glucose 113 H Calcium 9.0 Total Bilirubin 0.6 AST 35 ALT 67 H Alkaline Phosphatase 215 H Total Protein 7.2 Albumin 3.9 Globulin 3.3 Albumin/Globulin Ratio 1.2 Lipase 19 L PD MEDICAL DECISION MAKING - ED course Complexity details: reviewed old records, reviewed results, re-evaluated patient, considered differential, d/w patient, d/w family ED course: Patient is a 77-year-old male who presents to the emergency department for left- sided inguinal hernia. This is easily reducible. No evidence of incarceration. Pain resolved. We will have him follow-up with his doctor and surgery for further care. Patient and family counseled regarding signs and symptoms for which I believe and urgent re-evaluation would be necessary. Patient with good understanding of and agreement to plan and is comfortable going home at this time This document was made in part using voice recognition software. While efforts are made to proofread this document, sound alike and grammatical errors may occur. He does state that his liver function tests have been high for some time, but they appear to be improving at this time. He will follow-up with his doctor for this as well. Departure - Departure Disposition: 01 Home, Self Care Clinical Impression: Left inguinal hernia Condition: Good Instructions: ED Hernia Inguinal Follow-Up: Fidel Urbina MD [Provider Admit Priv/Credential] - Nasir Carlton MD [Primary Care Provider] - Within 1 week Comments: Follow-up with Dr. Carlton regarding your abnormal liver function tests. These are improved from prior. Return if you worsen. Follow-up with a surgeon for repair of your inguinal hernia. Discharge Date/Time: 05/25/18 14:50
== END 2018-05-25 14:50 | disposition home or self-care (01) ==
LOC: ED 11:47
DX: K40.90 Unilateral inguinal hernia, without obstruction or gangrene, not specified as recurrent (principal); I10 Essential (primary) hypertension
CPT/HCPCS: 36415; 80053; 83690; 85025; 99283

== ENCOUNTER 2018-06-03 12:15 | Outpatient (CLI) | payer MEDICARE, MEDICAID ==
[2018-06-03 13:01] LABS: ALBUMIN/GLOBULIN RATIO 1.3 (1.0-2.2); BILIRUBIN,TOTAL 0.7 mg/dL (0.2-1.0); CREATININE 0.6 mg/dL (0.6-1.2)
== END 2018-06-03 12:16 | disposition home or self-care (01) ==
LOC: LAB 12:15
PROVIDERS: ATTEND Physician Assistant
DX: R94.5 Abnormal results of liver function studies (principal)
CPT/HCPCS: 36415; 80053

== ENCOUNTER 2018-07-29 13:00 | Outpatient (CLI) | payer MEDICARE, MEDICAID ==
--- NOTE | 2018-07-29 21:21 | CONSULTATION NOTE ---
Palliative Care Follow Up - Referral Referring Provider: Dr. 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 He does continue to struggle with ongoing fibrotic changes, lymphedema and scar tightness in his right neck, pain and dysphasia and remains on tube feedings. He had a brain MRI with contrast 01/2018 without evidence of metastatic disease, and CT of chest and neck show no evidence of disease recurrence most recently on 05/13/2018. Patient was recommended to follow-up with ENT Dr. Rollins, to allow direct oral cavity/oropharyngeal inspection, patient is not followed through on this. Oncologist also encouraged him followed by Dr. Yogi Vasquez, given patient's ongoing anxiety regarding continued sequela of his treatment status for counseling and guidance on postop complications. Both patient and do not feel this is realistic at this point in time given the multiple family stressors. does feel though he could follow-up with ENT, and will help facilitate that appointment. Patient continues to struggle with his current symptom burden, have tried to reframe for patient multiple times, regarding the chronicity most likely of his current pain syndrome. He has had most relief actually from physical and occupational therapy, with also ongoing lymphatic massage. He does use hydrocodone/acetaminophen 5-325 mg 2-3 times a day, currently taking half tab in a.m. and half tab p.m. with full tab during the day. 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 Patient has severe, incapacitating depression and anxiety. Patient can get perseverative and immobilized at times in the context of this. He has tried to access counseling support, due to complications regarding insurance, and lack of resources has not been able to follow through with this is been of help for him in the past. Patient is quite tearful, anxious, and tremulous to visit today. Patient recently with increased respiratory infection, treated with Bactrim, unclear if infection or Bactrim escalated or exacerbated his RA, is back to his baseline at 7 mg, feels his RA flare is under control, this is mostly noted in his shoulder joint and hands. Patient continues to be quite discouraged as he is still dependent on tube feedings, is feeling like his speech has increased slurring, though on examination patient does have an exacerbation of his oral candidiasis suspect as a result of antibiotic and increased steroid use. Social History - Living Situation Living arrangement: At home Living Situation: With spouse/s.o., With family Support System: Patient's home life has increasingly became more chaotic. His is taken in the care of her disabled daughter, who has high care needs. He still has a [employer] worker assist with transportation, socialization, and care needs a couple times a week, this gives both patient and some relief. Continuing to struggle with clarification of insurance, has had another layer of stressors along with significant financial stressors Medications/Allergies - Medications Home Medications: Ambulatory Orders Medication Instructions Recorded Confirmed Lorazepam 0.5 mg PO Q8H PRN 10/29/16 07/29/18 Polyethylene Glycol 3350 [Miralax] 17 gm PO DAILY PRN 10/30/16 07/29/18 Ondansetron Odt [Zofran Odt] 1 tab PO TID PRN 01/13/17 07/29/18 predniSONE [Deltasone] 7 mg PO DAILY 02/25/17 07/29/18 Hydrocodone/Acetaminophen 0.5 - 1 tab PO TID PRN 10/24/17 07/29/18 [Hydrocodone-Acetamin 5-325 mg] Fluconazole [Diflucan] 100 mg PEG DAILY MDD 3 days 07/29/18 07/29/18 - Allergies Allergies/Adverse Reactions: Allergies Allergy/AdvReac Type Severity Reaction Status Date / Time infliximab [From Remicade] Allergy Severe Anaphylaxis Verified 05/25/18 12:01 abatacept [From Orencia] Allergy Unknown Unknown Verified 05/25/18 12:01 amitriptyline AdvReac Dizziness Verified 05/25/18 12:01 mirtazapine AdvReac Dizziness Verified 05/25/18 12:01 sodium pentathol Allergy Intermediate Hives Uncoded 06/16/17 10:45 Review of Systems - Constitutional Constitutional: reports: Fatigue, Weight stable (164.4) - Eyes Eyes: reports: Vision loss - Ears, Nose & Throat Ears, Nose & Throat: reports: Hearing loss (right ear with increased pressure/decrease hearing; has not followed up on hearing test nor ENT), Postnasal drainage, Hoarseness, Dry mouth - Cardiovascular Cardiovascular: reports: Decr. exercise tolerance - Respiratory Respiratory: denies: SOB at rest - Gastrointestinal Gastrointestinal: reports: Other (continues with dependence on TF; able to drink water and liquids without texture). denies: Constipation - Genitourinary Genitourinary: reports: Frequency - Musculoskeletal Musculoskeletal: reports: Back pain, Muscle aches, Limited range of motion, Muscle weakness, Joint pain, Joint swelling, Assistive devices (uses cane) - Integumentary Integumentary: reports: Dryness - Neurological Neurological: reports: General weakness, Memory problems (mild STM) - Psychiatric Psychiatric: reports: Depression, Anxiety - All Other Systems All Other Systems: reports: Reviewed and negative Physical Exam - Vital Signs Pulse Rate: 76 Respiratory Rate: 18 O2 Saturation: 98 Blood Pressure: 143/96 - Physical Exam General Appearance: positive: Mild distress, Anxious Eyes Bilateral: positive: Other (periorbital edema) ENT: positive: Other (oral candidiasis; tongue and buccal areas) Neck: positive: Trachea midline, Stiff neck, Other (full right side) Cardiovascular: positive: Regular rate & rhythm Respiratory: positive: No respiratory distress, Breath sounds nml Abdomen: positive: Other (PEG) Skin: positive: Pallor, Dryness Extremities: positive: No pedal edema Neurologic/Psychiatric: positive: Oriented x3, Slurred/abnml speech, Depressed mood/affect, Flat affect Palliative Care - POLST Patient has POLST: No Pain: Pain unchanged, Location (right neck area/base of tongue worse with swallowing/talking; radiates into jaw and ear; cont with "hernia" abdominal pain/discomfort; right shoulder pain discomfort; improves with OT/PT support; bilateral hands/RA recent flare) Tiredness/Fatigue: Severe (7-10) Drowsiness/Sedation: Severe (7-10) Nausea: Mild (1-3) Depression: Severe (7-10) Anxiety: Severe (7-10) Dyspnea: None Sleep: Variable sleep pattern (up at night to void 2 to feeding) Constipation: No Feelings of wellbeing/Perceived Quality of Life: Fair Performance Status: Patient was some decline in functional status secondary to recent acute illness and RA flare. Patient attempting to do ongoing walking program, does have PT/OT weekly, does find this to be both helpful for anxiety and increasing stamina. Rx provided for Joseph here in [place] to ease transportation issues. - Palliative Care Discussion: Patient presents with today, continues to struggle with multiple issues related to his physical and mental health. We have trialed multiple medications, patient does have increased sensitivity and poor outcomes with significant side effects usually. He is easily overwhelmed, and distraught with his current situation. 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 He continues to struggle with sequela of treatment side effects, including chronic pain, lymphedema, dysphagia with tube feeding dependence, Compounded by the complexity of his anxiety and depression. Palliative care continue to provide support to explore various issues impacting quality of life, providing suggestions, counseling, and encouragement. Recommendations/Counseling Done: 1. Oral candidiasis. This most likely is attributed to recent antibiotic and increased steroid use, ordered nystatin, pharmacy called and there is a shortage of nystatin and not available. Order Diflucan solution; 100 mg for three days. Hopefully this will address the issue, and may need to repeat if not clear within 1 week. 2. Chronic pain syndrome. Again this is multifactorial most likely neuropathic in nature. Counseling provided regarding expectations of opioid use in the context of chronic pain, patient will trial cutting back and evaluating response. Given patient's multiple medication sensitivities, encouraged less medication for him is probably better. He is getting good relief with PT/OT, positive reinforcement for self-care behaviors regarding this. 3. Stage IV tongue cancer. Reviewed recommendations from Dr. Simms's visit in April with and patient, has not followed through on ENT referral with Dr. Rollins. Given patient's main complaints of hearing, discomfort, and swelling in the area recommended follow-up, will help facilitate this. 4. Anxiety. Unfortunately counseling resources are limited, and current waiting list they are closing down current counseling center of [facility]. Encouraged to try healing circles, reinforced often group work with those are going to similar situations can be of help, patient has many insights and is quite thoughtful and articulate would add to the conversation. Will reach out and see if [facility] case management would be an option for patient.Patient wanting to consider increasing Lorazepam, uses 0.5 mg an average of 2-3 times a day, counseling provided regarding concerns for long-term benzodiazepine use. Requested to stay in the allotted amount. 5. Dysphagia. Patient continues with tube feeding support, remains weight neutral 164.4. Has continued to have intermittent abdominal pressure with his inguinal hernia, continues to struggle with how best to integrate and manage day-to-day with all his multiple health issues. Time Spent: 60 minutes with getting 50% of this done in counseling regarding pain and symptom management issues, providing support and anticipatory guidance, palliative care continue given the complexity of patient's symptom management and mental health overlay issues.
== END 2018-07-29 13:01 | disposition home or self-care (01) ==
LOC: PC 13:00
PROVIDERS: ATTEND Nurse Practitioner Adult Health
DX: Z51.5 Encounter for palliative care (principal); C02.9 Malignant neoplasm of tongue, unspecified; F41.9 Anxiety disorder, unspecified; G89.4 Chronic pain syndrome; M06.9 Rheumatoid arthritis, unspecified; B37.9 Candidiasis, unspecified; I97.89 Other postprocedural complications and disorders of the circulatory system, not elsewhere classified; I89.0 Lymphedema, not elsewhere classified; L90.5 Scar conditions and fibrosis of skin; R47.02 Dysphasia; Z93.1 Gastrostomy status; R35.0 Frequency of micturition; H91.90 Unspecified hearing loss, unspecified ear; Z79.52 Long term (current) use of systemic steroids; Z79.891 Long term (current) use of opiate analgesic; Z92.21 Personal history of antineoplastic chemotherapy; Z92.3 Personal history of irradiation
CPT/HCPCS: 99215

== ENCOUNTER 2018-10-30 13:47 | Outpatient (CLI) | payer MEDICARE, MEDICAID ==
--- NOTE | 2018-10-30 19:01 | CONSULTATION NOTE ---
Palliative Care Follow Up - Referral Referring Provider: Dr. Delmar Monteiro Time of Visit: [id number] Referral setting: [facility] [place] Reason: Hx of Tongue Cancer/Anxiety/Chronic Pain - History of Present Illness Update Brief HPI Update: his is a 78-year-old gentleman status post modified radical next dissection for removal of the lymph node, it was negative for persistent tumor on 03/2017. 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 He does continue to struggle with ongoing fibrotic changes, lymphedema and scar tightness in his right neck, pain and dysphasia and remains on tube feedings. He had a brain MRI with contrast 01/2018 without evidence of metastatic disease, and CT of chest and neck show no evidence of disease recurrence most recently on 05/13/2018. Patient was recommended to follow-up with ENT Dr. Rollins, to allow direct oral cavity/oropharyngeal inspection, patient is not followed through on this. Oncologist also encouraged him followed by Dr. Yogi Vasquez, given patient's ongoing anxiety regarding continued sequela of his treatment status for counseling and guidance on postop complications. Both patient and do not feel this is realistic at this point in time given the multiple family stressors. Patient though encouraged at visit 07/29/2018 has still not followed up on ENT, discussed this is an important step, he is quite anxious about recurrence, but discussed if recurrence would be best found in survellience with ENT. Patient continues to struggle with his ongoing symptom burden, he does have a chronicity to his pain syndrome. He has continue to work on titrating back his hydrocodone/acetaminophen. He is currently at one half in the a.m., one half at noon, and 1 at bedtime. He supplements this with acetaminophen 500 mg. His pain is mostly localized again to his right neck and scar area. It does increase with talking, or oral intake, or increase activity involves neck and jaw. It does decrease with massage trigger release and work with the physical/OT therapist. Unfortunately after these sessions it only last about 12 hours, and then increases. He has been taught how to self massage and release tension, but gets very afraid of causing increased pain. His pain also radiates down into his right shoulder, and admits to quite often catastrophize and thoughts regarding his pain. Patient also has severe anxiety, this is at baseline issue for him now has increased with a variety of stressors including financial, social, and his disabled daughter is living at home. She does take a significant amount of energy both for patient and , both are getting quite burned out. He is also lost his caregiver recently, and this is limited his ability for transportation, and support for appointments. He is working on integrative techniques, meditation, deep breathing, is unable to find a counselor which she feels would be of help with his current insurance. Patient is doing a lot of reading around self-help, and is gaining some insights, including challenging unhelpful thoughts. Social History - Living Situation Living arrangement: At home Living Situation: With spouse/s.o., With family Support System: Patient lives at home with his , who herself is main caregiver at this point in time for their disabled daughter. He has been quite overwhelming to the both of them, but are not finding any relief as far as caregivers are placement options. He also have severe financial stressors, including an undependable car, which is made it more complicated. Medications/Allergies - Medications Home Medications: Ambulatory Orders Medication Instructions Recorded Confirmed Lorazepam 0.5 mg PO Q8H PRN 10/29/16 11/01/18 Polyethylene Glycol 3350 [Miralax] 17 gm PO DAILY PRN 10/30/16 11/01/18 Ondansetron Odt [Zofran Odt] 1 tab PO TID PRN 01/13/17 11/01/18 predniSONE [Deltasone] 7 mg PO DAILY 02/25/17 11/01/18 Hydrocodone/Acetaminophen 0.5 - 1 tab PO TID PRN 10/24/17 11/01/18 [Hydrocodone-Acetamin 5-325 mg] - Allergies Allergies/Adverse Reactions: Allergies Allergy/AdvReac Type Severity Reaction Status Date / Time infliximab [From Remicade] Allergy Severe Anaphylaxis Verified 05/25/18 12:01 abatacept [From Orencia] Allergy Unknown Unknown Verified 05/25/18 12:01 amitriptyline AdvReac Dizziness Verified 05/25/18 12:01 mirtazapine AdvReac Dizziness Verified 05/25/18 12:01 sodium pentathol Allergy Intermediate Hives Uncoded 06/16/17 10:45 Review of Systems - Constitutional Constitutional: reports: Fatigue, Weight stable (170). denies: Fever, Chills - Eyes Eyes: reports: Vision loss, Corrective lenses - Ears, Nose & Throat Ears, Nose & Throat: reports: Hearing loss (right ear; no follow up done), Nasal congestion, Dental decay (Patient had poor dentition before he started, this was part of the delay for starting treatment. He reports he does have increased cavities, and more decay. We did discuss in the context of dry mouth and poor saliva production he is at high risk for more difficulty. Patient has no dental insurance, is hesitant to use [facility] the local clinic. Discussed the need for importance for dental health particularly in the context of his decreased saliva.), Dry mouth - Cardiovascular Cardiovascular: reports: Decr. exercise tolerance - Respiratory Respiratory: denies: SOB at rest - Gastrointestinal Gastrointestinal: reports: Other (Patient is on continuous tube feedings, he has been able to tolerate intermittent boluses, to accommodate when he is out. He can take about 3 to 4 ounces. He does get quite full, and sometimes nauseated when bolus feeding. He does feel quite tethered. His weight is remained stable though. He is taking smoothies, shakes, but continues with difficulty with swallow. Denies any recent choking or aspiration. He uses about 5 containers of Jevity daily.) - Genitourinary Genitourinary: reports: Frequency (finds this bothersome at night) - Musculoskeletal Musculoskeletal: reports: Muscle aches, Stiffness, Joint pain (right shoulder), Assistive devices (uses cane to walk; getting PT/OT) - Integumentary Integumentary: reports: Dryness - Neurological Neurological: reports: General weakness, Slurred speech - Psychiatric Psychiatric: reports: Depression, Anxiety - All Other Systems All Other Systems: reports: Reviewed and negative Physical Exam - Vital Signs Pulse Rate: 73 Respiratory Rate: 18 Blood Pressure: 137/93 - Physical Exam General Appearance: positive: Mild distress, Anxious Eyes Bilateral: positive: Normal inspection, Other (periorbital edema) ENT: positive: Other (no oral candidiasis noted today; patient difficulty with opening mouth) Neck: positive: Other (swelling right neck/scar) Cardiovascular: positive: Regular rate & rhythm Respiratory: positive: No respiratory distress Abdomen: positive: Soft Skin: positive: Pallor, Dryness Extremities: positive: No pedal edema Neurologic/Psychiatric: positive: Oriented x3, Slurred/abnml speech, Depressed mood/affect, Flat affect Palliative Care - POLST Patient has POLST: No POLST Status: Full Code Pain: Pain unchanged, Comment (working on titrating meds/ total use 2 hydrocodone 5 mg/325 mg APAP; 1500 mg APAP separate for total of 2200 mg APAP; Patient describes his pain at baseline as 6 out of 10, it does get down to 3 or 4 with the medication, and as high as 7-8 over 10 with increased talking and activity with his jaw) Tiredness/Fatigue: Moderate (4-6) Drowsiness/Sedation: Moderate (4-6) Nausea: None Depression: Severe (7-10) Anxiety: Severe (7-10) Dyspnea: None Anorexia: None Sleep: Sleeps poorly (up at night to void) Constipation: Yes, Opoid induced, Managed Feelings of wellbeing/Perceived Quality of Life: Fair, No change Performance Status: Patient is ambulatory with cane, does worry about balance. He is able to do his own ADLs if he paces himself. He is doing his own tube feedings, using [place] [facility] for assistance at times and transportation. He does continue to work with PT/OT with a focus on maintaining his current level of functioning and pain relief. - Palliative Care Discussion: Patient does feel like his quality of life is quite poor, he feels somewhat "victimized" by the sequela of his treatment and cancer. He expresses anger regarding a modified radical neck dissection, as he felt like they had minimized the procedure, and it has been the most detrimental as far as side effects. He is very anxious about following through with the ENT, we explored this anxiety, and reviewed patient would most likely benefit from addressing his fears, and identifying early recurrence if this indeed is what he is most fearful of, rather than delaying this as he would have better treatment options. He continues to be challenged by his anxiety, depression, and chronic pain. He is very much missing his prior caregiver Elvira, and has found it quite difficult to adjust to a new person, at this point he is without a caregiver support. He continues to struggle emotionally with not getting impatient with his daughter, feels like he is running out of energy in patients at times. They continue to be stressed by their financial and social stressors, as well as difficulty with reliable car. Impression and Recommendations - Palliative Care Impression: This is a 78-year-old gentleman was status post stage IV squamous cell carcinoma of the tongue base, who is received chemoradiation, and follow-up radical neck dissection on the right lymph node with no persistent tumor. He is now 2 years status post chemoradiation, and needs to follow through on active surveillance. He continues to struggle with the sequela of treatment side effects, most acutely from his right neck dissection on 03/2017 with pain and dysphagia, And tube feeding dependence.This is all compounded by the complexity of his anxiety and depression. Palliative care continues to provide support to manage quality of life issues, provide counseling, and encouragement. Recommendations/Counseling Done: 1. Chronic pain syndrome, right neck and shoulder. Again this is multifactorial most likely neuropathic in nature. He is done poorly on neuropathic medications in the past, is currently on hydrocodone 5 mg/acetaminophen 325 mg was supplemented 500 mg APAP. He has titrated down to 2 tabs total, we did discuss in the context of the extra acetaminophen, if he does not find this of benefit, would recommend titrating this off as well. He is getting good relief with PT/OT, counseling provided regarding encouragement to continue with self-care behaviors and management of his lymphedema. 2. Stage IV tongue cancer, status post treatment. Again reviewed recommendations from Dr. Monteiro, He can has not follow through on his ENT referral with Dr. Rollins. Despite his was going to help him coordinate this. Counseling provided in attempt to address patient's fears and concerns an d barriers for not going, his main complaints of hearing, discomfort, and swelling as well as surveillance is important for follow-up. He did verbalize understanding and agreed to go. 3. Oral candidiasis. This appears to be currently under control and resolved. Nystatin though is available again. 4. Dysphagia. Patient continues with tube feeding support, has gained few pounds up to 170. Patient continues to be somewhat tethered to his tube feeding, and finds this complicated for his mental health issues. Encouraged to use bolus feedings, to better integrate activity back into his life. 5. Anxiety. Patient is working on self-help separate from counseling, reading multiple books some meditation, chronic pain, challenging his catastrophic thinking. Not been able to locate a resource that he would qualify at this point in time, does have a name he may follow-up on. Finances remain quite problematic for them. Patient currently using lorazepam 0.5 mg twice daily. 6. Insomnia. This is multifactorial, but also influenced by his frequent urination. Patient does have a prescription of Flomax from Dr. Carlton, which he has had for several months. Patient is doing his tube feeding mostly from morning to evening, he does drink water and tea all day long. Did discuss limiting his oral intake after 5 to see if this decreases his need to be up at night. In reviewing his tube feeding and oral intake, I suspect this is actually more of a volume problem. Plan to meet with patient again in 2 to 3 months, patient is expected to follow- up with the ENT, Rx given for his hydrocodone. Time Spent: 60 minutes with greater than 50% of this done in counseling regarding pain, anxiety, surveillance of cancer, and anticipatory guidance.
== END 2018-10-30 13:48 | disposition home or self-care (01) ==
LOC: PC 13:47
PROVIDERS: ATTEND Nurse Practitioner Adult Health
DX: Z51.5 Encounter for palliative care (principal); G89.3 Neoplasm related pain (acute) (chronic); C01 Malignant neoplasm of base of tongue; M25.511 Pain in right shoulder; M54.2 Cervicalgia; F41.9 Anxiety disorder, unspecified; F32.9 Major depressive disorder, single episode, unspecified; R13.10 Dysphagia, unspecified; B37.0 Candidal stomatitis; G47.00 Insomnia, unspecified; R35.0 Frequency of micturition; H54.7 Unspecified visual loss; K59.03 Drug induced constipation; T40.2X5D Adverse effect of other opioids, subsequent encounter; Z93.1 Gastrostomy status; Z79.891 Long term (current) use of opiate analgesic; Z79.52 Long term (current) use of systemic steroids; Z92.3 Personal history of irradiation; Z92.21 Personal history of antineoplastic chemotherapy
CPT/HCPCS: 99215

== ENCOUNTER 2019-01-13 13:16 | Outpatient (CLI) | payer MEDICARE, MEDICAID ==
[2019-01-13] MEDS ORDERED: BARIUM SULFATE 176 GM BOTTLE PO ONE (14:26)
--- NOTE | 2019-01-14 09:40 | XRAY Report ---
Reason: MALIGNANT NEOPLASM OF WALDEYER'S RING,OTHER DYSPHA Procedure Date: 01/13/2019 Accession Number: [id number] / [id number] Procedure: FL - Modified Barium Swallow W/SP CPT Code: FULL RESULT: EXAM: MODIFIED BARIUM SWALLOW EXAM DATE: 01/13/2019 02:21 PM. CLINICAL HISTORY: Malignant neoplasm of Waldeyer's ring. COMPARISON: MODIFIED SWALLOW 07/01/2017 11:04 AM. TECHNIQUE: Under the direction of speech pathology, patient swallowed various consistencies of barium under lateral fluoroscopic observation of the neck. Fluoroscopy Time: 1 minute 59 seconds. Number of Images: 128. FINDINGS: Swallowing Mechanism: Normal oral phase and swallowing reflex. Airway Protection: Ineffective epiglottic motion. Persistent tracheal penetration or aspiration with all tested consistencies of barium. Pharynx: Mild amount of Vallecular contrast pooling with no significant piriform sinus contrast pooling. Other: The patient demonstrated improvement of airway protection with supraglottic swallow technique. IMPRESSION: Penetration, improved with supraglottic swallow. RADIA
== END 2019-01-13 13:17 | disposition home or self-care (01) ==
LOC: DI 13:16
PROVIDERS: ATTEND Otolaryngology
DX: R13.19 Other dysphagia (principal); C14.2 Malignant neoplasm of Waldeyer's ring
CPT/HCPCS: 74230; 92611; A9270

== ENCOUNTER 2019-02-16 12:10 | Outpatient (CLI) | payer MEDICARE, MEDICAID ==
--- NOTE | 2019-02-16 15:55 | CONSULTATION NOTE ---
Palliative Care Follow Up - Referral Referring Provider: Dr. Delmar Monteiro Time of Visit: [id number] pm Referral setting: [facility] [place] Referral Reason: Chronic pain syndrome/Anxiety/Depression/s/p neck dissection & tongue ca - Information Sources Records reviewed: Previous records reviewed History/Review of Systems obtained from: Patient Exam limitations: No limitations - History of Present Illness Update Brief HPI Update: This is a 78-year-old gentleman status post modified radical neck dissection for removal of lymph node, it was negative for persistent tumor on 03/2017. 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 He continues to struggle with ongoing fibrotic changes, lymphedema, start tightness, pain with swallowing and talking, and dysphagia. He is Dr. Rollins for follow-up examination, he had a Laryngoscopy for surveillance, there was no abnormal findings, other than some pooling of secretions. He did have a swallow eval as a result of this appointment. And continues to have a very weak swallow, with incomplete epiglottal closure, is able to drink thickened liquids, and recommendation for follow-up speech therapy for swallowing. 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 He continues to have lymphedema, that waxes and wanes. He does feel with his recent weight gain 172.3 at the fullness of the weight in his neck and cheeks is adding to his discomfort as well as his belly. This puts his BMI at 28, he is still dependent on his tube feedings, he is on Jevity taking a total of 5 boxes. He is able to take oral fluids, which he does take probably around 60+ ounces as he sips frequently both on fluids, supplements, and tea. His pain is more sharp and shooting, he is on hydrocodone 1 tab 3 times daily, with only moderate benefit. He also has escalating anxiety, his life is pretty much centered around his appointments and managing his feedings. He is not been able to tolerate bolus feedings of greater than 3 ounces at a time, without fullness and/or diarrhea.We have tried multiple interventions for managing his anxiety pharmacologically, patient continues to work with meditation and cognitive behavioral techniques, with only limited success. He is quite isolated, and his social situation with his special needs daughter at home allows little support from his as she is a primary caregiver for her. Social History - Living Situation Living arrangement: At home Living Situation: With spouse/s.o., With family Support System: Patient had been receiving [place] [employer] support, but there is a significant shortage of caregivers. His is a primary caregiver for further special needs daughter, so there are many both social and financial stressors in the home setting. Medications/Allergies - Medications Home Medications: Ambulatory Orders Medication Instructions Recorded Confirmed Lorazepam 0.5 mg PO Q8H PRN 10/29/16 02/16/19 Polyethylene Glycol 3350 [Miralax] 17 gm PO DAILY PRN 10/30/16 02/16/19 Ondansetron Odt [Zofran Odt] 1 tab PO TID PRN 01/13/17 02/16/19 predniSONE [Deltasone] 7 mg PO DAILY 02/25/17 02/16/19 Hydrocodone/Acetaminophen 0.5 - 1 tab PO TID PRN 10/24/17 11/01/18 [Hydrocodone-Acetamin 5-325 mg] - Allergies Allergies/Adverse Reactions: Allergies Allergy/AdvReac Type Severity Reaction Status Date / Time infliximab [From Remicade] Allergy Severe Anaphylaxis Verified 05/25/18 12:01 abatacept [From Orencia] Allergy Unknown Unknown Verified 05/25/18 12:01 amitriptyline AdvReac Dizziness Verified 05/25/18 12:01 mirtazapine AdvReac Dizziness Verified 05/25/18 12:01 sodium pentathol Allergy Intermediate Hives Uncoded 06/16/17 10:45 Review of Systems - Constitutional Constitutional: reports: Fatigue, Weight gain (172.3). denies: Fever, Chills - Eyes Eyes: reports: Vision loss, Corrective lenses - Ears, Nose & Throat Ears, Nose & Throat: reports: Hearing loss (right ear; has not followed up with audiology), Nasal congestion, Dry mouth - Cardiovascular Cardiovascular: reports: Exertional dyspnea, Decr. exercise tolerance. denies: Palpitations, Edema - Respiratory Respiratory: reports: SOB with exertion. denies: SOB at rest - Gastrointestinal Gastrointestinal: reports: Bloating, Early satiety. denies: Constipation, Nausea - Genitourinary Genitourinary: reports: Frequency, Urgency, Incontinence - Musculoskeletal Musculoskeletal: reports: Muscle pain, Muscle aches, Stiffness, Limited range of motion, Muscle weakness, Joint pain (right shoulder), Assistive devices (use cane to assist) - Integumentary Integumentary: reports: Pruritis, Dryness, Pigment changes - Neurological Neurological: reports: General weakness, Memory problems - Psychiatric Psychiatric: reports: Depression, Anxiety - Hematologic/Lymphatic Hematologic/Lymphatic: denies: Recurrent infections - All Other Systems All Other Systems: reports: Reviewed and negative Physical Exam - Vital Signs Pulse Rate: 72 Respiratory Rate: 18 Blood Pressure: 147/89 - Physical Exam General Appearance: positive: Mild distress, Anxious Eyes Bilateral: positive: Normal inspection, Other (periorbital edema) ENT: positive: No signs of dehydration, Other (coating white tongue; does not appear to be cadidiases) Neck: positive: Trachea midline, Lymphadenopathy (R), Lymphadenopathy (L), Stiff neck Cardiovascular: positive: Regular rate & rhythm Respiratory: positive: No respiratory distress, Breath sounds nml Abdomen: positive: Soft, Nml bowel sounds Skin: positive: Pallor, Dryness, Rash Extremities: positive: No pedal edema. negative: Full ROM (llimited ROM right shoulder) Neurologic/Psychiatric: positive: Oriented x3, Slurred/abnml speech, Depressed mood/affect, Flat affect Palliative Care - POLST Patient has POLST: No POLST Status: Full Code Pain: Pain worsening, Location (right neck and shoulder; And hydrocodone first thing in the morning, and again 1 PM, and then 8 PM. He is using some supplemental acetaminophen with his total dose less than 2000 mg. He is working with therapies, does get good relief when they work and release the tightness and muscle tension in his shoulder, but unfortunately lasts about 24 hours. Aravind to do some strengthening and hope to improve the tightness. Patient has been trialed on multiple medications in the past, unable to find documentation in the last year of gabapentin/Lyrica he will go home and look at his notes. He is interested in trying again something for neuropathic pain. He does have many medication sensitivities and biases.) Tiredness/Fatigue: Moderate (4-6) Drowsiness/Sedation: Moderate (4-6) Nausea: Mild (1-3) Depression: Severe (7-10) Anxiety: Severe (7-10) Dyspnea: Mild (1-3) Anorexia: None Sleep: Sleeps poorly Constipation: Yes, Managed, Intermittent constipation Feelings of wellbeing/Perceived Quality of Life: Fair, No change Performance Status: Patient is doing very nice job with his therapies, is working to try and improve his support for his spinal accessory nerve palsy, he is working to diminish his lymphedema. He is trying his keep his lower extremity strength and, he is walking 20 minutes 1-2 times a day. He does feel like his whole day is just managing his appointments, tube feedings, and medications. He sleeps poorly at night as he is up every 2-3 hours to void. - Palliative Care Discussion: Given patient's social situation, patient is quite isolated. He would like to return to his [employer], though these are in his storage unit. He and his have very little time or interaction to support their relationship, in supporting the care of their daughter with disabilities. Patient does have underlying anxiety and depression, this is been exacerbated by his current sit uation. He remains quite hopeful for improvement in pain and anxiety, though we have limited tools in the context of pharmacologic medications that he is been able to tolerate and limited financial resources to better support alternatives. Patient continues to set goals, and participate in his care, but finds very few things that provide him relief or deejay. Impression and Recommendations - Palliative Care Impression: This is a 78-year-old gentleman was status post stage IV squamous cell carcinoma of the tongue who received chemoradiation, with follow-up radical modified neck dissection and right lymph node with no persistent tumor. He has had surveillance to Dr. Rollins in ENT, with no further evidence of disease. He has had follow-up with barium swallow, is to start speech for swallowing. Patient continues with chronic pain syndrome, as well as exacerbated anxiety and depression. Palliative care continue to provide support regarding quality of life issues. Recommendations/Counseling Done: 1. Chronic pain syndrome. 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 He is working with PT/OT for strengthening and intervention. He continues though to have fairly significant pain, is still using hydrocodone/ acetaminophen three times a day. Counseling provided and revisited question regarding other alternatives, believe have trialed gabapentin/Lyrica in the past. Patient will review his notes, we did discuss it as an option to add to his current regimen if he would like. He remains quite hesitant but also desperate to find relief with alternative medications. He is working with supportive nonpharmacologic but only with short-term results. 2. Stage IV tongue cancer, status post treatment. He did follow-up with ENT referral with Dr. Rollins, did get surveillance with no evidence of disease. He did have follow-up swallow eval, and will start in the near future speech therapy for swallowing. 3. Weight gain. This is had some unintentional consequences for patient, with increased fullness and exacerbation of his pain and discomfort. We did discuss in the context of his BMI he would be considered overweight, he could lose 5 pounds without any sequela. Discussed these he is way to do this, he will decrease in alternate 10/31 Jevity boxes. 4. Oral candidiasis. This is a currently under control and resolved, on exam still has slight white coating, but is doing good oral care with tongue scraping. Counseling provided regarding signs and symptoms of oral candidiasis. 5. Anxiety. Patient has been unable to find counseling our resources available to him given his Medicaid status. He is working onMeditation type techniques, distraction, but continues to struggle. He is using Lorazepam 0.5 mg half tab in the afternoon and 1 tab at night. Patient would like to trial half tab in the a.m., we did discuss benefits and burdens of adding to his benzodiazepine dosing, but given we have not been able to find another medication he is tolerated because of his side effects and sensitivities agreed to give a short- term trial. 6. Insomnia patient continues to be up frequently, patient has not been able to tolerate anything for his BPH. I suspect more has to do with his ongoing high intake of fluids. We have discussed this previously, and has been encouraged to limit his oral intake after 5 to decrease his need to be up every 2-3 hours as this does interfere with his sleep. Plan to meet again in 2 to 3 months, Rx for hydrocodone given. Patient will explore if he wants to add Lyrica, and will trial half tab Lorazepam in a.m. Time Spent: Time spent 65 minutes with greater than 50% of this done in counseling, review of current quality of life issues, and ongoing complicated pain syndrome.
== END 2019-02-16 12:11 | disposition home or self-care (01) ==
LOC: PC 12:10
PROVIDERS: ATTEND Nurse Practitioner Adult Health
DX: Z51.5 Encounter for palliative care (principal); G89.4 Chronic pain syndrome; F41.8 Other specified anxiety disorders; R13.10 Dysphagia, unspecified; R63.5 Abnormal weight gain; B37.0 Candidal stomatitis; G47.00 Insomnia, unspecified; N40.1 Benign prostatic hyperplasia with lower urinary tract symptoms; R35.0 Frequency of micturition; G58.8 Other specified mononeuropathies; Z79.891 Long term (current) use of opiate analgesic; Z79.899 Other long term (current) drug therapy; Z85.810 Personal history of malignant neoplasm of tongue; Z98.890 Other specified postprocedural states; Z92.3 Personal history of irradiation
CPT/HCPCS: 99215

== ENCOUNTER 2019-05-07 09:52 | Outpatient (CLI) | payer MEDICARE, MEDICAID ==
--- NOTE | 2019-05-07 12:36 | CONSULTATION NOTE ---
Palliative Care Follow Up - Referral Referring Provider: Dr. Delmar Monteiro Time of Visit: 04-09 Referral setting: [facility] [place] Referral Reason: Chronic Pain Syndrome/Anxiety/Depression/s/p neck dissection and tongue CA - Information Sources Records reviewed: Previous records reviewed History/Review of Systems obtained from: Patient, Family ( Jailyn present today) Exam limitations: No limitations - History of Present Illness Update Brief HPI Update: This is a 78-year-old gentleman status post modified radical neck dissection for removal lymph node, it was negative for persistent tumor on 03/2017. 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 He has been having escalating symptoms regarding late effects of his treatments, including lymphedema, neck tightness, pain with swallowing and talking escalating, and worsening dysphagia. He most recently had a barium swallow at [facility], with speech therapist. I do not have her report, but x- ray shows very poor swallow with repeated episodes of penetration and silent aspiration. He is quite distressed as his goals were to increase his ability to take in food and fluids, and has been put on more restrictive precautions. He is being followed by Dr. Sathya Rollins, at this point his not had any findings of abnormal concern, other than pooling of secretions. He continues to struggle with a sequela of his late effects of treatment, concern for spinal accessory nerve palsy with atrophy in his shoulder, ongoing and progressive pain issues in his neck. We have been trying to titrate him back on Lyrica, with limited success but some improvement in his pain. His lymphedema continues to be problematic, he does have a compression garment now. He is dependent on his tube feedings, is unable to tolerate bolus feedings, and thus is somewhat tethered to his schedule. His weight today is 170.4,. He continues with severe anxiety, exacerbated by his multiple medical problems, his schedule is mostly centered around his appointments. He has go to physical therapy twice a week, would like to start speech for therapy, insurance issues continue to be challenging as well as financial stressors. He continues to work with meditation and cognitive behavioral techniques, we were unable to find any medication other than scheduled Lorazepam to help with his underlying anxiety disorder without side effects. He is quite isolated in his social situation with special needs daughter at home, consumes much of the time and energy and his presents with caregiver fatigue. Social History - Living Situation Living arrangement: At home Living Situation: With spouse/s.o., With family Support System: Patient has been receiving [place] support, but there is a significant shortage of caregivers. So currently does not have a provider. Medications/Allergies - Medications Home Medications: Ambulatory Orders Medication Instructions Recorded Confirmed Lorazepam 1 mg PO Q8H PRN 10/29/16 05/10/19 Polyethylene Glycol 3350 [Miralax] 17 gm PO DAILY PRN 10/30/16 05/10/19 Ondansetron Odt [Zofran Odt] 1 tab PO TID PRN 01/13/17 05/10/19 predniSONE [Deltasone] 7 mg PO DAILY 02/25/17 05/10/19 Hydrocodone/Acetaminophen 0.5 - 1 tab PO TID PRN 10/24/17 05/10/19 [Hydrocodone-Acetamin 5-325 mg] Pregabalin [Lyrica] 25 mg PO TID MDD 100 mg titrating 05/10/19 05/10/19 - Allergies Allergies/Adverse Reactions: Allergies Allergy/AdvReac Type Severity Reaction Status Date / Time infliximab [From Remicade] Allergy Severe Anaphylaxis Verified 05/25/18 12:01 abatacept [From Orencia] Allergy Unknown Unknown Verified 05/25/18 12:01 amitriptyline AdvReac Dizziness Verified 05/25/18 12:01 mirtazapine AdvReac Dizziness Verified 05/25/18 12:01 sodium pentathol Allergy Intermediate Hives Uncoded 06/16/17 10:45 Review of Systems - Constitutional Constitutional: reports: Fatigue, Weight stable (170.5) - Eyes Eyes: reports: Blurred vision (cataracts), Vision loss - Ears, Nose & Throat Ears, Nose & Throat: reports: Hearing loss (right ear; has not followed through on hearing evaluation), Nasal congestion, Hoarseness, Dental decay (noted cavity), Dry mouth. denies: Dental pain - Cardiovascular Cardiovascular: reports: Exertional dyspnea, Decr. exercise tolerance - Respiratory Respiratory: denies: Cough, Wheezing, SOB at rest - Gastrointestinal Gastrointestinal: reports: Early satiety (tolerating about 4-5 boxes of Jevity daily). denies: Abdominal pain, Constipation - Genitourinary Genitourinary: reports: Frequency, Urgency - Musculoskeletal Musculoskeletal: reports: Stiffness (right shoulder and neck), Muscle weakness, Assistive devices (uses cane) - Integumentary Integumentary: reports: Dryness, Other (PEG exit site) - Neurological Neurological: reports: Dizziness, Memory problems (mild), Slurred speech (mechanical) - Psychiatric Psychiatric: reports: Depression, Anxiety - Hematologic/Lymphatic Hematologic/Lymphatic: denies: Anemia, Recurrent infections - All Other Systems All Other Systems: reports: Reviewed and negative Physical Exam - Vital Signs Pulse Rate: 67 Respiratory Rate: 18 O2 Saturation: 97 (ra @ rest) Blood Pressure: 140/91 - Physical Exam General Appearance: positive: Alert, Mild distress, Anxious Eyes Bilateral: positive: Normal inspection, Other (periorbital edema) ENT: negative: Other (no s/s candidiasis; difficulty with opening mouth; obvious dental decay on lower incisor) Neck: positive: Trachea midline, Other (lymphadema on right; not wearing compression stocking regularly) Cardiovascular: positive: Regular rate & rhythm Respiratory: positive: No respiratory distress, Breath sounds nml. negative: Wheezes, Rales, Rhonchi Abdomen: positive: Non-tender, Soft, Nml bowel sounds Skin: positive: Pallor, Dryness Extremities: positive: No pedal edema, Other (walk slow and measured) Neurologic/Psychiatric: positive: Oriented x3, Slurred/abnml speech (mechanical- more difficulty to understand), Depressed mood/affect, Flat affect Palliative Care - POLST Patient has POLST: No POLST Status: Full Code Pain: Pain worsening, Location (Pain is located on the right neck area radiating into the shoulder and increased tension. He does get relief with TENS unit intermittently used on trial from PT. Pain is sharp shooting in nature, thus we had initiated back the Lyrica 25 mg 3 times daily. He did feel initially this did help but feels like pain is worsening. He is trying to titrate off his hydrocodone, is currently 1-1/2 tabs total, but feels that this is better contro lled with the combination. Patient rates severity 7/10.) Tiredness/Fatigue: Moderate (4-6) Drowsiness/Sedation: Moderate (4-6), Comment (finds this as a SE of lyrica;) Nausea: Mild (1-3) Depression: Severe (7-10) Anxiety: Severe (7-10) Dyspnea: Mild (1-3) Anorexia: Mild (1-3) Sleep: Variable sleep pattern (up frequently to void) Constipation: Yes, Opoid induced, Managed Feelings of wellbeing/Perceived Quality of Life: Fair Performance Status: Patient is trying to stay functional, is participating in physical therapy as it both helps with his lymphedema management and his strengthening. He does have to pace himself as far as his ADLs. Is able to ambulate short distances, and uses his cane for balance issues. - Palliative Care Discussion: Patient presents with significant distress at his ongoing and progressive symptoms, and now worried about his risk for pneumonia and most likely not to be able to continue with oral intake. Speech therapy has recommended minimal oral intake secondary to the findings, though I do not have this on record. He is worried with the progressive nature of the pain, swelling, and swallowing issues his quality of life will continue to decline, and also worried about underlying recurrence of disease. Patient remains quite isolated, with multiple social and financial stressors. He continues to try and partner to improve his quality of life but remains quite challenged with the multiple barriers that come his way. 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 He has had surveillance with Dr. Rollins ENT, he had a follow- up barium swallow 05/03 that shows repeated episodes of penetration and silent aspiration. Patient continues with chronic pain syndrome, as well as exacerbated anxiety and depression. Palliative care continue provide support regarding focus on quality of life issues and coordination of care. Recommendations/Counseling Done: 1.Chronic pain syndrome. Patient has multifactorial pain, with several pain generators. He is working with PT/OT with the TENS unit, massage, and manipulation to decrease what is most likely spinal accessory nerve palsy. He also has lymphedema, does have us garment, but is not using consistently. He did want to rechallenge and try the Lyrica again, though he discontinued it last time secondary to perceived side effects. He has had some improvement in his severity of pain, is currently on 25 mg 3 times daily. He had been titrating back his hydrocodone, and is wondering if that is adding to his discomfort. Counseling provided regarding dosing of Lyrica, still at sub-therapeutic dosing, encouraged to increase by 25 mg every week if possible. He would like to pursue TENS unit, will follow up on current Medicare criteria. 2. Stage IV tongue cancer, status post treatment.Patient has had follow-up with Dr. Rollins for surveillance, the 's perception is was not complete given his gag reflex. We will follow-up on latest note, as had made the referral for follow-up barium swallow with speech. Patient and wondering about further imaging, will follow up with Dr. Monteiro if indicated. 3. Dysphagia. Patient presents is quite distressed by recent findings and recommendations. We will go ahead and order speech therapy for further evaluate and treat. Counseling provided regarding often can still continue with water, as this is not a high risk for pneumonia, but does not come with no risk. Would recommend get clarification and weigh benefits and burdens moving forward in the context of quality of life. anxious regarding patient's past history pneumonia, reminded she is currently not on chemotherapy and can be treated outpatient usually. Reviewed signs and symptoms. 4. Oral candidiasis. This is currently under control, patient continues to focus on good oral care. Unfortunately does have obvious cavity. Patient without dental insurance, recommended follow-up with [facility]. 5. Lymphedema right neck. Patient was instructed to wear his garment on a regular basis, this will increase his comfort, it is not for intermittent use. 6. Anxiety. Patient has been unable to find counseling resources, continues to work on his cognitive behavioral techniques with meditation and distraction. He is currently using lorazepam 0.5 mg a.m. and afternoon and 1 mg at night. We have trialed him on multiple other medications without success, and as tolerate Lorazepam despite its of benzodiazepine.
== END 2019-05-07 09:53 | disposition home or self-care (01) ==
LOC: PC 09:52
PROVIDERS: ATTEND Nurse Practitioner Adult Health
DX: Z51.5 Encounter for palliative care (principal); G89.4 Chronic pain syndrome; F41.9 Anxiety disorder, unspecified; I89.0 Lymphedema, not elsewhere classified; R13.19 Other dysphagia; T45.1X5S Adverse effect of antineoplastic and immunosuppressive drugs, sequela; T66.XXXS Radiation sickness, unspecified, sequela; Y84.2 Radiological procedure and radiotherapy as the cause of abnormal reaction of the patient, or of later complication, without mention of misadventure at the time of the procedure; K59.03 Drug induced constipation; T40.2X5A Adverse effect of other opioids, initial encounter; H91.91 Unspecified hearing loss, right ear; R06.02 Shortness of breath; R53.83 Other fatigue; Z79.899 Other long term (current) drug therapy; Z79.891 Long term (current) use of opiate analgesic; Z85.810 Personal history of malignant neoplasm of tongue; Z74.8 Other problems related to care provider dependency
CPT/HCPCS: 99215

== ENCOUNTER 2019-08-20 15:03 | Outpatient (CLI) | payer MEDICARE, MEDICAID ==
--- NOTE | 2019-08-20 16:38 | CONSULTATION NOTE ---
Palliative Care Follow Up - Referral Referring Provider: Dr. Delmar Monteiro Time of Visit: [id number] Referral setting: [facility] [place] Referral Reason: Chronic Pain Syndrome/Anxiety/Depression/s/p neck dissection and Tongue CA - Information Sources Records reviewed: Previous records reviewed History/Review of Systems obtained from: Patient, Family ( Jailyn) Exam limitations: No limitations - History of Present Illness Update Brief HPI Update: This is a 78-year-old gentleman following for the last 2 years, status post mo dified radical neck dissection for removal lymph node, was negative for persistent tumor on 03/2017. 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 He continues to experience symptoms of late effects of his treatments, including lymphedema of the right neck, neck tightness, pain with swallowing and talking, worsening dysphagia. He remains dependent on tube feedings, he has experienced persistent chronic pain, and has at baseline moderate to severe generalized anxiety disorder and depression. 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 We have experimented with different regimens, patient has significant side effects to most medications initially tried, at this point in time current regimen consists of 2-25 mg Lyrica in a.m., and 1 at night. He has scheduled hydrocodone 5 mg / 325 mg 1 3 times daily, we have trialed up and down and other medications without success. He supplements with APAP does not exceed the 3000 mg. He does have a fluctuating pattern of pain, with worst pain from 11 to 3 PM, it penetrates into where his residual tumor was in his mouth, as well as pain and discomfort in his neck, shoulder, and worsens with lymphedema. Is wearing his compression garment, for couple hours twice daily, does feel he keeps the lymphedema down. Would like follow-up to OT, for treatment on his right shoulder, neck area, and for strengthening as has found this helpful in the past. Patient also shared he had a lesion on forearm, on examination it is about 2.5 x 2.5 cm, with drainage, does easily bleed. When explored further patient had it biopsied in November 2018, never went back. Patient has high anxiety, reports did not feel connection with surgeon and did not want to initiate anything that was going to cause him more pain. We discussed in the context of this that waiting any further, would make the procedure more difficult and it needed to be taken care of. He did agree that I could follow-up and make arrangements with [facility]. Patient also reports left-sided inguinal hernia, reports had seen originally in ER, where they had reduced it. Patient is having to reduce it daily, with massage. He reports left-sided pain and pressure into the testicle area, is worse with standing. He has been living with this for about 8 months, has not followed through as was told if elective would not be paid for. Patient is having increased discomfort, is causing pain and interferes with walking, suspect he does meet the threshold for medical necessity at this point time, will include this and referral. Finally status post tongue cancer. Patient is having increased difficulty with hearing in his right ear, has not had any follow-up or surveillance recently regarding his cancer. Dr. Monteiro had referred on to Dr. Rollins for survellience given changes in his hearing, as well as most likely needs, will refer on to Dr. Rollins. Social History - Living Situation Living arrangement: At home Living Situation: With spouse/s.o., With family Support System: He lives at home with his , who is a primary caregiver for their daughter with special needs. This can cause significant anxiety and distress for patient, though does try to participate as much as he can. They have multiple stressors, dealing with insurance and specifically financial stressors as well. Medications/Allergies - Medications Home Medications: Ambulatory Orders Medication Instructions Recorded Confirmed Lorazepam 0.5 - 1 mg PO Q8H PRN MDD 3 mg 10/29/16 08/20/19 (using 2mg currently) polyethylene glycoL 3350 [Miralax] 17 gm PO DAILY PRN 10/30/16 08/20/19 Ondansetron Odt [Zofran Odt] 1 tab PO TID PRN 01/13/17 08/20/19 predniSONE [Deltasone] 7 mg PO DAILY 02/25/17 08/20/19 Hydrocodone/Acetaminophen 1 tab PO TID PRN MDD 4 tabs 10/24/17 08/20/19 [Hydrocodone-Acetamin 5-325 mg] Pregabalin [Lyrica] 25 mg PO TID MDD 2 am; 1 pm 05/10/19 08/20/19 Acetaminophen 500 mg PO Q6HR MDD 3000 mg all 08/20/19 08/20/19 sources - Allergies Allergies/Adverse Reactions: Allergies Allergy/AdvReac Type Severity Reaction Status Date / Time infliximab [From Remicade] Allergy Severe Anaphylaxis Verified 05/25/18 12:01 abatacept [From Orencia] Allergy Unknown Unknown Verified 05/25/18 12:01 amitriptyline AdvReac Dizziness Verified 05/25/18 12:01 mirtazapine AdvReac Dizziness Verified 05/25/18 12:01 sodium pentathol Allergy Intermediate Hives Uncoded 06/16/17 10:45 Review of Systems - Constitutional Constitutional: reports: Fatigue (improved), Weight loss (on purpose 167.6). denies: Fever, Chills - Eyes Eyes: reports: Vision loss, Corrective lenses - Ears, Nose & Throat Ears, Nose & Throat: reports: Hearing loss (right side), Nasal congestion, Dental decay - Cardiovascular Cardiovascular: reports: Lightheadedness (at times) - Respiratory Respiratory: reports: SOB with exertion. denies: Cough, Wheezing, SOB at rest - Gastrointestinal Gastrointestinal: reports: Constipation (managed with miralax), Other (using 4-5 boxes Jevity at baseline; cannot meet caloric needs with residual dysphagia; can take some water/tea). denies: Nausea - Genitourinary Genitourinary: reports: Frequency, Other (patient reports inguinal hernia; needs to be reduced daily for comfort) - Musculoskeletal Musculoskeletal: reports: Muscle aches (right shoulder/), Stiffness, Limited range of motion, Muscle weakness - Integumentary Integumentary: reports: Dryness, Other (basal cell CA on left forearm since 11/2018) - Neurological Neurological: reports: General weakness, Numbness (right side of neck), Memory problems (mild), Abnormal gait - Psychiatric Psychiatric: reports: Depression, Anxiety. denies: Suicidal - Hematologic/Lymphatic Hematologic/Lymphatic: denies: Recurrent infections - All Other Systems All Other Systems: reports: Reviewed and negative Physical Exam - Vital Signs Pulse Rate: 68 Respiratory Rate: 18 O2 Saturation: 96 (ra @ rest) Blood Pressure: 137/85 - Physical Exam General Appearance: positive: Alert, Anxious Eyes Bilateral: positive: Normal inspection, Other (periorbital edema) ENT: positive: No signs of dehydration, Other (poor dentition). negative: Oral lesions Neck: positive: Other (right neck dissection; mild swelling not increased from baseline; firm in area but no new masses) Cardiovascular: positive: Regular rate & rhythm Respiratory: positive: Other (soft mild exp wheeze on LLL; otherwise clear) Abdomen: positive: Non-tender, Soft, Nml bowel sounds, Other (Button (checked 10/2018 last changed) has kits) Skin: positive: Other (basal cell CA on left forearm; moist and draining; 2.5 cm round-patient reports enlarged;) Extremities: positive: No pedal edema Neurologic/Psychiatric: positive: Oriented x3, Depressed mood/affect Palliative Care - POLST Patient has POLST: No POLST Status: Full Code Pain: Pain worsening, Comment (see HPI) Tiredness/Fatigue: Moderate (4-6) Drowsiness/Sedation: Moderate (4-6) Nausea: Mild (1-3) Anorexia: Mild (1-3) Dyspnea: Mild (1-3) Depression: Severe (7-10) Anxiety: Severe (7-10) Feelings of wellbeing/Perceived Quality of Life: Fair, No change Sleep: Variable sleep pattern (up frequently to void) Constipation: Yes, Opoid induced, Intermittent constipation Performance Status: Patient has done better with working with physical therapy, though unfortunately have to private pay. He is able to ambulate longer distances, his gait is more steady, he is not using a cane today. He does have poor activity tolerance, and limited right shoulder arm mobility. This fluctuates as well, would like another referral to OT for further strengthening and management. - Palliative Care Discussion: Patient experiences severe anxiety and depression, his chronic pain exacerbates this. He feels overwhelmed and "damaged" by his cancer, and finds this has been a huge loss for him. 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 Patient has not followed through on several things, because of anxiety, he remains quite isolated with multiple social and financial stressors. He works very hard at trying to do things that can support his mental health and depression, as he has not tolerated any of the medications we have trialed. He currently is working with hypnosis, hoping to better control his pain and anxiety. He does perceive his quality of life as challenged, and worries about recurrence of disease. Impression and Recommendations - Palliative Care Impression: This is an anxious 78-year-old gentleman with status post stage IVb squamous cell carcinoma the tongue, who received chemoradiation, and in follow-up a full modified neck dissection with right lymph node with no persistent tumor. Patient continues with chronic pain syndrome, underlying generalized anxiety disorder, and fluctuating depression. Patient also presents with persistent basal cell carcinoma, as well as left inguinal hernia. Palliative care continue provide support regarding focus on quality of life issues, pain and symptom management, and coordination of care. Recommendations/Counseling Done: 1. Basal cell carcinoma of left forearm. Dressing changed, and referral called over to surgical center. Dr. Che no longer practicing there, will refer on to Dr. Rubio. This most likely will help his anxiety as she has a gentle approach. 2. Chronic pain syndrome. Patient has multifactorial pain, with several pain generators. He has been able to tolerate the Lyrica again, at this point in time to 25 mg in the a.m. and 1 at at bedtime, we have titrated various different combinations of this, with the side effect of drowsiness/dizziness being limiting. He has continued with his hydrocodone 5 mg / 325 mg scheduled 3 times daily, he does have days he needs rescue dosing for breakthrough pain, will renew prescription for maximum of 4 tabs daily. Patient in agreement for plan. Patient supplementing also with acetaminophen, does note not to exceed 3000 mg in combined. Will make OT referral for ongoing management of his right shoulder neck pain as well as lymphedema exercises. 3. Dysphagia. Patient had seen him last time the speech therapist, who recommended minimal oral intake secondary to poor swallow and episodes of penetration and concern for silent aspiration. Patient continues to be dependent on tube feedings, he will need his tube changed out, does have kit. This was relayed to Surgical Center, appears last time done was 10/2018. 4. Left inguinal hernia. Patient does present with increasing symptoms, needing to daily reduce, will have him follow-up with surgeon regarding options. Patient has severe anxiety regarding adding any more to his pain threshold, but would most likely benefit from surgical intervention. Patient has had right inguinal hernia repaired, with mesh and has questions regarding this as well. 5. Anxiety. Patient has been unable to find counseling resources, is currently working with hypnosis and feels this is improving things. He is currently using Lorazepam 0.5 mg in a.m. and afternoon and 1 mg at night. We have trialed him on multiple other medications without success, has tolerated Lorazepam and will continue despite it is a benzodiazepine. 6. Stage IVb tongue cancer status post treatment. Patient does have some diminished hearing in his right, has been referred to Dr. Rollins for ongoing surveillance, will go ahead and make referral, for follow-up. Time Spent: 55 minutes with greater than 50% of this done in counseling regarding pain and symptom management, adjustment illness, coordination of care regarding multiple quality of life issues.
== END 2019-08-20 15:04 | disposition home or self-care (01) ==
LOC: PC 15:03
PROVIDERS: ATTEND Nurse Practitioner Adult Health
DX: Z51.5 Encounter for palliative care (principal); G89.4 Chronic pain syndrome; C44.619 Basal cell carcinoma of skin of left upper limb, including shoulder; K40.90 Unilateral inguinal hernia, without obstruction or gangrene, not specified as recurrent; F41.1 Generalized anxiety disorder; F32.9 Major depressive disorder, single episode, unspecified; R13.10 Dysphagia, unspecified; H91.91 Unspecified hearing loss, right ear; R06.02 Shortness of breath; K59.03 Drug induced constipation; T40.2X5A Adverse effect of other opioids, initial encounter; C01 Malignant neoplasm of base of tongue; Z79.899 Other long term (current) drug therapy; Z79.891 Long term (current) use of opiate analgesic; Z93.1 Gastrostomy status; Z92.21 Personal history of antineoplastic chemotherapy; Z92.3 Personal history of irradiation; Z59.8 Other problems related to housing and economic circumstances
CPT/HCPCS: 99215

== ENCOUNTER 2019-09-17 06:49 | Day surgery (SDC) | payer MEDICARE, MEDICAID ==
[2019-09-17] MEDS ORDERED: LACTATED RINGERS 1,000 ML IV ONE (07:01)
--- NOTE | 2019-09-17 07:12 | ANESTHESIA ---
Pre-Anesthesia VS, & Labs - Diagnosis basal cell carcinoma left forearm - Procedure excision of basal cell carcinoma left forearm Vital Signs: Temp Pulse Resp BP Pulse Ox 36.4 C L 67 12 150/86 H 99 09/17/19 07:02 09/17/19 07:02 09/17/19 07:02 09/17/19 07:02 09/17/19 07:02 Height 5 ft 7 in Weight (kg) 74.5 kg Body Mass Index 24.6 - NPO >8 hours Home Medications and Allergies Lorazepam 0.5 - 1 mg PO Q8H PRN MDD 3 mg (using 2mg currently) 10/29/16 polyethylene glycoL 3350 [Miralax] 17 gm PO DAILY PRN 10/30/16 Ondansetron Odt [Zofran Odt] 1 tab PO TID PRN 01/13/17 predniSONE [Deltasone] 7 mg PO DAILY 02/25/17 Hydrocodone/Acetaminophen [Hydrocodone-Acetamin 5-325 mg] 1 tab PO TID PRN MDD 4 tabs 10/24/17 Pregabalin [Lyrica] 25 mg PO TID MDD 2 am; 1 pm 05/10/19 Acetaminophen 500 mg PO Q6HR MDD 3000 mg all sources 08/20/19 Allergies/Adverse Reactions: Allergies Allergy/AdvReac Type Severity Reaction Status Date / Time infliximab [From Remicade] Allergy Severe Anaphylaxis Verified 05/25/18 12:01 abatacept [From Orencia] Allergy Unknown Unknown Verified 05/25/18 12:01 amitriptyline AdvReac Dizziness Verified 05/25/18 12:01 mirtazapine AdvReac Dizziness Verified 05/25/18 12:01 sodium pentathol Allergy Intermediate Hives Uncoded 06/16/17 10:45 Anes History & Medical History - Anesthetic History Anesthesia Complications: reports: No previous complications Family history of Anesthesia Complications: Denies Family history of Malignant Hyperthermia: Denies - Medical History Cardiovascular: reports: Hypertension, Arrhythmia Pulmonary: reports: Pneumonia (about 2 years ago.), Shortness of breath Gastrointestinal: reports: GERD, Hiatal hernia, Chronic constipation, Other Urinary: reports: Benign prostate hypertrophy, Frequency, Kidney stones Neuro: reports: None Musculoskeletal: reports: None, Rheumatoid arthritis, Osteoporosis, Fatigue Endocrine/Autoimmune: reports: None Blood Disorders: reports: None, Anemia Skin: reports: Herpes zoster Smoking Status: Never smoker Psychosocial: reports: Anxiety - Surgical History General: Cholecystectomy, Appendectomy, Hiatal hernia repair Eyes Ears Nose Throat (EENT): Cataracts, Tonsil/Adenoidectomy Exam General: Alert, Oriented x3, Cooperative, No acute distress Dental: Poor dentition Mouth Openin Fingerbreadth Neck Mobility: Reduced Mallampati classification: IV Thyromental Distance: less than 4 cm Respiratory: Decreased breath sounds Cardiovascular: Regular rate, Normal S1, Normal S2, No murmurs Abdomen: Normal bowel sounds, Soft, No tenderness, No hepatospenomegaly, No masses Extremities: No clubbing, No cyanosis, No edema, Normal pulses, No tenderness/swelling Neurological: Normal gait, Normal speech, Strength at 5/5 X4 ext, Normal tone, Sensation intact, Cranial nerves 3-12 NL, Reflexes 2+ Mental/Cognitive Status: Alert/Oriented X3, Normal for patient Cognitive Status: Within normal limits Plan Anesthesia Type: MAC Consent for Procedure(s) Verified and Reviewed: Yes Code Status: Attempt Resuscitation ASA classification: 3-Severe systemic disease Is this case an emergency?: No
[2019-09-17] MEDS ORDERED: BUPIVACAINE 0.25% PF 10 ML VIAL ONE ×2 (07:20→07:40)
[2019-09-17] MEDS ORDERED: LIDOCAINE 1%-EPI 1:100000 20 ML MDV ONE (07:20)
[2019-09-17] MEDS ORDERED: CEFAZOLIN SODIUM IN 0.9 % NACL 2 GM/100 ML BAG IV ONE (07:23)
[2019-09-17] MEDS ORDERED: MIDAZOLAM 2 MG/2 ML VIAL IVP ONE (07:30)
[2019-09-17] MEDS ORDERED: fentaNYL 100 MCG/2 ML VIAL IVP ONE (07:30)
[2019-09-17] MEDS ORDERED: PROPOFOL 200 MG/20 ML VIAL IVP ONE (07:30)
[2019-09-17] MEDS ORDERED: LIDOCAINE-MPF 1% 30 ML VIAL ONE (07:41)
[2019-09-17] MEDS ORDERED: LIDOCAINE 1% 50 ML MDV SUBQ ONE (08:03)
[2019-09-17] MEDS ORDERED: BUPIVACAINE 0.25% PF 30 ML VIAL SUBQ ONE (08:03)
[2019-09-17 08:48] VITALS: BP 117/78
--- NOTE | 2019-09-17 11:15 | OPERATIVE REPORT ---
DATE OF SERVICE: 09/17/2019 Physician: Abdiel Zimmerman MD PREOPERATIVE DIAGNOSIS: Growing and bleeding basal cell skin cancer, left forearm. POSTOPERATIVE DIAGNOSIS: Growing and bleeding basal cell skin cancer, left forearm. PROCEDURE 1. Excision of a 2 cm basal cell skin cancer with a gross negative margin, measuring approximately 3 x 5 cm excision, total. 2. A 6 cm intermediate incision repair. SURGEON: Abdiel Zimmerman MD CLINICAL NUTRITION MANAGER: None. TYPE OF ANESTHESIA: Monitored anesthesia care, IV sedation and local anesthesia. COMPLICATIONS: None. SPECIMEN: Sent permanent for pathology. ESTIMATED BLOOD LOSS: Less than 5 mL DRAINS: None. INDICATIONS FOR PROCEDURE: The patient is a 78-year-old gentleman with a known basal cell skin cancer. He had a previous core biopsy. His skin cancer continues to enlarge, now continuously bleeds and weeps. He presents for excision. Risks discussed. Alternatives discussed. All questions answered and consent obtained. DESCRIPTION OF PROCEDURE: The patient was properly identified, brought to the operating room and placed in supine position. His head was placed and slightly upward, given his prior head and neck cancer. Mild sedation was given. Sequential compression devices were placed. He was prepped and draped in a sterile fashion and given preoperative antibiotics. Local anesthetic was given. An elliptical incision, again measuring approximately 3 x 5 cm was made around the anterolateral left forearm basal cell cancer. Dissection proceeded sharply followed by cautery. The specimen was removed down to fascia. Skin flaps were raised slightly, right lateral and left lateral. Deep subcutaneous tissue and dermis was then closed with multiple interrupted three point 4-0 Vicryl sutures. The epidermis was then closed with a running 4-0 nylon suture. Dressing was applied. He tolerated the procedure very well. TD: 09/17/2019 11:00 [email or web address]
== END 2019-09-17 06:50 | disposition home or self-care (01) ==
LOC: SDS 06:49
PROVIDERS: ATTEND Surgery
PROC: 0JBH0ZZ Excision of Left Lower Arm Subcutaneous Tissue and Fascia, Open Approach (ICD-10-PCS; 2019-09-17)
PROC: 0JQH0ZZ Repair Left Lower Arm Subcutaneous Tissue and Fascia, Open Approach (ICD-10-PCS; principal; 2019-09-17 07:30)
DX: C44.619 Basal cell carcinoma of skin of left upper limb, including shoulder (principal); I10 Essential (primary) hypertension; Z87.891 Personal history of nicotine dependence
CPT/HCPCS: 11606; 12032; J0690; J7120

== ENCOUNTER 2019-12-03 14:55 | Outpatient (CLI) | payer MEDICARE, MEDICAID ==
--- NOTE | 2019-12-03 16:57 | CONSULTATION NOTE ---
Palliative Care Follow Up - Referral Referring Provider: Dr. Nasir Carlton Time of Visit: [id number] Referral setting: [facility] [place] Reason: Chronic Pain syndrome/Anxiety/Depression/ s/p neck dissection and Tongue CA - Information Sources Records reviewed: Previous records reviewed History/Review of Systems obtained from: Patient Exam limitations: No limitations - History of Present Illness Update Brief HPI Update: This is a 79-year-old gentleman I have been following for the last 2+ years, status post modified radical neck dissection for removal lymph node, which was negative for persistent tumor in 03/2017. 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 He unfortunately continues to experience late effects of his treatments, include lymphedema of the right neck, neck tightness, pain with swallowing and talking, worsening dysphagia. 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 He continues remain dependent on tube feedings. Palliative care seeing patient for his persistent chronic pain, currently managed on hydrocodone 5/325 mg 3-4 tabs in 24 hours and Lyrica 25 mg tabs with a total of 4 tabs daily. Patient continues with high anxiety, has had trials on multiple anti-anxiety/antidepressants. Currently continues on his Lorazepam with moderate relief. Patient's anxiety has been exacerbated with the COVID-19, his increasing and ongoing stressors at home, as well as his long-term general anxiety disorder. Patient still has persistent pain in his left inguinal area, he has to reduce his inguinal. He has recovered from his basal cell excision on his left forearm, he has healed nicely. His other past medical history includes RA and hypertension Social History - Living Situation Living arrangement: At home Living Situation: With spouse/s.o., With family Support System: Patient lives at home with his , who has significant caregiving duties to their child with disabilities. She does have on the spectrum of autism, so COVID-19 and having to limit and spend their time at home, has caused significan t stressors for both of them. As she does not understand the current limitations, or the complications of when they are out. They also have significant financial stressors, and he has felt like he has had a worsening of his depression but is glad to be able to participate can in therapy. Medications/Allergies - Medications Home Medications: Ambulatory Orders Medication Instructions Recorded Confirmed Lorazepam 0.5 - 1 mg PO Q8H PRN MDD 3 mg 10/29/16 12/03/19 (using 2mg currently) polyethylene glycoL 3350 [Miralax] 17 gm PO DAILY PRN 10/30/16 12/03/19 Ondansetron Odt [Zofran Odt] 1 tab PO TID PRN 01/13/17 12/03/19 predniSONE [Deltasone] 7 mg PO DAILY 02/25/17 12/03/19 Pregabalin [Lyrica] 25 mg PO TID MDD 4 tabs 05/10/19 12/03/19 Hydrocodone/Acetaminophen 1 each PO Q6HR PRN #30 tablet 09/17/19 12/03/19 [Hydrocodone-Acetamin 5-325 mg] - Allergies Allergies/Adverse Reactions: Allergies Allergy/AdvReac Type Severity Reaction Status Date / Time infliximab [From Remicade] Allergy Severe Anaphylaxis Verified 05/25/18 12:01 abatacept [From Orencia] Allergy Unknown Unknown Verified 05/25/18 12:01 amitriptyline AdvReac Dizziness Verified 05/25/18 12:01 mirtazapine AdvReac Dizziness Verified 05/25/18 12:01 sodium pentathol Allergy Intermediate Hives Uncoded 06/16/17 10:45 Review of Systems - Constitutional Constitutional: reports: Fatigue, Weakness, Weight stable (166.1). denies: Fever, Chills - Eyes Eyes: reports: Vision loss, Corrective lenses - Ears, Nose & Throat Ears, Nose & Throat: reports: Hearing loss, Nasal congestion, Dry mouth, Other (worsening jaw tightness) - Cardiovascular Cardiovascular: reports: Decr. exercise tolerance - Respiratory Respiratory: reports: SOB with exertion. denies: SOB at rest - Gastrointestinal Gastrointestinal: denies: Constipation, Nausea - Genitourinary Genitourinary: reports: Frequency, Urgency - Musculoskeletal Musculoskeletal: reports: Muscle pain, Muscle aches, Stiffness, Limited range of motion (right shoulder), Muscle weakness, Assistive devices (uses cane) - Integumentary Integumentary: reports: Dryness - Neurological Neurological: reports: General weakness, Numbness, Slurred speech (mechanical) - Psychiatric Psychiatric: reports: Depression (worsening), Anxiety (worsening) - Hematologic/Lymphatic Hematologic/Lymphatic: denies: Recurrent infections - All Other Systems All Other Systems: reports: Reviewed and negative Physical Exam - Vital Signs Temperature: 36.8 C Pulse Rate: 66 Respiratory Rate: 18 Blood Pressure: 125/86 - Physical Exam General Appearance: positive: No acute distress, Alert, Anxious Eyes Bilateral: positive: Conjunctivae nml, No scleral icterus, Other (periorbital edema) ENT: positive: Other (some white coating/no s/s candidiasis) Neck: positive: Stiff neck, Other (lymphadema on right; hard to palpation around surgical incision line; no new masses appreciate) Cardiovascular: positive: Regular rate & rhythm Respiratory: positive: No respiratory distress, Breath sounds nml Abdomen: positive: Soft, Tenderness (left inguinal hernia/groin area), Other (PEG tube) Skin: positive: Pallor, Dryness, Bruising (UE), Wound (well healed surgical scar left forearm) Extremities: positive: No pedal edema Neurologic/Psychiatric: positive: Oriented x3, Slurred/abnml speech (mechancial but improved), Depressed mood/affect Palliative Care - POLST Patient has POLST: No POLST Status: Full Code Pain: Pain unchanged, Location (right jaw/neck shoulder area; sharp shooting pains; dull ache ; pain has remained persistent using 3-4 vicodin/3-4 lyrica 25 mg with moderate relief;) Tiredness/Fatigue: Severe (7-10) (feels with restarting therapy expects some improvement) Drowsiness/Sedation: Moderate (4-6) Nausea: Mild (1-3) Anorexia: Mild (1-3) (dependent on TF for nutrition; cannot tolerate boluses; using continuous at home; able to drink tea; can use Ensure when out and skipping infusion; aware of risk with dysphagia) Dyspnea: Mild (1-3) Depression: Severe (7-10) Anxiety: Severe (7-10) Feelings of wellbeing/Perceived Quality of Life: Fair, Worsening Sleep: Variable sleep pattern Constipation: Yes, Opoid induced, Managed Performance Status: Patient reported deconditioning, with initiation of COVID-19 restrictions. Has been mostly homebound, has found this both difficult for his emotional and physical health. He has restarted both OT and PT. He is hoping to improve both his endurance, fatigue, and decrease his pain. He is unable to drive, does use paratransit. He is able to manage most of his ADLs independently, as long as he paces activities. - Palliative Care Discussion: Patient continues to struggle with the chronicity of his symptoms, and his fluctuating depression and anxiety. This is been exacerbated by both internal and external stressors, he does have his daughter at home which has been complicated as far as her behavioral issues escalated with restrictions of needing to stay home. He is very much looking forward to having these lifted somewhat, though is aware of risk particularly in his immunocompromised state. He has been working with meditation, hypnosis, and self talk, he has not been able to find a counselor given his insurance and now with the restrictions. Patient continues to struggle with the long-term effects of his cancer treatment, particularly in the context of impact on his quality of life. Impression and Recommendations - Palliative Care Impression: This is a 79-year-old gentleman who continues to struggle with the consequences of the sequela of long-term effects from his treatment and follow-up on his Squamous cell stage IVb tongue cancer. Palliative care continues to support patient through management of his chronic pain, anxiety, fatigue, and persistent depression. Recommendations/Counseling Done: 1.Basal cell carcinoma of the left forearm. Patient has had surgery, has done well and healed. No further follow-up needed. Patient thankful for a smooth transition regarding this. 2. Chronic pain syndrome. Patient has multifactorial pain, several pain generators. He is currently titrating up and down on his Lyrica and Vicodin. Currently he is using total 100 mg of Vicodin, 25 mg capsules. Is continue with the hydrocodone 5/325 mg schedule III times a day, with exacerbation adding a fourth tab. Patient will be starting PT and OT, with focus on further augmentation of his pain management. 3. Dysphagia. Patient remains dependent on tube feedings, he is still due to have his tube changed out, has an appointment on 617. He is doing minimal oral intake, with mostly tea, occasional Ensure to make up for the time when he is not on his pump. 4. Left inguinal hernia. He does have increased discomfort regarding this, is needing to daily reduce 2 times a day. He has spoken with the surgeon on this, at this point in time we will continue to monitor. 5. Anxiety. Patient has continued to have escalating anxiety, particularly in the context of COVID-19 and needing to be at home. He is currently using lorazepam, we have trialed multiple other medications. He would like to consider trialing something else, I am hesitant given he has not tolerated anything up to this point in time. Will explore other options if available. 6. Stage IVb tongue cancer status post treatment. Patient believes he has seen Dr. Rollins since her last visit in July, will request note. Time Spent: 60 minutes with getting 50% of this done in counseling regarding pain and symptom management, management of anxiety and depression, and anticipatory guidance.
== END 2019-12-03 14:56 | disposition home or self-care (01) ==
LOC: PC 14:55
PROVIDERS: ATTEND Nurse Practitioner Adult Health
DX: Z51.5 Encounter for palliative care (principal); G89.4 Chronic pain syndrome; I89.0 Lymphedema, not elsewhere classified; R13.10 Dysphagia, unspecified; G58.9 Mononeuropathy, unspecified; R06.02 Shortness of breath; R53.83 Other fatigue; R53.1 Weakness; F41.9 Anxiety disorder, unspecified; K59.03 Drug induced constipation; T40.2X5D Adverse effect of other opioids, subsequent encounter; K40.90 Unilateral inguinal hernia, without obstruction or gangrene, not specified as recurrent; C44.619 Basal cell carcinoma of skin of left upper limb, including shoulder; C01 Malignant neoplasm of base of tongue; Z79.899 Other long term (current) drug therapy; Z79.891 Long term (current) use of opiate analgesic; Z79.52 Long term (current) use of systemic steroids; Z59.9 Problem related to housing and economic circumstances, unspecified; Z63.6 Dependent relative needing care at home; Z93.1 Gastrostomy status
CPT/HCPCS: 99215

== ENCOUNTER 2020-03-08 15:00 | Outpatient (CLI) | payer MEDICARE, MEDICAID ==
--- NOTE | 2020-03-08 17:41 | CONSULTATION NOTE ---
Palliative Care Follow Up - Referral Referring Provider: Dr. Nasir Carlton Time of Visit: [id number] Referral setting: [facility] [place] Referral Reason: Chronic Pain/Anxiety/S/p neck dissection and Tongue CA - Information Sources Records reviewed: Previous records reviewed History/Review of Systems obtained from: Patient Exam limitations: No limitations - History of Present Illness Update Brief HPI Update: This is a 79-year-old gentleman, who I been following status post modified radical neck dissection on right, for removal of lymph node, which was negative for persistent tumor in 03/2017. 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 He unfortunately is continue experience late effects of his treatments, including fluctuating lymphedema of the right neck, neck tightness and pain, pain with swallowing and talking, and worsening dysphagia and trismus. 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 Patient also does remain dependent on tube feedings, he uses a continuous pump as he does not tolerate bolus feedings. He is able to drink tea, but cannot sustain himself nutritionally. Patient does report worsening right hearing loss, reports some increasing intermittent memory loss in the context of word finding, and recall, and his concern today regarding impact of medications on his cognitive status. Palliative care has been seeing patient for his persistent chronic pain, currently managed on hydrocodone 5/325 mg acetaminophen 3 to 4 Tabs in 24 hours, and Lyrica 25 mg tabs with a total of 4 tabs daily, though is trying to titrate back as well. Patient continues with severe debilitating and high anxiety, has had trials on multiple antianxiety and antidepressants without toleration of side effects. Patient has been using lorazepam with moderate relief, but would like to try and titrate off. Patient's anxiety has been exacerbated with the COVID-19, the state of the world, and increasing and ongoing stressors at home on top of his long-term based general anxiety disorder. Patient has persistent pain in his left inguinal area, he does reduce it daily. He had seen the surgeon for possible surgery, at this point in time this is on hold unless he needs it urgently. He has also had surgery on his left forearm for basal cell, his other past medical history includes RA and hypertension. Social History - Living Situation Living arrangement: At home Living Situation: With spouse/s.o. Support System: Patient lives at home with his , who has significant caregiving duties of their child with disabilities. The daughter is on the spectrum of autism, so has been complicated with the limitations of the pandemic, and needing to spend time at home. This is because significant stressors for both of them. 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 Medications/Allergies - Medications Home Medications: Ambulatory Orders Medication Instructions Recorded Confirmed Lorazepam 0.5 - 1 mg PO Q8H PRN MDD 3 mg 10/29/16 03/08/20 (using 2mg currently) polyethylene glycoL 3350 [Miralax] 17 gm PO DAILY PRN 10/30/16 03/08/20 Ondansetron Odt [Zofran Odt] 1 tab PO TID PRN 01/13/17 03/08/20 predniSONE [Deltasone] 7 mg PO DAILY 02/25/17 03/08/20 Pregabalin [Lyrica] 50 mg PO TID MDD 6 -25 mg tabs 05/10/19 03/08/20 Hydrocodone/Acetaminophen 1 each PO Q6HR PRN #30 tablet 09/17/19 03/08/20 [Hydrocodone-Acetamin 5-325 mg] - Allergies Allergies/Adverse Reactions: Allergies Allergy/AdvReac Type Severity Reaction Status Date / Time infliximab [From Remicade] Allergy Severe Anaphylaxis Verified 05/25/18 12:01 abatacept [From Orencia] Allergy Unknown Unknown Verified 05/25/18 12:01 amitriptyline AdvReac Dizziness Verified 05/25/18 12:01 mirtazapine AdvReac Dizziness Verified 05/25/18 12:01 sodium pentathol Allergy Intermediate Hives Uncoded 06/16/17 10:45 Review of Systems - Constitutional Constitutional: reports: Fatigue, Weight gain (168). denies: Fever, Chills - Eyes Eyes: reports: Blurred vision (describes "floaters" and vision changes), Vision loss - Ears, Nose & Throat Ears, Nose & Throat: reports: Hearing loss (worsening;), Dental decay, Other (Trismus). denies: Dental pain - Cardiovascular Cardiovascular: denies: Chest pain, Edema - Respiratory Respiratory: denies: Cough, Wheezing, SOB at rest - Gastrointestinal Gastrointestinal: reports: Constipation (controlled with prune juice/fiber), Good appetite - Genitourinary Genitourinary: reports: Frequency, Urgency - Musculoskeletal Musculoskeletal: reports: Stiffness, Muscle weakness - Integumentary Integumentary: reports: Dryness - Neurological Neurological: reports: General weakness, Memory problems (concerned with word finding;) - Psychiatric Psychiatric: reports: Depression, Anxiety - Hematologic/Lymphatic Hematologic/Lymphatic: denies: Recurrent infections - All Other Systems All Other Systems: reports: Reviewed and negative Physical Exam - Vital Signs Temperature: 97.8 C Pulse Rate: 72 Respiratory Rate: 18 O2 Saturation: 97 (ra @ rest) Blood Pressure: 155/96 - Physical Exam General Appearance: positive: Alert, Mild distress, Anxious Eyes Bilateral: positive: Normal inspection, Conjunctivae nml, No scleral icterus ENT: positive: No signs of dehydration, Other (Trismus; open less than 1 cm: no s/s candidiasis) Neck: positive: Trachea midline, Other (mild lymphadema on right side; no palpable hard nodes) Cardiovascular: positive: Regular rate & rhythm Respiratory: positive: No respiratory distress, Breath sounds nml Abdomen: positive: Soft, Other (has Brenton button below sternum; no s/s infection) Skin: positive: Pallor, Dryness. negative: Bruising, Rash Extremities: positive: No pedal edema Neurologic/Psychiatric: positive: Oriented x3, Slurred/abnml speech (mechanical; fluent and understandable), Depressed mood/affect Palliative Care - POLST Patient has POLST: No Pain: Pain unchanged, Location (right neck and shoulder area; right knee and left inguinal hernia pain) Tiredness/Fatigue: Moderate (4-6) Drowsiness/Sedation: Moderate (4-6) Nausea: Mild (1-3) Anorexia: None Dyspnea: None Depression: Severe (7-10) Anxiety: Severe (7-10) Feelings of wellbeing/Perceived Quality of Life: Fair, Worsening Sleep: Variable sleep pattern Constipation: Yes, Opoid induced, Intermittent constipation Performance Status: Patient has been diligent and adhering to and trying to keep his functional status, is doing better with ambulation, and continues to participate fully in his therapy sessions. He feels this not only helps his physical health but also his emotional health.He is able to manage his own ADLs, he is dependent on paratransit and bus for transportation. - Palliative Care Discussion: Patient continues to express frustration with the fallout from the sequela of his cancer treatment. He is to be on active surveillance, and has been recommended to do this follow-up with Dr. Rollins through ENT. Patient gets very anxious regarding this, is unknown certain he would accept treatment even if he did have recurrent disease. He is willing today, to have follow-up particularly in the context of his worsening hearing. Patient expressing worsening anxiety, but does want to proceed with titrating off his Lorazepam. Did discuss my concerns, regarding anxiety has been somewhat debilitating to him in the past, but his father did have dementia so has concerns regarding his forgetfulness. We did agree to do a trial to see if it improves, but am concerned about his anxiety/depression Results - Lab Results Lab and Imaging Results: Last labs were in 2018, agreed would follow-up, and also check TSH. Will CC Dr. Nasir Carlton his PCP. Impression and Recommendations - Palliative Care Impression: This is a 79-year-old gentleman who continues to struggle with the consequences and sequela of long-term effects from his cancer and cancer treatment of his squamous cell stage IVb tongue cancer and neck dissection. Patient struggles with fluctuating anxiety and depression, continues with chronic pain and persistent fatigue. Palliative care continue provide support with a focus on quality of life issues. Recommendations/Counseling Done: 1. Left inguinal hernia. Patient anxious about proceeding with surgery, did follow-up with Dr. Rubio, at this point is not a crisis or acute, will continue to monitor for symptoms of demise or complications. Patient currently can reduce it, though it causes discomfort feels more comfortable with waiting at this point in time. 2. Chronic pain syndrome. This is multifactorial in origin, patient has several pain generators. He is currently titrating down on his Lyrica and Vicodin. He is participating in PT and OT, as a focus for augmentation of his pain management. We will continue to monitor. 3. Dysphagia. Patient remains dependent on tube feedings, he has had his tube changed out. He is doing T but minimal oral intake, occasional Ensure when he is not on his pump. His does do nutritional smoothies, he is able to manage these, he is worried about weight gain. He is currently using 5 boxes of Jevity, discussed with his current weight 168, he could stop 1 of his Jevity's if he is doing the smoothie. Or he could alternate , patient is more comfortable closer to 1 6065. 4. Anxiety. Patient continues with escalating anxiety, particularly with external changes in environment, and pandemic. Patient is currently using Lorazepam, have trialed multiple other medications, he would like to titrate down. He does express concerns regarding cognitive changes, which definitely could be attributed to benzodiazepines, with word finding issues as well as intermittent short-term memory loss. His concern is his father did have dementia, patient is quite coherent and no symptoms of cognitive decline at time of visit. Patient will titrate down quite slowly, and see if tolerates. Again weighing benefits and burdens of quality of life issues, as his anxiety can be overwhelming. 5. Stage IVb tongue cancer with right lymph node dissection status post treatment. Patient does need ongoing surveillance, has been hesitant related to his anxiety, at this point in time needs his hearing check, is willing to follow-up, will send referral to Dr. Rollins. 6. Fatigue. This fluctuates and is multifactorial. Including side effects of medication, depression, but will rule out other concerns. Labs ordered with CBC, CMP, and TSH. Time Spent: 50 minutes with greater than 50% of this done in counseling regarding pain and symptom management, coordination of care for labs and referral to ENT.
== END 2020-03-08 15:01 | disposition home or self-care (01) ==
LOC: PC 15:00
PROVIDERS: ATTEND Nurse Practitioner Adult Health
DX: Z51.5 Encounter for palliative care (principal); K40.90 Unilateral inguinal hernia, without obstruction or gangrene, not specified as recurrent; G89.4 Chronic pain syndrome; R13.10 Dysphagia, unspecified; F41.9 Anxiety disorder, unspecified; R25.2 Cramp and spasm; K59.03 Drug induced constipation; R53.83 Other fatigue; Z93.1 Gastrostomy status; Z85.810 Personal history of malignant neoplasm of tongue
CPT/HCPCS: 99215

== ENCOUNTER 2020-03-10 11:01 | Outpatient (CLI) | payer MEDICARE, MEDICAID ==
[2020-03-10 11:25] LABS: BASOPHILS % (AUTO) 0.5 %; EOSINOPHILS % (AUTO) 0.4 %; HGB - HEMOGLOBIN 14.6 g/dL (14.0-18.0); LYMPHOCYTES # (AUTO) 1.7 10^3/uL (1.5-3.5); LYMPHOCYTES % (AUTO) 19.7 %; MEAN CORPUSCULAR HEMOGLOBIN 32.3 pg (27.0-31.0); MEAN CORPUSCULAR HGB CONC 32.5 g/dL (32.0-36.0); MEAN CORPUSCULAR VOLUME 99.3 fL (80.0-94.0); MEAN PLATELET VOLUME 9.5 fL (7.4-11.4); MONOCYTES # (AUTO) 0.6 10^3/uL (0.0-1.0); MONOCYTES % (AUTO) 7.6 %; NEUTROPHILS % (AUTO) 71.3 %; PLT - PLATELET COUNT 171 10^3/uL (130-450); RED BLOOD COUNT 4.52 10^6/uL (4.70-6.10); RED CELL DISTRIBUTION WIDTH 12.9 % (12.0-15.0); WHITE BLOOD COUNT 8.4 x10^3/uL (4.8-10.8)
[2020-03-10 11:40] LABS: ALBUMIN 4.2 g/dL (3.2-5.5); ALBUMIN/GLOBULIN RATIO 1.6 (1.0-2.2); BILIRUBIN,TOTAL 0.8 mg/dL (0.2-1.0); CALCIUM 9.5 mg/dL (8.5-10.3); CREATININE 0.7 mg/dL (0.6-1.2); TOTAL PROTEIN 6.8 g/dL (6.7-8.2)
== END 2020-03-10 11:02 | disposition home or self-care (01) ==
LOC: LAB 11:01
PROVIDERS: ATTEND Nurse Practitioner Adult Health
DX: Z79.899 Other long term (current) drug therapy (principal); R53.83 Other fatigue; D63.8 Anemia in other chronic diseases classified elsewhere
CPT/HCPCS: 36415; 80053; 84443; 85025

== ENCOUNTER 2020-07-05 13:00 | Outpatient (CLI) | payer MEDICARE, MEDICAID ==
--- NOTE | 2020-07-05 18:28 | CONSULTATION NOTE ---
Palliative Care Follow Up - Referral Referring Provider: Dr. Nasir Carlton Time of Visit: [id number] Referral setting: [facility] [place] Referral Reason: Neuropathic pain right neck/anxiety/s/p jamila dissectin of neck/tongue CA - Information Sources Records reviewed: Previous records reviewed History/Review of Systems obtained from: Patient Exam limitations: No limitations - History of Present Illness Update Brief HPI Update: This is a becky 79-year-old gentleman who has been following status post modified radical neck dissection on right, removal of lymph node which was negative for persistent tumor in 03/2017, he was originally diagnosed with 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 He unfortunately is continued to experience late side effects of his treatments, including fluctuating lymphedema of the right neck, neck tightness and pain, pain with swallowing and talking, and trismus. 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 He is dependent on tube feedings, uses continuous pump as does not tolerate bolus feedings. He is able to drink tea and fluids but cannot sustain himself nutritionally. Patient has had escalating pain and anxiety, with titration of his pain regimen. Palliative care seen patient today for his persistent chronic pain, neuropathic in nature centralized to right neck area. With intermittent sharp shooting pains, does have fluctuating pattern to it, currently has been titrated up to Lyrica 75 mg 3 times daily, supplemented with hydrocodone 5 mg / 325 mg 4 times a day. He has had escalating pain, most likely impacted also by his underlying general anxiety disorder, with worsening political situation and recent grief and loss attributed to his cat who passed in May. He does continue to deal with ongoing stressors both at home and in the context of the pandemic. Patient continues with intermittent persistent left inguinal pain from hernia, has seen Dr. Rubio recently for button replacement of tube feeding. This will continue to stay on hold unless he needs it urgently. He no longer attempts to reduce it. Past Medical History: Hypertension, depression, generalized anxiety disorder, RA Social History - Living Situation Living arrangement: At home Living Situation: With spouse/s.o., With family Support System: Patient lives at home with his , who presents with caregiver fatigue with ongoing duties of providing caregiving for their child with disabilities. The daughter is on the spectrum of autism so has been complicated with limitations of pandemic and needing to be isolated at home. They continue to experience financial stressors and increasingly feeling overwhelmed with the extended isolation/limitation of resources impacted by COVID19 Medications/Allergies - Medications Home Medications: Ambulatory Orders Medication Instructions Recorded Confirmed Lorazepam 0.5 - 1 mg PO Q8H PRN MDD 3 mg 10/29/16 07/06/20 (using 2.5 mg currently) polyethylene glycoL 3350 [Miralax] 17 gm PO DAILY PRN 10/30/16 07/06/20 Ondansetron Odt [Zofran Odt] 1 tab PO TID PRN 01/13/17 07/06/20 predniSONE [Deltasone] 7 mg PO DAILY 02/25/17 07/06/20 Pregabalin [Lyrica] 75 mg PO TID 05/10/19 07/06/20 Hydrocodone/Acetaminophen 1 each PO Q4HR PRN MDD 5 07/06/20 07/06/20 [Hydrocodone-Acetamin 5-325 mg] - Allergies Allergies/Adverse Reactions: Allergies Allergy/AdvReac Type Severity Reaction Status Date / Time infliximab [From Remicade] Allergy Severe Anaphylaxis Verified 05/25/18 12:01 abatacept [From Orencia] Allergy Unknown Unknown Verified 05/25/18 12:01 amitriptyline AdvReac Dizziness Verified 05/25/18 12:01 mirtazapine AdvReac Dizziness Verified 05/25/18 12:01 sodium pentathol Allergy Intermediate Hives Uncoded 06/16/17 10:45 Review of Systems - Constitutional Constitutional: reports: Fatigue, Weight stable (169.6). denies: Fever, Chills - Eyes Eyes: reports: Vision loss - Ears, Nose & Throat Ears, Nose & Throat: reports: Hearing loss (right ear), Postnasal drainage, Dental decay, Other (trismus) - Cardiovascular Cardiovascular: reports: Lightheadedness. denies: Chest pain - Respiratory Respiratory: denies: SOB at rest - Gastrointestinal Gastrointestinal: reports: Other (dependent on TF using 4.5 box avg daily). denies: Constipation - Genitourinary Genitourinary: reports: Frequency, Nocturia - Musculoskeletal Musculoskeletal: reports: Stiffness, Joint pain (right shoulder pain). denies: Assistive devices (gait improved/not needing cane) - Integumentary Integumentary: reports: Dryness - Neurological Neurological: reports: Slurred speech (mechanical;improved today; reports fluctuates) - Psychiatric Psychiatric: reports: Depression, Anxiety (exacerbated) - All Other Systems All Other Systems: reports: Reviewed and negative Physical Exam - Vital Signs Pulse Rate: 67 Respiratory Rate: 17 O2 Saturation: 98 (ra @ rest) Blood Pressure: 135/87 - Physical Exam General Appearance: positive: Alert, Mild distress, Anxious Eyes Bilateral: positive: Normal inspection, Conjunctivae nml, No scleral icterus ENT: positive: No signs of dehydration, Other (fullness bilaterally in cheeks/noted cushingnoid appearance; mild right swelling in neck; scar retracted) Neck: positive: Trachea midline, Other (mild lymphadema on right side; no palpable hard nodes) Cardiovascular: positive: Regular rate & rhythm Respiratory: positive: No respiratory distress, Breath sounds nml Abdomen: positive: Soft Skin: positive: Pallor, Dryness. negative: Bruising, Rash Extremities: positive: No pedal edema Neurologic/Psychiatric: positive: Oriented x3, Slurred/abnml speech (mechanical; fluent and understandable), Depressed mood/affect Palliative Care - POLST Patient has POLST: No Pain: Pain worsening, Severity (7/10), Pattern (fluctuates through day;), Comment (has been increasing over last few months; titrating Lyrica) Tiredness/Fatigue: Moderate (4-6) Drowsiness/Sedation: Severe (7-10) Nausea: Mild (1-3) Anorexia: Mild (1-3) Dyspnea: None Depression: Severe (7-10) Anxiety: Severe (7-10), Comment (have trialed multiple meds; lorazepam with least s/e) Feelings of wellbeing/Perceived Quality of Life: Fair, Worsening Sleep: Variable sleep pattern Constipation: Yes, Opoid induced, Managed Performance Status: Patient continues to make progress with his PT/OT and strengthening program. Patient is independent in his ADLs, is most often limited with his activity by needing to be hooked to his continuous feeding. - Palliative Care Discussion: Discussion and support focus on recent loss of beloved family pet, worsening political situation, and follow-up from pandemic with isolation and decreased resources. Patient continues to struggle with escalating anxiety, most likely exacerbated related to the above. Patient has not followed through on surveillance visit for status post tongue cancer with Dr. Rollins, strongly encouraged. Results - Lab Results Lab results reviewed: Yes Impression and Recommendations - Palliative Care Impression: This is a 79-year-old gentleman who continues to struggle with the consequences and sequela of long-term effects from his cancer and cancer treatment of his squamous cell stage IVb tongue cancer and right neck dissection. Patient with exacerbation of anxiety, worsening neuropathic pain in her right neck and shoulder, and persistent fatigue. Palliative care continue provide support with focus on quality of life issues and coordination of care. Recommendations/Counseling Done: 1. Neuropathic pain, right neck. Have titrated to effect, with some improvement Lyrica 75 mg 3 times daily. This is supplemented for breakthrough pain with hydrocodone 5 mg / 325 mg acetaminophen using max 4 tabs a day. Patient does have exacerbations, discussed benefits and burdens of increasing to 5 tabs in 24-hour. Will change prescription with next renewal, but encouraged to try alternative ways of pain management with distraction, relaxation, suspect this is somewhat impacted by his worsening anxiety. 2. Left inguinal hernia. Patient has follow-up with Dr. Rubio, at this point in time will monitor for symptoms, only intermittent discomfort and tolerable. Will defer to surgeon. 3. Dysphagia. Patient remains dependent on tube feedings, is doing alternate 4/5/4 boxes. Is remaining weight neutral, is able to take occasional Ensure when out and unable to get full feeding. He is able to take tea and fluids, and remains hydrated. Denies any choking, lungs are clear, though at aspiration risk has done well. 4. Anxiety. Patient continues with exacerbation of anxiety, particularly with external changes environment, pandemic, and recent loss. Patient is currently using lorazepam, had hoped to titrate back, recommended no further increase in use of alternative supportive ways of coping. Unfortunately limited resources for ongoing psychosocial support. 5. Stage IVb tongue cancer with right lymph node dissection status post treatment. Patient does need ongoing surveillance, multiple barriers related to follow through. Encouraged to follow-up with Dr. Rollins, referral has been sent and still current. Encouraged follow-up with [facility] transportation for assistance. Time Spent: 60 minutes with greater than 50% of this provided in counseling regarding counseling provided regarding pain management, safety, and ongoing review of chronic pain regimen, anticipatory guidance, and coordination of care with recommendation of follow thru Dr. Rollins for surveillience.
--- OUTSIDE RECORDS SUMMARY | 2020-07-12 00:53 | EXTERNAL MEDICAL SUMMARY RPT | Continuity of Care Document ---
:1940 Demographics Phone Unavailable Preferred Language Ugandan Marital Status Unknown Denominational Affiliation Unknown Race Unknown Ethnic Group Unknown Author Organization [facility] Address [address] [place] [address] Phone Care Team Providers Name Role Phone MD Unavailable Unavailable Carlton Unavailable Unavailable Problems date description facility 2020-03-22 14:45 PAIN IN RIGHT SHOULDER [facility] 2020-03-22 14:45 MUSCLE WEAKNESS (GENERALIZED) [facility] 2020-03-22 14:45 UNSTEADINESS ON FEET [facility] 2020-06-14 00:00:00 Exercise [facility] 2020-06-14 00:00:00 Details of drug misuse behavior [facility] 2020-06-14 00:00:00 [facility] 2020-06-14 00:00:00 Total score? [facility] 2020-06-14 00:00:00 [facility] Social History date description facility 2020-06-14 00:00:00 [facility] Social History date description facility 2020-06-14 00:00:00 [facility] date description facility [phone]
== END 2020-07-05 13:01 | disposition home or self-care (01) ==
LOC: PC 13:00
PROVIDERS: ATTEND Nurse Practitioner Adult Health
DX: Z51.5 Encounter for palliative care (principal); M54.2 Cervicalgia; R13.19 Other dysphagia; T45.1X5A Adverse effect of antineoplastic and immunosuppressive drugs, initial encounter; K40.90 Unilateral inguinal hernia, without obstruction or gangrene, not specified as recurrent; F41.9 Anxiety disorder, unspecified; Z85.810 Personal history of malignant neoplasm of tongue; Z93.1 Gastrostomy status
CPT/HCPCS: 99215

== ENCOUNTER 2020-11-22 13:02 | Outpatient (CLI) | payer MEDICARE, MEDICAID ==
--- NOTE | 2020-11-22 18:41 | CONSULTATION NOTE ---
Palliative Care Follow Up - Referral Referring Provider: Dr. Nasir Carlton Time of Visit: [phone] Referral setting: [facility] [place] Referral Reason: Chronic Pain/Anxiety/s/P jamila right dissection/tongue CA - Information Sources Records reviewed: Previous records reviewed History/Review of Systems obtained from: Patient Exam limitations: No limitations - History of Present Illness Update Brief HPI Update: This is a very anxious 80-year-old gentleman who I have been following status post modified radical neck dissection and right, removal of lymph node which was negative for persistent tumor in 03/2017, was originally diagnosed with stage IVb squamous carcinoma the right tongue base, and received definitive concurrent cis-[place] and radiation therapy completed 10/2016. He continues to experience late effects of his treatments, including fluctuating lymphedema of the right neck, neck tightness and pain, pain with swallowing and talking, and trismus. 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 Patient continues with residual pain, mostly neuropathic in nature as well as exacerbated by his lymphedema. He is currently working with a lymphedema device, that has improved both his pain, his swelling, and is feeling quite positive about this. He is currently taking pregabalin 50 mg a.m., 1475 mg, and at bedtime 50 mg. He does take a total of 4 hydrocodone 5 mg / 325 mg through the day response to escalating pain. Pain is escalated by talking, increase movement in his neck and jaw, as well as swallowing. He is dependent on tube feedings using continuous pump as he does not tolerate bolus feedings. He is able to drink tea and Ensure but cannot sustain himself nutritionally. Patient's pain is managed by pregabalin and hydrocodone, patient also has severe anxiety and has been trialed on multiple medications has not been able to tolerate because of side effects, so currently on lorazepam. Patient continues with intermittent persistent left inguinal pain from hernia, recently seen by Dr. Rubio for replacement of tube, had been having some persistent nausea which has since resolved. Past Medical History: Hypertension, depression, generalized anxiety disorder, RA Social History - Living Situation Living arrangement: At home Living Situation: With spouse/s.o., With family Support System: Patient lives at home with his , and his daughter who has significant disabilities. The daughter is on the spectrum of autism has been complicated with the limitations and pandemic, and is been having escalating behaviors. They are both exhausted and continued experience with financial stressors and increasingly feeling overwhelmed. They are coming to realization patient may need to be placed, this causes significant stress for patient as well. He is worried about his as well as his own caregiver fatigue, there are limited resources and even more limited with the outcome of the pandemic COVID-19 placement options. Medications/Allergies - Medications Home Medications: Ambulatory Orders Medication Instructions Recorded Confirmed Lorazepam 0.5 - 1 mg PO Q8H PRN MDD 3 mg 10/29/16 11/23/20 (using 2.5 mg currently) polyethylene glycoL 3350 [Miralax] 17 gm PO DAILY PRN 10/30/16 11/23/20 Ondansetron Odt [Zofran Odt] 1 tab PO TID PRN 01/13/17 11/23/20 predniSONE [Deltasone] 7 mg PO DAILY 02/25/17 11/23/20 Pregabalin [Lyrica] 75 mg PO .50 AM/PM,75 1400 05/10/19 11/23/20 Hydrocodone/Acetaminophen 1 each PO Q4HR PRN MDD 5 07/06/20 11/23/20 [Hydrocodone-Acetamin 5-325 mg] - Allergies Allergies/Adverse Reactions: Allergies Allergy/AdvReac Type Severity Reaction Status Date / Time infliximab [From Remicade] Allergy Severe Anaphylaxis Verified 05/25/18 12:01 abatacept [From Orencia] Allergy Unknown Unknown Verified 05/25/18 12:01 amitriptyline AdvReac Dizziness Verified 05/25/18 12:01 mirtazapine AdvReac Dizziness Verified 05/25/18 12:01 sodium pentathol Allergy Intermediate Hives Uncoded 06/16/17 10:45 Review of Systems - Constitutional Constitutional: reports: Fatigue (fluctuates), Weight stable (175.5 up a few pounds). denies: Fever, Chills - Eyes Eyes: reports: Vision loss - Ears, Nose & Throat Ears, Nose & Throat: reports: Hearing loss (right ear), Postnasal drainage, Dental decay (worsening), Other (trismus) - Cardiovascular Cardiovascular: reports: Lightheadedness. denies: Chest pain - Respiratory Respiratory: denies: Cough, SOB at rest - Gastrointestinal Gastrointestinal: reports: Constipation, Other (dependent on TF using 4.5 box avg daily) - Genitourinary Genitourinary: reports: Frequency, Nocturia - Musculoskeletal Musculoskeletal: reports: Stiffness, Joint pain (right shoulder pain; new left knee pain). denies: Assistive devices (gait improved/not needing cane) - Integumentary Integumentary: reports: Dryness - Neurological Neurological: reports: Slurred speech (mechanical;improved today; reports fluctuates) - Psychiatric Psychiatric: reports: Depression, Anxiety (exacerbated) - Hematologic/Lymphatic Hematologic/Lymph: denies: Recurrent infections - All Other Systems All Other Systems: reports: Reviewed and negative Physical Exam - Vital Signs Pulse Rate: 73 Respiratory Rate: 18 O2 Saturation: 97 (ra @ rest) Blood Pressure: 139/85 - Physical Exam General Appearance: positive: Alert, Mild distress, Anxious Eyes Bilateral: positive: Normal inspection, Conjunctivae nml, No scleral icterus. negative: Other (periorbital edema) ENT: positive: No signs of dehydration, Other (fullness bilaterally in cheeks/noted cushingnoid appearance; mild right swelling in neck; scar retracted; less lymphadema than previous visits). negative: ENT inspection nml (many broken teeth; some white coating on tongue) Neck: positive: Trachea midline, Other (no nodes papated) Cardiovascular: positive: Regular rate & rhythm Respiratory: positive: No respiratory distress, Breath sounds nml, Wheezes (RLL wheeze cleared with cough; attributed to Ensure "sticking") Abdomen: positive: Soft Skin: positive: Pallor, Dryness. negative: Bruising, Rash Extremities: positive: No pedal edema Neurologic/Psychiatric: positive: Oriented x3, Slurred/abnml speech (mechanical; fluent and understandable), Depressed mood/affect Palliative Care - POLST Patient has POLST: No Pain: Pain improved, Location (right neck), Severity (6/7), Comment (see HPI) Tiredness/Fatigue: Moderate (4-6) Drowsiness/Sedation: Severe (7-10) Nausea: None Anorexia: None Dyspnea: None Depression: Severe (7-10) Anxiety: Severe (7-10) Feelings of wellbeing/Perceived Quality of Life: Fair, No change Sleep: Variable sleep pattern Constipation: Yes, Opoid induced, Intermittent constipation Performance Status: Patient has been impacted with his ambulation with his sore right knee, for about a week. He does see PT is able to improve this. He is no longer working with a cane, can attend to his own ADLs, does have fluctuating fatigue. - Palliative Care Discussion: Patient has continued to not follow-up with ENT, as part of his follow-up and monitoring for recurrent cancer. He has such anxiety, he is afraid that they are going to give him bad news without any support as he does need to have a ride and [facility] would not be able to be there. We did discuss we could ask Dr. Rollins to call later with results of the examination, so he could feel more supported, he will think about this. His anxiety has been exacerbated and worsening with stressors related to his daughter, he is looking forward to getting a new cat, this is been something its brought him some deejay in anticipa tion. He has been working on making space for this and planning for this, he was quite devastated by the loss of his last pet. Impression and Recommendations - Palliative Care Impression: This is a 80-year-old gentleman who continues to struggle with the sequela of long-term effects from his cancer and cancer treatment of his squamous cell stage IVb tongue cancer and right neck dissection. Patient has had some good results from management of his lymphedema and his new machine, with improving pain and pressure. Patient has been continue to work with PT/OT and trying to focus on wellbeing. Patient has multiple stressors adding to his anxiety. Palliative care continue provide support with focus on quality of life issues and coordination of care Recommendations/Counseling Done: 1. Neuropathic pain, right neck. Patient has been able to titrate down Lyrica, he continues so to supplement his breakthrough pain with hydrocodone 5 mg / 325 mg max 4 tabs a day. Patient does have fluctuating pain, but feels currently is managing with current regimen. We will continue to monitor. 3. Dysphagia. Patient remains dependent on tube feedings, is trying to do 5 boxes a day. Is remaining fairly weight neutral, does take occasional Ensure when he is out. He is able to take teas and fluids has remained hydrated. Denies any choking, lungs are clear fluid aspiration risk. 4. Anxiety. Patient continues with multiple stressors, and exacerbation of anxiety particularly with caregiving of her daughter. Patient is currently using lorazepam, does incorporate meditation and distraction, unfortunately limited resources for ongoing psychosocial support. 5. Stage IVb tongue cancer with right lymph node dissection status post treatment. Patient does need ongoing surveillance, patient has multiple barriers related to follow through. Patient has been encouraged to follow-up with Dr. Rollins, reports he will that it continues to be fairly anxiety producing for him. 60 minutes with greater than 50% of this done in counseling regarding pain and symptom management, psychosocial support, and coordination of care.
== END 2020-11-22 13:03 | disposition home or self-care (01) ==
LOC: PC 13:02
PROVIDERS: ATTEND Nurse Practitioner Adult Health
DX: Z51.5 Encounter for palliative care (principal); R13.10 Dysphagia, unspecified; R25.2 Cramp and spasm; R60.0 Localized edema; T45.1X5S Adverse effect of antineoplastic and immunosuppressive drugs, sequela; F41.9 Anxiety disorder, unspecified; C02.9 Malignant neoplasm of tongue, unspecified; Z93.1 Gastrostomy status
CPT/HCPCS: 99215

== ENCOUNTER 2021-09-24 15:30 | Outpatient (CLI) | payer MEDICARE, MEDICAID ==
--- NOTE | 2021-09-24 17:09 | CONSULTATION NOTE ---
Palliative Care Follow Up - Referral Referring Provider: Dr. Nasir Carlton Time of Visit: 1530 60 min Referral setting: [facility] [place] Referral Reason: Chronic Pain/Anxiety/Depression/S/p right jamila dissection/hx tongue CA - Information Sources Records reviewed: Previous records reviewed History/Review of Systems obtained from: Patient Exam limitations: Clinical condition (anxiety) - History of Present Illness Update Brief HPI Update: This is a very anxious 80-year-old gentleman who has been following status post modified radical neck dissection on the right, with removal of lymph node that was negative. 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 He continues to experience late effects of the treatments including fluctuating lymphedema the right neck, neck tightness and pain, pain with swallowing and talking and trismus. 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 He continues to be supported by ongoing PT/OT. Patient continues with residual pain, describes mostly neuropathic in nature, though is exacerbated by his lymphedema. He does have a lymphedema "device" which has improved his pain and swelling. He continues to titrate his medications, he would like to try titrating down to 50 mg twice daily with 125 mg. His perception is that this clouds his thinking, though pain patient has been up and down multiple times. He is also taking hydrocodone 4 to 5 tablets in 24 hours, and is dependent on his lorazepam for his anxiety. He has not tolerated any other medications for his anxiety and depression. He is dependent on tube feedings, he does miss eating, uses continuous pump as he has not tolerated bolus feedings. He has been able to drink tea and Ensure has done some soups but is not able to do very much other than sips. Patient continues with intermittent persistent left inguinal pain from hernia.Patient has also had a recent flare in his right knee, he attributes this to his arthritis, he bumped up his prednisone to 10 mg, is currently taking 9 mg. Patient continues extremely anxious, still has not followed up with ENT as part of follow-up and monitoring for his recurrent cancer. He has had anxiety regarding this to further go in a "given bad news". Today he is talking about its been transportation issues, in particular related to working with [facility] services. He does feel like he is at a place that he can follow through on this as well as get transportation. Reiterated my concern about adequate monitoring and follow-up. The patient has been pretty clear that he would not choose treatment again, but in the context of continuing to manage his pain and pain medications would benefit from further evaluation. Past Medical History: Hypertension, depression, generalized anxiety disorder, RA Social History - Living Situation Living arrangement: At home Living Situation: With spouse/s.o., With family Support System: Patient lives at home with his , and his daughter has significant disabilities and behavior issues that are escalating. The daughter is on the spectrum of tested and has complicated with limitations of the pandemic, her care is increasing, is the main caregiver. They have not identified a plan for placement or other support. Patient feels quite poorly that it is very difficult for them to think into the future, though both are getting quite elderly and both are experiencing some fatigue regarding this. Medications/Allergies - Medications Home Medications: Ambulatory Orders Medication Instructions Recorded Confirmed Lorazepam 0.5 - 1 mg PO Q8H PRN MDD 3 mg 10/29/16 09/24/21 (using 2.5 mg currently) polyethylene glycoL 3350 [Miralax] 17 gm PO DAILY PRN 10/30/16 09/24/21 Ondansetron Odt [Zofran Odt] 1 tab PO TID PRN 01/13/17 09/24/21 predniSONE [Deltasone] 9 mg PO DAILY 02/25/17 09/24/21 Pregabalin [Lyrica] 50 mg PO TID MDD titrating down by 05/10/19 09/24/21 25 mg Hydrocodone/Acetaminophen 1 each PO Q4HR PRN MDD 5 07/06/20 09/24/21 [Hydrocodone-Acetamin 5-325 mg] - Allergies Allergies/Adverse Reactions: Allergies Allergy/AdvReac Type Severity Reaction Status Date / Time infliximab [From Remicade] Allergy Severe Anaphylaxis Verified 05/25/18 12:01 abatacept [From Orencia] Allergy Unknown Unknown Verified 05/25/18 12:01 amitriptyline AdvReac Dizziness Verified 05/25/18 12:01 mirtazapine AdvReac Dizziness Verified 05/25/18 12:01 sodium pentathol Allergy Intermediate Hives Uncoded 06/16/17 10:45 Review of Systems - Constitutional Constitutional: reports: Fatigue (fluctuates but feeling "bonks out" end of day), Weight stable (172). denies: Fever, Chills - Eyes Eyes: reports: Vision loss - Ears, Nose & Throat Ears, Nose & Throat: reports: Hearing loss (right ear; still has not followed up with ENT), Postnasal drainage, Dental decay (worsening), Other (trismus) - Cardiovascular Cardiovascular: reports: Lightheadedness, Decr. exercise tolerance. denies: Chest pain - Respiratory Respiratory: denies: Cough - Gastrointestinal Gastrointestinal: reports: Constipation, Other (dependent on TF using 4.5 box avg daily) - Genitourinary Genitourinary: reports: Frequency, Nocturia - Musculoskeletal Musculoskeletal: reports: Stiffness, Joint pain (right shoulder pain; new left knee pain). denies: Assistive devices (gait improved/not needing cane) - Integumentary Integumentary: reports: Dryness - Neurological Neurological: reports: Slurred speech (mechanical;improved today; reports fluctuates) - Psychiatric Psychiatric: reports: Depression, Anxiety (exacerbated) - All Other Systems All Other Systems: reports: Reviewed and negative Physical Exam - Vital Signs Pulse Rate: 80 Respiratory Rate: 18 O2 Saturation: 96 (ra @ rest) Blood Pressure: 146/97 - Physical Exam General Appearance: positive: Alert, Mild distress, Anxious Eyes Bilateral: positive: Normal inspection, Conjunctivae nml, No scleral icterus. negative: Other (periorbital edema) ENT: positive: No signs of dehydration, Other (fullness bilaterally in cheeks/noted cushingnoid appearance; mild right swelling in neck; scar retracted; less lymphadema than previous visits). negative: ENT inspection nml (many broken teeth; some white coating on tongue) Neck: positive: Trachea midline, Other (no nodes papated) Cardiovascular: positive: Regular rate & rhythm Respiratory: positive: No respiratory distress, Breath sounds nml, Wheezes (RLL wheeze cleared with cough; attributed to Ensure "sticking") Abdomen: positive: Soft Skin: positive: Pallor, Dryness. negative: Bruising, Rash Extremities: positive: No pedal edema Neurologic/Psychiatric: positive: Oriented x3, Slurred/abnml speech (mechanical; fluent and understandable), Depressed mood/affect, Flat affect Palliative Care - POLST Patient has POLST: No Pain: Pain unchanged, Severity (5/10), Comment (continues to titrate pain medicaitons; most relief from PT interventions) Tiredness/Fatigue: Severe (7-10) Drowsiness/Sedation: Severe (7-10) Nausea: None Anorexia: None Dyspnea: None Depression: Severe (7-10) Anxiety: Severe (7-10) Feelings of wellbeing/Perceived Quality of Life: Fair, Worsening Sleep: Sleeps poorly Constipation: Yes, Opoid induced, Managed Performance Status: Patient continues to work on maintaining his ambulation, balance, and addressing his upper extremity strength. He finds physical therapy and occupational therapy extremely helpful in keeping him engaged in this process. Patient does not drive, so does involve walking to different appointments and activities. Encouraged to continue focusing on keeping active. - Palliative Care Discussion: Patient continues to struggle with multiple stressors in his life, including his ongoing chronic pain and anxiety, worsening stressors related to his daughter, a nd worrying about his with caregiver burnout and fatigue. Patient is able to reflect on some interest that bring him deejay, he shared some of his becky poetry that he is focusing some of his positive energy on, and they were able to get a new cat. Patient is very sensitive and continues to grieve for the many losses in his life. Results - Lab Results Lab results reviewed: Yes Lab and Imaging Results: Patient not had labs since 03/19 secondary not following through with primary care follow-up. Labs drawn, thyroid studies, CBC and CMP all within normal limits. Impression and Recommendations - Palliative Care Impression: This is a 80-year-old gentleman who continues to struggle with the sequela of long-term effects from his cancer and cancer treatment of his squamous cell stage IVb tongue cancer right neck dissection. Patient continues to work with his lymphedema management, with his machine as well as PT/OT. Patient continues to struggle managing his pain and anxiety, easily influencing each other, with multiple adjustments. Palliative care continue provide support with focus on quality of life issues and coordination of care. Recommendations/Counseling Done: 1. Stage IVb tongue cancer with s/p right lymph node dissection. Patient needs ongoing surveillance, patient has multiple barriers and stressors related to follow through. Patient has been encouraged to follow-up with Dr. Rollins, this is at the recommendation of oncology. Patient reports he will follow through, new referral will be sent. 2. Neuropathic pain, right neck. Patient continues to titrate up and down on his pregabalin and supplement for breakthrough pain with oxycodone 5 mg / 325 mg max 4 tabs a day. Patient has decided he wants to trial tapering off again. We will continue with pregabalin 50 mg 3 times daily for 1 week this is a decrease, then changed to 50 mg a.m., 25 mg midday, and 50 mg p.m. with goal to continue to titrate down 25 mg every few weeks. 3. Dysphagia. Patient remains dependent on tube feedings, is at 4.5 boxes a day average. He has remained weight neutral, does take Ensure and trialing liquids at times but unable to meet caloric needs. Denies choking, has not had any aspirating. Though remains at high risk. 4. Anxiety. Patient continues with multiple stressors and exacerbations of anxiety particularly with caregiving of his daughter. Patient is currently using lorazepam, does try to incorporate meditation and distraction, have trialed multiple medications patient with multiple reactions and barriers for trialing other meds. Patient also has limited resources for ongoing social /psychosocial support. Encouraged to continue with his writing, and pursuing his interest related to this. 5. Fatigue. This is multifactorial, will go ahead and evaluate thyroid function, and draw labs for CMP and CBC as it has been since 03/19. Patient is engaging in physical activity, caloric needs are being met, suspect impacted by his anxiety and depression as well. 60 minutes with review of labs, counseling regarding pain and symptom management, psychosocial support, and coordination of care.
== END 2021-09-24 15:31 | disposition home or self-care (01) ==
LOC: PC 15:30
PROVIDERS: ATTEND Nurse Practitioner Adult Health
DX: Z51.5 Encounter for palliative care (principal); C02.9 Malignant neoplasm of tongue, unspecified; G58.8 Other specified mononeuropathies; R13.19 Other dysphagia; F41.9 Anxiety disorder, unspecified; R53.83 Other fatigue
CPT/HCPCS: 99215

== ENCOUNTER 2021-09-24 16:33 | Outpatient (CLI) | payer MEDICARE, MEDICAID ==
[2021-09-24 16:51] LABS: BASOPHILS # (AUTO) 0.1 10^3/uL (0.0-0.1); BASOPHILS % (AUTO) 0.6 %; EOSINOPHILS % (AUTO) 0.1 %; HCT - HEMATOCRIT 48.7 % (42.0-52.0); LYMPHOCYTES # (AUTO) 1.4 10^3/uL (1.5-3.5); LYMPHOCYTES % (AUTO) 15.7 %; MEAN CORPUSCULAR HEMOGLOBIN 32.3 pg (27.0-31.0); MEAN CORPUSCULAR HGB CONC 32.9 g/dL (32.0-36.0); MEAN CORPUSCULAR VOLUME 98.2 fL (80.0-94.0); MEAN PLATELET VOLUME 9.7 fL (7.4-11.4); MONOCYTES # (AUTO) 0.9 10^3/uL (0.0-1.0); MONOCYTES % (AUTO) 10.1 %; NEUTROPHILS # (AUTO) 6.4 10^3/uL (1.5-6.6); NEUTROPHILS % (AUTO) 72.8 %; PLT - PLATELET COUNT 204 10^3/uL (130-450); RED BLOOD COUNT 4.96 10^6/uL (4.70-6.10); RED CELL DISTRIBUTION WIDTH 13.3 % (12.0-15.0); WHITE BLOOD COUNT 8.8 x10^3/uL (4.8-10.8)
[2021-09-24 17:08] LABS: ALBUMIN/GLOBULIN RATIO 1.5 (1.0-2.2); BILIRUBIN,TOTAL 0.5 mg/dL (0.2-1.0); CALCIUM 9.2 mg/dL (8.5-10.3); CREATININE 0.7 mg/dL (0.6-1.2); POTASSIUM 4.7 mmol/L (3.5-5.0); TOTAL PROTEIN 6.7 g/dL (6.7-8.2)
[2021-09-24 17:19] LABS: T4 (THYROXINE) 7.53 ug/dL (6.09-12.23)
[2021-09-24 17:23] LABS: THYROID STIMULATING HORMONE 0.97 uIU/mL (0.34-5.60)
== END 2021-09-24 16:34 | disposition home or self-care (01) ==
LOC: LAB 16:33
PROVIDERS: ATTEND Internal Medicine
DX: R53.83 Other fatigue (principal); Z79.899 Other long term (current) drug therapy
CPT/HCPCS: 36415; 80053; 84436; 84443; 85025

== ENCOUNTER 2023-09-08 08:00 | Outpatient (CLI) | payer MEDICARE | END 2023-09-08 23:59 | disposition home or self-care (01) | LOC: PC 08:00 | PROVIDERS: ATTEND Nurse Practitioner Adult Health | DX: Z51.5 Encounter for palliative care (principal); M05.60 Rheumatoid arthritis of unspecified site with involvement of other organs and systems; R25.2 Cramp and spasm; M62.81 Muscle weakness (generalized); F41.9 Anxiety disorder, unspecified; Z43.1 Encounter for attention to gastrostomy; G89.29 Other chronic pain; N39.44 Nocturnal enuresis; R35.0 Frequency of micturition; F32.A Depression, unspecified; R26.2 Difficulty in walking, not elsewhere classified; Z85.810 Personal history of malignant neoplasm of tongue; I89.0 Lymphedema, not elsewhere classified; M54.2 Cervicalgia; Z79.52 Long term (current) use of systemic steroids; R63.0 Anorexia; Z59.9 Problem related to housing and economic circumstances, unspecified | CPT/HCPCS: 99215 ==

== ENCOUNTER 2023-09-28 08:00 | Outpatient (CLI) | payer MEDICARE | END 2023-09-28 23:59 | disposition home or self-care (01) | LOC: PC 08:00 | PROVIDERS: ATTEND Nurse Practitioner Adult Health | DX: Z51.5 Encounter for palliative care (principal); C01 Malignant neoplasm of base of tongue; G89.29 Other chronic pain | CPT/HCPCS: 99426 ==

== ENCOUNTER 2023-10-28 08:00 | Outpatient (CLI) | payer MEDICARE | END 2023-10-28 23:59 | disposition home or self-care (01) | LOC: PC 08:00 | PROVIDERS: ATTEND Nurse Practitioner Adult Health | DX: Z51.5 Encounter for palliative care (principal); C01 Malignant neoplasm of base of tongue; G89.29 Other chronic pain | CPT/HCPCS: 99426 ==

== ENCOUNTER 2024-01-28 08:00 | Outpatient (CLI) | payer MEDICARE | END 2024-01-28 23:59 | disposition home or self-care (01) | LOC: PC 08:00 | PROVIDERS: ATTEND Nurse Practitioner Adult Health | DX: Z51.5 Encounter for palliative care (principal); C01 Malignant neoplasm of base of tongue; G89.29 Other chronic pain | CPT/HCPCS: 99426 ==

== ENCOUNTER 2024-02-23 13:38 | Outpatient (CLI) | payer MEDICARE ==
--- NOTE | 2024-02-23 16:38 | DEXA Report ---
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 Regions measur ed are the AP Spine, femoral neck, and if needed forearm. COMPARISON: 01/14/2022 FINDINGS: Lumbar Spine: Bone Mineral Density: 0.926 g/cm/cm,T score: -2.5. Since the most recent prior study, there has been a statistically significant increase in bone mineral density by 0.4 percent. Left Femoral Neck: Bone Mineral Density: 0.6-7 g/cm/cm, T score: -3.4. Left Hip: Bone Mineral Density: 0.66 to g/cm/cm,T score: -3.0. Since the most recent prior study, there has bee n a statistically significant decrease in bone mineral density by 0.6 percent. FRAX risk factors: None given. (T score greater or equal to -1.0: NORMAL) (T score from -1.1 to -2.4: OSTEOPENIA) (T score less than or equal to -2.5 to: OSTEOPOROSIS) Impression: By WHO criteria, this patient has osteoporosis. Interval statistical increase in bone mineral density of the lumbar spine. Interval statistical decre ase in bone mineral density of the hip. Patients with diagnosis of osteoporosis or osteopenia should have regular bone mineral density assess ment. For those eligible for Medicare, routine testing is allowed once every 2 years. Testing frequ ency can be increased for patients who have rapidly progressing disease or for those who are receivin g medical therapy to restore bone mass. Reviewed by: Ronaldo Lovett MD on 02/23/2024 4:37 PM PDT Approved by: Ronaldo Lovett MD on 02/23/2024 4:37 PM PDT Station ID: [id number]
== END 2024-02-23 13:39 | disposition home or self-care (01) ==
LOC: DI 13:38
PROVIDERS: ATTEND Family Medicine
DX: M81.0 Age-related osteoporosis without current pathological fracture (principal); Z79.52 Long term (current) use of systemic steroids